=== PATIENT | female | born 1950 | race Caucasian/White ===

== ENCOUNTER 2025-04-25 11:53 | Outpatient (CLI) | payer MEDICARE, OTHER, SELFPAY ==
--- OUTSIDE RECORDS SUMMARY | 2025-03-06 12:30 | XMS_ITS | Encounter Summary ---
Author Organization [facility] ystem Address [address] [place] [address] Care Team Providers Care Microbiological Analyst Name Role Phone KimMari burnett Coral ARGUETA Primary Care Provider [phone] Reason for Referral * Consultation (Routine) - Authorized Specialty Diagnoses / Procedures Referred By Contsharon smiley Referred To Contact Neurology Diagnoses Occipital neuralgia of right side Procedures DC OFFICE/OUTPATIENT NEW MODERATE MDM 45 MINUTES Bryce Hodge PA-C [address] [facility] [address] [place] [address] Phone: tel: fax: Albert Mora MD [address] [facility] [address] [place] [address] Phone: tel: fax: Referral ID Status Reason Start Date Expiration Date Visits Requested Visits Authorized [id number] Authorized Specialty Services Required 03/06/2025 06/05/2026 1 1 Reason for Visit * Reason Comments Occipital neuralgia of right side Encounter Details Date Type Department Care Team (Late st Contact Info) Description 03/06/2025 12:30 PM EDT Office Visit [facility] [address] [facility] [address] [place] [address] Bryce Hodge PA-C [address] [facility] [address] [place] [address] Occipital neuralgia of right side (Primary Dx) Social History Tobacco Use Types Packs/Day Years Used Date Smoking Tobacco: Former Cigarettes 0.5 7 0 07/27/1992 - 07/27/1999 Passive Smoke Exposure: Past Smokeless Tobacco: Never Tobacco Cessation:Counseling Given: No Alcohol Use Standard Drinks/Week Comments Not Currently 0 (1 standard drink = 0.6 oz pur e alcohol) special occassions AUDIT-C Answer Date Recorded Frequency of Alcohol Consumption Never 11/17/2018 Average Number of Drinks Not on file 019 Frequency of Binge Drinking Not on file 10/26 PHQ-2 Answer Date Recorded Retired PHQ-9: Brief Depression Severity Measure Score 0 04/06/2023 PHQ-2 Answer Date Recorded Patient Health Questionnaire-2 Score 0 11/03/2024 Comments No Sex and Gender Information Value Date Recorded Sex Assigned at Female 11/02/2024 5:07 PM EDT Legal Sex Female 11:34 AM EDT Gender Identity Not on file Sexual Orientation Straight 11/02/2024 5: 07 PM EDT documented as of this encounter Last Filed Vital Signs Vital Sign Reading Time Taken Comments Blood Pressure - - Pulse - - Temperature 36.3 C (97.3 F) 03/06/2025 12:33 PM EDT Respiratory Rate - - Oxygen Saturation - - Inhaled Oxygen Concentration - - Weight 77.8 kg (171 lb 8 oz) 03/06/2025 12:33 PM EDT Height 154.9 cm (5' 1 ) 03/06/2025 12:33 PM EDT Body Mass Index 32.4 03/06/2025 12:33 PM EDT documented in this encounter Progress Notes * Bryce Hodge PA-C - 03/06/2025 12:30 PM EDT Patient: Emely Villanueva : 1950 Primary Care Provider: Mari Alvarez DO Chief Complaint: Occipital neuralgia History of Present Illness: Ms. Villanueva is a very pleasant 74-year-old female who presents to the office today to follow-up regarding her right-sided occipital neuralgia. At her last appointment with me in November, patient stated that her pain had significantly improved with massage/heat and using a TENS unit. She has continued todo these things and has been seeing physical therapy twice a week for the last few months. Patient came into our office today because she states that her occipital neuralgia has since worsened since I last saw her and that the TENS unit is no longer helping. She states that the massages atphysical therapy will help lessen her pain, but only for a few hours. She has tried several neck injections with Dr. Padron in the past without any relief. She has tried dry needling without any relief. She has been on gabapentin 200mg TID and states that it did help her pain, but gave her some GI upset so she stopped taking it. Patient reports that since I last saw her, she has resumed taking the gabapentin to try to help her pain. Her pain is all located in the same area as it has been, behind and above her right ear. She has allodynia of this area that has gotten acutely worse to the point where she can no longer lay on a pillow at night on her R side. Review of Systems Constitutional: Positive for activity change. Negative for appetite change, chills, diaphoresis, fatigue, fever and unexpected weight change. HENT: Negative for congestion, dental problem, drooling, ear discharge, ear pain, facial swelling, hearing loss, mouth sores, nosebleeds, postnasal drip, rhinorrhea, sinus pressure, sinus pain, sneezing, sore throat, tinnitus, trouble swallowing and voice change. Eyes: Negative for photophobia, pain, discharge, redness, itching and visual disturbance. Respiratory: Negative for apnea, cough, choking, chest tightness, shortness of breath, wheezing andstridor. Cardiovascular: Negative for chest pain, palpitations and leg swelling. Gastrointestinal: Negative for abdominal distention, abdominal pain, anal bleeding, blood in stool,constipation, diarrhea, nausea, rectal pain and vomiting. Endocrine: Negative for cold intolerance, heat intolerance, polydipsia, polyphagia and polyuria. Genitourinary: Negative for decreased urine volume, difficulty urinating, dyspareunia, dysuria, enuresis, flank pain, frequency, genital sores, hematuria, menstrual problem, pelvic pain, urgency, vaginal bleeding, vaginal discharge and vaginal pain. Musculoskeletal: Positive for neck pain and neck stiffness. Negative for arthralgias, back pain, gait problem, joint swelling and myalgias. Skin: Negative for color change, pallor, rash and wound. Allergic/Immunologic: Negative for environmental allergies, food allergies and immunocompromised state. Neurological: Positive for dizziness, light-headedness and headaches. Negative for tremors, seizures, syncope, facial asymmetry, speech difficulty, weakness and numbness. Hematological: Negative for adenopathy. Does not bruise/bleed easily. Psychiatric/Behavioral: Negative for agitation, behavioral problems, confusion, decreased concentration, dysphoric mood, hallucinations, self-injury, sleep disturbance and suicidal ideas. The patientis not nervous/anxious and is not hyperactive. Past Medical History: Past Medical History: Diagnosis Date Adenomatous polyp of transverse colon 02/13/2020 Arthritis due to age Cervical disc disorder Chronic pain disorder Claustrophobia HL (hearing loss) 15 yrs use hearing aids Hyperlipidemia Hypertension Injury of breast, left 07/19/2021 pt fell on lt breast was bruised and very sore for several months Neck pain Obesity Visual impairment wear glasses Family History: Family History Problem Relation Age of Onset Breast cancer Mother 50 Cancer Mother Pancreatic and breast cancer Hypertension Mother Breast cancer Paternal Aunt 58 Colon polyps Paternal Uncle COPD Sister Ovarian cancer Neg Hx Colon cancer Neg Hx Social History: reports that she quit smoking about 25 years ago. Her smoking use included cigarettes. She started smoking about 32 years ago. She has a 3.5 pack-year smoking history. She has been exposed to tobaccosmoke. She has never used smokeless tobacco. She reports that she does not currently use alcohol. She reports that she does not use drugs. SMOKING STATUS: Non-smoker Surgical History: Past Surgical History: Procedure Laterality Date COLONOSCOPY 02/27/2020 Dr. Billings HYSTERECTOMY JOINT REPLACEMENT KNEE SURGERY Left OOPHORECTOMY OTHER SURGICAL HISTORY ENT Surgery ROTATOR CUFF REPAIR Right SINUS SURGERY TRIGGER POINT INJECTION Allergies: Chocolate, Latex, Propoxyphene, Banana, Cyclobenzaprine, Pineapple, Sulfa antibiotics, Codeine, Diphenhydramine, Hydrocodone, Kiwi, Meperidine, and Penicillins Physical Exam: Vital Signs:Temp 97.3 ??F (36.3 ??C) (Infrared) Ht 154.9 cm (61 ) Wt 77.8 kg (171 lb 8 oz) BMI 32.40 kg/m?? BMI: Body mass index is 32.4 kg/m??. Patient sitting in chair during examination. present for appointment Vital signs were reviewed and documented in the chart Patient appeared in good neurologic function with normal comprehension fluent speech Patient is very tender to touch of the R side of her head, behind and above her ear down to her neck Muscle bulk and tone normal Biceps 5 out of 5 strength, bilaterally Triceps 5 out of 5 strength, bilaterally Hip flexion 5 out of 5 strength, bilaterally Dorsiflexion 5 out of 5 strength, bilaterally Plantarflexion 5 out of 5 strength, bilaterally Gait normal intact No clonus or hoffmans Medical Decision Making Data Review: Cervical MRI (01/04/24) shows a several osteophytes throughout cervical spine. Several central disc osteophyte complexes present, spinal cord is patent. Cervical flexion/extension xray (06/22/24) shows arthritis present throughout cervical spine. Normal cervical alignment, no evidence of instability. Diagnosis: -Occipital neuralgia, R side Treatment Options: At this time, the only other suggestion that I have for the patient is to try some Botox injections. I referred her to neurology to see if they have any other suggestions and long-term management. Both the patient and I were in agreement that she can follow-up with us as needed. I advised the patient to call our office if she has any new symptoms, questions, or concerns. I am always happy to see Ms. Kay reynoso. Diagnosis Plan 1. Occipital neuralgia of right side Ambulatory Referral to Neurology documented in this encounter Plan of Treatment Upcoming Encounters Date Type Department Care Team (Late st Contact Info) Description 05/05/2025 8:00 AM EDT Office Visit [facility] [address] [place] [address] Mari Alvarez DO [address] [place] [address] 06/13/2025 2:00 PM EST Office Visit [facility] NE[facility] [address] [place] [address] Albert Mora MD [address] [place] [address] Scheduled Referrals Name Type Priority Associated Diagnoses Order Schedule Ambulatory Referral to Neurology Outpatient Referral Routine Occipital neuralgia of right side Ordered: 03/06/2025 documented as of this encounter Visit Diagnoses Diagnosis Occipital neuralgia of right side- Primary documented in this encounter Additional Health Concerns Assessment Noted Time PHQ-2 Depression Total Score: 1 12/03/19 24 10:27 AM EDT documented as of this encounter Care Teams Microbiological Analyst Relationship Specialty Start Date End Date Mari Alvarez DO [address] [place] [address] PCP - General Family Medicine 11/17/18 documented as of this encounter
--- OUTSIDE RECORDS SUMMARY | 2025-04-25 11:55 | XMS_ITS | Encounter Summary ---
Author Organization [facility] yste Address [address] [place] [id number] Care Team Providers Care Retoucher Photoengraving Name Role Phone Mari Alvarez DO Primary Care Provider Encounter Details Date Type Department Care Team (Latest Contact Info) Description 03/06/2025 Travel Social History Tobacco Use Types Packs/Day Years Used Date Smoking Tobacco: Former Cigarettes 0.5 7 0 07/27/1992 - 07/27/1999 Passive Smoke Exposure: Past Smokeless Tobacco: Never Alcohol Use Standard Drinks/Week Comments Not Currently [...] PM EDT documented as of this encounter Plan of Treatment Upcoming Encounters Date Type Department Care Team (Late st Contact Info) Description 05/05/2025 8:00 AM EDT Office Visit [facility] [address] [place] [phone] Mari Alvarez DO [address] [place] [place] [address] 06/13/2025 2:00 PM EST Office Visit [facility] NEUR[facility] [address] [facility] [address] [place] [phone] Albert Mora MD [address] [facility] [address] [place] [address] documented as of this encounter Visit Diagnoses Not on filedocumented in this encounter Additional Health Concerns Assessment Noted Time PHQ-2 Depression Total Score: 1 12/03/19 24 10:27 AM EDT documented as of this encounter Care Teams Retoucher Photoengraving Relationship Specialty Start Date End Date Mari Alvarez DO [address] [place] [place] [address] PCP - General Family Medicine 11/17/18 documented as of this encounter
--- OUTSIDE RECORDS SUMMARY | 2025-04-25 11:55 | XMS_ITS | Encounter Summary ---
Author Organization [facility] ystem Address [address] [place] [address] Care Team Providers Care Skiving Machine Operator Name Role Phone KimMari burnett Coral ARGUETA Primary Care Provider Reason for Visit * Reason Onset Date Comments Med Refill 03/31/2025 Encounter Details Date Type Department Care Team (Late st Contact Info) Description 03/31/2025 Refill [facility]UR[facility] [address] [place] [phone] Bryce Hodge PA-C [address] [facility] [address] [place] [address] Cervicalgia Social History Tobacco Use Types Packs/Day Years [...] [facility] [address] [place] [address] Mari Alvarez DO [address] [place], [place] [phone] 06/13/2025 2:00 PM EST Office Visit [facility] NEUROLOGY [address] [facility] [address] [place] [phone] Albert Mora MD [address] [facility] [address] [place] [address] documented as of this encounter Visit Diagnoses Diagnosis Cervicalgia documented in this encounter Additional Health Concerns Assessment Noted Time PHQ-2 Depression Total Score: 1 12/03/19 24 10:27 AM EDT documented as of this encounter Care Teams Skiving Machine Operator Relationship Specialty Start Date End Date Mari Alvarez DO [address] [place] [address] PCP - General Family Medicine 11/17/18 documented as of this encounter
--- OUTSIDE RECORDS SUMMARY | 2025-04-25 11:55 | XMS_ITS | Encounter Summary ---
Author Organization [facility] ystem Address [address] [place] [phone] Care Team Providers Care Principal Process Engineer Name Role Phone Mari Alvarez DO Primary Care Provider Reason for Visit * Reason Comments Med Refill Encounter Details Date Type Department Care Team (Late st Contact Info) Description 03/24/2025 Refill [facility] [address] [facility] [place] [phone] Mari Alvarez DO [address] [place] [address] Hyperlipidemia, unspecified hyperlipidemia type; Essential hypertension; Hypothyroidism, unspecified type Social History Tobacco Use Types Packs/Day Years [...] Description 05/05/2025 8:00 AM EDT Office Visit [facility] [address] [place] [address] Mari Alvarez DO [address] [place], [place] [id number] 06/13/2025 2:00 PM EST Office Visit [facility] NEUR[facility] [address] [place] [phone] Albert Mora MD [address] [facility] [address] [place] [address] documented as of this encounter Visit Diagnoses Diagnosis Hyperlipidemia, unspecified hyperlipidemia type Essential hypertension Unspecified essential hypertension Hypothyroidism, unspecified type documented in this encounter Additional Health Concerns Assessment Noted Time PHQ-2 Depression Total Score: 1 12/03/19 24 10:27 AM EDT documented as of this encounter Care Teams Principal Process Engineer Relationship Specialty Start Date End Date Mari Alvarez DO [address] [place] [address] PCP - General Family Medicine 11/17/18 documented as of this encounter
--- OUTSIDE RECORDS SUMMARY | 2025-04-25 11:55 | XMS_ITS | Encounter Summary ---
Author Organization [facility] ystem Address [address] [place] [id number] Care Team Providers Care Slubber Hand Name Role Phone KimMari burnett Coral ARGUETA Primary Care Provider Reason for Visit * Reason Onset Date Comments Med Refill 03/30/2025 Encounter Details Date Type Department Care Team (Late st Contact Info) Description 03/30/2025 Refill [facility] [address] [facility] [address] [place] [address] Daisy Proctor PA-C [address] [facility] [address] [place] [address] Cervicalgia Social History Tobacco Use Types Packs/Day [...] PM EDT documented as of this encounter Miscellaneous Notes * Telephone Encounter - Jerome Gleason RN - 03/30/2025 11:20 AM EDT Provider: Naveen Surgery/Procedure: CHRISTY Surgery/Procedure Date: Last visit: 03/06/25 Next visit: NA Reason for call: Refill request for gabapentin. Casey: 1 01/25/2025 [id number] Gabapentin 100MG Crou[place], [facility] 90.00 15 03 [place] Refill 11/10/2024 CAPS [facility] 1 11/10/2024 [id number] Gabapentin 100MG Croucher, [facility] 90.00 15 03 [place] New 11/10/2024 CAPS [facility] 1 09/08/2024 [id number] Gabapentin 100MG Mari Alvarez [facility] 90.00 30 03 [place] Refill 03/14/2024 CAPS [facility] 1 06/08/2024 [id number] Diazepam 10MG Eliud Estrella [facility] 3.00 1 01 [place] New 06/08/2024 TABS [facility] * Telephone Encounter - Dimple Curiel RegSched Rep - 03/30/2025 11:15 AM EDT Caller: SHYANNE ROB Relationship: SELF Best call back number: [phone] Requested Prescriptions: Requested Prescriptions Pending Prescriptions Disp Refills gabapentin (NEURONTIN) 100 MG capsule 90 capsule 2 Sig: Take 2 capsules by mouth 3 (Three) Times a Day. Indications: occipital neuralgia Pharmacy where request should be sent: [facility] Last office visit with prescribing clinician: 03-06-25EUGENIE DUKE Next office visit with prescribing clinician: Visit date not found Additional details provided by patient: SHE HAS 10 PILLS LEFT. THESE ARE GETTING HER THROUGH THE DAY, HELPING HER MANAGE HER PAIN. Does the patient have less than a 3 day supply: [x] Yes [] No Ilene Thorpe Rep 03/30/25 11:16 EDT documented in this encounter Plan of Treatment Upcoming Encounters Date Type Department Care Team (Late st Contact Info) Description 05/05/2025 8:00 AM EDT Office Visit [facility] [address] [place] [address] Mari Alvarez DO [address] [place] [address] 06/13/2025 2:00 PM EST Office Visit [facility] NEUR[facility] [address] [facility] [address] [place] [address] Albert Mora MD [address] [facility] [address] [place] [address] documented as of this encounter Visit Diagnoses Diagnosis Cervicalgia documented in this encounter Additional Health Concerns Assessment Noted Time PHQ-2 Depression Total Score: 1 12/03/19 24 10:27 AM EDT documented as of this encounter Care Teams Slubber Hand Relationship Specialty Start Date End Date Mari Alvarez DO [address] [place] [address] PCP - General Family Medicine 11/17/18 documented as of this encounter
--- OUTSIDE RECORDS SUMMARY | 2025-04-25 11:55 | XMS_ITS | Encounter Summary ---
Author Organization [facility] ystem Address [address] [place] [address] Care Team Providers Care Vocational Placement Specialist Name Role Phone KimMari burnett Coral ARGUETA Primary Care Provider Reason for Visit * Reason Onset Date Comments BRYCE DUKE-NEUROLOGY 03/30/2025 Encounter Details Date Type Department Care Team (Late st Contact Info) Description 03/30/[address] [facility] NEUR[facility]ERY [address] [place] [phone] Bryce Duke PA-C [address] [facility] [address] [place] [address] BRYCE DUKE-NEUROLOGY Social History Tobacco Use Types Packs/Day Years [...] encounter Miscellaneous Notes * Telephone Encounter - Dimple Curiel RegSched Rep - 03/30/2025 11:13 AM EDT Provider: BRYCE DUKE Caller: SHYANNE GONZALESLES Relationship to Patient: SELF Phone Number: [phone] Reason for Call: PATIENT STATES SHE CAN'T GET IN WITH NEUROLOGY UNTIL MAY. SHE WONDERED IF THERE WOULD BE ANYONE ELSE THAT SHE COULD GET IN QUICKER THAT SHE COULD BE REFERRED TO? PLEASE ADVISE. SHE STATES SHE IS EXPERIENCING A LOT OF PAIN. When was the patient last seen: 03-06-25 documented in this encounter Plan of Treatment Upcoming Encounters Date Type Department Care Team (Late st Contact Info) Description 05/05/2025 8:00 AM EDT Office Visit [facility] [address] [place] [address] Mari Alvarez DO [address] [place] [address] 06/13/2025 2:00 PM EST Office Visit [facility] [address] [facility] [address] [place] [address] Albert Mora MD [address] [place] [address] documented as of this encounter Visit Diagnoses Not on filedocumented in this encounter Additional Health Concerns Assessment Noted Time PHQ-2 Depression Total Score: 1 12/03/19 24 10:27 AM EDT documented as of this encounter Care Teams Vocational Placement Specialist Relationship Specialty Start Date End Date Mari Alvarez DO [address] [place] [address] PCP - General Family Medicine 11/17/18 documented as of this encounter
--- OUTSIDE RECORDS SUMMARY | 2025-04-25 11:55 | XMS_ITS | Clinical Summary ---
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 Role Phone Cathy MASCORRO, Mio Nice [phone] [ ] Conditions or Problems Problem Name Problem Code Onset Date Status Entry Date Provider Comment Standard Description Annotate Health maintenance 42785827 (SNOMED CT) 01/09 Active 01/09 Mio Morgan MD History AND physical examination Knee pain, left 34481575 (SNOMED CT) Active Judith W Knee pain Elevated LFTs 280491411 (SNOMED CT) Active Radha wells APRN Liver function tests outside reference range Leukopenia(doc ument type/cause) 693838692 (SNOMED CT) 03/01 Active 03/01 Gabriela Hebert Blood eosinophil number below reference range Benign Essential Hypertension 13481051 (SNOMED CT) Active Gabriela Hebert Benign hypertension Elevated liver function test 676952317 (SNOMED CT) 03/01 Active 03/01 Judith W Liver function tests outside reference range Elevated LFTs 515472219 (SNOMED CT) 03/01 Inactive 03/01 Mio Morgan MD Liver function tests outside reference range Leukopenia, mild 40674076 (SNOMED CT) 03/01 Inactive 03/01 Mio Morgan MD Leukopenia Other obesity due to excess calories 571527943 (SNOMED CT) 01/31 Active 01/31 Federica M Simple obesity Acquired absence of left knee joint Z89.522 (ICD-10-CM ) 01/24 Active 01/24 Gabriela Hebert Acquired absence of left knee Knee, left, subsequent encounter, infection/infl ammatory reaction due to internal joint prosthesis T84.54xD (ICD-10-CM ) 01/24 Active 01/24 Judith W Infection and inflammatory reaction due to internal left knee prosthesis, subsequent encounter P Acnes infection B96.89 (ICD-10-CM ) 01/24 Active 01/24 Judith W Other specified bacterial agents as the cause of diseases classified elsewhere Medications Medication Instructions Start Date Stop Date Generic Name NDC Provider FLUCONAZOLE 200 MG TABS Take one (1) tablet by mouth once daily FLUCONAZOLE 73072968741 Hero Hinojosa MD DOXYCYCLINE MONOHYDRATE 100 MG TABS one po bid DOXYCYCLINE MONOHYDRATE 09384287423 Mio Morgan MD DOXYCYCLINE HYCLATE 100 MG CAPS one po bid DOXYCYCLINE HYCLATE 72930166294 Mio Morgan MD DOXYCYCLINE HYCLATE 100 MG CAPS one po bid DOXYCYCLINE HYCLATE 20193936302 Mio Morgan MD DOXYCYCLINE HYCLATE 100 MG CAPS one po bid DOXYCYCLINE HYCLATE 36680978934 Radha Pruett APRN CEFTRIAXONE SODIUM 2 GM SOLR Rocephin 2gm IV q24hrs- INPAT CEFTRIAXONE SODIUM 47343826005 Clementine Zamorano RN FLUCONAZOLE 200 MG TABS Take one (1) tablet by mouth once daily FLUCONAZOLE 20102589234 Hero Hinojosa MD DIFLUCAN 150 MG TABS take one tablet daily FLUCONAZOLE 20190370611 Keith Morgan MD CEFTRIAXONE SODIUM 2 GM SOLR Rocephin 2gm IV q24hrs- INPAT CEFTRIAXONE SODIUM 52343218765 Rema Price CEFTRIAXONE SODIUM 2 GM SOLR 2gm IV Q24hrs/ INPAT CEFTRIAXONE SODIUM 55580160476 Rachel Mendiola RN DIFLUCAN 150 MG TABS take one tablet daily FLUCONAZOLE 68563958183 Keith Morgan MD CEFTRIAXONE SODIUM 2 GM SOLR 2gm IV Q24hrs/ INPAT CEFTRIAXONE SODIUM 65746361092 Rachel Mendiola RN VITAMIN D3 125 MCG (5000 UT) CAPS Take one by mouth daily CHOLECALCIFEROL 02687505693 Maricruz Peraltax SIMVASTATIN 20 MG TABS Take one by mouth daily SIMVASTATIN 27231107806 Maricruz Peraltax PRESERVISION AREDS 2 CAPS by mouth twice a day MULTIPLE VITAMINS-MINERALS 96823073651 Maricruz Cardenasdox PERCOCET 5-325 MG TABS Q4H/PRN OXYCODONE-ACETAMI NOPHEN 35389470606 Maricruz Cardenasdox NEURONTIN 300 MG CAPS Take one by mouth daily GABAPENTIN 29269705328 Maricruz Peraltax MS CONTIN 15 MG CR-TABS by mouth twice a day MORPHINE SULFATE 13097105749 Maricruz Cardenasdox MAXZIDE-25 37.5-25 MG ORAL TABLET Take one by mouth daily TRIAMTERENE-HCTZ 35381787483 Maricruz Cardenasdox LISINOPRIL 10 MG TABS Take one by mouth daily LISINOPRIL 73145444990 Maricruz Cardenasdox FERROUS GLUCONATE 324 (37.5 Fe) MG TABS Take one by mouth daily FERROUS GLUCONATE 70603418944 Maricruz Cardenasdox ELIQUIS 2.5 MG TABS by mouth twice a day APIXABAN 86465577981 Maricruz Cardenasdox COLACE 100 MG CAPS by mouth twice a day DOCUSATE SODIUM 26769424094 Maricruz Cardenasdox CITALOPRAM HYDROBROMIDE 20 MG TABS Take one by mouth daily CITALOPRAM HYDROBROMIDE 44435147420 Maricruz Wong ADULT ASPIRIN REGIMEN 81 MG ORAL TABLET DELAYED RELEASE Take one by mouth daily ASPIRIN 44672823523 Maricruz Wong Medications Administered No information available. Allergies, Adverse Reactions, Alerts Allergy Name Reaction Description Start Date Severity Statu s Provider HYDROCODONE-ACETAMINOP HEN Moderate Active Maricruz Wong DARVON Moderate Active Maricruz M addox CODEINE SULFATE Moderate Active Bet acosta Wong BENADRYL ALLERGY Moderate Active Be thany Wong DEMEROL Moderate Active Yoanna Latosha ow [facility] LATEX GLOVES SMALL Moderate Active Yoanna Dassow PENICILLIN G POT IN DEXTROSE Moderate Active Maricruz Wong Results Date Name Value Unit Range Flag Description External Other: Patient eusebio sandoval update - Email Push, [facility] [place] ... PAT E-MAIL sherri @[email or web address] patient's e-mail address External Other: Patient eusebio sandoval update - [place]Status, [facility] [place] PATPORTALPIN Linked This eliza l be used to establish a PIN number for patients to register in the Patient Portal. Lab Report: CLOSTRIDIUM DIFF ICILE TOXIN, PCR C DIFFIC TOX Not Detected Not Detect Clostridioides difficile toxin A+B [Presence] in Stool by Immunoassay Lab Report: C-REACTIVE PROTE IN CRP 0.39 mg/dL 0.00-0.50 C reactive protein [Mass/volume] in Serum or Plasma Lab Report: COMPREHENSIVE ME TABOLIC PANEL ANIONGAP 10.0 mmol/L 5.0-15.0 anion gap, serum BUN/CREAT 23.2 7.0-25.0 Urea nitrogen/Creatinine [Mass Ratio] in Serum or Plasma [id number]-GE-[id number] 1.8 g/dL GE use only - for LinkLogic import when terms are not otherwise specified GFRC 84 mL/min/1 .73m2 >60 Glomerular Filtration Rate Calculation BILI TOTAL 0.3 mg/dL 0.2-1.2 Bilirubin. total [Mass/volume] in Serum or Plasma ALK PHOS 55 U/L 39-117 Alkaline darrian sphatase [Enzymatic activity/volume] in Blood SGOT (AST) 20 U/L 1-32 Aspartate aminotransferase [Enzymatic activity/volume] in Serum or Plasma SGPT (ALT) 13 U/L 1-33 Alanine aminotransferase [Enzymatic activity/volume] in Serum or Plasma ALBUMIN 4.10 g/dL 3.50-5.20 Albumin [Mass/volume] in Serum or Plasma PROTEIN, TOT 6.4 g/dL 6.0-8.5 Protein [Mass/volume] in Serum or Plasma CALCIUM 9.0 mg/dL 8.6-10.5 Calcium [Moles/volume] in Serum or Plasma CO2 28.0 mmol/L 22.0-29.0 Carbon diox sameer, total [Moles/volume] in Venous blood CHLORIDE 107 mmol/L 98-107 Chloride [Moles/volume] in Serum or Plasma POTASSIUM 4.2 mmol/L 3.5-5.2 Potassium [Moles/volume] in Serum or Plasma SODIUM 145 mmol/L 136-145 Sodium [Moles/volume] in Serum or Plasma CREATININE 0.69 mg/dL 0.57-1.00 Creatini ne [Mass/volume] in Serum or Plasma BUN 16 mg/dL 8-23 Urea nitrogen [Mass/volume] in Serum or Plasma GLUCOSE SER 94 mg/dL 65-99 Glucose [Mass/volume] in Serum or Plasma Lab Report: CBC WITH AUTO DI FFERENTIAL IMMATUREGRAN 0.01 10*3/MM3 0.00-0.05 Immature granulocytes [#/volume] in Blood BASO# 0.06 10*3/mm3 0.00-0.20 Basophils [#/vol ume] in Blood EOS ABSLT 0.21 10*3/uL 0.00-0.40 Eosinophi ls [#/volume] in Blood MONOSCT AUTO 0.42 10*3/uL 0.10-0.90 Monocy daksha [#/volume] in Blood by Automated count LYMPHCT AUTO 0.93 10*3/mm3 0.70-3.10 Lymph ocytes [#/volume] in Blood by Automated count ABS NEUTROPH 2.83 10*3/uL 1.70-7.00 Neutro phils [#/volume] in Blood IMM GRANU % 0.2 % 0.0-0.5 Immature granulocytes/100 leukocytes in Blood % EOS AUTO 4.7 % 0.3-6.2 Eosinophil s/100 leukocytes in Blood by Automated count MONOCYTE % 9.4 % 5.0-12.0 Monocytes /100 leukocytes in Blood by Automated count LYMPHOCY BF 20.9 % 19.6-45.3 lymphoc ytes as percent of body fluid leukocytes NEUTROP BF 63.5 % 42.7-76.0 Neutroph ils/100 leukocytes in Body fluid PLATELETS 167 10*3/mm3 140-450 Platelets [#/volume] in Blood by Automated count RDW 12.6 % 12.3-15.4 Erythrocyte distribution width [Ratio] by Automated count MCHC 32.8 G/DL 31.5-35.7 MCHC [Mass/ volume] by Automated count MCH 29.6 pg 26.6-33.0 MCH [Entiti c mass] by Automated count MCV 90.4 fL 79.0-97.0 MCV [Entiti c volume] by Automated count HCT 40.6 % 34.0-46.6 Hematocrit [Volume Fraction] of Blood by Automated count HGB 13.3 g/dL 12.0-15.9 Hemoglobin [Mass/volume] in Blood RBC 4.49 10*6/mm3 3.77-5.28 Erythrocyt es [#/volume] in Blood by Automated count WBC 4.46 10*3/mm3 3.40-10.80 Leukocyte s [#/volume] in Blood by Automated count Lab Report: SEDIMENTATION RA TE ESR 5 mm/h 0-30 Erythrocyte sedimentation rate by Westergren method Office Visit: Room 1 MEDS REVIEW Done Documenta tion of current medications (procedure) 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 Dietary management education, guidance, and counseling (procedure) SMOK STATUS Former smoker Tobacco smoking status Plan of Care Type Date Detail Pending order STAT Labs Pending order CMP Pending order CBC with Differe ntial Pending order C- reactive prot ein Pending order Sedimentation Ra te (ESR) Pending order STAT Labs Pending order STAT Labs Pending order STAT Labs Pending order CMP Pending order CBC with Differe ntial Pending order C- reactive prot ein Pending order Sedimentation Ra te (ESR) Pending order PICC Removal Pending order STAT Labs Pending order Ceftriaxone Pending order STAT Labs Pending order Continue IV anti biotics Pending order CMP Pending order STAT Labs Pending order CBC with Differe ntial Pending order Continue IV anti biotics Pending order Weekly Labs (Con tinue) Pending order Weekly PICC Line Care Pending order Continue IV anti biotics Pending order STAT Labs Pending order Weekly Labs (Con tinue) Pending order Weekly PICC Line Care Pending order Continue IV anti biotics Pending order Weekly Labs (Con tinue) Pending order Weekly PICC Line Care Pending order C-Diff PCR Pending order Continue IV anti biotics Pending order Continue IV anti biotics Pending order Weekly Labs (Con tinue) Pending order Weekly PICC Line Care Pending order Stat Weekly Labs Pending order Ceftriaxone Patient education Ceftriaxone%20 (Injection)%20(Injectable) Patient education WEIGHT%20MANAG EMENT Patient education WEIGHT%20MANAG EMENT Patient education WEIGHT%20MANAG EMENT Patient education WEIGHT%20MANAG EMENT Procedures Code Procedure Name Date Entry Date CPT-sl STAT Labs CPT-79031 CMP [id number] CBC with Differential 2019 CPT-33325 C- reactive protein CPT-24267 Sedimentation Rate (ESR) 202 CPT-sl STAT Labs CPT-sl STAT Labs CPT-sl STAT Labs CPT-69110 [facility] [id number] CBC with Differential 2018 CPT-93798 C- reactive protein CPT-58985 Sedimentation Rate (ESR) 201 04/05/29 CPT-PICREM PICC Removal CPT-sl STAT Labs CPT-J0696 Ceftriaxone CPT-sl STAT Labs CPT-ca Continue IV antibiotics 2018 CPT-51738 CMP CPT-sl STAT Labs [id number] CBC with Differential 2018 CPT-ca Continue IV antibiotics 2018 CPT-cwl Weekly Labs (Continue) 02/22 CPT-wpc Weekly PICC Line Care 02/22 CPT-ca Continue IV antibiotics 2018 CPT-sl STAT Labs CPT-cwl Weekly Labs (Continue) 02/15 CPT-wpc Weekly PICC Line Care 02/15 CPT-ca Continue IV antibiotics 2018 CPT-cwl Weekly Labs (Continue) 02/08 CPT-wpc Weekly PICC Line Care 02/08 CPT-cdpcr C-Diff PCR CPT-ca Continue IV antibiotics 2018 CPT-ca Continue IV antibiotics 2018 CPT-cwl Weekly Labs (Continue) 01/25 CPT-wpc Weekly PICC Line Care 01/25 CPT- stat weekly Stat Weekly Labs CPT-J0696 Ceftriaxone Vital Signs Date Name Value Unit Description BMI (Body Mass Index) 32.19 kg/m2 Bod y Mass Index (Ratio) Body Temperature 97.0 [degF] temperat ure E&M BP Diastolic 66 mm[Hg] blood pressu re, diastolic BP Systolic 104 mm[Hg] blood pressur e, systolic Heart Rate 72 /min pulse rate Respiratory Rate 14 /min respirat ory rate E&M Weight Measured 176.0 [lb_av] weight E& M Weight Measured 176.0 [lb_av] weight E& M BP Diastolic 64 mm[Hg] blood pressu re, diastolic, supine BP Systolic 112 mm[Hg] blood pressur e, systolic, supine E&M Height 62 [in_us] height E&M Immunizations No information available. Advance Directives Directive Description Start Date POWER OF SERVICES MANAGER LIVING WILL, NOT ON FILE
--- OUTSIDE RECORDS SUMMARY | 2025-04-25 11:56 | XMS_ITS | Encounter Summary ---
Author Organization [facility] ([place], [place], [place], [place]) Address [address] [place] [address] Care Team Providers Care Anthropometrist Name Role Phone Unavailable Primary Care Provider Unavailabl e Encounter Details Date Type Department Care Team (Late st Contact Info) Description 01/21/2019 Transcribed Document [facility] Family Medicine [facility] [place] [address] ProviderLuis Armando MD [facility] [place] [address] Social History Tobacco Use Types Packs/Day Years Used Date Smoking Tobacco: Never Assessed Comments Unknown Sex and Gender Information Value Date Recorded Sex Assigned at Not on file Legal Sex Female 7:30 PM CDT Gender Identity Not on file Sexual Orientation Not on file documented as of this encounter Miscellaneous Notes * Cerner Conversion Note - Luis Armando ProviderMD - 01/21/2019 2:35 PM CDT Evaluation, Physical Therapy Entered On: 01/22/2019 11:55 EDT Performed On: 01/22/2019 10:10 EDT by SRIKANTH HUGHES, PT General Information, PT Visit Type, PT : Initial evaluation Patient Orders : Order Date Order Ordering 01/21/2019 14:35 PT Evaluation and Treatment Ordered By: CHANEL DYSON MD-ORT 01/21/2019 14:35 PT Treatment Instructions Ordered By: CHANEL DYSON MD-ORT 01/21/2019 14:35 PT Treatment Instructions Ordered By: CHANEL DYSON MD-ORT 01/21/2019 14:35 PT Treatment Instructions Ordered By: CHANEL DYSON MD-ORT 01/21/2019 14:35 PT Treatment Instructions Ordered By: CHANEL DYSON MD-ORT Active Diagnoses : 01/22/2019 00:00 Infection and inflammatory reaction due to other internal joint prosthesis, initial encounter Therapy Diagnosis, PT : impaired mobility s/p knee surgery Onset of Problem, PT : 01/21/2019 EDT Admission Date : 01/21/2019 05:45 Co-treated by, PT : Occupational Therapist Personal Devices : Personal Devices Dentures, partial plate, Glasses Assistive Devices : Assistive Devices No Devices Recorded Precautions in Place : Fall prevention measures, Other: TDWB LLE; KI on when OOB General Information Comment, PT : pt is 68 year old female adm with infected left TKA. on January 21 pt had explantation of left total knee arthroplaty, I&D and placement of absorbable antibiotic cement bead left knee. pt seen bedside room 660 IV, SCDS 02 at 2. 5 liters Spouse and son present . pt TDWB and no ROM left knee . KI in place SRIKANTH HUGHES, PT - 01/22/2019 11:35 EDT General Status Patient Received Status : Supine in bed, HOB elevated Treatment Start Time : 01/22/2019 9:55 EDT Patient Left Status : Up in chair, RN/PCT informed, Family/Visitors at bedside, Communication board completed, All needs met and within reach RN/PCT Informed Comment : pt ok for PTx per Emily ZAMUDIO Treatment End Time : 01/22/2019 10:10 EDT Treatment Time : 15 Minute(s) SRIKANTH HUGHES, PT - 01/22/2019 11:35 EDT History and Environment Living Situation, Therapy : Home Patient Lives With : Adult Child/Children, Spouse Persons Assisting Patient at Home : Spouse Professional Skilled Services : None Persons Providing Information : Patient, Spouse Home Equipment Therapy, PT : Other: RWx [facility] cane and crutches Home Setup : One story Stairs : Yes Stair Location(s) : Outside Outside Stairs, Number of Steps : 1 SRIKANTH HUGHES, PT - 01/22/2019 11:35 EDT Prior Level of Function PT GRID Prior LOF Ambulation, Household : Independent Prior LOF Ambulation, Community : Independent Prior LOF Bed Mobility : Independent Prior LOF Toileting : Independent Prior LOF Transfer : Independent SRIKANTH HUGHES, PT - 01/22/2019 11:35 EDT Prior LOF Assist with ADL Comment : independent dressing and bathing SRIKANTH HUGHES, PT - 01/22/2019 11:35 EDT Upper Extremity Upper Extremity Dominance : Right Right UE Active ROM : WFL Right UE Strength : WFL Left UE Active ROM : WFL Left UE Strength : WFL SRIKANTH HUGHES, PT - 01/22/2019 11:35 EDT Lower Extremity RLE Active ROM : WFL Right LE Strength : WFL LLE Active ROM : Impaired Left LE Strength : Impaired Lower Extremity Comment : due to left knee surgery and KI in place. assist t o lift left LE SRIKANTH HUGHES, PT - 01/22/2019 11:35 EDT Functional Mobility Mobility Grid Supine to Sit : Rehab Minimal assistance Sit to Stand : Rehab Minimal assistance (Comment: of 2 [SRIKANTH HUGHES, PT - 01/22/2019 11:35 EDT] ) Bed to Chair : Rehab Minimal assistance (Comment: of 2 step turn TDWB on left leg KI in place [SRIKANTH HUGHES, PT - 01/22/2019 11:35 EDT] ) Stand to Sit : Rehab Minimal assistance (Comment: of 2 and verbal cues [SRIKANTH HUGHES, PT - 01/22/2019 11:35 EDT] ) SRIKANTH HUGHES, PT - 01/22/2019 11:35 EDT Sit to Stand Device : Belt, gait, Walker, front wheel Bed to Chair Device : Belt, gait, Walker, front wheel Stand to Sit Device : Belt, gait, Walker, front wheel SRIKANTH HUGHES, PT - 01/22/2019 11:35 EDT Gait Training/Assessment, PT Gait Assistance Level : Unable to assess/activity not appropriate Walking Distance : step turn with RWx and min assist of 2 bed to chair. TDWB o n left leg Ambulatory Devices : Gait belt, Walker, front wheel SRIKANTH HUGHES, PT - 01/22/2019 11:35 EDT Neurological/Sensory Overall Sensory Response : Intact SRIKANTH HUGHES, PT - 01/22/2019 11:35 EDT Cognition Assessment, PT Orientation : Oriented x 4 Follows Basic Command Assessment : SRIKANTH Cali, PT - 01/22/2019 11:35 EDT Edu Topics Physical Therapy Education Grid Bed Mobility Training : Needs further teaching, Returns demonstration Gait Training : Needs further teaching Therapeutic Exercises : Needs further teaching Transfer Training : Needs further teaching, Returns demonstration SRIKANTH HUGHES, PT - 01/22/2019 11:35 EDT Indication Assesessment, PT Physical Therapy Indicated : Yes PT Problem List : Impaired, activities daily living, Impaired, bed mobility, Impaired, endurance tolerance, Impaired, gait, Impaired, standing balance, Impaired, strength, Impaired, transfers, Pain limiting function Potential Barriers To Therapy : Fatigue, Pain, Other: TDWB on left leg SRIKANTH HUGHES, PT - 01/22/2019 11:35 EDT Plan of Care, PT PT Tx Plan/Goals Established w Patient : Yes PT Frequency Rehab : Daily, twice (bid) PT Duration Rehab : Fourteen days PT Treatments Planned : Balance training, Bed mobility training, Gait training, Therapeutic exercises, Transfer training, Wheelchair management training SRIKANTH HUGHES, PT - 01/22/2019 11:35 EDT Short Term Goals Mobility/Bed Mobility STG PT Grid Goal #1 Goal #2 Activity : Supine to sit Sit to stand Assist : Supervision or set-up Assist, minimal Equipment : Belt, gait, Walker, front wheel Date to Meet : 01/29/2019 EDT 01/29/2019 EDT Goal Status : Initial goal Initial goal Comment : TDWB on left leg, SEDRICK SRIKANTH HUGHES, PT - 01/22/2019 11:35 EDT SRIKANTH HUGHES, PT - 01/22/2019 11:35 EDT Ambulation STG Grid Goal #1 Device : Walker, front wheel Distance : 20 feet Assist : Assist, minimal Date to Meet : 01/29/2019 EDT Goal Status : Intial Goal Comment : of 2/ TDWB on left and KI SRIKANTH HUGHES, PT - 01/22/2019 11:35 EDT Classifier Operator Goals Mobility/Bed Mobility LTG PT Grid Goal #1 Goal #2 Activity : Supine to sit Sit to stand Assist : Independent, modified Supervision or set-up Equipment : Belt, gait, Walker, front wheel Date to Meet : 02/05/2019 EDT 02/05/2019 EDT Goal Status : Intial Goal Intial Goal Comment : TDWB on left LE/KI SRIKANTH HUGHES, PT - 01/22/2019 11:35 EDT SRIKANTH HUGHES, PT - 01/22/2019 11:35 EDT Ambulation LTG Grid Goal #1 Device : Walker, front wheel Distance : 50 feet Assist : Assist, minimal Date to Meet : 02/05/2019 EDT Goal Status : Intial Goal Comment : TDWB on left LEg /KI SRIKANTH HUGHES, PT - 01/22/2019 11:35 EDT Treatment Note Subjective Comment : states name and Patient's Response to Treatment : increased pain in left leg with movement Assessment : impaired mobility due to increased pain in left leg with movement but willing to participate in therapy. pt needs PTx to increase general mobility Plan for Treatment : cont POC SRIKANTH HUGHES, PT - 01/22/2019 11:35 EDT Anticipated Discharge Needs, OT/PT Anticipated Discharge to : Home, with family care, Home, with home health (Comment: S1 [SRIKANTH HUGHES, PT - 01/22/2019 11:35 EDT] ) Recommend Continued Therapy at Discharge : Yes SRIKANTH HUGHES, PT - 01/22/2019 11:[address] [facility] PT Charges PT Eval Moderate Complexity : 1 SRIKANTH HUGHES, PT - 01/22/2019 11:35 EDT documented in this encounter Plan of Treatment Not on file documented as of this encounter Visit Diagnoses Not on filedocumented in this encounter
--- OUTSIDE RECORDS SUMMARY | 2025-04-25 11:56 | XMS_ITS | Encounter Summary ---
Author Organization [employer] ([place], [place], [place], [place]) Address [address] [place] [address] Care Team Providers Care Licensed Mental Health Counselor Name Role Phone Unavailable Primary Care Provider Unavailabl e Encounter Details Date Type Department Care Team (Late st Contact Info) Description 01/21/2019 Transcribed Document [facility] [place] [facility] [place] [address] ProviderLuis Armando MD [facility] [place], [place] [id number] Social History Tobacco Use Types Packs/Day Years Used Date Smoking Tobacco: Never Assessed Comments Unknown Sex and Gender Information Value Date Recorded Sex Assigned at Not on file Legal Sex Female 7:30 PM CDT Gender Identity Not on file Sexual Orientation Not on file documented as of this encounter Miscellaneous Notes * Cerner Conversion Note - Luis Armando ProviderMD - 01/21/2019 8:21 PM CDT Patient: EMELY ROB Age: 68 years Sex: Female : 1950 Associated Diagnoses: None Author: MJ GALLARDO MD-INF Infectious Disease Consul/Initial Hospital visit CC: 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 She underwent a left total knee arthroplasty on 02/02/17. She did well for a sustained period of time until the last few months when she developed progressively worsening left knee pain, swelling, and warmth. She underwent aspiration of her knee with cultures reportedly growing P acnes. She denies fever, chills, and sweats. 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 Her mother had pancreatic cancer. Her has diabetes mellitus Social history: She is and resides in [place]. 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 She smoked in the remote past. She drinks alcohol occasionally. Review of systems: Gen.???she denies fever, chills, sweats HEENT???she denies headache, earache, sore throat Respiratory???she denies cough, sputum production, dyspnea Cardiovascular???she denies myocardial infarction. She did have a history of cardiac ablation Gastrointestinal???she denies nausea, vomiting, diarrhea Musculoskeletal???she has a history of chronic arthritis Neurologic???there is no history of stroke or seizures Endocrine???there is no history of diabetes mellitus Objective: Vitals Signs (last 24 hrs) Last Charted Minimum Maximum Temp 97.2 (DEC 28 18:41) 97 (ELIA 28 14:49) 98.1 (DEC 28 10:00) Mon HR 76 (DEC 28 18:41) 68 (ELIA 28 10:00) 96 (ELIA 28 15:00) Periph HR 88 (ELIA 28 11:29) 88 (ELIA 28 11:29) 88 (ELIA 28 11:29) Resp Rate 16 (DEC 28 18:41) L 11 (DEC 28 14:55) H 22 (ELIA 28 15:15) SBP 125 (ELIA 28 18:41) 107 (ELIA 28 14:55) H 156 (ELIA 28 15:10) DBP L 56 (ELIA 28 18:41) L 46 (ELIA 28 16:17) 79 (ELIA 28 15:10) MAP 72 (ELIA 28 18:41) 60 (ELIA 28 16:17) 101 (ELIA 28 15:10) SpO2 98 (ELIA 28 18:41) L 90 (ELIA 28 15:10) 98 (ELIA 28 18:41) General: [Alert and oriented, well nourished, no acute distress]. Skin: [Skin is warm, dry and pink, no rashes or lesions]. Lymph nodes: No cervical or axillary LAD HENT: [Normocephalic, no labial ulcers Neck: [Supple, non-tender, no carotid bruits, no JVD, no lymphadenopathy]. Lungs: [Clear to auscultation and percussion, non-labored respiration]. Heart: [Normal rate, regular rhythm, no murmur, gallop or edema]. Abdomen: [Soft, non-tender, non-distended, normal bowel sounds, no masses]. Neurologic: [Awake, alert, and oriented X3, CN II-XII intact]. Musculoskeletal: Her left knee is in a postoperative dressing. Labs: Select template on toolbar and then click on Lab (PowerPoint)Labs (Last four charted values) WBC 4.9 (JAN 18) HB L 10.5 (JAN 21) 12.2 (JAN 18) HCT 37.1 (JAN 18) Plt 257 (JAN 18) Na 139 (JAN 18) K 4.3 (JAN 18) Cl 105 (JAN 18) CO2 31 (JAN 18) BUN 16 (JAN 18) Cr 0.70 (JAN 18) Glu R 92 (JAN 18) Ca 9.1 (JAN 18) PT 10.0 (JAN 18) INR 0.9 (JAN 18) PTT 32.0 (JAN 18) Micro: Left knee cultures reportedly grew P acnes Repeat left knee cultures from 01/20 are pending Radiology: Radiology Results (Last 48 hours) [id number] -- 01/21/2019 05:45 CR Knee 1 or 2 Vws LT (01/21/2019 15:24) Result: CR Knee 1 or 2 Vws LTHISTORY: Postoperative.FINDINGS: A two view exam demonstrates postoperative changes ofhardware explantation. Antibiotic beads have been placed. A femoralcomponent remains. No fracture is identified. A surgical drain isnoted . IMPRESSION: Surgical changes of explantation as above.Films reviewed , interpreted and dictated by Dr. Trammell.Transcribed by Philipp Vasquez PA-C. I have personally viewed, interpreted and dictated the examination. Ihave read and agree with the above final transcribed report. Assessment: 1. 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 She will require 6 weeks of intravenous antibiotic therapy to resolve this infection. She has a history of penicillin allergy but has tolerated cephalosporins previously. She has tolerated cephalosporin therapy well. 2. Status post left total knee arthroplasty???02/02/17 3. History of penicillin allergy???despite her penicillin allergy she has tolerated cephalosporin antibiotics Plan/Recommendations: 1. Repeat left knee cultures???pending 2. PICC line placement 3. Ceftriaxone 2 g IV daily 4. Discharge on Thursday with subsequent daily infusions in our office???I will arrange I discussed her disposition in detail with her today documented in this encounter Plan of Treatment Not on file documented as of this encounter Visit Diagnoses Not on filedocumented in this encounter
--- OUTSIDE RECORDS SUMMARY | 2025-04-25 11:56 | XMS_ITS | Encounter Summary ---
Author Organization [facility] Address [address] [place] [id number] Care Team Providers Care Foundry Process Engineer Name Role Phone Mari Alvarez DO Primary Care Provider Encounter Details Date Type Department Care Team (Late st Contact Info) Description 11/08/2024 Results Follow-Up [facility] [address] [facility] [place] [address] Mari Alvarez DO [address] [place] [address] Social History Tobacco Use Types Packs/Day Years [...] Description 05/05/2025 8:00 AM EDT Office Visit [facility] [address] [place] [address] Mari Alvarez DO [address] [place] [address] 06/13/2025 2:00 PM EST Office Visit [facility] NEUR[facility]Y [address] [facility] [address] [place] [id number] Albert Mora MD [address] [facility] [address] [place] [address] documented as of this encounter Visit Diagnoses Not on filedocumented in this encounter Additional Health Concerns Assessment Noted Time PHQ-2 Depression Total Score: 1 12/03/19 24 10:27 AM EDT documented as of this encounter Care Teams Foundry Process Engineer Relationship Specialty Start Date End Date Mari Alvarez DO [address] [place] [address] PCP - General Family Medicine 11/17/18 documented as of this encounter
--- OUTSIDE RECORDS SUMMARY | 2025-04-25 11:56 | XMS_ITS | Encounter Summary ---
Author Organization [employer] ([place], [place], [place], [place]) Address [address] [place] [address] Care Team Providers Care Alloy Weigher Name Role Phone Unavailable Primary Care Provider Unavailabl e Encounter Details Date Type Department Care Team (Late st Contact Info) Description 01/21/2019 Transcribed Document [facility] [place] Medicine [address] [place] [address] ProviderLuis Armando MD [address] [place] [id number] Social History Tobacco Use Types Packs/Day Years Used Date Smoking Tobacco: Never Assessed Comments Unknown Sex and Gender Information Value Date Recorded Sex Assigned at Not on file Legal Sex Female 7:30 PM CDT Gender Identity Not on file Sexual Orientation Not on file documented as of this encounter Miscellaneous Notes * Cerner Conversion Note - Historical ProviderMD - 01/21/2019 12:00 PM CDT [facility] Main OR Preop Summary Primary Physician: CHANEL DYSON MD-ORT Finalized Date/Time: 01/21/19 12:46:53 Pt. Name: EMELY VILLANUEVA /Sex: 1950 Female Med Rec #: [id number] Physician: CHANEL DYSON MD-ORT Financial #: [id number] Pt. Type: I Room/Bed: ASA/9 Admit/Disch: 01/21/19 05:45:00 - Institution: [facility] PreOp Case Times Entry 1 In Preop 01/21/19 09:58:00 Ready for Holding n/a Room Patient Ready for 01/21/19 11:35:00 Surgery Patient Out of Preop 01/21/19 12:09:00 Patient Out of n/a Holding Room Last Modified By: Alanis Gayle RN 01/21/19 12:46:52 [facility] PreOp Case Times Audit 01/21/19 12:46:52 Frit Mixer: CODY Modifier: [email or web address] <+> 1 Patient Out of Preop 01/21/19 11:36:00 Frit Mixer: [email or web address] Modifier: [email or web address] 1 <*> Patient Ready for Surgery 01/21/19 11:13:00 Finalized By: Alanis Gayle, RN Document Signatures Signed By: Alanis Gayle RN 01/21/19 12:46 Electronically signed by [facility] Conversion Molder Offbearer Cerner at 11/11/2022 8:54 PM CDT documented in this encounter Plan of Treatment Not on file documented as of this encounter Visit Diagnoses Not on filedocumented in this encounter
--- OUTSIDE RECORDS SUMMARY | 2025-04-25 11:56 | XMS_ITS | Clinical Summary ---
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 Name Role Phone KimMari burnett Coral ARGUETA Primary Care Provider Allergies Active Allergy Reactions Criticality Noted Date Comments Banana Other (See Comments) 11/03/2024 Chocolate Hives,Shortness Of Breath High 11/03/2024 Codeine Rash,Palpitations Low 01/19/2015 Cyclobenzaprine Other (See Comments) 11/03/2024 Diphenhydramine Palpitations Low 01/19/2015 Hydrocodone Hives Low 01/19/2015 Kiwi Itching,Rash Low 11/03/2024 Latex Anaphylaxis,Hives High 01/19/2015 Meperidine Palpitations Low 01/19/2015 Penicillins Rash Low 01/19/2015 Pineapple Unknown - Low Severity 11/03/2024 Propoxyphene Anxiety Medium 04/26/2019 Sulfa Antibiotics Unknown - High Severity 11/03 Medications Calcium Carbonate (CALTRATE 600 PO) Caltrate Ac tive vitamin B-6 (PYRIDOXINE) 100 MG tabletIndications :Cervical spondylosis without myelopathy Take 1 tablet by mouth Daily. 30 tablet 024 Active multivitamins-min erals (PRESERVISION AREDS 2) capsule capsule Take 1 capsule by mouth Daily. Active ciprofloxacin-dex AMETHasone (CIPRODEX) 0.3-0.1 % otic suspension INSTILL 4 DROPS INTO THE LEFT EAR 2 TIMES A DAY X7, THEN NEEDED Active clindamycin (CLEOCIN) 300 MG capsule TAKE 2 CAPSULES 1 HOUR PRIOR TO APPOINTMENT, AND 2 CAPSULES 6 HOURS ATER APPOINTMENT Active fluticasone (FLONASE) 50 MCG/ACT nasal spray INSTILL 2 SPRAYS BY INTRANASAL ROUTE EVERY DAY Active methocarbamol (ROBAXIN) 750 MG tablet TAKE 1 TABLET BY MOUTH 3 (THREE) TIMES A DAY FOR 90 DOSES. BACK PAIN FROM SPASM Active simvastatin (ZOCOR) 20 MG tabletIndications :Hyperlipidemia, unspecified hyperlipidemia type TAKE 1 TABLET EVERY NIGHT 90 tablet 3 025 Active triamterene-hydro chlorothiazide (DYAZIDE) 37.5-25 MG per capsuleIndication s:Essential hypertension TAKE 1 CAPSULE DAILY 90 capsule 3 025 Active lisinopril (PRINIVIL,ZESTRIL ) 10 MG tabletIndications :Essential hypertension TAKE 1 TABLET DAILY 90 tablet 3 025 Active levothyroxine (SYNTHROID, LEVOTHROID) 88 MCG tabletIndications :Hypothyroidism, unspecified type TAKE 1 TABLET EVERY MORNING 90 tablet 3 025 Active citalopram (CeleXA) 20 MG tabletIndications :Essential hypertension TAKE 1 TABLET DAILY 90 tablet 3 025 Active gabapentin (NEURONTIN) 100 MG capsuleIndication s:occipital neuralgia Take 2 capsules by mouth 3 (Three) Times a Day. Indications: occipital neuralgia 180 capsule 2 025 Active citalopram (CeleXA) 20 MG tabletIndications :Essential hypertension TAKE 1 TABLET DAILY 90 tablet 3 024 2024 Discontinued levothyroxine (SYNTHROID, LEVOTHROID) 88 MCG tabletIndications :Hypothyroidism, unspecified type TAKE 1 TABLET EVERY MORNING 90 tablet 3 024 2024 Discontinued lisinopril (PRINIVIL,ZESTRIL ) 10 MG tabletIndications :Essential hypertension TAKE 1 TABLET DAILY 90 tablet 3 024 2024 Discontinued triamterene-hydro chlorothiazide (DYAZIDE) 37.5-25 MG per capsuleIndication s:Essential hypertension TAKE 1 CAPSULE DAILY 90 capsule 3 024 2024 Discontinued simvastatin (ZOCOR) 20 MG tabletIndications :Hyperlipidemia, unspecified hyperlipidemia type TAKE 1 TABLET EVERY NIGHT 90 tablet 3 024 2024 Discontinued gabapentin (NEURONTIN) 100 MG capsuleIndication s:occipital neuralgia Take 2 capsules by mouth 3 (Three) Times a Day. Indications: occipital neuralgia 90 capsule 2 025 2024 Discontinued(R eorder) Active Problems Problem Noted Date Diagnosed Date Acute bronchitis 11/18/2024 Assessment & Plan (11/18/2024 5:09 PM EDT): Initiate antibiotic and steroid. Use Albuterol inhaler as needed for shortness of breath. Discussed signs/symptoms that warrant emergent medical attention. Can continue OTC medications as needed for symptomatic relief. 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 We will prescribe baclofen to be taken 3 times daily as needed. Advised to take baclofen at bedtime if she experiences drowsiness.. Advised to continue neck exercises and begin cold therapy if heating pad does not help. Fatigue 04/09/2021 Change in bowel habits 02/13/2020 Adenomatous polyp of transverse colon 02/13/2020 Diarrhea 02/13/2020 History of total knee arthroplasty 06/07/2019 Osteopenia of necks of both femurs 11/17/2018 Essential hypertension 11/17/2018 Hyperlipidemia 11/17/2018 Vitamin D deficiency 11/17/2018 History of non anemic vitamin B12 deficiency Recurrent major depressive disorder, in full rem ission 11/17/2018 Pain in left knee 11/22/2015 Idiopathic osteoarthritis 11/22/2015 Encounters Date Type Department Care Team Description 03/31/2025 Refill [facility] [address] [facility] [address] [place] [id number] Bryce Hodge PA-C Cervicalgia 03/30/2025 Refill [facility] [address] [facility] [address] [place] [address] Daisy Proctor PA-C Cervicalgia 03/30/2025 Telephone [facility] NEUR[facility] [address] [facility] [address] [place] [address] Bryce Hodge PA-C [facility] 03/24/2025 Refill [facility]INE [address] [place] [address] Mari Alvarez DO Hyperlipidemia, unspecified hyperlipidemia type; Essential hypertension; Hypothyroidism, unspecified type 03/06/2025 12:30 PM EDT Office Visit [facility] NE[facility] [address] [facility] [address] [place] [address] Bryce Hodge PA-C Occipital neuralgia of right side (Primary Dx) 03/06/2025 Travel 01/25/2025 Refill [facility] NE[facility] [address] [facility] [address] [place] [address] Bryce Hodge PA-C from Last 3 Months Immunizations Immunization Administration Dates Next Due ABRYSVO (RSV, 60+ or pregnan t women 32-36 wks) 07/26/2024 COVID-19 (MODERNA) 1st,2nd,3 rd Dose Monovalent 10/28/2020,09/28/2020,09/23/2020,08/24 COVID-19 (MODERNA) Monovalen t Original Booster 05/24/2021 FLUAD TRI 65YR+ 07/12/2024,05/25/2019,2018 Fluad Quad 65+ 05/01/2020 Fluzone >6mos 05/13/2013 Fluzone High-Dose 65+YRS 05/25/2019,04/13/2017,1 Fluzone High-Dose 65+yrs 04/30/2023,05/06/2022,1 Influenza, Unspecified 2015,05/28/2012 Pneumococcal Conjugate 13-Va lent (PCV13) 03/27/2017,02/03/2017 Pneumococcal Polysaccharide (PPSV23) 05/25/2019, 06/27/2004 Shingrix 09/14/2019,05/31/2019 Zostavax 07/14/2012 Family History Medical History Relation Name Comments Breast cancer Mother Kayley Khan Cancer Mother Kayley Khan Pancreatic an d breast cancer Hypertension Mother Kayley Khan Breast cancer Paternal Aunt Colon polyps Paternal Uncle COPD Sister ronny muñoz Colon cancer Neg Hx Ovarian cancer Neg Hx Relation Name Status Comments Mother Kayley Khan Paternal Aunt Paternal Uncle Sister ronny muñoz Alive Social History Tobacco Use Types Packs/Day Years [...] Orientation Straight 11/02/2024 5: 07 PM EDT Last Filed Vital Signs Vital Sign Reading Time Taken Comments Blood Pressure 148/82 11/18/2024 4:50 PM EDT Pulse 86 11/18/2024 4:50 PM EDT Temperature 36.3 C (97.3 F) 03/06/2025 12:33 PM EDT Respiratory Rate 19 12/15/2024 10:15 AM EDT Oxygen Saturation 95% 11/18/2024 4:50 PM EDT Inhaled Oxygen Concentration - - Weight 77.8 kg (171 lb 8 oz) 03/06/2025 12:33 PM EDT Height 154.9 cm (5' 1 ) 03/06/2025 12:33 PM EDT Body Mass Index 32.4 03/06/2025 12:33 PM EDT Plan of Treatment Upcoming Encounters Date Type Department Care Team (Late st Contact Info) Description 05/05/2025 8:00 AM EDT Office Visit [facility] [address] [place] [phone] Mari Alvarez DO [address] [place] [address] 06/13/2025 2:00 PM EST Office Visit [facility] NEUR[facility] [address] [place] [address] Albert Mora MD [address] [place] [address] Health Maintenance Due Date Last Done Comments TDAP/TD VACCINES (1 - Tdap) 1969 INFLUENZA VACCINE 02/24/2025 07/12/2024, , 07/12/2024, Additional history exists COVID-19 Vaccine (2024- 6 season) 2025 06/26/2023, 04/18/2022, 05/24/2021, Additional history exists DXA SCAN 05/29/2025 05/29/2023, 07/28, 11/23/2017 ANNUAL WELLNESS VISIT 11/03/2025 11/03/2024 , 11/03/2024, 04/06/2023, Additional history exists LIPID PANEL 11/03/2025 11/03/2024, 03/27, 09/30/2021, Additional history exists HEPATITIS C SCREENING Completed 11/17/2018 FECAL OCCULT BLOOD TEST Discontinued 12/03/2018, 12/03 Pneumococcal Vaccine 50+ Completed 019, 03/27/2017, 02/03/2017, Additional history exists ZOSTER VACCINE Completed 09/14/2019, 11/2018, 07/14/2012 COLONOSCOPY Discontinued 01/19/2023, 12/26, 01/19/2023, Additional history exists COLORECTAL CANCER SCREENING Discontinued MAMMOGRAM Discontinued 03/30/2024, 12/2022, 06/01/2023, Additional history exists RSV Vaccine - Adults Completed 07/26/2024 COLOGUARD Discontinued COLON CANCER SCREENING [address] Y[address] Dis[address] COLONOGRAPHY Discontinued FIT Testing (1 year) Discontinued Procedures Procedure Name Priority Date/Time Associated Diagnosis Comments LIPID PANEL W/ CHOL/HDL RATIO Routine 11/03/2024 8:38 AM EDT Essential hypertension Hyperlipidemia, unspecified hyperlipidemia type Cervicalgia Hypothyroidism, unspecified type Vitamin D deficiency Medicare annual wellness visit, subsequent MAMMO DIAGNOSTIC DIGITAL TOMOSYNTHESIS BILATERAL W CAD Routine 03/30/2024 1:33 PM EDT Pruritus of nipple Family history of breast cancer in mother Other signs and symptoms in breast DEXA BONE DENSITY AXIAL Routine 05/29/2023 11:47 AM EDT Osteopenia, unspecified location Postmenopausal SCANNED - COLONOSCOPY 01/19/2023 SCANNED - INFLUENZA 05/25/2019 OCCULT BLOOD, FECAL BY IMMUNOASSAY Routine 12/03/2018 10:00 AM EDT HEPATITIS C ANTIBODY Routine 11/17/2018 10:32 AM EDT from Last 3 Months or Most Recently Relevant to Health Maintenance Results * (ABNORMAL) Lipid Panel With / Chol / HDL Ratio (11/03/2024 8:38 AM EDT) Total Cholesterol 194 0 - 200 mg/dL [facility] Comment: Cholesterol Reference Ranges (U.S. Department of Health and Human Services ATP III Classifications) Desirable <200 mg/dL Borderline High 200-239 mg/dL High Risk >240 mg/dL Triglyceride Reference Ranges (U.S. Department of Health and Human Services ATP III Classifications) Normal <150 mg/dL Borderline High 150-199 mg/dL High 200-499 mg/dL Very High >500 mg/dL HDL Reference Ranges (U.S. Department of Health and Human Services ATP III Classifications) Low <40 mg/dl (major risk factor for CHD) High >60 mg/dl ('negative' risk factor for CHD) LDL Reference Ranges (U.S. Department of Health and Human Services ATP III Classifications) Optimal <100 mg/dL Near Optimal 100-129 mg/dL Borderline High 130-159 mg/dL High 160-189 mg/dL Very High >189 mg/dL LDL is calculated using the NIH LDL-C calculation. Triglycerides 106 0 - 150 mg/dL [facility] HDL Cholesterol 88(H) 40 - 60 mg/dL [facility] VLDL Cholesterol Marcos 18 5 - 40 mg/dL [facility] LDL Chol Calc (NIH) 88 0 - 100 mg/dL [facility] Chol/HDL Ratio 2.20 [facility] Blood 11/03/2024 8:38 AM EDT 11/03/2024 Narrative [facility] ([facility]) - 11/04/2024 3:07 AM EDT Performed at: [address] [place] [id number] Analytical Strategist: Eliud Perry MD, Phone: [phone] Patient Fasting: Y Mari Alvarez DO LAB BLOOD ORDERABLES Final Result Performing Organization Address City/State/[facility] Co de Phone Number [facility] (AM[facility]ULAT[facility]) [address] [id number], [facility] [address] [place] [address], [place] [phone] * Mammo Diagnostic Digital Tomosynthesis Bilateral With CAD (03/30/2024 1:33 PM EDT) Anatomical Region Laterality Modality Breast Bilateral Mammography 03/30/2024 2:05 PM EDT Impressions 03/30/2024 2:10 PM EDT BI-RADS 2, benign findings. RECOMMENDATION: Annual routine screening mammography is advised. Further management of the patient's right nipple pruritus should be based on clinical assessment. The standard false-negative rate of mammography is between 10% and 25%. Complex patterns or increased breast density will markedly elevate the false-negative rate of mammography. A results letter, in lay terminology, will be given to the patient at the conclusion of the exam. This report was finalized on 03/30/2024 2:[address] Tommy Abel MD. Narrative 03/30/2024 2:10 PM EDT EXAMINATION:MAMMO DIAGNOSTIC DIGITAL TOMOSYNTHESIS BILATERAL W CAD-, US BREAST RIGHT LIMITED- HISTORY: 73-year-old female with pruritus of the right nipple. Bilateral exam. TECHNIQUE: 2D and 3D bilateral MLO and cc views were obtained. CAD was utilized. Targeted right breast ultrasound was performed. COMPARISON: Prior studies dating back to 08/29/2014. FINDINGS: There are scattered areas of fibroglandular density. The appearance is similar to the prior studies. No worrisome masses, calcifications, or architectural distortion is identified bilaterally. Targeted right breast ultrasound was performed at the patient directed site of pruritus the nipple. The patient was scanned by the technologist and myself. There is minimal dilatation of a duct without an intraductal mass nor debris. No suspicious findings are noted. us Mari Alvarez DO IMG MAMMOGRAPHY ORDERABLES Final Result * DEXA Bone Density Axial (05/29/2023 11:47 AM EDT) Anatomical Region Laterality Modality Wrist, Hip, L-spine N/A Other 05/29/2023 11:5 0 AM EDT Impressions 05/31/2023 6:03 AM EST Osteopenia of the left femoral neck. The ten year fracture risk assessment is calculated at 15% for major systemic osteoporotic fracture and 2.9% for a hip fracture. Less than 3% risk in the [place] for hip fracture and less than 20% risk of any systemic osteoporotic fracture is considered less than the threshold for where pharmacological therapy is recommended by the National Osteoporosis Foundation. All the treatment decisions require clinical judgment and consideration of individual patient factors, including patient preferences, co-morbidities, previous drug use, risk factors not captured in the FRAX model (frailty, falls, vitamin D deficiency, increased bone turnover, interval significant decline in bone density) and possible under or over estimation of fracture risk by FRAX. Approaches to reduce osteoporosis related fracture risk include optimizing calcium and vitamin D status, appropriate weight bearing exercises and fall-prevention measurements. The National Osteoporosis Foundation recommends (http://www.nof.org/hcp/practice/udbypoyq-lsm-zzfxtyye-guidelines/clinicians-wanda de) that FDA-approved medical therapies be considered in postmenopausal women and men aged equal or greater than 50 years with : a) hip or vertebral (clinical or morphometric) fracture; b) T-score of -2.5 or less at the spine or hip; c) Ten-year fracture probability by FRAX of greater than 3% for hip fracture of greater than 20% for major osteoporotic fracture. Secondary causes of bone loss should be evaluated if clinically indicated since the etiology of low BMD cannot be determined by BMD measurement alone. FOLLOWUP: Consider repeating the study in 2-3 years to reassess the patient's status or sooner if there is some new clinical indication. INTERVAL CHANGE: There was an increase in bone mineral density of the L1-L4 vertebrae by 3.1%, in total left hip by 5.4% when compared to previous study performed on 08/21/2020. At this facility, the least significant change in the BMD at the left hip with 95% confidence is 0.776020 gm/cm2 at the hip and 0.911232 g/cm2 at the lumbar spine. Electronically Signed: Bryce Jernigan MD 05/31/2023 6:03 AM EST Workstation ID: [id number] Narrative 05/31/2023 6:03 AM EST DUAL-ENERGY X-RAY ABSORPTIOMETRY (DXA) INDICATION: Postmenopausal, screening for osteoporosis, history of glucocorticoids, hysterectomy COMPARISON: Previous bone mineral density exam performed on 08/21/2020 PROCEDURE: A DXA scan was performed using a Hologic densitometer. The lumbar spine L1-L4 was evaluated as well as left total hip. The T-score compares the patient's bone mineral density with the peak bone mass of young normal patients. According to criteria established by the World Health Organization, patients with T-scores between 1.0 and 2.5 standard deviations BELOW the mean are osteopenic (low bone mass). Patients with T-scores EQUAL TO OR GREATER than 2.5 standard deviations below the mean are osteoporotic. The Z-score compares the patient bone mineral density with age and sex matched peers. According to the International Society for Clinical Densitometry's 2007 consensus conference: In women prior to menopause and men less than age 50, Z-scores, not T-scores are preferred. A Z-score of -2.0 or lower is defined as below the expected range for age and a Z-score above -2.0 is within the expected range for age. The WHO diagnostic criteria may be applied in women in the menopausal transition. Osteoporosis cannot be diagnosed in men under age 50 on the basis of BMD alone. TECHNICAL QUALITY: The study is of good technical quality. RESULTS: Lumbar Spine: The BMD measured in the L1-L4 region is 1.005 g/cm2. The average T-score is -0.4. The Z-score is 2.0. Total Hip: The BMD measured at the left total proximal femur is 0.886 g/cm2. The T-score is -0.5. The Z-score is 1.3. Femoral Neck: The BMD measured at the left femoral neck is 0.710 g/cm2. The T-score is -1.3. The Z-score is 0.0. Procedure Note Jillian Mijares PA - 05/31/2023 DUAL-ENERGY X-RAY ABSORPTIOMETRY (DXA) INDICATION: Postmenopausal, screening for osteoporosis, history ofglucocorticoids, hysterectomy COMPARISON: Previous bone mineral density exam performed on 08/21/2020 PROCEDURE: A DXA scan was performed using a Hologic densitometer. The lumbar spine L1-L4 was evaluated as well as left total hip. The T-score compares the patient's bone mineral density with the peak bonemass of young normal patients. According to criteria established by the[facility] Health Organization, patients with T-scores between 1.0 and 2.5standard deviations BELOW the mean are osteopenic (low bone mass). Patients with T-scores EQUAL TO ORGREATER than 2.5 standard deviations below the mean are osteoporotic. The Z-score compares the patient bone mineral density with age and sexmatched peers. According to the International Society for ClinicalDensitometry's 2007 consensus conference: In women prior to menopause andmen less than age 50, Z-scores, not T-scores are preferred. A Z-score of -2.0 or lower is defined as belowthe expected range for age and a Z-score above -2.0 is within theexpected range for age. The WHO diagnostic criteria may be applied inwomen in the menopausal transition. Osteoporosis cannot be diagnosed in men under age 50 on the basis of BMDalone. TECHNICAL QUALITY: The study is of good technical quality. RESULTS: Lumbar Spine: The BMD measured in the L1-L4 region is 1.005 g/cm2. Theaverage T- score is -0.4. The Z-score is 2.0. Total Hip: The BMD measured at the left total proximal femur is 0.886g/cm2. The T-score is -0.5. The Z-score is 1.3. Femoral Neck: The BMD measured at the left femoral neck is 0.710 g/cm2.The T- score is -1.3. The Z-score is 0.0. IMPRESSION: Osteopenia of the left femoral neck. The ten year fracture risk assessment is calculated at 15% for majorsystemic osteoporotic fracture and 2.9% for a hip fracture. Less than 3%risk in the [place] for hip fracture and less than 20% risk of anysystemic osteoporotic fracture is considered less than the threshold for where pharmacological therapy isrecommended by the National Osteoporosis Foundation. All the treatment decisions require clinical judgment and consideration ofindividual patient factors, including patient preferences, co-morbidities,previous drug use, risk factors not captured in the FRAX model (frailty,falls, vitamin D deficiency, increased bone turnover, interval significant decline in bone density) andpossible under or over estimation of fracture risk by FRAX. Approaches toreduce osteoporosis related fracture risk include optimizing calcium andvitamin D status, appropriate weight bearing exercises and fall-prevention measurements. The NationalOsteoporosis Foundation recommends(http://www.nof.org/hcp/practice/kallcusf-qhl-ukqlphjd-guidelines/clin ician s-guide) that FDA-approved medical therapies be considered in postmenopausal women and men aged equal or greater than 50 years with :a) hip or vertebral (clinical or morphometric) fracture; b) T-score of-2.5 or less at the spine or hip; c) Ten-year fracture probability by FRAXof greater than 3% for hip fracture of greater than 20% for major osteoporotic fracture. Secondary causes of bone loss should be evaluated if clinically indicatedsince the etiology of low BMD cannot be determined by BMD measurementalone. FOLLOWUP: Consider repeating the study in 2-3 years to reassess thepatient's status or sooner if there is some new clinical indication. INTERVAL CHANGE: There was an increase in bone mineral density of theL1-L4 vertebrae by 3.1%, in total left hip by 5.4% when compared toprevious study performed on 08/21/2020. At this facility, the least significant change in the BMD at the left hipwith 95% confidence is 0.951792 gm/cm2 at the hip and 0.667878 g/cm2 atthe lumbar spine. Electronically Signed: Bryce Jernigan MD 05/31/2023 6:03 AM [facility] Workstation ID: [id number] Mari Alvarez DO IMG DXA ORDERABLES Final Re sult * SCANNED - COLONOSCOPY (01/19/2023) us Mari Alvarez DO CHART REVIEW TABS Final Result * SCANNED - INFLUENZA (05/25/2019) Mari Alvarez DO CHART REVIEW TABS Final Result * Occult Blood, Fecal By Immunoassay - , (12/03/2018 10:00 AM EDT) Pathologist [facility] Fecal Occult Blood Negative Negative [facility] 12/03/2018 10:0 0 AM EDT 12/03/2018 Comment:[facility] - 12/05/2018 2:06 PM EDT Performed at: - [address] [id number] Analytical Strategist: Carlos Alberto Vasquez PhD, Phone: [phone] Patient Fasting: N Mari Alvarez DO BODY FLUIDS AND STOOLS ORDE RABLES Final Result [facility] [address] [place] [address], [facility] [address] [place] [address], * Hepatitis C Antibody (11/17/2018 10:32 AM EDT) Pathologist [facility] Hep C Virus Ab <0.1 0.0 - 0.9 s/co ratio [facility] Comment: Negative: < 0.8 Indeterminate: 0.8 - 0.9 Positive: > 0.9 The CDC recommends that a positive HCV antibody result be followed up with a HCV Nucleic Acid Amplification test (387440). 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
--- OUTSIDE RECORDS SUMMARY | 2025-04-25 11:56 | XMS_ITS | Encounter Summary ---
Author Organization [employer] ([place], [place], [place], [place]) Address [address] [place] [address] Care Team Providers Care Armature Winder Name Role Phone Unavailable Primary Care Provider Unavailabl e Encounter Details Date Type Department Care Team (Late st Contact Info) Description 04/26/2019 Transcribed Document [facility] [place] [address] [place] [address] ProviderLuis Armando MD [address] [place] [address] Social History Tobacco Use Types Packs/Day Years Used Date Smoking Tobacco: Never Assessed Comments Unknown Sex and Gender Information Value Date Recorded Sex Assigned at Not on file Legal Sex Female 7:30 PM CDT Gender Identity Not on file Sexual Orientation Not on file documented as of this encounter Miscellaneous Notes * Cerner Conversion Note - Historical ProviderMD - 04/26/2019 10:00 PM CDT Pain Assessment Entered On: 04/27/2019 5:36 EDT Performed On: 04/26/2019 22:35 EDT by Swetha Alston LPN Intervention Information: ketorolac Performed by Swetha Alston LPN on 04/26/2019 22:05:00 EDT ketorolac,15mg IV Push,PICC distal Pain Assessment Pain Assessment : Follow-up assessment Pain Scale Goal : 4 Pain Scale Used : 0-10 Scale Location : Knee, left Onset : Abrupt Quality : Dull Pain Radiation : No Pain Worsened by : Movement Pain Intervention, Drug : Medicated Pain Intervention, Non-Drug : Positioning Pain Improved by Intervention : Yes Swetha Alston LPN - 04/27/2019 5:35 EDT Pain Scale Intensity : 4 Swetha Alston LPN - 04/27/2019 5:35 EDT Image 4 - Images currently included in the form version of this document have not been included in the text rendition version of the form. documented in this encounter Plan of Treatment Not on file documented as of this encounter Visit Diagnoses Not on filedocumented in this encounter
--- OUTSIDE RECORDS SUMMARY | 2025-04-25 11:56 | XMS_ITS | Encounter Summary ---
Author Organization [employer] ([place], [place], [place], [place]) Address [address] [place] [address] Care Team Providers Care Language Assistant Name Role Phone Unavailable Primary Care Provider Unavailabl e Encounter Details Date Type Department Care Team (Late st Contact Info) Description 01/21/[address] [facility] [place] Family Medicine [address] [place] [address] ProviderLuis Armando MD [address], [place] [id number] Social History Tobacco Use Types Packs/Day Years Used Date Smoking Tobacco: Never Assessed Comments Unknown Sex and Gender Information Value Date Recorded Sex Assigned at Not on file Legal Sex Female 7:30 PM CDT Gender Identity Not on file Sexual Orientation Not on file documented as of this encounter Miscellaneous Notes * Cerner Conversion Note - Historical ProviderMD - 01/21/2019 2:56 PM CDT Orthopedic Nurse Navigator Entered On: 01/21/2019 14:59 EDT Performed On: 01/21/2019 14:56 EDT by ZAYRA YODER Rn-Ortho Nurse Navigator Orthopedic Nurse Navigator Assessment Anticipated Discharge Plan Comment : Patient plans to d/c home with RADHA AVINA. She requests a w/c to help her with mobility in a safe manner at home. ZAYRA YODER Rn-Ortho Nurse Navigator - 01/21/2019 14:56 EDT documented in this encounter Plan of Treatment Not on file documented as of this encounter Visit Diagnoses Not on filedocumented in this encounter
--- OUTSIDE RECORDS SUMMARY | 2025-04-25 11:56 | XMS_ITS | Encounter Summary ---
Author Organization [employer] ([place], [place], [place], [place]) Address [address] [place] [address] Care Team Providers Care Sales Marketing Director Name Role Phone Unavailable Primary Care Provider Unavailabl e Encounter Details Date Type Department Care Team (Late st Contact Info) Description 04/26/2019 Transcribed Document [facility] [place] [address] [place] [address] ProviderLuis Armando MD [address] [place] [address] Social History Tobacco Use Types Packs/Day Years Used Date Smoking Tobacco: Never Assessed Comments Unknown Sex and Gender Information Value Date Recorded Sex Assigned at Not on file Legal Sex Female 7:30 PM CDT Gender Identity Not on file Sexual Orientation Not on file documented as of this encounter Miscellaneous Notes * Cerner Conversion Note - Historical ProviderMD - 04/26/2019 12:00 PM CDT Pain Assessment Entered On: 04/26/2019 16:11 EDT Performed On: 04/26/2019 13:00 EDT by CJ MAURO RN Intervention Information: acetaminophen Performed by CJ MAURO RN on 04/26/2019 12:00:00 EDT acetaminophen,1000mg Oral Pain Assessment Pain Assessment : Follow-up assessment Pain Scale Goal : 4 Pain Scale Used : 0-10 Scale Location : Knee, left Pain Improved by Intervention : Yes CJ MAURO RN - 04/26/2019 16:11 EDT Pain Scale Intensity : 3 CJ MAURO RN - 04/26/2019 16:11 EDT Image 4 - Images currently included in the form version of this document have not been included in the text rendition version of the form. documented in this encounter Plan of Treatment Not on file documented as of this encounter Visit Diagnoses Not on filedocumented in this encounter
--- OUTSIDE RECORDS SUMMARY | 2025-04-25 11:56 | XMS_ITS | Encounter Summary ---
Author Organization [employer] ([place], [place], [place], [place]) Address [address] [place] [address] Care Team Providers Care Data Warehousing Architect Name Role Phone Unavailable Primary Care Provider Unavailabl e Encounter Details Date Type Department Care Team (Late st Contact Info) Description 04/26/2019 Transcribed Document [facility] [place] [address] [place] [address] ProviderLuis Armando MD [address] [place], [place] [id number] Social History Tobacco Use Types Packs/Day Years Used Date Smoking Tobacco: Never Assessed Comments Unknown Sex and Gender Information Value Date Recorded Sex Assigned at Not on file Legal Sex Female 7:30 PM CDT Gender Identity Not on file Sexual Orientation Not on file documented as of this encounter Miscellaneous Notes * Cerner Conversion Note - Luis Armando ProviderMD - 04/26/2019 3:31 PM CDT Initial Discharge Planning Entered On: 04/26/2019 15:34 EDT Performed On: 04/26/2019 15:31 EDT by KARMEN CALVILLO RN-Clinical Nursing Professor Initial Assessment I Previously Documented Living Environment : No qualifying data available. Living Situation : Home Patient Lives With : Spouse Is the Patient a Caregiver at Home? : No Emergency Contact #1 : ben Emergency Contact #1 Emergency Contact #1 Relationship : spouse Emergency Contact #2 : Salvador Ochoa Emergency Contact # Emergency Contact #2 Relationship : sons KARMEN CALVILLO RN-Clinical Nursing Professor - 04/26/2019 15:31 EDT Initial Assessment II Sensory and Motor Deficits : None Current Home Treatments and Equipment : Bedside commode, Walker KARMEN CALVILLO RN-Clinical Nursing Professor - 04/26/2019 15:31 EDT Discharge Needs I Anticipated Discharge Date : 04/27/2019 EDT Anticipated Discharge To, CM : Home with home health Current Home Treatment/Equipment : Current Home Treatment/Equipment No qualifying data available. Post Acute/Home Treatments : IV therapy Documentation Status Complete : Yes KARMEN CALVILLO RN-Clinical Nursing Professor - 04/26/2019 15:31 EDT Discharge Needs II Professional Skilled Services : Professional Skilled Services No qualifying data available. Services and Community Resources : Infusion clinic Needs Assistance with Transportation : No Discharge Options Discussed with Patient : Home Health, Outpatient services KARMEN CALVILLO RN-Clinical Nursing Professor - 04/26/2019 15:31 EDT Narrative Note Narrative Note : 68yo female pt s/p LTK replant/revision. Met with pt at bedside to discuss DCP. Pt had PICC placed today for daily infusion of IV Ctx 2gm. Pt will go to [facility] office for this daily and they will do weekly PICC care and labs. Pt has dme at home. Referral sent to A via [facility]. Pt will dc home tomorrow and go to [facility] at 10am on 04/28. CM will follow. KARMEN CALVILLO RN-Clinical Nursing Professor - 04/26/2019 15:31 EDT Electronically signed by Gomez [place] Conversion Security And Compliance Analyst Cerner at 11/11/2022 8:29 PM CDT documented in this encounter Plan of Treatment Not on file documented as of this encounter Visit Diagnoses Not on filedocumented in this encounter
--- OUTSIDE RECORDS SUMMARY | 2025-04-25 11:57 | XMS_ITS | Encounter Summary ---
Author Organization [employer] ([place], [place], [place], [place]) Address [address] [place] [address] Care Team Providers Care Fence Builder Name Role Phone Unavailable Primary Care Provider Unavailabl e Encounter Details Date Type Department Care Team (Late st Contact Info) Description 04/26/2019 Transcribed Document [facility] [place] [address] [place] [address] ProviderLuis Armando MD [address] [place] [address] Social History Tobacco Use Types Packs/Day Years Used Date Smoking Tobacco: Never Assessed Comments Unknown Sex and Gender Information Value Date Recorded Sex Assigned at Not on file Legal Sex Female 7:30 PM CDT Gender Identity Not on file Sexual Orientation Not on file documented as of this encounter Miscellaneous Notes * Cerner Conversion Note - Historical ProviderMD - 04/26/2019 3:34 PM CDT On Going Discharge Planning Entered On: 04/26/2019 15:35 EDT Performed On: 04/26/2019 15:34 EDT by KARMEN CALVILLO RN-Pier HandWindow Shade Cloth Sewer Progress Note Discharge Arrangements : Patient Post-Acute Information Patient Name: EMELY VILLANUEVA Gender: Female : [birth year] Age: 68 Years [place] Referral(s): Service: Organization: Business Address: Phone Number: Home Care Physician Services [facility] - [address], [address], [place], [address] Discharge Options Discussed with Patient : Home Health, Outpatient services Barriers to Discharge Identified : Clinical Condition of Patient Barriers to Discharge Unresolved : Clinical Condition of Patient Designation of Choice Signed : Yes Patient Offered Choice/Affiliations Explained : Yes List/Info Provided Pt/Fam/Support Person : Home health Were Referrals Sent to Post Acute Providers : Yes Is the Patient Meeting Medical Necessity : Yes KARMEN CALVILLO, RN-Pier Hand - 04/26/2019 15:34 EDT documented in this encounter Plan of Treatment Not on file documented as of this encounter Visit Diagnoses Not on filedocumented in this encounter
--- OUTSIDE RECORDS SUMMARY | 2025-04-25 11:58 | XMS_ITS | Encounter Summary ---
Author Organization [employer] ([place], [place], [place], [place]) Address [address] [place] [address] Care Team Providers Care Bessemer Converter Blower Name Role Phone Unavailable Primary Care Provider Unavailabl e Encounter Details Date Type Department Care Team (Late st Contact Info) Description 04/26/2019 Transcribed Document [facility] [place] [address] [place] [address] ProviderLuis Armando MD [address] [place] [address] Social History Tobacco Use Types Packs/Day Years Used Date Smoking Tobacco: Never Assessed Comments Unknown Sex and Gender Information Value Date Recorded Sex Assigned at Not on file Legal Sex Female 7:30 PM CDT Gender Identity Not on file Sexual Orientation Not on file documented as of this encounter Miscellaneous Notes * Cerner Conversion Note - Historical ProviderMD - 04/26/2019 12:00 AM CDT Pain Assessment Entered On: 04/26/2019 2:19 EDT Performed On: 04/26/2019 0:39 EDT by Swetha Alston LPN Intervention Information: acetaminophen Performed by Swetha Alston LPN on 04/25/2019 23:39:00 EDT acetaminophen,1000mg Oral Pain Assessment Pain Assessment : Follow-up assessment Pain Scale Goal : 4 Pain Scale Used : 0-10 Scale Location : Knee, right Onset : Abrupt Pain Improved by : Medication Pain Worsened by : Movement Pain Intervention, Drug : Medicated Pain Improved by Intervention : Yes Swetha Alston LPN - 04/26/2019 2:18 EDT Pain Scale Intensity : 4 Swetha Alston LPN - 04/26/2019 2:18 EDT Image 4 - Images currently included in the form version of this document have not been included in the text rendition version of the form. documented in this encounter Plan of Treatment Not on file documented as of this encounter Visit Diagnoses Not on filedocumented in this encounter
--- OUTSIDE RECORDS SUMMARY | 2025-04-25 11:58 | XMS_ITS | Encounter Summary ---
Author Organization [employer] ([place], [place], [place], [place]) Address [address] [place] [address] Care Team Providers Care Controller Repairer And Tester Name Role Phone Unavailable Primary Care Provider Unavailabl e Encounter Details Date Type Department Care Team (Late st Contact Info) Description 04/26/2019 Transcribed Document [facility] Radiology [address] [place] [address] Chanel Doty MD [address] [place] [address] Social History Tobacco Use Types Packs/Day Years Used Date Smoking Tobacco: Never Assessed Comments Unknown Sex and Gender Information Value Date Recorded Sex Assigned at Not on file Legal Sex Female 7:30 PM CDT Gender Identity Not on file Sexual Orientation Not on file documented as of this encounter Miscellaneous Notes * Cerner Conversion Note - Chanel Doty MD - 04/26/2019 9:06 AM EDT Patient: EMELY VILLANUEVA Age: 68 Years Sex: Female : 1950 Assessment/Plan Status post left knee replacement replant. Retain Hemovac drain. Routine primary knee replacement rehabilitation protocol. ID would like PICC line placement and 2 weeks of IV infusion Ancef. 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 Patient states tolerable soreness is present. Vital Signs T: 35.9 ??C TMIN: 35.9 ??C TMAX: 36.5 ??C HR: 60(Monitored) RR: 16 BP: 147/80 SpO2: 97% Oxygen Settings (Last) Oxygen Therapy Mode: Room air (04/26/19 05:43:00) Oxygen Flow Rate: 1 Liter/Min (04/25/19 22:00:00) Intake & Output Totals Last 24 Hours (7a-7a) Input Total: 1055 mL Output Total: 50 mL Balance: 1005 mL Physical Exam The dressing is clean dry secure. The operative extremity is neurovascularly intact with the exception to which is attributed to peripheral nerve block. Compartments are soft. Hemovac drain in place Medications Ambien, 5 mg= 1 Tab, Oral, At Bedtime, PRN aspirin, 325 mg= 1 Tab, Oral, BID Benadryl, 25 mg= 1 Tab, Oral, Q4H, PRN Chloraseptic 6 mg-10 mg mucous membrane lozenge, 1 Lozenge, Oral, Q2H, PRN citalopram, 20 mg= 1 Tab, Oral, Daily cloNIDine, 0.2 mg= 1 Tab, Oral, Q4H, PRN Colace, 100 mg= 1 Cap, Oral, BID Cyklokapron 2,000 mg + sodium chloride 0.9% injectable solution 5 mL + syringe 1 Each Dulcolax Laxative, 10 mg= 1 Supp, Rectal, BID, PRN Dulcolax Laxative, 10 mg= 1 Supp, Rectal, 1-Time, PRN ferrous gluconate, 324 mg= 1 Tab, Oral, Daily Fioricet, 1 Tab, Oral, Q6H, PRN Flexeril, 10 mg= 1 Tab, Oral, TID, PRN hydrALAZINE, 10 mg= 0.5 mL, IV Push, Q6H, PRN hydroCHLOROthiazide-triamterene 25 mg-37.5 mg oral tablet, 1 Tab, Oral, Daily ketorolac, 15 mg= 0.5 mL, IV Push, Q8H Lipitor, 10 mg= 1 Tab, Oral, At Bedtime lisinopril, 10 mg= 1 Tab, Oral, Daily Milk of Magnesia 8% oral suspension, 30 mL, Oral, TID, PRN MiraLax, 17 Gram= 1 Packet, Oral, Daily morphine, 2 mg= 1 mL, IV Push, Q2H, PRN multivitamin, 1 Tab, Oral, Daily naloxone, 0.1 mg= 0.25 mL, IV Push, Q5Min, PRN oxyCODONE, 5 mg= 1 Tab, Oral, Q4H, PRN oxyCODONE, 10 mg= 2 Tab, Oral, Q4H, PRN Phenergan, 12.5 mg= 0.5 mL, IV Push, Q6H, PRN Protonix, 40 mg= 1 Tab, Oral, Daily Rocephin ropivacaine 0.5% injectable solution 24.6 mL + EPINEPHrine 0.25 mg + cloNIDine 40 mcg + Sodium Chlo Senokot S, 2 Tab, Oral, At Bedtime simethicone, 80 mg= 1 Tab, Chew, Q6H, PRN Sodium Chloride 0.9% intravenous solution 1,000 mL, 1000 mL, IntraVENous Toradol, 30 mg= 1 mL, IV Push, 1-Time Tylenol, 1000 mg= 2 Tab, Oral, Q6H Zofran, 4 mg= 2 mL, IV Push, Q4H, PRN Lab Results Test Name Test Result Date/Time Sodium Level 141 mmol/L 04/26/2019 03:16 EDT Potassium Level 5.1 mmol/L 04/26/2019 03:16 EDT Chloride Level 106 mmol/L 04/26/2019 03:16 EDT Carbon Dioxide Level 27 mmol/L 04/26/2019 03:16 EDT Anion Gap 13 04/26/2019 03:16 EDT Glucose Level 174 mg/dL (High) 04/26/2019 03:16 EDT Blood Urea Nitrogen 19 mg/dL 04/26/2019 03:16 EDT Creatinine Level 0.70 mg/dL 04/26/2019 03:16 EDT eGFR >60 mL/min/1.73m2 04/26/2019 03:16 EDT eGFR NonAfrican >60 mL/min/1.73m2 04/26/2019 03:16 EDT Bun/Creatinine 27.1 (High) 04/26/2019 03:16 EDT Calcium Level 8.7 mg/dL 04/26/2019 03:16 EDT WBC 6.6 K/uL 04/26/2019 03:16 EDT RBC 4.54 Million/uL 04/26/2019 03:16 EDT Hgb 12.2 g/dL 04/26/2019 03:16 EDT Hgb 12.6 g/dL 04/25/2019 17:57 EDT Hct 38.5 % 04/26/2019 03:16 EDT MCV 84.8 fL 04/26/2019 03:16 EDT MCH 26.9 pg 04/26/2019 03:16 EDT MCHC 31.7 Gram/dL (Low) 04/26/2019 03:16 EDT Platelet Count 147 K/uL (Low) 04/26/2019 03:16 EDT MPV 10.6 fL 04/26/2019 03:16 EDT RDW 14.6 % 04/26/2019 03:16 EDT Neut % 89.0 % (High) 04/26/2019 03:16 EDT Neut # 5.88 K/uL 04/26/2019 03:16 EDT Lymph % 5.4 % (Low) 04/26/2019 03:16 EDT Lymph # 0.36 x10(3)/uL (Low) 04/26/2019 03:16 EDT Park % 5.1 % 04/26/2019 03:16 EDT Park # 0.34 K/uL 04/26/2019 03:16 EDT Eos % 0.0 % 04/26/2019 03:16 EDT Eos # 0.00 x10(3)/uL 04/26/2019 03:16 EDT Baso % 0.2 % 04/26/2019 03:16 EDT Baso # 0.01 x10(3)/uL 04/26/2019 03:16 EDT Slide Review No 04/26/2019 03:16 EDT IG# 0.02 x10(3)/uL 04/26/2019 03:16 EDT IG% 0.30 % 04/26/2019 03:16 EDT ABO/Rh (ECHO) O NEG 04/25/2019 11:41 EDT Antibody Screen Negative ABSC 04/25/2019 11:41 EDT documented in this encounter Plan of Treatment Not on file documented as of this encounter Visit Diagnoses Not on filedocumented in this encounter
--- OUTSIDE RECORDS SUMMARY | 2025-04-25 11:59 | XMS_ITS | Encounter Summary ---
Author Organization [employer] ([place], [place], [place], [place]) Address [address] [place] [address] Care Team Providers Care Founder & Ceo Name Role Phone Unavailable Primary Care Provider Unavailabl e Encounter Details Date Type Department Care Team (Late st Contact Info) Description 04/26/2019 Transcribed Document [facility] [place] [address] [place] [address] ProviderLuis Armando MD [address] [place] [address] Social History Tobacco Use Types Packs/Day Years Used Date Smoking Tobacco: Never Assessed Comments Unknown Sex and Gender Information Value Date Recorded Sex Assigned at Not on file Legal Sex Female 7:30 PM CDT Gender Identity Not on file Sexual Orientation Not on file documented as of this encounter Miscellaneous Notes * Cerner Conversion Note - Luis Armando ProviderMD - 04/26/2019 12:21 PM CDT Treatment Intervention, PT Entered On: 04/26/2019 15:28 EDT Performed On: 04/26/2019 14:37 EDT by Sachin King, PT General Information, PT Visit Type, PT : Treatment Note Patient Orders : Order Date Order Ordering 04/25/2019 18:19 PT Evaluation and Treatment Ordered By: CHANEL DYSON MD-ORT 04/25/2019 18:19 PT Treatment Instructions Ordered By: CHANEL DYSON MD-ORT 04/25/2019 18:19 PT Treatment Instructions Ordered By: CHANEL DYSON MD-ORT 04/25/2019 18:19 PT Treatment Instructions Ordered By: CHANEL DYSON MD-ORT 04/25/2019 18:19 PT Treatment Instructions Ordered By: CHANEL DYSON MD-ORT 04/26/2019 12:21 PT Additional Treatment Ordered By: EV ZAMORA, PT Active Diagnoses : 04/26/2019 12:00 Presence of unspecified artificial knee joint Therapy Diagnosis, PT : Aftercare following L TKA revision Admission Date : 04/25/2019 06:55 Assisted by, PT : Other: PT strudent Personal Devices : Personal Devices No Devices Recorded Assistive Devices : Assistive Devices No Devices Recorded Precautions in Place : Fall prevention measures, high risk Sachin King, PT - 04/26/2019 15:19 EDT General Status Patient Received Status : Supine in bed Treatment Start Time : 04/26/2019 14:14 EDT Patient Left Status : Supine in bed, Communication board completed, All needs met and within reach RN/PCT Informed Comment : ROBB Olivo PTx Treatment End Time : 04/26/2019 14:37 EDT Treatment Time : 23 Minute(s) Sachin King PT - 04/26/2019 15:19 EDT Therapeutic Exercises PT Therapeutic Exercise Grid Exercise #1 Exercises : Ankle pumps, Heel slides, Quadricep sets Laterality : Left Position : Supine Reps : 10 Sachin King PT - 04/26/2019 15:19 EDT Functional Mobility Mobility Grid Supine to Sit : Supervision/set-up Sit to Stand : Rehab Minimal assistance Stand to Sit : Rehab Minimal assistance Sachin King PT - 04/26/2019 15:19 EDT Sit to Stand Device : Belt, gait, Walker, front wheel, Other: drain Sachin King, PT - 04/26/2019 15:19 EDT Gait Training/Assessment, PT Weight Bearing Status Maintained : Yes Weight Bearing Status : Full Gait Assistance Level : Assist, minimal Walking Distance : 84' Ambulatory Devices : Gait belt, Walker, front wheel Gait Deviations : Yes Left Lower Gait Deviation : Dora, decreased, Foot clearance, decreased, Foot flat with no heel strike, Knee flexion, decreased, Stance time, decreased Right Lower Gait Deviation : Dora, decreased, Step length, decreased Gait Training Comment : Pt educated on proper manipulation of Rwx, increasing knee flexion on the L LE, maintaining safe distance from Rwx. Max cues fro safe gait Sachin King PT - 04/26/2019 15:19 EDT Edu Topics Physical Therapy Education Grid Gait Training : Needs reinforcement Role of Physical Therapy : Verbalizes understanding Safety : Needs reinforcement Therapeutic Exercises : Verbalizes understanding Use of Assistive Device : Needs reinforcement Sachin King, PT - 04/26/2019 15:19 EDT Indication Assesessment, PT Physical Therapy Indicated : Yes Sachin King, PT - 04/26/2019 15:19 EDT Plan of Care, PT PT Tx Plan/Goals Established w Patient : Yes PT Frequency Rehab : Daily, twice (bid) PT Duration Rehab : Fourteen days Sachin King, PT - 04/26/2019 15:19 EDT Training Personnel Supervisor Goals Mobility/Bed Mobility LTG PT Grid Goal #1 Activity : Sit to stand Assist : Independent, modified Equipment : Walker, front wheel Date to Meet : 05/10/2019 EDT Goal Status : Progressing, continue Sachin King, PT - 04/26/2019 15:19 EDT Ambulation LTG Grid Goal #1 Device : Walker, front wheel Distance : 150ft Assist : Independent, modified Date to Meet : 05/10/2019 EDT Goal Status : Progressing, continue Sachin King, PT - 04/26/2019 15:19 EDT Stairs LTG Grid Goal #1 Device : Walker, front wheel Number of Steps : 0 Handrail(s) : No handrails Assist : Assist, minimal Date to Meet : 05/10/2019 EDT Goal Status : Intial Goal Comment : Ascend/descend ramp Sachin King, PT - 04/26/2019 15:19 EDT Treatment Note Subjective Comment : Pt agreed to PTx Patient's Response to Treatment : Pt tolerated tx well Additional Objective Information : Pt required max cuing for safe gait. Pt had 1 large LOB with transfer from restroom trying to navigate threshold requiring Rosina from therapist to maintain balance. Pt's L knee ROM measured 0-97 degrees active assist. Pt educated on heel prop for maintaining extension of L knee at rest. Assessment : Pt progressing well with gait distance. Pt high fall risk due to gait deviations and would benefit from continued skilled PTx to address these deficits. Plan for Treatment : Cont with POC Sachin King, PT - 04/26/2019 15:19 EDT Pain Assessment Pain Scaled Used : 0-10 Pain scale Pain Score Pre-Intervention : 0 Sachin King PT - 04/26/2019 15:19 EDT Image 1 - Images currently included in the form version of this document have not been included in the text rendition version of the form. Anticipated Discharge Needs, OT/PT Anticipated Discharge to : Unit, rehabilitation, Unit, penitentiary Recommend Continued Therapy at Discharge : Yes Sachin King, PT - 04/26/2019 15:[address] [facility] PT Therap. Exercise 15 min : 1 Gait Training Each 15 Min : 1 Sachin King, PT - 04/26/2019 15:19 EDT Electronically signed by Adwoa [facility] Conversion Motor Electrician Cerner at 11/14/2022 9:20 AM CDT documented in this encounter Plan of Treatment Not on file documented as of this encounter Visit Diagnoses Not on filedocumented in this encounter
--- OUTSIDE RECORDS SUMMARY | 2025-04-25 12:00 | XMS_ITS | Encounter Summary ---
Author Organization [employer] ([place], [place], [place], [place]) Address [address] [place] [address] Care Team Providers Care Pension Examiner Name Role Phone Unavailable Primary Care Provider Unavailabl e Encounter Details Date Type Department Care Team (Late st Contact Info) Description 04/26/2019 Transcribed Document [facility] [place] [address] ProviderLuis Armando MD [facility] [place] [id number] Social History Tobacco Use Types Packs/Day Years Used Date Smoking Tobacco: Never Assessed Comments Unknown Sex and Gender Information Value Date Recorded Sex Assigned at Not on file Legal Sex Female 7:30 PM CDT Gender Identity Not on file Sexual Orientation Not on file documented as of this encounter Miscellaneous Notes * Cerner Conversion Note - Luis Armando ProviderMD - 04/26/2019 7:40 AM CDT Patient: EMELY ROB Age: 68 years Sex: Female : 1950 Associated Diagnoses: None Author: MJ GALLARDO MD-INF Infectious Disease Progress Note Antibiotic therapy: Rocephin CC: 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 Rob is a 68-year-old white female [...] with cultures reportedly growing P acnes. She underwent explantation of the hardware with antibiotic impregnated spacer on 01/21/19. She received about 8 weeks of IV Rocephin. She is undergoing reimplantation of left knee today. ID was asked to evaluate and manage her antibiotic therapy. 04/26/19: She underwent left total knee arthroplasty reimplantation yesterday. Her pain is controlled and she is started to ambulate. She has remained afebrile overnight. Past medical/surgical history: Presbycusis???with severe left hearing loss and partial right hearing loss Status post cardiac ablation Left TKA 2017 Left TKA explantation 01/21/19 Allergies: Penicillin???to which she developed a rash she has tolerated cephalosporin antibiotics in the past MEDS: No antibiotics Family history: Her mother and father had diabetes mellitus. Her mother had pancreatic cancer. Her has diabetes mellitus Social history: She is and resides in [place]. 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 She smoked in the remote past. She drinks alcohol occasionally. Objective: Vitals Signs (last 24 hrs) Last Charted Minimum Maximum Temp L 96.7 (APR 26:43) L 96.7 (APR 26:43) 97.8 (APR 25 11:00) Mon HR 60 (APR 26:43) 55 (APR 25 22:13) 89 (APR 25 17:40) Periph HR 79 (APR 25 12:53) 79 (APR 25 12:53) 79 (APR 25 12:53) Resp Rate 16 (APR 26:43) 14 (APR 25 18:44) 20 (APR 25 17:30) SBP H 147 (APR 26 05:43) 101 (APR 25 18:05) H 147 (APR 25 11:00) DBP 80 (APR 26:43) L 51 (APR 25 17:30) 83 (APR 26 02:00) MAP 108 (APR 26:43) 73 (APR 25 17:30) 108 (APR 26 05:43) SpO2 97 (APR 26:43) L 91 (APR 25 22:40) 98 (APR 25 11:00) General: [Alert and oriented, well nourished, no [...] CN II-XII intact]. Musculoskeletal: Her left knee has a postoperative dressing in place Labs: Labs (Last four charted values) WBC 6.6 (APR 26) 4.5 (APR 04) HB 12.2 (APR 26) 12.6 (APR 25) 13.9 (APR 04) HCT 38.5 (APR 26) 43.6 (APR 04) Plt L 147 (APR 26) 201 (APR 04) Na 141 (APR 26) 141 (APR 04) K 5.1 (APR 26) 4.5 (APR 04) Cl 106 (APR 26) 105 (APR 04) CO2 27 (APR 26) 30 (APR 04) BUN 19 (APR 26) 21 (APR 04) Cr 0.70 (APR 26) 0.70 (APR 04) Glu R H 174 (APR 26) 94 (APR 04) Ca 8.7 (APR 26) 9.1 (APR 04) PT 9.9 (APR 04) INR 0.9 (APR 04) PTT 29.6 (APR 04) Micro: Left knee cultures reportedly grew P acnes Repeat left knee cultures from 01/21 surgery--negative Left knee cultures from 04/25 are pending. The anaerobic cultures were not ordered for P acnes but I have called the lab and asked them to hold all of the anaerobic cultures for P acnes. Radiology: Radiology Results (Last 48 hours) [id number] -- 04/25/2019 06:55 CR Knee 1 or 2 Vws LT (04/25/2019 17:40) Result: FOUR-VIEW LEFT KNEEHISTORY: Postop left knee.COMPARISON: None.FINDINGS: There are postoperative changes from revision of kneereplacement surgery. Antibiotic beads are seen surrounding the distalfemur. Orthopedic hardware is intact and normally articulated.IMPRESSION: Expected postoperative findings.Images reviewed, interpreted, and dictated by Dr. Albert Mckeon.Transcribed by Gerardo Wu.I have personally viewed, interpreted and dictated the examination. Robb read and agree with the above final transcribed report. Assessment: 1. 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 8 weeks of Rocephin ended 03/04/19. Will give her Rocephin 2 GM IV post-operative after L TKA re-implantation. If her P acnes cultures are positive, I will need to give him 6 weeks of IV antibiotic therapy. If the P acnes cultures are negative, I will give her 2 weeks of intravenous antibiotic therapy followed by oral antibiotic suppression for at least 6 months. 2. Status post left total knee arthroplasty???02/02/17 3. History of penicillin allergy???despite her penicillin allergy she has tolerated cephalosporin antibiotics Plan/Recommendations: 1. Rocephin 2 GM IV daily post-operatively for 2 weeks 2. PICC line 3. Hold the anaerobic cultures for P acnes???I discussed this with the microbiology lab and orthopedic service today UM/LEONARDO: Outpatient Orders: 1. On day of discharge, she will need Rocephin 2 GM IV at 9:00 a.m. before discharge 2. Then on discharge, she will come the following day to [facility] office for Rocephin 2 GM IV daily for 2 weeks. 3. Qweekly PICC line dressing changes in [facility] office 4. Qweekly CBC, CMP, ESR, CRP in [facility] office 5. Follow up with Radha Pruett APRN on 04/28/19 at 10:00 a.m. 6. Fax this note to [phone] I discussed her disposition in detail with the patient, her , and the nursing staff. I coordinated her care. documented in this encounter Plan of Treatment Not on file documented as of this encounter Visit Diagnoses Not on filedocumented in this encounter
--- OUTSIDE RECORDS SUMMARY | 2025-04-25 12:00 | XMS_ITS | Encounter Summary ---
Author Organization [employer] ([place], [place], [place], [place]) Address [address] [place] [address] Care Team Providers Care Feed Adviser Name Role Phone Unavailable Primary Care Provider Unavailabl e Encounter Details Date Type Department Care Team (Late st Contact Info) Description 04/26/2019 Transcribed Document [facility] Radiology [address] [place] [address] Fausto Ramos MD [address] [place] [id number] Social History Tobacco Use Types Packs/Day Years Used Date Smoking Tobacco: Never Assessed Comments Unknown Sex and Gender Information Value Date Recorded Sex Assigned at Not on file Legal Sex Female 7:30 PM CDT Gender Identity Not on file Sexual Orientation Not on file documented as of this encounter Miscellaneous Notes * Cerner Conversion Note - Fausto Ramos MD - 04/26/2019 12:34 PM EDT Patient: EMELY ROB Age: 68 years Sex: Female : 1950 Associated Diagnoses: None Author: Esther Marks APRN 04/26/19 cc: medical management s/p left total knee revision with replant per Dr. Doyt S: Patient found up to bedside recliner. A/O. Son at bedside. Patient reports left knee pain controlled with medications but left foot remains numb which complicates ambulation. Walked 50 feet this morning in therapy with walker assist. Denies cough, dyspnea, fever/chills, dysuria. Bowels have not yet moved but patient is passing gas and tolerating a PO diet without N/V. ID is following for prosthetic joint infection- she will require 2 weeks of Rocephin. PICC line has been placed. HPI: Patient is a 68 yo female admitted to [facility] per Dr. Doty for a left total knee revision, removal of abx spacer and prosthesis reimplantation. Preoperatively patient underwent left knee explant with abx spacer in January 2019. Patient has completed a protracted course of IV abx for prosthetic joint infection. Patient presents this admission for left knee abx spacer removal and prosthesis reimplantation. Patient known to our service from previous admission for left knee infection with abx spacer. She was placed on 6 weeks of IV abx per Dr. Morgan. She reports infection has cleared and she is here to have her hardware replaced. She denies any other changes in her medical hx since her last admission. She has been doing well, was allowed to bear weight last 3 days but very weak. She does have hx of afib but underwent ablation, was on eliquis for DVT prophylaxis. She wants to DC home not rehab. Past Medical hx: Arthritis Aflutter Endometriosis Hard of hearing High blood pressure Hx of hypoglycemia Hyperlipidemia Past Surgical hx: left knee explant with abx spacer January 2019 LTKA Let Knee scope12/28/2015 in the week of 12/28/2015 at 65 Years. T-Tube, bilateral ears in the week of 06/27/2014 at 64 Years. rotator cuff, right in 2010 at 61 Years. Sinus Surgery in 1997 at 48 Years. hysterectomy in 1987 at 38 Years. Family Hx: Parkinson's (father), breast CA (mother) Social & Psychosocial Habits Alcohol 01/18/2019 Alcohol Use History, Social Habits Yes Alcohol Use in Last Twelve Months Yes Alcohol Use Frequency Rarely Employment/School 04/04/2019 Status: Retired Home/Environment 04/04/2019 Lives with: Spouse Living situation: Home/Independent Home equipment: Walker/Cane, Wheelchair Substance Abuse 04/22/2017 Recreational Drug Use History No Recreational Drug Use Last 12 Months No Tobacco 04/22/2017 Tobacco Use Within Last Twelve Months No Years of Tobacco Use 10 Packs/Tins Daily .50 01/18/2019 Month Tobacco Last Used quit in 1998 Allergies (11) Active Reaction Bananas None Documented Benadryl Rash Chocolate Shortness of breath codeine Tachycardia Darvon None Documented Demerol HCl None Documented Kiwi Rash Latex Swelling Lortab Itching penicillin Positive skin test reaction Pineapple None Documented Home Medications (13) Active aspirin 81 mg oral tablet 81 mg = 1 Tab, Oral, BID citalopram 20 mg, Oral, Daily Colace 100 mg oral capsule 100 mg = 1 Cap, PRN, Oral, BID doxycycline hyclate 100 mg oral tablet 100 mg = 1 Tab, Oral, BID ferrous gluconate 325 mg (36 mg elemental iron) oral tablet 325 mg = 1 Tab, Oral, Daily ferrous gluconate 325 mg (36 mg elemental iron) oral tablet 325 mg = 1 Tab, Oral, Daily lisinopril 10 mg, Oral, Daily Maxzide 25/37.5 mg Tab, Oral, Daily meloxicam 15 mg oral tablet 15 mg = 1 Tab, Oral, Daily Neurontin 300 mg oral capsule 300 mg = 1 Cap, PRN, Oral, At Bedtime Percocet 5/325 oral tablet 1 Tab, PRN, Oral, Q4H PreserVision AREDS 2 1 Cap, Oral, BID simvastatin 20 mg, Oral, At Bedtime ROS: Constitutional: [No fevers, chills, sweats] HEENT: [No ear pain, nasal congestion] Respiratory: [No shortness of breath, cough] Cardiovascular: [No Chest pain, palpitations, syncope] Gastrointestinal: [No nausea, vomiting, diarrhea, constipation] Genitourinary: [No hematuria, dysuria, incontinence Musculoskeletal: [+left knee pain, decreased range of motion] Exam: Vitals Signs (last 24 hrs) Last Charted Minimum Maximum Temp L 96.7 (APR 26:43) L 96.7 (APR 26:43) 97 (APR 25 17:23) Mon HR 60 (APR 26:43) 55 (APR 25 22:13) 89 (APR 25 17:40) Periph HR 79 (APR 25 12:53) 79 (APR 25 12:53) 79 (APR 25 12:53) Resp Rate 16 (APR 26:43) 14 (APR 25 18:44) 20 (APR 25 17:30) SBP H 147 (APR 26:43) 101 (APR 25 18:05) H 147 (APR 26:43) DBP 80 (APR 26 05:43) L 51 (APR 25 17:30) 83 (APR 26 02:00) MAP 108 (APR 26 05:43) 73 (APR 25 17:30) 108 (APR 26 05:43) SpO2 97 (APR 26 05:43) L 91 (APR 25 22:40) 97 (APR 25 17:30) General: [Alert and oriented, no acute distress]. Neurologic: [Awake, alert, and oriented X3, CN II-XII intact]. Eye: [PERRL, EOMI, normal conjunctiva]. HENT: [Normocephalic, normal hearing, moist oral mucosa, no scleral icterus, no sinus tenderness]. Neck: [Supple, non-tender, no lymphadenopathy]. Lungs: [Clear to auscultation, non-labored respiration]. Heart: [Normal rate, regular rhythm, no edema]. Abdomen: [Soft, non-tender, non-distended, normal bowel sounds Musculoskeletal: left knee pain with decreased ROM Skin: [Skin is warm, dry and pink, no rashes Psychiatric: [Cooperative, appropriate mood and affect]. Data: Blood Gases (Current Encounter/Past 24 Hours) No Blood Gas Results Found (Past 24 Hours) Electrolytes(BMP) Results (Current Encounter/Past 24 Hours) Sodium Level 141 mmol/L 04/26/2019 03:43 Potassium Level 5.1 mmol/L 04/26/2019 03:43 Chloride Level 106 mmol/L 04/26/2019 03:43 Carbon Dioxide Level 27 mmol/L 04/26/2019 03:43 Anion Gap 13 04/26/2019 03:43 Blood Urea Nitrogen 19 mg/dL 04/26/2019 03:43 Glucose Level 174 mg/dL HI 04/26/2019 03:43 Calcium Level 8.7 mg/dL 04/26/2019 03:43 Creatinine Level 0.70 mg/dL 04/26/2019 03:43 Cardiac Markers (Current Encounter/Past 24 Hours) No Cardiac Marker Results Found (Past 24 Hours) CBC Results (Current Encounter/Past 24 Hours) WBC 6.6 K/uL 04/26/2019 03:28 Hct 38.5 % 04/26/2019 03:28 Hgb 12.2 g/dL 04/26/2019 03:28 Platelet Count 147 K/uL LOW 04/26/2019 03:28 CMP Results (Current Encounter/Past 24 Hours) eGFR NonAfrican >60 mL/min/1.73m2 04/26/2019 03:43 eGFR >60 mL/min/1.73m2 04/26/2019 03:43 Bun/Creatinine 27.1 HI 04/26/2019 03:43 Creatinine Level 0.70 mg/dL 04/26/2019 03:43 Sodium Level 141 mmol/L 04/26/2019 03:43 Potassium Level 5.1 mmol/L 04/26/2019 03:43 Chloride Level 106 mmol/L 04/26/2019 03:43 Carbon Dioxide Level 27 mmol/L 04/26/2019 03:43 Anion Gap 13 04/26/2019 03:43 Blood Urea Nitrogen 19 mg/dL 04/26/2019 03:43 Glucose Level 174 mg/dL HI 04/26/2019 03:43 Calcium Level 8.7 mg/dL 04/26/2019 03:43 Coagulation Results (Current Encounter/Past 24 Hours) No Coagulation Results Found (Past 24 Hours) Creatinine Clearance (Current Encounter/Past 24 Hours) Creatinine Level 0.70 mg/dL 04/26/2019 03:43 Bun/Creatinine 27.1 HI 04/26/2019 03:43 Impression: 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 Newby follows for antibiotic management resume maxzide home dose Monitor HTN; add PRN's, hold parameters bowel regimen incentive spirometer PT/OT DVT prophylaxis noted Pain management deferred to surgeon will monitor hb/hct daily for signs of ongoing acute blood loss will monitor bun/cr daily for signs of dehydration, prerenal azotemia will monitor for signs/symptoms of post-op wound infection or hospital acquired infectious process resume outpatient medication regimen for comorbidities Assessment and treatment plan made in conjunction with Rogelio Ramos MD Scribed by Raven Payton documented in this encounter Plan of Treatment Not on file documented as of this encounter Visit Diagnoses Not on filedocumented in this encounter
--- OUTSIDE RECORDS SUMMARY | 2025-04-25 12:00 | XMS_ITS | Encounter Summary ---
Author Organization [employer] ([place], [place], [place], [place]) Address [address] [place] [address] Care Team Providers Care Tunnel Mucker Name Role Phone Unavailable Primary Care Provider Unavailabl e Encounter Details Date Type Department Care Team (Late st Contact Info) Description 04/26/2019 Transcribed Document [facility] [place] [address] [place] [address] ProviderLuis Armando MD [address] [place], [place] [id number] Social History Tobacco Use Types Packs/Day Years Used Date Smoking Tobacco: Never Assessed Comments Unknown Sex and Gender Information Value Date Recorded Sex Assigned at Not on file Legal Sex Female 7:30 PM CDT Gender Identity Not on file Sexual Orientation Not on file documented as of this encounter Miscellaneous Notes * Cerner Conversion Note - Historical ProviderMD - 04/26/2019 9:02 AM CDT UM Authorization Entered On: 04/26/2019 9:02 EDT Performed On: 04/26/2019 9:02 EDT by Megan Zendejas Rn-Utilization Review Primary Insurance Authorization Authorization and Policy Numbers : Insurance 1 Health Plan: MEDICARE Policy Number: [id number] Authorization Number: Insurance 2 Health Plan: [facility] Policy Number: [id number] Authorization Number: Insurance Primary Name : MEDICARE Authorized Service Begin Date-Primary : 04/25/2019 EDT Historical Authorization Comments-Primary : No Authorization Comments Found Megan Zendejas Rn-Utilization Review - 04/26/2019 9:02 EDT Electronically signed by Gomez Orona Conversion Felled Seam Operator Chain[employer]ch Cerner at 11/11/2022 8:48 PM CDT documented in this encounter Plan of Treatment Not on file documented as of this encounter Visit Diagnoses Not on filedocumented in this encounter
--- OUTSIDE RECORDS SUMMARY | 2025-04-25 12:00 | XMS_ITS | Encounter Summary ---
Author Organization [employer] ([place], [place], [place], [place]) Address [address] [place] [address] Care Team Providers Care Telecommunications Engineer Name Role Phone Unavailable Primary Care Provider Unavailabl e Encounter Details Date Type Department Care Team (Late st Contact Info) Description 01/22/2019 Transcribed Document [facility] [place] [address] [place] [address] ProviderLuis Armando MD [address] [place] [address] Social History Tobacco Use Types Packs/Day Years Used Date Smoking Tobacco: Never Assessed Comments Unknown Sex and Gender Information Value Date Recorded Sex Assigned at Not on file Legal Sex Female 7:30 PM CDT Gender Identity Not on file Sexual Orientation Not on file documented as of this encounter Miscellaneous Notes * Cerner Conversion Note - Historical ProviderMD - 01/22/2019 2:27 PM CDT Attempt to Treat, PT Entered On: 01/22/2019 14:30 EDT Performed On: 01/22/2019 14:27 EDT by Roberto Anaya PHYSICAL THERAPIST Attempt to Treat Unable to Treat Due To : Pain Inability to Treat Comment : She rates pain 7-8/10, Review AP< QS, GS each commercial set while watch TV first commercial AP, next QS and following commercial finish with GS. Notification : Nurse Roberto Jarrett, PHYSICAL THERAPIST - 01/22/2019 14:27 EDT documented in this encounter Plan of Treatment Not on file documented as of this encounter Visit Diagnoses Not on filedocumented in this encounter
--- OUTSIDE RECORDS SUMMARY | 2025-04-25 12:01 | XMS_ITS | Encounter Summary ---
Author Organization [employer] ([place], [place], [place], [place]) Address [address] [place] [address] Care Team Providers Care Herpetologist Name Role Phone Unavailable Primary Care Provider Unavailabl e Encounter Details Date Type Department Care Team (Late st Contact Info) Description 04/27/2019 Transcribed Document [facility] [place] [address] [place] [address] ProviderLuis Armando MD [address] [place] [address] Social History Tobacco Use Types Packs/Day Years Used Date Smoking Tobacco: Never Assessed Comments Unknown Sex and Gender Information Value Date Recorded Sex Assigned at Not on file Legal Sex Female 7:30 PM CDT Gender Identity Not on file Sexual Orientation Not on file documented as of this encounter Miscellaneous Notes * Cerner Conversion Note - Historical ProviderMD - 04/27/2019 6:00 AM CDT Pain Assessment Entered On: 04/27/2019 7:18 EDT Performed On: 04/27/2019 8:10 EDT by Swetha Alston LPN Intervention Information: acetaminophen Performed by Swetha Alston LPN on 04/27/2019 07:10:00 EDT acetaminophen,1000mg Oral Pain Assessment Pain Assessment : Follow-up assessment Pain Scale Goal : 4 Pain Scale Used : 0-10 Scale Location : Knee, left Onset : Abrupt Quality : Dull Pain Radiation : No Pain Improved by : Medication Pain Worsened by : Movement Pain Intervention, Drug : Medicated Pain Intervention, Non-Drug : Positioning Pain Improved by Intervention : Yes Swetha Alston LPN - 04/27/2019 7:17 EDT Pain Scale Intensity : 3 Swetha Alston LPN - 04/27/2019 7:17 EDT Image 4 - Images currently included in the form version of this document have not been included in the text rendition version of the form. documented in this encounter Plan of Treatment Not on file documented as of this encounter Visit Diagnoses Not on filedocumented in this encounter
--- OUTSIDE RECORDS SUMMARY | 2025-04-25 12:01 | XMS_ITS | Encounter Summary ---
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 Role Phone Unavailable Primary Care Provider Unavailabl e Encounter Details Date Type Department Care Team (Late st Contact Info) Description 04/27/2019 Transcribed Document [facility] [address] [place] [address] Luis Armando Spear MD [address] [place] [address] Social History Tobacco Use Types Packs/Day Years Used Date Smoking Tobacco: Never Assessed Comments Unknown Sex and Gender Information Value Date Recorded Sex Assigned at Not on file Legal Sex Female 7:30 PM CDT Gender Identity Not on file Sexual Orientation Not on file documented as of this encounter Miscellaneous Notes * Cerner Conversion Note - Luis Armando Spear MD - 04/27/2019 8:13 AM CDT Patient Education Materials Follows: CALL FIRST! Unless you are experiencing life-threatening issues, call your surgeon's office or nurse navigator first, before going to the Emergency Department. Call your surgeon or nurse navigator if: ?? Your incision has increased swelling that does not get better with time, rest, and propping up your leg ?? Your incision has a foul smell or begins to open ?? You have a large amount of bleeding from incision ?? Your incision gets red, warm or increased drainage after 2 days ?? You have a fever over 101 degrees for more than 24 hours ?? You have increased swelling, redness, warmth or pain in your calf ?? You fall, but don't have an obvious injury ?? You have questions or cause for concern regarding your total joint replacement Call 911 if: ?? You have sudden chest pain or shortness of breath ?? You fall and cannot get up ?? Life-threatening signs or symptoms ?? Stroke signs and symptoms: Facial droop, uneven smile, arm numbness, arm weakness, slurred speech, difficulty speaking or understanding If you are a patient of Dr. Doty or Dr. Lange, call [phone] If you are a patient of Dr. Nance, call [phone] Nurse Navigator: Gabrielle Garcia Office: [phone]; ; available during regular business hours Discharge Instructions for Total Knee Replacement Your Knee Incision: Do not swim, soak or bathe in a tub until cleared by the surgeon. If you have a light brown dressing: Keep your dressing in place for 7-10 days. This type of dressing is water resistant. Please check the edges of the dressing. If they are in place, you may shower until the dressing is removed. The home health Physical Therapist or Nurse will remove the dressing after 7-10 days. Or your surgeon will remove it at your return appointment. Then your incision may be open to air. It will be best to sponge bathe from the time the dressing is removed until your return appointment. If you have a dry, white dressing: Change your dressing when needed (if the dressing is dirty or old). Wash your hands before and after changing the dressing. Activity ?? You may put weight on your leg when you walk, unless your surgeon tells you not differently. Use your walker until the therapist or surgeon say you do not need it anymore. Continue your exercises from physical therapy. ?? Complete straightening exercises (whether using Zero Knee Foam or Tubs ) AT LEAST three times a day for 30 minutes, keep toes pointed to ceiling. Keep knee straight and extended unless you are doing bending exercises. No pillow under knee. ?? Stay active, get up every 1-2 hours, walk short distances, and walk a little more each week. No driving until cleared by your surgeon. ?? If your surgeon has ordered support hose, wear them for 6 weeks in order to prevent blood clots. Take them off 1-2 times per day for about 30 minutes-1 hour. Check your skin for red or open areas under the hose. They can be bought online and at many pharmacies, be sure that compression is 15-20mmHg and that they are thigh-high. ?? If you have a CPM, use it 2 hours 2x/day. ?? For swelling, elevate your leg above your heart. Remember to keep knee straight and NOT bent, unless you are doing your bending exercises. ?? Cold therapy 30 minutes on and 30 minutes off with cloth or clothing between skin and cold wrap. General Instructions: ?? Eat 25-35 grams of fiber every day. Drink 8-10 glasses of water a day and take stool softeners while you are on pain medication, since they cause constipation. If you do not have a bowel movement in 3-4 days after your surgery, try an over the counter laxative, such as milk of magnesia, miralax, dulcolax tablet or suppository, or fleets enema. If you do not have success after this, contact your home health nurse or surgeon office. ?? Continue using your incentive spirometer to keep fever and lung infection away. Aim for 10 breaths every hour while you are awake. ?? Take pain medicine as needed, especially before therapy. ?? Let your doctors and dentist know you have a prosthetic knee. They may need to give you an antibiotic before a procedure. Call Your Surgeon: Infection: Your hip has increased swelling that does not get better with time, propping up your leg and with rest. Your incision has a foul smell or your incision begins to open. Your incision gets red, is warm or has increased drainage after 2 days. You have a fever over 101 degrees for more than 24 hours. A Blood Clot: You have increased swelling, redness, warmth or pain in your calf. A Fall: You fall down without obvious injury. Call 911: You have sudden chest pain and/or difficulty breathing You fall and cannot get up Stroke signs and symptoms: Facial droop, uneven smile, arm numbness, arm weakness, slurred speech, difficulty speaking or understanding documented in this encounter Plan of Treatment Not on file documented as of this encounter Visit Diagnoses Not on filedocumented in this encounter
--- OUTSIDE RECORDS SUMMARY | 2025-04-25 12:01 | XMS_ITS | Encounter Summary ---
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 Name Role Phone Unavailable Primary Care Provider Unavailabl e Encounter Details Date Type Department Care Team (Late st Contact Info) Description 04/27/2019 Transcribed Document [facility] Family Medicine [address] [place] [address] ProviderLuis Armando MD [address] [place] [address] Social History Tobacco Use Types Packs/Day Years Used Date Smoking Tobacco: Never Assessed Comments Unknown Sex and Gender Information Value Date Recorded Sex Assigned at Not on file Legal Sex Female 7:30 PM CDT Gender Identity Not on file Sexual Orientation Not on file documented as of this encounter Miscellaneous Notes * Cerner Conversion Note - Luis Armando ProviderMD - 04/27/2019 10:38 AM CDT [facility] [place] [address] LIANEDecember :1950 Visit Time:04/25/2019 Your Visit Summary Your Care Team Admitting Physician - CHANEL DOTY MD-ORT Attending Physician - CHANEL DOTY MD-ORT Primary Care Physician - CHAU SAENZ MD-[facility] Referring Physician - CHUY, NOT LISTED Your Diagnosis Infection and inflammatory reaction due to internal right knee prosthesis, initial encounter, Infection and inflammatory reaction due to internal right knee prosthesis, initial encounter Status post revision of total knee replacement These Are Your Goals Walk around the block without pain Discharge Vitals Temperature 36.7 ??C Heart Rate (Monitored) 67 Respiratory Rate 16 Blood Pressure 142/70 What to do next Instructions From Your Care Team -Wear RICHARD hoses x 6 weeks. -Leave Aquacel dressing in place for 7-10 days. PT to remove. Then leave open to air. -May shower. No tub bathing, swimming, or soaking. Keep dressing clean and dry. -Continue to wear knee immobilizer until instructed. Discharge Follow Up Instructions: Follow-up Dr. Doty 3 wks ([phone]) Follow Up Instructions: Continue RICHARD hose for 6 weeks Follow Up Instructions: Leave Aquacel dressing in place x 7-10d, then open to air. Follow-Up Appointments Follow Up with ROLF WARE PA-ORT When 05/16/2019 03:30 PM EDT Comments MAYANK Zimmerman Where: [address] [place] [address]- Follow Up with MJ GALLARDO MD-INF When 04/28/2019 10:00 AM EDT Where: [address] [facility] [address] [place] [id number]- Follow Up with JUAN DORAN When 04/28/2019 10:00 AM EDT Medications What How Much When Why Instructions Next Dose acetaminophen-oxyCODONE (Percocet 5/ 325 oral tablet) 1 Tablet(s) Oral Every 4 Hours as needed for Pain (Severe 7-10) Status post revision of total knee replacement not to exceed 6 tablets/ day Printed Prescription As Needed aspirin (aspirin 81 mg oral tablet) 1 Tablet(s) Oral Two Times A Day Status post revision of total knee replacement Duration: 42 Day(s) Printed Prescription 04/28 cefTRIAXone (Rocephin) 2 Gram(s) IV Piggyback Interval Every 24 Hours x 2 weeks. To be given in the [place] [facility] office. 10 docusate (Colace 100 mg oral capsule) 1 Capsule(s) Oral Two Times A Day as needed for for constipation Status post revision of total knee replacement Duration: 30 Day(s) Printed Prescription As Needed gabapentin (Neurontin 300 mg oral capsule) 1 Capsule(s) Oral At Bedtime as needed for Sleep Status post revision of total knee replacement Printed Prescription As Needed meloxicam (meloxicam 15 mg oral tablet) 1 Tablet(s) Oral Every Day Status post revision of total knee replacement Printed Prescription 04/29 ondansetron (Zofran 4 mg oral tablet) 1 Tablet(s) Oral Every 8 Hours as needed for Nausea Pickup at [facility] #[id number] As Needed citalopram 20 Milligram(s) Oral Every Day 04/29 ferrous gluconate (ferrous gluconate 325 mg (36 mg elemental iron) oral tablet) 1 Tablet(s) Oral Every Day Chronic infection of knee joint prosthesis 04/29 hydroCHLOROthiazide-triamterene (Maxzide) 25/37.5 mg Tab Oral Every Day 04/29 lisinopril 10 Milligram(s) Oral Every Day 04/29 multivitamin with minerals (PreserVision AREDS 2) 1 Capsule(s) Oral Two Times A Day 04/28 2100 simvastatin 20 Milligram(s) Oral At Bedtime 04/28 2100 Pharmacy Information [facility] [employer] [facility] #[id number]: [address], [place] [phone] Take your medications faithfully. Do NOT skip medication. Do NOT stop taking medications without the direction of a physician. Carry a list of your medications with you at all times, and take this medication list with you to your first follow up visit. Report any side effects. Avoid herbal remedies unless discussed with your physician. As part of your treatment plan, your physician may have prescribed a limited course of a controlled substance. This medication may be given to help people with moderate or severe pain or for other medical conditions, but there are risks involved with treatment. Common side effects may include nausea, constipation, drowsiness, sweating, itching, dry mouth, and rash. More serious side effects may include cognitive and motor impairment, like problems with thinking, concentrating, alertness, and movement (e.g. slowed reflexes), and driving and operating heavy machinery can be dangerous. It is important for you to talk to your physician if you have these side effects or questions. These controlled substances can produce physical dependence and be habit-forming if taken for an extended period of time, which means that the body has gotten used to them and may experience withdrawal symptoms if they are abruptly stopped. Withdrawal symptoms can include runny nose, sweating, goose bumps, diarrhea, abdominal cramping, rapid heartbeat, difficulty sleeping, and nervousness. Please dispose of unused and medications per your retail pharmacy guidance. Allergies Bananas Benadryl (Rash, Itching) Chocolate (Hives, Shortness of breath) Darvon Demerol HCl Kiwi (Rash, Itching) Latex (Difficulty breathing at rest, Swelling) Lortab (Itching) Pineapple codeine (Tachycardia) penicillin (Positive skin test reaction) Immunizations This Visit No Immunizations Found Education Materials CALL FIRST! Unless you are experiencing life-threatening issues, call your surgeon???s office or nurse navigator first, before going to the Emergency Department. Call your surgeon or nurse navigator if: ??? Your incision has increased swelling that does not get better with time, rest, and propping up your leg ??? Your incision has a foul smell or begins to open ??? You have a large amount of bleeding from incision ??? Your incision gets red, warm or increased drainage after 2 days ??? You have a fever over 101 degrees for more than 24 hours ??? You have increased swelling, redness, warmth or pain in your calf ??? You fall, but don???t have an obvious injury ??? You have questions or cause for concern regarding your total joint replacement Call 911 if: ??? You have sudden chest pain or shortness of breath ??? You fall and cannot get up ??? Life-threatening signs or symptoms ??? Stroke signs and symptoms: Facial droop, uneven smile, arm numbness, arm weakness, slurred speech, difficulty speaking or understanding If you are a patient of Dr. Doty or Dr. Lange, call [phone] If you are a patient of Dr. Nance, call [phone] Nurse Navigator: Gabrielle Garcia Office: [phone]; ; available during regular business hours Discharge [...] before and after changing the dressing. Activity ??? You may put weight on your leg when you walk, unless your surgeon tells you not differently. Use your walker until the therapist or surgeon say you do not need it anymore. Continue your exercises from physical therapy. ??? Complete straightening exercises (whether using Zero Knee Foam or ???Tubs?? ) AT LEAST three times a day for 30 minutes, keep toes pointed to ceiling. Keep knee straight and extended unless you are doing bending exercises. No pillow under knee. ??? Stay active, get up every 1-2 hours, walk short distances, and walk a little more each week. No driving until cleared by your surgeon. ??? If your surgeon has ordered support hose, wear them for 6 weeks in order to prevent blood clots. Take them off 1-2 times per day for about 30 minutes-1 hour. Check your skin for red or open areas under the hose. They can be bought online and at many pharmacies, be sure that compression is 15-20mmHg and that they are thigh-high. ??? If you have a CPM, use it 2 hours 2x/day. ??? For swelling, elevate your leg above your heart. Remember to keep knee straight and NOT bent, unless you are doing your bending exercises. ??? Cold therapy 30 minutes on and 30 minutes off with cloth or clothing between skin and cold wrap. General Instructions: ??? Eat 25-35 grams of fiber every day. [...] your home health nurse or surgeon office. ??? Continue using your incentive spirometer to keep fever and lung infection away. Aim for 10 breaths every hour while you are awake. ??? Take pain medicine as needed, especially before therapy. ??? Let your doctors and dentist know you [...] weakness, slurred speech, difficulty speaking or understanding docusate (oral/rectal) (DOK ue bettinae) Colace, Diocto, Doc-Q-Lace, Docu, Doculase, Docusil, Docusoft S, DocuSol, Dulcolax Stool Softener, Enemeez Mini, Dave-Tin, Pedia-Lax Stool Softener, Ryan Stool Softener, Promolaxin, Silace, Surfak Stool Softener, Pieter-Q-Lax What is the most important information I should know about docusate? You should not use docusate if you also use mineral oil, unless your doctor tells you to. What is docusate? Docusate is a stool softener that makes bowel movements softer and easier to pass. Docusate is used to relieve occasional constipation (irregularity). There are many brands and forms of docusate available. Not all brands are listed on this leaflet. Docusate may also be used for purposes not listed in this medication guide. What should I discuss with my healthcare provider before using docusate? You should not use docusate if you are allergic to it. Ask a doctor or pharmacist if this medicine is safe to use if you have: ?? stomach pain; ?? nausea; ?? vomiting; or ?? a sudden change in bowel habits that lasts over 2 weeks. Ask a doctor before using this medicine if you are or . Do not give this medicine to a child without medical advice. How should I use docusate? Use exactly as directed on the label, or as prescribed by your doctor. Drink plenty of liquids while you are using docusate. Measure liquid medicine carefully. Use the dosing syringe provided, or use a medicine dose-measuring device (not a kitchen spoon). Do not take the rectal enema by mouth. Rectal medicine is for use only in the rectum. Wash your hands before and after using the enema. To use the enema, lie on your left side with your left leg extended and your right leg slightly bent. Remove the cap from the applicator tip and gently insert the tip into your rectum. Slowly squeeze the bottle to empty the contents into the rectum. After using the enema, lie down on your left side for at least 30 minutes to allow the liquid to distribute throughout your intestines. Avoid using the bathroom, and hold in the enema at least 1 hour, or all night if possible. Read and carefully follow any Instructions for Use provided with your medicine. Ask your doctor or pharmacist if you do not understand these instructions. Docusate generally produces bowel movement in 12 to 72 hours. Call your doctor if your symptoms do not improve after 72 hours. You should not use docusate for longer than 1 week, unless your doctor tells you to. Store at room temperature away from moisture and heat. Do not freeze liquid medicine. What happens if I miss a dose? Since docusate is used when needed, you may not be on a dosing schedule. Skip any missed dose if it's almost time for your next dose. Do not use two doses at one time. What happens if I overdose? Seek emergency medical attention or call the Poison Help line at . What should I avoid while using docusate? Avoid using mineral oil, unless told to do so by a doctor. What are the possible side effects of docusate? Get emergency medical help if you have signs of an allergic reaction: hives; difficult breathing; swelling of your face, lips, tongue, or throat. Stop using docusate and call your doctor at once if you have: ?? rectal bleeding or irritation; or ?? no bowel movement after 72 hours. Less serious side effects may be more likely, and you may have none at all. This is not a complete list of side effects and others may occur. Call your doctor for medical advice about side effects. You may report side effects to FDA at 4-994-RHV-2433. What other drugs will affect docusate? Other drugs may affect docusate, including prescription and jibb-agx-fctleje medicines, vitamins, and herbal products. Tell your doctor about all your current medicines and any medicine you start or stop using. Where can I get more information? Your pharmacist can provide more information about docusate. Remember, keep this and all other medicines out of the reach of children, never share your medicines with others, and use this medication only for the indication prescribed. Every effort has been made to ensure that the information provided by [employer]') is accurate, up-to-date, and complete, but no guarantee is made to that effect. Drug information contained herein may be time sensitive. [employer] information has been compiled for use by healthcare practitioners and consumers in the [place] and therefore [employer] does not warrant that uses outside of the [place] are appropriate, unless specifically indicated otherwise. [employer] drug information does not endorse drugs, diagnose patients or recommend therapy. [employer] drug information is an informational resource designed to assist licensed healthcare practitioners in caring for their patients and/or to serve consumers viewing this service as a supplement to, and not a substitute for, the expertise, skill, knowledge and judgment of healthcare practitioners. The absence of a warning for a given drug or drug combination in no way should be construed to indicate that the drug or drug combination is safe, effective or appropriate for any given patient. [employer] does not assume any responsibility for any aspect of healthcare administered with the aid of information [employer] provides. The information contained herein is not intended to cover all possible uses, directions, precautions, warnings, drug interactions, allergic reactions, or adverse effects. If you have questions about the drugs you are taking, check with your doctor, nurse or pharmacist. Copyright 2570-5422 [employer]. Version: 4.01. Revision Date: 01/31/2019. acetaminophen and oxycodone (a SEET a MIN oh fen and OX i KOE done) Endocet 10/325, Endocet 2.5/325, Endocet 5/325, Endocet 7.5/325, Nalocet, Percocet 10/325, Percocet 2.5/325, Percocet 5/325, Percocet 7.5/325, Primalev, Primlev, Roxicet, Xartemis XR What is the most important information I should know about acetaminophen and oxycodone? MISUSE OF OPIOID MEDICINE CAN CAUSE ADDICTION, OVERDOSE, OR . Keep the medication in a place where others cannot get to it. An overdose of acetaminophen can damage your liver or cause . Call your doctor at once if you have pain in your upper stomach, loss of appetite, dark urine, or jaundice (yellowing of your skin or eyes). Taking opioid medicine during may cause life-threatening withdrawal symptoms in the . Fatal side effects can occur if you use opioid medicine with alcohol, or with other drugs that cause drowsiness or slow your breathing. Stop taking this medicine and call your doctor right away if you have skin redness or a rash that spreads and causes blistering and peeling. What is acetaminophen and oxycodone? Oxycodone is an opioid pain medication, sometimes called a narcotic. Acetaminophen is a less potent pain reliever that increases the effects of oxycodone. Acetaminophen and oxycodone is a combination medicine used to relieve moderate to severe pain. Acetaminophen and oxycodone may also be used for purposes not listed in this medication guide. What should I discuss with my healthcare provider before taking acetaminophen and oxycodone? You should not use this medicine if you are allergic to acetaminophen or oxycodone, or if you have: ?? severe asthma or breathing problems; or ?? a blockage in your stomach or intestines. Tell your doctor if you have ever had: ?? liver disease; ?? a drug or alcohol addiction; ?? kidney disease; ?? a head injury or seizures; ?? urination problems; or ?? problems with your thyroid, pancreas, or gallbladder. If you use opioid medicine while you are , your baby could become dependent on the drug. This can cause life-threatening withdrawal symptoms in the baby after it is born. Babies born dependent on opioids may need medical treatment for several weeks. Do not breast-feed. This medicine can pass into breast milk and cause drowsiness, breathing problems, or in a nursing baby. How should I take acetaminophen and oxycodone? Follow all directions on your prescription label. Never take this medicine in larger amounts, or for longer than prescribed. An overdose can damage your liver or cause . Tell your doctor if the medicine seems to stop working as well in relieving your pain. Never share this medicine with another person, especially someone with a history of drug abuse or addiction. MISUSE CAN CAUSE ADDICTION, OVERDOSE, OR . Keep the medicine in a place where others cannot get to it. Selling or giving away acetaminophen and oxycodone is against the law. Measure liquid medicine carefully. Use the dosing syringe provided, or use a medicine dose-measuring device (not a kitchen spoon). If you need surgery or medical tests, tell the doctor ahead of time that you are using this medicine. You should not stop using this medicine suddenly. Follow your doctor's instructions about tapering your dose. Store at room temperature away from moisture and heat. Keep track of your medicine. You should be aware if anyone is using it improperly or without a prescription. Do not keep leftover opioid medication. Just one dose can cause in someone using this medicine accidentally or improperly. Ask your pharmacist where to locate a drug take-back disposal program. If there is no take-back program, flush the unused medicine down the toilet. What happens if I miss a dose? Since this medicine is used for pain, you are not likely to miss a dose. Skip any missed dose if it is almost time for your next dose. Do not use two doses at one time. What happens if I overdose? Seek emergency medical attention or call the Poison Help line at . An overdose of acetaminophen and oxycodone can be fatal. The first signs of an acetaminophen overdose include loss of appetite, nausea, vomiting, stomach pain, sweating, and confusion or weakness. Later symptoms may include pain in your upper stomach, dark urine, and yellowing of your skin or the whites of your eyes. Overdose can also cause severe muscle weakness, pinpoint pupils, very slow breathing, extreme drowsiness, or coma. What should I avoid while taking acetaminophen and oxycodone? Avoid driving or operating machinery until you know how this medicine will affect you. Dizziness or drowsiness can cause falls, accidents, or severe injuries. Do not drink alcohol. Dangerous side effects or could occur. Ask a doctor or pharmacist before using any other medicine that may contain acetaminophen (sometimes abbreviated as APAP). Taking certain medications together can lead to a fatal overdose. What are the possible side effects of acetaminophen and oxycodone? Get emergency medical help if you have signs of an allergic reaction: hives; difficulty breathing; swelling of your face, lips, tongue, or throat. Opioid medicine can slow or stop your breathing, and may occur. A person caring for you should seek emergency medical attention if you have slow breathing with long pauses, blue colored lips, or if you are hard to wake up. In rare cases, acetaminophen may cause a severe skin reaction that can be fatal. This could occur even if you have taken acetaminophen in the past and had no reaction. Stop taking this medicine and call your doctor right away if you have skin redness or a rash that spreads and causes blistering and peeling. Call your doctor at once if you have: ?? noisy breathing, sighing, shallow breathing; ?? a light-headed feeling, like you might pass out; ?? weakness, tiredness, fever, unusual bruising or bleeding; ?? confusion, unusual thoughts or behavior; ?? problems with urination; ?? liver problems--nausea, upper stomach pain, tiredness, loss of appetite, dark urine, gricel-colored stools, jaundice (yellowing of the skin or eyes); or ?? low cortisol levels-- nausea, vomiting, loss of appetite, dizziness, worsening tiredness or weakness. Seek medical attention right away if you have symptoms of serotonin syndrome, such as: agitation, hallucinations, fever, sweating, shivering, fast heart rate, muscle stiffness, twitching, loss of coordination, nausea, vomiting, or diarrhea. Serious side effects may be more likely in older adults and those who are overweight, malnourished, or debilitated. Long-term use of opioid medication may affect fertility (ability to have children) in men or women. It is not known whether opioid effects on fertility are permanent. Common side effects include: ?? dizziness, drowsiness, feeling tired; ?? feelings of extreme happiness or sadness; ?? nausea, vomiting, stomach pain; ?? constipation; or ?? headache. This is not a complete list of side effects and others may occur. Call your doctor for medical advice about side effects. You may report side effects to FDA at 2-158-BRJ-1458. What other drugs will affect acetaminophen and oxycodone? You may have breathing problems or withdrawal symptoms if you start or stop taking certain other medicines. Tell your doctor if you also use an antibiotic, antifungal medication, heart or blood pressure medication, seizure medication, or medicine to treat HIV or hepatitis C. Opioid medication can interact with many other drugs and cause dangerous side effects or . Be sure your doctor knows if you also use: ?? cold or allergy medicines, bronchodilator asthma/COPD medication, or a diuretic ('water pill'); ?? medicines for motion sickness, irritable bowel syndrome, or overactive bladder; ?? other narcotic medications--opioid pain medicine or prescription cough medicine; ?? a sedative like Valium--diazepam, alprazolam, lorazepam, Xanax, Klonopin, Versed, and others; ?? drugs that make you sleepy or slow your breathing--a sleeping pill, muscle relaxer, medicine to treat mood disorders or mental illness; ?? drugs that affect serotonin levels in your body--a stimulant, or medicine for depression, Parkinson's disease, migraine headaches, serious infections, or nausea and vomiting. This list is not complete. Other drugs may affect acetaminophen and oxycodone, including prescription and [id number] medicines, vitamins, and herbal products. Not all possible interactions are listed here. Where can I get more information? Your doctor or pharmacist can provide more information about acetaminophen and oxycodone. Remember, keep this and all other medicines out of the reach of children, never share your medicines with others, and use this medication only for the indication prescribed. Every effort has been made to ensure that the information provided by [employer]') is accurate, up-to-date, and complete, but no guarantee is made to that effect. Drug information contained herein may be time sensitive. [employer] information has been compiled for use by healthcare practitioners and consumers in the [place] and therefore [employer] does not warrant that uses outside of the [place] are appropriate, unless specifically indicated otherwise. [employer]'s drug information does not endorse drugs, diagnose patients or recommend therapy. [employer] [employer] drug information is an informational resource designed to assist licensed healthcare practitioners in caring for their patients and/or to serve consumers viewing this service as a supplement to, and not a substitute for, the expertise, skill, knowledge and judgment of healthcare practitioners. The absence of a warning for a given drug or drug combination in no way should be construed to indicate that the drug or drug combination is safe, effective or appropriate for any given patient. [facility] does not assume any responsibility for any aspect of healthcare administered with the aid of information [facility] provides. The information contained herein is not intended to cover all possible uses, directions, precautions, warnings, drug interactions, allergic reactions, or adverse effects. If you have questions about the drugs you are taking, check with your doctor, nurse or pharmacist. Copyright 6285-5849 [employer]. Version: 18.02. Revision Date: 06/23/2018. doxycycline (oral/injection) (DOX olive LENKA elaine) Acticlate, Adoxa, Alodox, Avidoxy, Doryx, Mondoxyne NL, Monodox, Morgidox, Oracea, Oraxyl, Targadox, Vibramycin What is the most important information I should know about doxycycline? You should not take this medicine if you are allergic to any tetracycline antibiotic. Children younger than 8 years old should use doxycycline only in cases of severe or life-threatening conditions. This medicine can cause permanent yellowing or graying of the teeth in children Using doxycycline during could harm the unborn baby or cause permanent tooth discoloration later in the baby's life. What is doxycycline? Doxycycline is a tetracycline antibiotic that fights bacteria in the body. Doxycycline is used to treat many different bacterial infections, such as acne, urinary tract infections, intestinal infections, eye infections, gonorrhea, chlamydia, periodontitis (gum disease), and others. Doxycycline is also used to treat blemishes, bumps, and acne-like lesions caused by rosacea. Doxycycline will not treat facial redness caused by rosacea. Some forms of doxycycline are used to prevent malaria, to treat anthrax, or to treat infections caused by mites, ticks, or lice. Doxycycline may also be used for purposes not listed in this medication guide. What should I discuss with my healthcare provider before taking doxycycline? You should not take this medicine if you are allergic to doxycycline or other tetracycline antibiotics such as demeclocycline, minocycline, tetracycline, or tigecycline. Tell your doctor if you have ever had: ?? liver disease; ?? kidney disease; ?? asthma or sulfite allergy; ?? increased pressure inside your skull; or ?? if you also take isotretinoin, seizure medicine, or a blood thinner such as warfarin (Coumadin). If you are using doxycycline to treat gonorrhea, your doctor may test you to make sure you do not also have syphilis, another sexually transmitted disease. Taking this medicine during may affect tooth and bone development in the unborn baby. Taking doxycycline during the last half of can cause permanent tooth discoloration later in the baby's life. Tell your doctor if you are or if you become . Doxycycline can make control pills less effective. Ask your doctor about using a non-hormonal control (condom, diaphragm with spermicide) to prevent . Doxycycline can pass into breast milk and may affect bone and tooth development in a nursing infant. Do not breast-feed while you are taking doxycycline. Doxycycline can cause permanent yellowing or graying of the teeth in children younger than 8 years old. Children should use doxycycline only in cases of severe or life-threatening conditions such as anthrax or [place] spotted fever. The benefit of treating a serious condition may outweigh any risks to the child's tooth development. How should I take doxycycline? Follow all directions on your prescription label and read all medication guides or instruction sheets. Use the medicine exactly as directed. Take doxycycline with a full glass of water. Drink plenty of liquids while you are taking doxycycline. Read and carefully follow any Instructions for Use provided with your medicine. Ask your doctor or pharmacist if you do not understand these instructions. Most brands of doxycyline may be taken with food or milk if the medicine upsets your stomach. Different brands of doxycycline may have different instructions about taking them with or without food. Take Oracea on an empty stomach, at least 1 hour before or 2 hours after a meal. You may need to split a doxycycline tablet to get the correct dose. Follow your doctor's instructions. Swallow a delayed-release capsule or tablet whole. Do not crush, chew, break, or open it. Measure liquid medicine with the dosing syringe provided, or with a special dose-measuring spoon or medicine cup. If you do not have a dose-measuring device, ask your pharmacist for one. If you take doxycycline to prevent malaria: Start taking the medicine 1 or 2 days before entering an area where malaria is common. Continue taking the medicine every day during your stay and for at least 4 weeks after you leave the area. Doxycycline is usually given by injection only if you are unable to take the medicine by mouth. A healthcare provider will give you this injection as an infusion into a vein. Use this medicine for the full prescribed length of time, even if your symptoms quickly improve. Skipping doses can increase your risk of infection that is resistant to medication. Doxycycline will not treat a viral infection such as the flu or a common cold. Store at room temperature away from moisture, heat, and light. Throw away any unused medicine after the expiration date on the label has passed. Using doxycycline can cause damage to your kidneys. What happens if I miss a dose? Take the medicine as soon as you can, but skip the missed dose if it is almost time for your next dose. Do not take two doses at one time. What happens if I overdose? Seek emergency medical attention or call the Poison Help line at . What should I avoid while taking doxycycline? Do not take iron supplements, multivitamins, calcium supplements, antacids, or laxatives within 2 hours before or after taking doxycycline. Avoid taking any other antibiotics with doxycycline unless your doctor has told you to. Doxycycline could make you sunburn more easily. Avoid sunlight or tanning beds. Wear protective clothing and use sunscreen (SPF 30 or higher) when you are outdoors. Antibiotic medicines can cause diarrhea, which may be a sign of a new infection. If you have diarrhea that is watery or bloody, call your doctor. Do not use anti-diarrhea medicine unless your doctor tells you to. What are the possible side effects of doxycycline? Get emergency medical help if you have signs of an allergic reaction (hives, difficult breathing, swelling in your face or throat) or a severe skin reaction (fever, sore throat, burning in your eyes, skin pain, red or purple skin rash that spreads and causes blistering and peeling). Seek medical treatment if you have a serious drug reaction that can affect many parts of your body. Symptoms may include: skin rash, fever, swollen glands, flu-like symptoms, muscle aches, severe weakness, unusual bruising, or yellowing of your skin or eyes. This reaction may occur several weeks after you began using doxycycline. Call your doctor at once if you have: ?? severe stomach pain, diarrhea that is watery or bloody; ?? throat irritation, trouble swallowing; ?? chest pain, irregular heart rhythm, feeling short of breath; ?? little or no urination; ?? low white blood cell counts--fever, chills, swollen glands, body aches, weakness, pale skin, easy bruising or bleeding; ?? increased pressure inside the skull--severe headaches, ringing in your ears, dizziness, nausea, vision problems, pain behind your eyes; or ?? signs of liver or pancreas problems--loss of appetite, upper stomach pain (that may spread to your back), tiredness, nausea or vomiting, fast heart rate, dark urine, jaundice (yellowing of the skin or eyes). Common side effects may include: ?? nausea, vomiting, upset stomach, loss of appetite; ?? mild diarrhea; ?? skin rash or itching; ?? darkened skin color; or ?? vaginal itching or discharge. This is not a complete list of side effects and others may occur. Call your doctor for medical advice about side effects. You may report side effects to FDA at 9-868-RBS-7704. What other drugs will affect doxycycline? Sometimes it is not safe to use certain medications at the same time. Some drugs can affect your blood levels of other drugs you take, which may increase side effects or make the medications less effective. Other drugs may affect doxycycline, including prescription and lxxk-wvk-ldxqodw medicines, vitamins, and herbal products. Tell your doctor about all your current medicines and any medicine you start or stop using. Where can I get more information? Your pharmacist can provide more information about doxycycline. Remember, keep this and all other medicines out of the reach of children, never share your medicines with others, and use this medication only for the indication prescribed. Every effort has been made to ensure that the information provided by [employer]. [employer]') is accurate, up-to-date, and complete, but no guarantee is made to that effect. Drug information contained herein may be time sensitive. [employer] information has been compiled for use by healthcare practitioners and consumers in the [place] and therefore [employer] does not warrant that uses outside of the [place] are appropriate, unless specifically indicated otherwise. [employer] drug information does not endorse drugs, diagnose patients or recommend therapy. [employer] drug information is an informational resource designed to assist licensed healthcare practitioners in caring for their patients and/or to serve consumers viewing this service as a supplement to, and not a substitute for, the expertise, skill, knowledge and judgment of healthcare practitioners. The absence of a warning for a given drug or drug combination in no way should be construed to indicate that the drug or drug combination is safe, effective or appropriate for any given patient. [facility] does not assume any responsibility for any aspect of healthcare administered with the aid of information [facility] provides. The information contained herein is not intended to cover all possible uses, directions, precautions, warnings, drug interactions, allergic reactions, or adverse effects. If you have questions about the drugs you are taking, check with your doctor, nurse or pharmacist. Copyright 7638-7442 [facility] [employer] [facility]. Version: .. Revision Date: 12/15/2018. meloxicam (duc OKS i ximena) Maria E, Qmiiz ODT, Vivlodex What is the most important information I should know about meloxicam? Meloxicam can increase your risk of fatal heart attack or stroke. Do not use this medicine just before or after heart bypass surgery (coronary artery bypass graft, or CABG). Meloxicam may also cause stomach or intestinal bleeding, which can be fatal. What is meloxicam? Meloxicam is a nonsteroidal anti-inflammatory drug (NSAID) that is used to treat pain or inflammation caused by osteoarthritis or rheumatoid arthritis. Meloxicam is for use in adults children at least 2 years old. The Vivlodex brand of meloxicam is for use only in adults. Meloxicam may also be used for purposes not listed in this medication guide. What should I discuss with my healthcare provider before taking meloxicam? Meloxicam can increase your risk of fatal heart attack or stroke, even if you don't have any risk factors. Do not use this medicine just before or after heart bypass surgery (coronary artery bypass graft, or CABG). Meloxicam may also cause stomach or intestinal bleeding, which can be fatal. These conditions can occur without warning while you are using meloxicam, especially in older adults. You should not use meloxicam if you are allergic to it, or if you have ever had an asthma attack or severe allergic reaction after taking aspirin or an NSAID. You should not take meloxicam disintegrating tablets (Qmiiz ODT) if you have phenylketonuria (PKU). This form of meloxicam contains phenylalanine. Tell your doctor if you have ever had: ?? heart disease, high blood pressure, high cholesterol, diabetes, or if you smoke; ?? a heart attack, stroke, or blood clot; ?? ulcers or bleeding in your stomach; ?? asthma; ?? kidney disease (or if you are on dialysis); ?? liver disease; or ?? fluid retention. Taking meloxicam during the last 3 months of may harm the unborn baby. Tell your doctor if you are or plan to become . Meloxicam may cause a delay in ovulation (the release of an egg from an ovary). You should not take meloxicam if you are undergoing fertility treatment, or are otherwise trying to get . It may not be safe to breastfeed while using this medicine. Ask your doctor about any risk. Meloxicam is not approved for use by anyone younger than 2 years old. How should I take meloxicam? Follow all directions on your prescription label and read all medication guides. Use the lowest dose that is effective in treating your condition. You may take meloxicam with or without food. Shake the oral suspension (liquid) before you measure a dose. Use the dosing syringe provided, or use a medicine dose-measuring device (not a kitchen spoon). Remove an orally disintegrating tablet from the package only when you are ready to take the medicine. Place the tablet in your mouth and allow it to dissolve, without chewing. Swallow several times as the tablet dissolves. Your dose needs may change if you switch to a different brand, strength, or form of this medicine. Avoid medication errors by using only the form and strength your doctor prescribes. Meloxicam doses are based on weight (especially in children and teenagers). Your dose needs may change if you gain or lose weight. If you use this medicine long-term, you may need frequent medical tests. Store at room temperature, away from moisture and heat. Keep the bottle tightly closed when not in use. What happens if I miss a dose? Take the medicine as soon as you can, but skip the missed dose if it is almost time for your next dose. Do not take two doses at one time. What happens if I overdose? Seek emergency medical attention or call the Poison Help line at . What should I avoid while taking meloxicam? Avoid alcohol. Heavy drinking can increase your risk of stomach bleeding. Avoid taking aspirin while you are taking meloxicam. Ask a doctor or pharmacist before using other medicines for pain, fever, swelling, or cold/flu symptoms. They may contain ingredients similar to meloxicam (such as aspirin, ibuprofen, ketoprofen, or naproxen). What are the possible side effects of meloxicam? Get emergency medical help if you have signs of an allergic reaction (hives, difficult breathing, swelling in your face or throat) or a severe skin reaction (fever, sore throat, burning eyes, skin pain, red or purple skin rash with blistering and peeling). Get emergency medical help if you have signs of a heart attack or stroke: chest pain spreading to your jaw or shoulder, sudden numbness or weakness on one side of the body, slurred speech, leg swelling, feeling short of breath. Stop using meloxicam and call your doctor at once if you have: ?? the first sign of any skin rash, no matter how mild; ?? shortness of breath (even with mild exertion); ?? swelling or rapid weight gain; ?? signs of stomach bleeding--bloody or tarry stools, coughing up blood or vomit that looks like coffee grounds; ?? liver problems--nausea, upper stomach pain, itching, tired feeling, flu-like symptoms, loss of appetite, dark urine, gricel-colored stools, jaundice (yellowing of the skin or eyes); ?? low red blood cells (anemia)--pale skin, unusual tiredness, feeling light-headed, cold hands and feet; or ?? kidney problems--little or no urination, swelling in your feet or ankles, feeling tired or short of breath. Common side effects may include: ?? stomach pain, nausea, vomiting, heartburn; ?? diarrhea, constipation, gas; ?? dizziness; or ?? cold symptoms, flu symptoms. This is not a complete list of side effects and others may occur. Call your doctor for medical advice about side effects. You may report side effects to FDA at 6-448-OCB-2596. What other drugs will affect meloxicam? Ask your doctor before using meloxicam if you take an antidepressant. Taking certain antidepressants with an NSAID may cause you to bruise or bleed easily. Tell your doctor about all your other medicines, especially: ?? cyclosporine; ?? lithium; ?? methotrexate; ?? pemetrexed; ?? sodium polystyrene sulfonate (Kayexalate); ?? a blood thinner (warfarin, Coumadin, Jantoven); ?? heart or blood pressure medication, including a diuretic or 'water pill'; or ?? steroid medicine (such as prednisone). This list is not complete. Other drugs may affect meloxicam, including prescription and qxpt-eau-ojmbeco medicines, vitamins, and herbal products. Not all possible drug interactions are listed here. Where can I get more information? Your pharmacist can provide more information about meloxicam. Remember, keep this and all other medicines out of the reach of children, never share your medicines with others, and use this medication only for the indication prescribed. Every effort has been made to ensure that the information provided by [employer]. ('[employer]') is accurate, up-to-date, and complete, but no guarantee is made to that effect. Drug information contained herein may be time sensitive. [employer] information has been compiled for use by healthcare practitioners and consumers in the [place] and therefore [employer] does not warrant that uses outside of the [place] are appropriate, unless specifically indicated otherwise. [employer] drug information does not endorse drugs, diagnose patients or recommend therapy. [employer] drug information is an informational resource designed to assist licensed healthcare practitioners in caring for their patients and/or to serve consumers viewing this service as a supplement to, and not a substitute for, the expertise, skill, knowledge and judgment of healthcare practitioners. The absence of a warning for a given drug or drug combination in no way should be construed to indicate that the drug or drug combination is safe, effective or appropriate for any given patient. [employer] does not assume any responsibility for any aspect of healthcare administered with the aid of information [employer] provides. The information contained herein is not intended to cover all possible uses, directions, precautions, warnings, drug interactions, allergic reactions, or adverse effects. If you have questions about the drugs you are taking, check with your doctor, nurse or pharmacist. Copyright 3283-1484 [employer]. Version: 13.01. Revision Date: 11/18/2018. ferrous gluconate (FATMATA us GLOO koe antonietta) Ferate, Fergon What is the most important information I should know about ferrous gluconate? You should not use this medicine if you have hemochromatosis, hemosiderosis, or hemolytic anemia. What is ferrous gluconate? Ferrous gluconate is a type of iron. You normally get iron from the foods you eat. In your body, iron becomes a part of your hemoglobin (HEEM o vikash bin) and myoglobin (MY o vikash bin). Hemoglobin carries oxygen through your blood to tissues and organs. Myoglobin helps your muscle cells store oxygen. Ferrous gluconate is used to treat or prevent iron deficiency anemia (a lack of red blood cells caused by having too little iron in the body). Ferrous gluconate may also be used for purposes not listed in this medication guide. What should I discuss with my healthcare provider before taking ferrous gluconate? You should not use ferrous gluconate if you are allergic to it, or if you have: ?? iron overload disorder (hemochromatosis, hemosiderosis); or ?? hemolytic anemia (caused by the breakdown of red blood cells). To make sure ferrous gluconate is safe for you, tell your doctor if you have ever had: ?? ulcerative colitis; ?? stomach ulcers or similar stomach problems; ?? thalassemia (a genetic disorder of red blood cells); or ?? if you receive regular blood transfusions. Ask a doctor before using this medicine if you are or breast-feeding. Your dose needs may be different during or while you are nursing. Ferrous gluconate is not approved for use by anyone younger than 18 years old. How should I take ferrous gluconate? Use this medication exactly as directed on the label, or as prescribed by your doctor. Do not use it in larger amounts or for longer than recommended. Take ferrous gluconate on an empty stomach, at least 1 hour before or 2 hours after a meal. Ferrous gluconate may be taken with food if it upsets your stomach. Take this medicine with a full glass of water or juice. Measure liquid medicine with the dosing syringe provided, or with a special dose-measuring spoon or medicine cup. If you do not have a dose-measuring device, ask your pharmacist for one. Do not crush, chew, or break an extended-release tablet. Swallow the pill whole. Ferrous gluconate can stain your teeth, but this effect is temporary. To prevent tooth staining, mix the liquid form of ferrous gluconate with water or fruit juice (not with milk) and drink the mixture through a straw. You may also clean your teeth with baking soda once per week to treat any tooth staining. Ferrous gluconate may be only part of a complete program of treatment that also includes a special diet. Follow the diet plan created for you by your doctor or nutrition counselor. Get familiar with the list of foods you should eat to make sure you get enough iron in your diet. Store at room temperature, away from moisture and heat. What happens if I miss a dose? Take the missed dose as soon as you remember. Skip the missed dose if it is almost time for your next scheduled dose. Do not take extra medicine to make up the missed dose. What happens if I overdose? Seek emergency medical attention or call the Poison Help line at if you think you have used too much of this medicine, or if a child has accidentally swallowed it. An overdose of ferrous gluconate can be fatal to a child. Overdose symptoms may include drowsiness, severe nausea or stomach pain, vomiting, bloody diarrhea, coughing up blood or vomit that looks like coffee grounds, shallow breathing, weak and rapid pulse, cold or clammy skin, blue lips, and seizure (convulsions). What should I avoid while taking ferrous gluconate? Ask your doctor before using any vitamin or mineral supplement, or an antacid. Use only the type of antacid or supplements that your doctor recommends. Some minerals or antacids can make it harder for your body to absorb ferrous gluconate. Avoid taking antacids or antibiotics within 2 hours before or 2 hours after taking ferrous gluconate. This is especially important if you take: ?? ciprofloxacin, levofloxacin, lomefloxacin, norfloxacin, ofloxacin; or ?? demeclocycline, doxycycline, minocycline, or tetracycline. Certain foods can also make it harder for your body to absorb ferrous gluconate. Avoid taking this medicine within 1 hour before or 2 hours after eating fish, meat, liver, and whole grain or 'fortified' breads or cereals. What are the possible side effects of ferrous gluconate? Get emergency medical help if you have signs of an allergic reaction: hives, blistering or peeling skin; fever; difficulty breathing; swelling of your face, lips, tongue, or throat. Call your doctor at once if you have: ?? bright red blood in your stools; ?? black or tarry stools; ?? a fever; ?? stomach pain; ?? coughing up blood or vomit that looks like coffee grounds; or ?? pain in your chest or throat when swallowing a ferrous gluconate tablet. Common side effects may include: ?? constipation, diarrhea; ?? nausea, vomiting, stomach pain; ?? loss of appetite; ?? green-colored stools; or ?? temporary staining of the teeth. This is not a complete list of side effects and others may occur. Call your doctor for medical advice about side effects. You may report side effects to FDA at 6-225-FRK-7831. What other drugs will affect ferrous gluconate? Other drugs may interact with ferrous gluconate, including prescription and ycrn-iol-lejvyji medicines, vitamins, and herbal products. Tell your doctor about all your current medicines and any medicine you start or stop using. Where can I get more information? Your pharmacist can provide more information about ferrous gluconate. Remember, keep this and all other medicines out of the reach of children, never share your medicines with others, and use this medication only for the indication prescribed. Every effort has been made to ensure that the information provided by [employer]. ('[employer]') is accurate, up-to-date, and complete, but no guarantee is made to that effect. Drug information contained herein may be time sensitive. [employer] information has been compiled for use by healthcare practitioners and consumers in the [place] and therefore [employer] does not warrant that uses outside of the [place] are appropriate, unless specifically indicated otherwise. [employer] drug information does not endorse drugs, diagnose patients or recommend therapy. [employer] drug information is an informational resource designed to assist licensed healthcare practitioners in caring for their patients and/or to serve consumers viewing this service as a supplement to, and not a substitute for, the expertise, skill, knowledge and judgment of healthcare practitioners. The absence of a warning for a given drug or drug combination in no way should be construed to indicate that the drug or drug combination is safe, effective or appropriate for any given patient. [employer] does not assume any responsibility for any aspect of healthcare administered with the aid of information [employer] provides. The information contained herein is not intended to cover all possible uses, directions, precautions, warnings, drug interactions, allergic reactions, or adverse effects. If you have questions about the drugs you are taking, check with your doctor, nurse or pharmacist. Copyright 1451-1037 [employer]. Version: 2.01. Revision Date: 04/21/2017. gabapentin (GA ba PEN tin) Gralise, Horizant, Neurontin What is the most important information I should know about gabapentin? Some people have thoughts about suicide while taking this medicine. Children taking gabapentin may have behavior changes. Stay alert to changes in your mood or symptoms. Report any new or worsening symptoms to your doctor. Do not stop using gabapentin suddenly, even if you feel fine. What is gabapentin? Gabapentin is an anti-epileptic drug, also called an anticonvulsant. It affects chemicals and nerves in the body that are involved in the cause of seizures and some types of pain. Gabapentin is used in adults to treat nerve pain caused by herpes virus or shingles (herpes zoster). The Horizant brand of gabapentin is also used to treat restless legs syndrome (RLS). The Neurontin brand of gabapentin is also used to treat seizures in adults and children who are at least 3 years old. Use only the brand and form of gabapentin your doctor has prescribed. Check your medicine each time you get a refill to make sure you receive the correct form. Gabapentin may also be used for purposes not listed in this medication guide. What should I discuss with my healthcare provider before taking gabapentin? You should not use gabapentin if you are allergic to it. To make sure gabapentin is safe for you, tell your doctor if you have ever had: ?? kidney disease (or if you are on dialysis); ?? diabetes; ?? depression, a mood disorder, or suicidal thoughts or actions; ?? a seizure (unless you take gabapentin to treat seizures); ?? liver disease; ?? heart disease; or ?? (for patients with RLS) if you are a day sleeper or work a cook night. Some people have thoughts about suicide while taking this medicine. Your doctor should check your progress at regular visits. Your family or other caregivers should also be alert to changes in your mood or symptoms. It is not known whether this medicine will harm an unborn baby. Tell your doctor if you are or plan to become . Seizure control is very important during , and having a seizure could harm both mother and baby. Do not start or stop taking gabapentin for seizures without your doctor's advice, and tell your doctor right away if you become . Gabapentin can pass into breast milk, but effects on the nursing baby are not known. Tell your doctor if you are breast-feeding. How should I take gabapentin? Follow all directions on your prescription label. Do not take this medicine in larger or smaller amounts or for longer than recommended. The Horizant brand of gabapentin should not be taken during the day. For best results, take Horizant with food at about 5:00 in the evening. Both Gralise and Horizant should be taken with food. Neurontin can be taken with or without food. If you break a Neurontin tablet and take only half of it, take the other half at your next dose. Any tablet that has been broken should be used as soon as possible or within a few days. Do not crush, chew, or break an extended-release tablet. Swallow it whole. Measure liquid medicine with the dosing syringe provided, or with a special dose-measuring spoon or medicine cup. If you do not have a dose-measuring device, ask your pharmacist for one. If your doctor changes your brand, strength, or type of gabapentin, your dosage needs may change. Ask your pharmacist if you have any questions about the new kind of gabapentin you receive at the pharmacy. Do not stop using gabapentin suddenly, even if you feel fine. Stopping suddenly may cause increased seizures. Follow your doctor's instructions about tapering your dose. Wear a medical alert tag or carry an ID card stating that you have seizures. Any medical care provider who treats you should know that you take seizure medication. This medicine can cause unusual results with certain medical tests. Tell any doctor who treats you that you are using gabapentin. Store gabapentin tablets and capsules at room temperature away from light and moisture. Store the liquid medicine in the refrigerator. Do not freeze. What happens if I miss a dose? Take the missed dose as soon as you remember. Be sure to take the medicine with food. Skip the missed dose if it is almost time for your next scheduled dose. Do not take extra medicine to make up the missed dose. What happens if I overdose? Seek emergency medical attention or call the Poison Help line at . What should I avoid while taking gabapentin? This medicine may impair your thinking or reactions. Be careful if you drive or do anything that requires you to be alert. Avoid taking an antacid within 2 hours before or after you take gabapentin. Antacids can make it harder for your body to absorb gabapentin. Drinking alcohol with this medicine can cause side effects. What are the possible side effects of gabapentin? Get emergency medical help if you have signs of an allergic reaction: hives; difficult breathing; swelling of your face, lips, tongue, or throat. Seek medical treatment if you have a serious drug reaction that can affect many parts of your body. Symptoms may include: skin rash, fever, swollen glands, flu-like symptoms, muscle aches, severe weakness, unusual bruising, or yellowing of your skin or eyes. This reaction may occur several weeks after you began using gabapentin. Report any new or worsening symptoms to your doctor, such as: mood or behavior changes, anxiety, panic attacks, trouble sleeping, or if you feel impulsive, irritable, agitated, hostile, aggressive, restless, hyperactive (mentally or physically), depressed, or have thoughts about suicide or hurting yourself. Call your doctor at once if you have: ?? increased seizures; ?? severe weakness or tiredness; ?? problems with balance or muscle movement; ?? upper stomach pain; ?? chest pain, new or worsening cough with fever, trouble breathing; ?? severe tingling or numbness; ?? rapid eye movement; or ?? kidney problems--little or no urination, painful or difficult urination, swelling in your feet or ankles. Some side effects are more likely in children taking gabapentin. Contact your doctor if the child taking this medicine has any of the following side effects: ?? changes in behavior; ?? memory problems; ?? trouble concentrating; or ?? acting restless, hostile, or aggressive. Common side effects may include: ?? headache, dizziness, drowsiness, tiredness; ?? swelling in your hands or feet; ?? problems with your eyes; ?? coordination problems; or ?? (in children) fever, nausea, vomiting. This is not a complete list of side effects and others may occur. Call your doctor for medical advice about side effects. You may report side effects to FDA at [phone]-[phone]. What other drugs will affect gabapentin? Taking gabapentin with other drugs that make you sleepy can worsen this effect. Ask your doctor before taking a sleeping pill, narcotic medication, muscle relaxer, or medicine for anxiety, depression, or seizures. Other drugs may interact with gabapentin, including prescription and pfgj-ebh-busbkyj medicines, vitamins, and herbal products. Tell your doctor about all your current medicines and any medicine you start or stop using. Where can I get more information? Your pharmacist can provide more information about gabapentin. Remember, keep this and all other medicines out of the reach of children, never share your medicines with others, and use this medication only for the indication prescribed. documented in this encounter Plan of Treatment Not on file documented as of this encounter Visit Diagnoses Not on filedocumented in this encounter
--- OUTSIDE RECORDS SUMMARY | 2025-04-25 12:01 | XMS_ITS | Encounter Summary ---
Author Organization [email or web address] ([place], [place], [place], [place]) Address [address] [place] [address] Care Team Providers Care White Kid Buffer Name Role Phone Unavailable Primary Care Provider Unavailabl e Encounter Details Date Type Department Care Team (Late st Contact Info) Description 04/27/2019 Transcribed Document [facility] Family Medicine [address] [place] [address] ProviderLuis Armando MD [address] [place] [address] Social History Tobacco Use Types Packs/Day Years Used Date Smoking Tobacco: Never Assessed Comments Unknown Sex and Gender Information Value Date Recorded Sex Assigned at Not on file Legal Sex Female 7:30 PM CDT Gender Identity Not on file Sexual Orientation Not on file documented as of this encounter Miscellaneous Notes * Cerner Conversion Note - Luis Armando ProviderMD - 04/27/2019 10:41 AM CDT [facility] [place] [address] LIANEDecember :1950 Visit Time:04/25/2019 Your Visit Summary Your Care Team Admitting Physician - CHANEL DOTY MD-[facility] Attending Physician - CHANEL DOTY MD-ORT Primary Care Physician - CHAU SAENZ MD-[facility] Referring Physician - CHUY, NOT LISTED [...] Up Instructions: Follow-up Dr. Doty 3 wks ([phone]) Follow Up Instructions: Continue RICHARD hose for 6 weeks Follow Up Instructions: Leave Aquacel dressing in place x 7-10d, then open to air. Follow-Up Appointments Follow Up with ROLF WARE PA-ORT When 05/16/2019 03:30 PM EDT Comments MAYANK Zimmerman Where: [address] [place] [address]- Follow Up with MJ GALLARDO MD-INF When 04/28/2019 10:00 AM EDT Where: [facility] [address] [place] [address]- Follow Up with JUAN DORAN When 04/28/2019 [...] replacement Duration: 42 Day(s) Printed Prescription 04/28 2100 cefTRIAXone (Rocephin) 2 Gram(s) IV Piggyback Interval Every 24 Hours x 2 weeks. To be given in the [place] [facility] office. 04/29 docusate (Colace 100 mg oral capsule) 1 [...] Hours as needed for Nausea Pickup at [facility] [employer] [facility][id number] As Needed citalopram 20 Milligram(s) Oral Every [...] Oral At Bedtime 04/28 2100 Pharmacy Information [facility] [employer] #[id number]: [address] [place], [place] [id number] [phone] Take your medications faithfully. Do NOT skip [...] of Dr. Doty or Dr. Lange, call [phone] If you are a patient of Dr. Nance, call [phone] Nurse Navigator: Gabrielle Garcia Office: [phone]; ; available during regular business hours Discharge [...] may report side effects to FDA at [phone]. What other drugs will affect docusate? Other drugs may affect docusate, including prescription and mizk-znj-zjxolet medicines, vitamins, and herbal products. Tell your [...] to ensure that the information provided by [employer]. ('[employer]') is accurate, up-to-date, and complete, but no guarantee is made to that effect. Drug information contained herein may be time sensitive. [email or web address] information has been compiled for use by healthcare practitioners and consumers in the [place] and therefore [email or web address] does not warrant that uses outside of the [place] are appropriate, unless specifically indicated otherwise. [employer] drug information does not endorse drugs, diagnose patients or recommend therapy. [employer] drug information is an informational resource designed [...] effective or appropriate for any given patient. [email or web address] does not assume any responsibility for any aspect of healthcare administered with the aid of information [email or web address] provides. The information contained herein is not intended to cover all possible uses, directions, precautions, warnings, drug interactions, allergic reactions, or adverse effects. If you have questions about the drugs you are taking, check with your doctor, nurse or pharmacist. Copyright 7738-8595 [employer]. Version: 4.01. Revision Date: 01/31/2019. acetaminophen and [...] may report side effects to FDA at [phone]. What other drugs will affect acetaminophen and [...] affect acetaminophen and oxycodone, including prescription and euio-wvq-fvmkqtu medicines, vitamins, and herbal products. Not all [...] to ensure that the information provided by [employer]. [employer]') is accurate, up-to-date, and complete, but no guarantee is made to that effect. Drug information contained herein may be time sensitive. [email or web address] information has been compiled for use by healthcare practitioners and consumers in the [place] and therefore [email or web address] does not warrant that uses outside of the [place] are appropriate, unless specifically indicated otherwise. [email or web address]'s drug information does not endorse drugs, diagnose patients or recommend therapy. [employer] drug information is an informational resource designed [...] effective or appropriate for any given patient. [facility] does not assume any responsibility for any aspect of healthcare administered with the aid of information [facility] provides. The information contained herein is not intended to cover all possible uses, directions, precautions, warnings, drug interactions, allergic reactions, or adverse effects. If you have questions about the drugs you are taking, check with your doctor, nurse or pharmacist. Copyright 0090-9845 [employer]. Version: 18.02. Revision Date: 06/23/2018. doxycycline (oral/injection) (DOX olive AGUILAYovany elaine) Acticlate, Adoxa, Alodox, Avidoxy, Doryx, Mondoxyne [...] or life-threatening conditions such as anthrax or [place] spotted fever. The benefit of treating a [...] may report side effects to FDA at [phone]. What other drugs will affect doxycycline? Sometimes it is not safe to use certain medications at the same time. Some drugs can affect your blood levels of other drugs you take, which may increase side effects or make the medications less effective. Other drugs may affect doxycycline, including prescription and xsmm-knm-enfofwa medicines, vitamins, and herbal products. Tell your [...] to ensure that the information provided by [employer]') is accurate, up-to-date, and complete, but no guarantee is made to that effect. Drug information contained herein may be time sensitive. [employer] information has been compiled for use by healthcare practitioners and consumers in the [place] and therefore [employer] does not warrant that uses outside of the [place] are appropriate, unless specifically indicated otherwise. [email or web address]'s drug information does not endorse drugs, diagnose patients or recommend therapy. [email or web address]'s drug information is an informational resource designed [...] effective or appropriate for any given patient. [facility] does not assume any responsibility for any aspect of healthcare administered with the aid of information [facility] provides. The information contained herein is not intended to cover all possible uses, directions, precautions, warnings, drug interactions, allergic reactions, or adverse effects. If you have questions about the drugs you are taking, check with your doctor, nurse or pharmacist. Copyright 4847-0935 [facility] [employer]. Version: .. Revision Date: 12/15/2018. meloxicam (duc [...] may report side effects to FDA at [phone]-[phone]. What other drugs will affect meloxicam? Ask [...] drugs may affect meloxicam, including prescription and pytf-lqn-bdqcndu medicines, vitamins, and herbal products. Not all [...] to ensure that the information provided by [employer]') is accurate, up-to-date, and complete, but no guarantee is made to that effect. Drug information contained herein may be time sensitive. [email or web address] information has been compiled for use by healthcare practitioners and consumers in the [place] and therefore [email or web address] does not warrant that uses outside of the [place] are appropriate, unless specifically indicated otherwise. [employer] drug information does not endorse drugs, diagnose patients or recommend therapy. [employer] drug information is an informational resource designed [...] effective or appropriate for any given patient. [email or web address] does not assume any responsibility for any aspect of healthcare administered with the aid of information [email or web address] provides. The information contained herein is not intended to cover all possible uses, directions, precautions, warnings, drug interactions, allergic reactions, or adverse effects. If you have questions about the drugs you are taking, check with your doctor, nurse or pharmacist. Copyright 8186-2531 [employer]. Version: 13.01. Revision Date: 11/18/2018. ferrous gluconate (FATMATA us GLOO fior mane) Demarco Barr What is the most important information I [...] may report side effects to FDA at [phone]. What other drugs will affect ferrous gluconate? Other drugs may interact with ferrous gluconate, including prescription and vxgf-hne-mlpkatt medicines, vitamins, and herbal products. Tell your [...] to ensure that the information provided by [employer]. ('[employer]') is accurate, up-to-date, and complete, but no guarantee is made to that effect. Drug information contained herein may be time sensitive. [employer] information has been compiled for use by healthcare practitioners and consumers in the [place] and therefore [email or web address] does not warrant that uses outside of the [place] are appropriate, unless specifically indicated otherwise. [employer] drug information does not endorse drugs, diagnose patients or recommend therapy. [employer] drug information is an informational resource designed [...] effective or appropriate for any given patient. [email or web address] does not assume any responsibility for any aspect of healthcare administered with the aid of information [email or web address] provides. The information contained herein is not intended to cover all possible uses, directions, precautions, warnings, drug interactions, allergic reactions, or adverse effects. If you have questions about the drugs you are taking, check with your doctor, nurse or pharmacist. Copyright 1240-9629 [employer]. Version: 2.01. Revision Date: 04/21/2017. gabapentin (GA [...] are a day sleeper or work a manufacturing shift supervisor. Some people have thoughts about suicide while [...] may report side effects to FDA at [phone]-3031. What other drugs will affect gabapentin? Taking gabapentin with other drugs that make you sleepy can worsen this effect. Ask your doctor before taking a sleeping pill, narcotic medication, muscle relaxer, or medicine for anxiety, depression, or seizures. Other drugs may interact with gabapentin, including prescription and jvlw-aax-zbqdadb medicines, vitamins, and herbal products. Tell your [...]
--- OUTSIDE RECORDS SUMMARY | 2025-04-25 12:02 | XMS_ITS | Encounter Summary ---
Author Organization [employer] ([place], [place], [place], [place]) Address [address] [place] [address] Care Team Providers Care Parts Sales Manager Name Role Phone Unavailable Primary Care Provider Unavailabl e Encounter Details Date Type Department Care Team (Late st Contact Info) Description 01/22/2019 Transcribed Document [facility] [place] Family Medicine [facility] [place] [address] ProviderLuis Armando MD [facility] [address] Social History Tobacco Use Types Packs/Day Years Used Date Smoking Tobacco: Never Assessed Comments Unknown Sex and Gender Information Value Date Recorded Sex Assigned at Not on file Legal Sex Female 7:30 PM CDT Gender Identity Not on file Sexual Orientation Not on file documented as of this encounter Miscellaneous Notes * Cerner Conversion Note - Luis Armando ProviderMD - 01/22/2019 11:55 AM CDT Treatment Intervention, PT Entered On: 01/23/2019 9:50 EDT Performed On: 01/23/2019 9:39 EDT by SRIKANTH HUGHES, PT General Information, [...] Treatment Instructions Ordered By: CHANEL DYSON MD-ORT 01/22/2019 11:55 PT Additional Treatment Ordered By: SRIKANTH HUGHES, PT Active Diagnoses : 01/22/2019 00:00 Infection and inflammatory reaction due to other internal joint prosthesis, initial encounter Admission Date : 01/21/2019 05:45 Assisted by, PT : video surveillance technician/aide Personal Devices : Personal Devices Dentures, partial plate, Glasses Assistive Devices : Assistive Devices No Devices Recorded Precautions in Place : Fall prevention measures, Other: TDWB LLE; KI on when OOB General Information Comment, PT : pt seen bedside room 660. Scds, and KI on left leg in place. TDWB on left LE. son present SRIKANTH HUGHES, PT - 01/23/2019 9:39 EDT General Status Patient Received Status : Supine in bed, HOB elevated Treatment Start Time : 01/23/2019 8:50 EDT Patient Left Status : Up in chair, RN/PCT informed, Family/Visitors at bedside, Communication board completed, All needs met and within reach RN/PCT Informed Comment : pt ok for PTx per Emily Rn Treatment End Time : 01/23/2019 9:25 EDT Treatment Time : 35 Minute(s) SRIKANTH HUGHES, PT - 01/23/2019 9:39 EDT Therapeutic Exercises Therapeutic Exercise Comment, PT : instructed and demonstrated 5 reps AROM with UE 's and right LE and quad and glut sets and left ankle pumps. pt states she has been doing exercises throughout the day. SRIKANTH HUGHES, PT - 01/23/2019 9:39 EDT Functional Mobility Mobility Grid Supine to Sit : Rehab Moderate assistance (Comment: verbal cues [SRIKANTH HUGHES, PT - 01/23/2019 9:39 EDT] ) Sit to Stand : Rehab Minimal assistance (Comment: of 1-2 and verbal cues to push from the bed [SRIKANTH HUGHES, PT - 01/23/2019 9:39 EDT] ) Stand to Sit : Rehab Minimal assistance (Comment: of 1-2 and verbal cues for safety [SRIKANTH HUGHES, PT - 01/23/2019 9:39 EDT] ) SRIKANTH HUGHES, PT - 01/23/2019 9:39 EDT Supine to Sit Device : Rails Sit to Stand Device : Belt, gait, Walker, front wheel Stand to Sit Device : Belt, gait, Walker, front wheel SRIKANTH HUGHES, PT - 01/23/2019 9:39 EDT Gait Training/Assessment, PT Weight Bearing Status Maintained : Yes Walking Distance : pt took 8 steps with RWx and min assist of 1-2 . TDWB on left leg with KI in place Ambulatory Devices : Gait belt, Walker, front wheel SRIKANTH HUGHES, PT - 01/23/2019 9:39 EDT Neurological/Sensory Overall Sensory Response : Intact SRIKANTH HUGHES, PT - 01/23/2019 9:39 EDT Cognitive Treatment, PT Orientation : Oriented x 4 SRIKANTH HUGHES, PT - 01/23/2019 9:39 EDT Edu Topics Physical Therapy Education Grid Bed Mobility Training : Needs further teaching, Returns demonstration Gait Training : Needs further teaching, Returns demonstration Therapeutic Exercises : Needs further teaching, Returns demonstration, Verbalizes understanding Transfer Training : Needs further teaching, Returns demonstration SRIKANTH HUGHES, PT - 01/23/2019 9:39 EDT Indication Assesessment, PT Physical Therapy Indicated : Yes PT Problem List : Impaired, activities daily living, Impaired, bed mobility, Impaired, endurance tolerance, Impaired, gait, Impaired, transfers Potential Barriers To Therapy : Other: TDWB on left leg SRIKANTH HUGHES, PT - 01/23/2019 9:39 EDT Plan of Care, PT PT Tx Plan/Goals Established w Patient : Yes PT Frequency Rehab : Daily, twice (bid) PT Treatments Planned : Bed mobility training, Gait training, Therapeutic exercises, Transfer training SRIKANTH HUGHES, PT - 01/23/2019 9:39 EDT Short Term Goals Mobility/Bed Mobility STG PT Grid Goal #1 Goal #2 Activity : Supine to sit Sit to stand Assist : Supervision or set-up Assist, minimal Equipment : Belt, gait, Walker, front wheel Date to Meet : 01/29/2019 EDT 01/29/2019 EDT Goal Status : Progressing, continue Progressing, continue Comment : TDWB on left leg, KI SRIKANTH HUGHES, PT - 01/23/2019 9:39 EDT SRIKANTH HUGHES, PT - 01/23/2019 9:39 EDT Ambulation STG Grid Goal #1 Device : Walker, front wheel Distance : 20 feet Assist : Assist, minimal Date to Meet : 01/29/2019 EDT Goal Status : Progressing, continue Comment : of 2/ TDWB on left and KI SRIKANTH HUGHES, PT - 01/23/2019 9:39 EDT Care Home Goals Mobility/Bed Mobility LTG PT Grid Goal #1 Goal #2 Activity : Supine to sit Sit to stand Assist : Independent, modified Supervision or set-up Equipment : Belt, gait, Walker, front wheel Date to Meet : 02/05/2019 EDT 02/05/2019 EDT Goal Status : Progressing, continue Progressing, continue Comment : TDWB on left LE/KI SRIKANTH HUGHES, PT - 01/23/2019 9:39 EDT SRIKANTH HUGHES, PT - 01/23/2019 9:39 EDT Ambulation LTG Grid Goal #1 Device : Walker, front wheel Distance : 50 feet Assist : Assist, minimal Date to Meet : 02/05/2019 EDT Goal Status : Progressing, continue Comment : TDWB on left LEg /KI SRIKANTH HUGHES, PT - 01/23/2019 9:39 EDT Treatment Note Subjective Comment : states name and . Patient's Response to Treatment : willing to participate in therapy. increased pain Assessment : impaired mobility due to pain and TDWB on left leg. pt needs PTx to increase general mobility and independence. would like theraband if latex free Plan for Treatment : cont POC SRIKANTH HUGHES, PT - 01/23/2019 9:39 EDT Pain Assessment Pain Scaled Used : 0-10 Pain scale Pain Score Pre-Intervention : 4 SRIKANTH HUGHES, PT - 01/23/2019 9:39 EDT Image 1 - Images currently included in the form version of this document have not been included in the text rendition version of the form. Anticipated Discharge Needs, OT/PT Anticipated Discharge to : Home, with family care, Home, with home health Recommend Continued Therapy at Discharge : Yes SRIKANTH HUGHES, PT - 01/23/2019 9:39 EDT [facility] PT Charges PT Therap. Exercise 15 min : 1 Gait Training Each 15 Min : 1 SRIKANTH HUGHES, PT - 01/23/2019 9:39 EDT Electronically signed by [facility], [facility] Conversion Counter Waitress/Waiter Cerner at 11/14/2022 9:20 AM CDT documented in this encounter Plan of Treatment Not on file documented as of this encounter Visit Diagnoses Not on filedocumented in this encounter
--- OUTSIDE RECORDS SUMMARY | 2025-04-25 12:03 | XMS_ITS | Encounter Summary ---
Author Organization [employer] ([place], [place], [place], [place]) Address [address] [place] [address] Care Team Providers Care Supervisor Powder And Primer Canning Name Role Phone Unavailable Primary Care Provider Unavailabl e Encounter Details Date Type Department Care Team (Late st Contact Info) Description 01/22/2019 Transcribed Document [facility] [place] [address] ProviderLuis Armando MD [facility] [place] [id number] Social History Tobacco Use Types Packs/Day Years Used Date Smoking Tobacco: Never Assessed Comments Unknown Sex and Gender Information Value Date Recorded Sex Assigned at Not on file Legal Sex Female 7:30 PM CDT Gender Identity Not on file Sexual Orientation Not on file documented as of this encounter Miscellaneous Notes * Cerner Conversion Note - Luis Armando ProviderMD - 01/22/2019 6:02 PM CDT Patient: EMELY ROB Age: 68 years Sex: Female : 1950 Associated Diagnoses: None Author: MJ GALLARDO MD-INF Infectious Disease Progress Note CC: P acnes left total knee arthroplasty [...] acnes. She denies fever, chills, and sweats. 01/22/19: She indicates that her left knee pain is controlled with oral narcotics. She has remained afebrile. She denies nausea, vomiting, and diarrhea. 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 Her mother had pancreatic cancer. Her has diabetes mellitus Social history: She is and resides in [place]. 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 She smoked in the remote past. She drinks alcohol occasionally. Objective: Vitals Signs (last 24 hrs) Last Charted Minimum Maximum Temp 97.8 (JAN 22 15:10) 97.8 (JAN 22 15:10) 98.1 (JAN 22 11:08) Mon HR 84 (JAN 22 15:10) 60 (JAN 22 02:11) 84 (JAN 22 15:10) Resp Rate 16 (JAN 22 15:10) 16 (JAN 21 18:41) 16 (JAN 21 18:41) SBP 134 (DEC 29 15:10) 109 (JAN 22 05:20) 135 (JAN 21 21:50) DBP L 49 (JAN 22 15:10) L 49 (JAN 22 15:10) 63 (JAN 22 02:11) MAP 70 (JAN 22 15:10) 68 (JAN 22 11:08) 77 (JAN 21 21:50) SpO2 98 (JAN 22 02:11) 97 (JAN 21 21:50) 98 (JAN 21 18:41) General: [Alert and oriented, well nourished, [...] Lab (PowerPoint)Labs (Last four charted values) WBC 7.6 (JAN 22) 4.9 (JAN 18) HB L 9.2 (JAN 22) L 10.5 (JAN 21) 12.2 (JAN 18) HCT L 29.0 (JAN 22) 37.1 (JAN 18) Plt 205 (JAN 22) 257 (JAN 18) Na 139 (JAN 22) 139 (JAN 18) K H 5.3 (JAN 22) 4.3 (JAN 18) Cl 107 (JAN 22) 105 (JAN 18) CO2 29 (JAN 22) 31 (JAN 18) BUN 17 (JAN 22) 16 (JAN 18) Cr 0.70 (JAN 22) 0.70 (JAN 18) Glu R H 147 (JAN 22) 92 (JAN 18) Ca 8.8 (JAN 22) 9.1 (JAN 18) PT 10.0 (JAN 18) INR 0.9 (JAN 18) PTT 32.0 (JAN 18) Micro: Left knee cultures reportedly grew P acnes Repeat left knee cultures from 01/20 are pending Radiology: Radiology Results (Last 48 hours) [id number] -- 01/21/2019 05:45 CR Knee 1 or [...] discussed her disposition in detail with her yesterday and again today. documented in this encounter Plan of Treatment Not on file documented as of this encounter Visit Diagnoses Not on filedocumented in this encounter
--- OUTSIDE RECORDS SUMMARY | 2025-04-25 12:03 | XMS_ITS | Encounter Summary ---
Author Organization [email or web address] ([place], [place], [place], [place]) Address [address] [place] [address] Care Team Providers Care Film Writer Name Role Phone Unavailable Primary Care Provider Unavailabl e Encounter Details Date Type Department Care Team (Late st Contact Info) Description 01/23/2019 Transcribed Document [facility] [place] Family Medicine [facility] [place] [address] ProviderLuis Armando MD [address] [place] [address] Social History Tobacco Use Types Packs/Day Years Used Date Smoking Tobacco: Never Assessed Comments Unknown Sex and Gender Information Value Date Recorded Sex Assigned at Not on file Legal Sex Female 7:30 PM CDT Gender Identity Not on file Sexual Orientation Not on file documented as of this encounter Miscellaneous Notes * Cerner Conversion Note - Luis Armando ProviderMD - 01/23/2019 9:00 PM CDT Pain Assessment Entered On: 01/24/2019 0:25 EDT Performed On: 01/23/2019 22:11 EDT by Pricilla Adkins RN Intervention Information: oxyCODONE Performed by Pricilla Adkins RN on 01/23/2019 21:11:00 EDT oxyCODONE,10mg Oral Pain Assessment Pain Assessment : Follow-up assessment Pain Scale Goal : 4 Pain Scale Used : 0-10 Scale Location : Knee, left Onset : Acute Quality : Aching Pain Radiation : No Pain Improved by : Medication Pain Worsened by : Movement Pain Intervention, Drug : Medicated Pain Improved by Intervention : No Pricilla Adkins RN - 01/24/2019 0:25 EDT Pain Scale Intensity : 3 Pricilla Adkins RN - 01/24/2019 0:25 EDT Image 4 - Images currently included in the form version of this document have not been included in the text rendition version of the form. documented in this encounter Plan of Treatment Not on file documented as of this encounter Visit Diagnoses Not on filedocumented in this encounter
--- OUTSIDE RECORDS SUMMARY | 2025-04-25 12:03 | XMS_ITS | Encounter Summary ---
Author Organization [employer] ([place], [place], [place], [place]) Address [address] [place] [address] Care Team Providers Care Injection Mold Tooling Technician Name Role Phone Unavailable Primary Care Provider Unavailabl e Encounter Details Date Type Department Care Team (Late st Contact Info) Description 01/23/2019 Transcribed Document [facility] [place] Family Medicine [facility] [place] [address] ProviderLuis Armando MD [facility] [place] [id number] Social History Tobacco Use Types Packs/Day Years Used Date Smoking Tobacco: Never Assessed Comments Unknown Sex and Gender Information Value Date Recorded Sex Assigned at Not on file Legal Sex Female 7:30 PM CDT Gender Identity Not on file Sexual Orientation Not on file documented as of this encounter Miscellaneous Notes * Cerner Conversion Note - Luis Armando ProviderMD - 01/23/2019 8:39 PM CDT Patient: EMELY VILLANUEVA Age: 68 years Sex: Female : 1950 Associated Diagnoses: None Author: MJ GALLARDO MD-INF Infectious Disease Progress Note Antibiotic therapy: Rocephin CC: 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 Villanueva is a 68-year-old white female who is [...] afebrile. She denies nausea, vomiting, and diarrhea. 01/23/19: She feels poorly today. She has some left knee discomfort. She has some anorexia. She has remained afebrile. 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 Her mother had pancreatic cancer. Her has diabetes mellitus Social history: She is and resides in [place]. 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 She smoked in the remote past. She drinks alcohol occasionally. Objective: Vitals Signs (last 24 hrs) Last Charted Minimum Maximum Temp 97 (JAN 23 18:00) 97 (JAN 23 18:00) 98.3 (JAN 22 23:00) Mon HR 85 (JAN 23 18:00) 79 (JAN 22 23:00) 114 (JAN 23 06:00) Resp Rate 16 (JAN 23 18:00) 16 (JAN 23 02:45) 16 (JAN 23 02:45) SBP 129 (JAN 23 18:00) 113 (JAN 23 15:00) H 142 (JAN 23 11:28) DBP L 46 (JAN 23 18:00) L 46 (JAN 23 18:00) L 59 (JAN 23 11:28) MAP 64 (JAN 23 15:00) 64 (JAN 23 15:00) 79 (JAN 23 11:28) SpO2 97 (JAN 23 16:02) L 85 (JAN 23 16:01) 97 (JAN 23 16:02) General: [Alert and oriented, well nourished, no acute distress]. Skin: [Skin is warm, dry and pink, no rashes or lesions]. Lymph nodes: No cervical or axillary LAD HENT: [Normocephalic, no labial ulcers Lungs: [Clear to auscultation and percussion, non-labored respiration]. Heart: [Normal rate, regular rhythm, no murmur, gallop or edema]. Abdomen: Soft and nontender Neurologic: [Awake, alert, and oriented X3, CN II-XII intact]. Musculoskeletal: Her left knee is in a postoperative dressing. The left knee drain has been removed. Labs: Select template on toolbar and then click on Lab (PowerPoint)Labs (Last four charted values) WBC 6.8 (JAN 23) 7.6 (JAN 22) 4.9 (JAN 18) HB L 8.7 (JAN 23) L 9.2 (JAN 22) L 10.5 (JAN 21) 12.2 (JAN 18) HCT L 26.7 (DEC 30) L 29.0 (JAN 22) 37.1 (DEC 25) Plt 197 (DEC 30) 205 (JAN 22) 257 (JAN 18) Na 140 (DEC 30) 139 (JAN 22) 139 (JAN 18) K 4.6 (DEC 30) H 5.3 (JAN 22) 4.3 (JAN 18) Cl 105 (DEC 30) 107 (JAN 22) 105 (JAN 18) CO2 H 34 (JAN 23) 29 (JAN 22) 31 (JAN 18) BUN 13 (DEC 30) 17 (JAN 22) 16 (JAN 18) Cr 0.60 (DEC 30) 0.70 (ELIA 29) 0.70 (DEC 25) Glu R H 130 (DEC 30) H 147 (JAN 22) 92 (JAN 18) Ca 8.7 (DEC 30) 8.8 (JAN 22) 9.1 (JAN 18) PT 10.0 (JAN 18) INR 0.9 (JAN 18) PTT 32.0 (JAN 18) Micro: Outpatient Left knee cultures P acnes at the [facility] Repeat left knee cultures from 01/20 are pending Radiology: No Radiology Results Found Assessment: 1. P acnes left total knee [...] left knee cultures???pending 2. PICC line placement on Thursday 3. Ceftriaxone 2 g IV daily 4. Discharge to home tomorrow 5. Follow-up in our office on Thursday 01/25 at 10 AM for: Rocephin 2 g IV daily and appointment with me???this has been arranged UM/LEONARDO: I coordinated her care today. I discussed her disposition with the nursing staff, the patient herself, and the family. documented in this encounter Plan of Treatment Not on file documented as of this encounter Visit Diagnoses Not on filedocumented in this encounter
--- OUTSIDE RECORDS SUMMARY | 2025-04-25 12:03 | XMS_ITS | Clinical Summary ---
Author Organization [employer] ([place], [place], [place], [place]) Address [address] [place] [address] Care Team Providers Care Trade Mark Examiner Name Role Phone Unavailable Primary Care Provider Unavailabl e Social History Tobacco Use Types Packs/Day Years Used Date Smoking Tobacco: Never Assessed Comments Unknown Sex and Gender Information Value Date Recorded Sex Assigned at Not on file Legal Sex Female 7:30 PM CDT Gender Identity Not on file Sexual Orientation Not on file Plan of Treatment Not on file
--- OUTSIDE RECORDS SUMMARY | 2025-04-25 12:03 | XMS_ITS | Encounter Summary ---
Author Organization [employer] ([place], [place], [place], [place]) Address [address] [place] [address] Care Team Providers Care Security System Technician Name Role Phone Unavailable Primary Care Provider Unavailabl e Encounter Details Date Type Department Care Team (Late st Contact Info) Description 01/23/2019 Transcribed Document [facility] Radiology [address] [place] [address] Reynaldo Ramos MD [facility] [address] [address] Social History Tobacco Use Types Packs/Day Years Used Date Smoking Tobacco: Never Assessed Comments Unknown Sex and Gender Information Value Date Recorded Sex Assigned at Not on file Legal Sex Female 7:30 PM CDT Gender Identity Not on file Sexual Orientation Not on file documented as of this encounter Miscellaneous Notes * Cerner Conversion Note - Reynaldo Ramos MD - 01/23/2019 1:06 PM EDT Patient: LIANE EEMLY Pelon Age: 68 years Sex: Female : 1950 Associated Diagnoses: None Author: REYNALDO RAMOS MD-INT cc: medical managment s/p left total knee explant wth abx spacer placement per Dr. Doty doing well. no fever, chills, nightsweats. denies cough. no sob or rodgers. no chest pain, pressure or palpitations. no nausea, vomiting. (+) flatus. (+) BM no issues with urination no calf tenderness. tolerable post-op soreness/pain HPI: Patient is an 68 y/o female admitted to [facility] per Dr. Doty for a left total knee explant wth abx spacer placement . Preoperatively patient was found to have infection of the left knee prosthesis.. Patient is followed perioperatively while hosptialized for medical management. Patient known to our service from previous LTKA in 2017. She reports doing well initially but for the last 6 mos increased redness, warmth, swelling and pain.She denies any other changes in her medical history since her last admission. She does have hx of afib with ablation but has been in NSR since. She does not take any anticoagulation at home. Past Medical hx: Arthritis Aflutter Endometriosis Hard of hearing High blood pressure Hx of hypoglycemia Hyperlipidemia Past Surgical hx: LTKA Let Knee scope12/28/2015 in the week of 12/28/2015 at 65 Years. T-Tube, bilateral ears in the week of 06/27/2014 at 64 Years. rotator cuff, right in 2010 at 61 Years. Sinus Surgery in 1997 at 48 Years. hysterectomy in 1987 at 38 Years. Social hx: quit smoking 20 years ago, occasional etoh use, no recreational drug use Family hx; Parkinson's (father), breast CA (mother) Allergies (11) Active Reaction Bananas None Documented Benadryl Itching Chocolate Shortness of breath codeine Tachycardia Darvon None Documented Demerol HCl None Documented Kiwi Rash Latex None Documented Lortab Itching penicillin None Documented Pineapple None Documented Home Medications (13) Active aspirin 81 mg oral tablet 81 mg = 1 Tab, Oral, Daily citalopram 20 mg, Oral, Daily Colace 100 mg oral capsule 100 mg = 1 Cap, PRN, Oral, BID Eliquis 2.5 mg oral tablet 2.5 mg = 1 Tab, Oral, BID ferrous gluconate 325 mg (36 mg elemental iron) oral tablet 325 mg = 1 Tab, Oral, Daily lisinopril 10 mg, Oral, Daily Maxzide 25/37.5 mg Tab, Oral, Daily MS Contin 15 mg oral tablet, extended release 15 mg = 1 Tab, Oral, Q12H Neurontin 300 mg oral capsule 300 mg = 1 Cap, PRN, Oral, At Bedtime Percocet 5/325 oral tablet 1 Tab, PRN, Oral, Q4H PreserVision AREDS 2 1 Cap, Oral, BID simvastatin 20 mg, Oral, At Bedtime Vitamin D3 5,000 Int Units, Oral, Daily Exam: Vitals Signs (last 24 hrs) Last Charted Minimum Maximum Temp 97.8 (JAN 23 06:00) 97.8 (JAN 23 06:00) 98.6 (JAN 22 18:00) Mon HR 114 (JAN 23 06:00) 79 (JAN 22 23:00) 114 (JAN 23 06:00) Resp Rate 16 (JAN 23 02:45) 16 (JAN 22 15:10) 20 (JAN 22 18:00) SBP 124 (JAN 23 06:00) 124 (JAN 23 06:00) 138 (JAN 23 02:45) DBP L 55 (JAN 23:) L 49 (JAN 22 15:10) L 56 (JAN 22 23:00) MAP 71 (JAN 23 06:00) 70 (JAN 22 15:10) 74 (JAN 23 02:45) PE: obese white female, pleasant, cooperative, good historian, laying in bed, family at bedside nc/at, eomi, PEERL, pink conjunctiva, dry mucous membranes, no thyromegaly or cervical lymphadenopathy =expansion b/l , no wheezing or rhonchi non-displaced PMI, S1S2 ABD is obese, soft non-tender, non-distended, hypoactive bowel sounds skin warm, dry without rashes ext: no low ext edema, no calf tenderness neuro: cn 2-12 intact; no gross motor -sensory deficits psych: appropriate affect and mood Data: intra-op hypotension noted Reviewed PREOP CBC, CMP, coags 12/31/18 A1C 5.8 echo- normal LVSF, DF, trace AR, EF 60% Impression: left knee prosthesis infection s/p left knee explant with abx spacer s/p left total knee arthroplasty per Dr. Velasquez ABL anemia hx Aflutter hx Endometriosis hx Hard of hearing hx High blood pressure Hx of hypoglycemia hx Hyperlipidemia Plan: anticipate ID consult with IV abx hold maxzide bowel regimen PT/OT incentive spirometer Monitor BP closely DVT prophylaxis: SCDS, ASA, eliquis resume outpatient medication regimen for comorbidities Assessment and treatment plan made in conjunction with Rogelio Ramos MD documented in this encounter Plan of Treatment Not on file documented as of this encounter Visit Diagnoses Not on filedocumented in this encounter
--- OUTSIDE RECORDS SUMMARY | 2025-04-25 12:03 | XMS_ITS | Encounter Summary ---
Author Organization [employer] ([place], [place], [place], [place]) Address [address] [place] [address] Care Team Providers Care Brass Pickler Name Role Phone Unavailable Primary Care Provider Unavailabl e Encounter Details Date Type Department Care Team (Late st Contact Info) Description 04/27/2019 Transcribed Document [facility] Radiology [address] [place] [address] Chanel Doty MD [address] [place] [address] Social History Tobacco Use Types Packs/Day Years Used Date Smoking Tobacco: Never Assessed Comments Unknown Sex and Gender Information Value Date Recorded Sex Assigned at Not on file Legal Sex Female 7:30 PM CDT Gender Identity Not on file Sexual Orientation Not on file documented as of this encounter Miscellaneous Notes * Cerner Conversion Note - Chanel Doty MD - 04/27/2019 8:19 AM EDT Patient: EMELY VILLANUEVA Age: 68 Years Sex: Female : 1950 Assessment/Plan Postop day 2 left knee revision replant 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 PICC line in place. Discharge home this day. VTE Prophylaxis - Medical Sequential Compression Device Start: 04/25/19 18:19:00 EDT, Bilateral, Length: Knee High, Continuous Order (CHANEL DOTY) Sequential Compression Device Start: 04/25/19 11:20:00 EDT, Bilateral, Length: Knee High, Continuous Order (CHANEL DOTY) Subjective Patient states pain well-controlled. Progressive range of motion. Design discharge home Vital Signs T: 37.1 ??C TMIN: 36.7 ??C TMAX: 37.1 ??C HR: 71(Monitored) RR: 16 BP: 139/63 SpO2: 96% Oxygen Settings (Last) Oxygen Therapy Mode: Room air (04/26/19 21:00:00) Oxygen Flow Rate: 1 Liter/Min (04/25/19 22:00:00) Intake & Output Totals Last 24 Hours (7a-7a) Input Total: 290.5 mL Output Total: 0 mL Balance: 290.5 mL Physical Exam The dressing is clean dry secure. The operative extremity is neurovascularly intact with the exception to which is attributed to peripheral nerve block. Compartments are soft. Medications alteplase + sterile water 1 mL Ambien, 5 mg= 1 Tab, Oral, At [...] mg oral tablet, 1 Tab, Oral, Daily Lipitor, 10 mg= 1 Tab, Oral, At Bedtime lisinopril, 10 mg= 1 Tab, Oral, Daily Milk of Magnesia 8% oral suspension, 30 mL, Oral, TID, PRN MiraLax, 17 Gram= 1 Packet, Oral, Daily morphine, 2 mg= 1 mL, IV Push, Q2H, PRN multivitamin, 1 Tab, Oral, Daily naloxone, 0.1 mg= 0.25 mL, IV Push, Q5Min, PRN Normal Saline Flush, 10 mL, IntraCATHeter, Q12H oxyCODONE, 5 mg= 1 Tab, Oral, Q4H, [...] intravenous solution 1,000 mL, 1000 mL, IntraVENous Tylenol, 1000 mg= 2 Tab, Oral, Q6H Lab Results No qualifying data available [facility]: [id number] ORDER: Culture AFB and Stain DATE: 04/25/2019 15:30 SOURCE: Tissue SITE: Knee L Reports AFS 04/26/2019 14:52 No Acid Fast Bacilli seen == [facility]: [id number] ORDER: Culture AFB and Stain DATE: 04/25/2019 15:32 SOURCE: Tissue SITE: Knee L Reports AFS 04/26/2019 14:52 No Acid Fast Bacilli seen == [facility]: [id number] ORDER: Culture AFB and Stain DATE: 04/25/2019 15:16 SOURCE: Surgical Swab SITE: Knee L Reports AFS 04/26/2019 14:52 No Acid Fast Bacilli seen == [facility]: [id number] ORDER: Culture AFB and Stain DATE: 04/25/2019 15:18 SOURCE: Tissue SITE: Knee L Reports AFS 04/26/2019 14:52 No Acid Fast Bacilli seen == [facility]: [id number] ORDER: Culture AFB and Stain DATE: 04/25/2019 15:19 SOURCE: Tissue SITE: Knee L Reports AFS 04/26/2019 14:52 No Acid Fast Bacilli seen == [facility]: [id number] ORDER: Culture AFB and Stain DATE: 04/25/2019 15:20 SOURCE: Tissue SITE: Knee L Reports AFS 04/26/2019 14:52 No Acid Fast Bacilli seen == [facility]: [id number] ORDER: Culture AFB and Stain DATE: 04/25/2019 15:21 SOURCE: Tissue SITE: Knee L Reports AFS 04/26/2019 14:52 No Acid Fast Bacilli seen == [facility]: [id number] ORDER: Culture Tissue and Stain DATE: 04/25/2019 15:32 SOURCE: Tissue SITE: Knee L Reports Pre 04/26/2019 06:47 No growth GS 04/25/2019 22:28 No cells seen No organisms seen. == [facility]: [id number] ORDER: Culture Tissue and Stain DATE: 04/25/2019 15:30 SOURCE: Tissue SITE: Knee L Reports Pre 04/26/2019 06:46 No growth GS 04/25/2019 22:28 No cells seen No organisms seen. == [facility]: [id number] ORDER: Culture Tissue and Stain DATE: 04/25/2019 15:21 SOURCE: Tissue SITE: Knee L Reports Pre 04/26/2019 06:46 No growth GS 04/25/2019 22:29 No cells seen No organisms seen. == [facility]: [id number] ORDER: Culture Tissue and Stain DATE: 04/25/2019 15:20 SOURCE: Tissue SITE: Knee L Reports Pre 04/26/2019 06:45 No growth GS 04/25/2019 22:29 No cells seen No organisms seen. == ACC: [id number] ORDER: Culture Tissue and Stain DATE: 04/25/2019 15:19 SOURCE: Tissue SITE: Knee L Reports Pre 04/26/2019 06:45 No growth GS 04/25/2019 22:29 No cells seen No organisms seen. == ACC: [id number] ORDER: Culture Tissue and Stain DATE: 04/25/2019 15:18 SOURCE: Tissue SITE: Knee L Reports Pre 04/26/2019 06:44 No growth GS 04/25/2019 22:28 No cells seen No organisms seen. == ACC: [id number] ORDER: Culture Wound and Stain DATE: 04/25/2019 15:16 SOURCE: Surgical Swab SITE: Knee L Reports Pre 04/26/2019 06:44 No growth GS 04/25/2019 22:27 No cells seen No organisms seen. == ACC: [id number] ORDER: Culture Anaerobic DATE: 04/25/2019 15:32 SOURCE: Tissue SITE: Knee L Reports Pre 04/27/2019 06:48 No Anaerobic growth Pre 04/26/2019 06:33 Culture in progress == ACC: [id number] ORDER: Culture Anaerobic DATE: 04/25/2019 15:21 SOURCE: Tissue SITE: Knee L Reports Pre 04/27/2019 06:48 No Anaerobic growth Pre 04/26/2019 06:33 Culture in progress == ACC: [id number] ORDER: Culture Anaerobic DATE: 04/25/2019 15:20 SOURCE: Tissue SITE: Knee L Reports Pre 04/27/2019 06:47 No Anaerobic growth Pre 04/26/2019 06:33 Culture in progress == ACC: [id number] ORDER: Culture Anaerobic DATE: 04/25/2019 15:19 SOURCE: Tissue SITE: Knee L Reports Pre 04/27/2019 06:47 No Anaerobic growth Pre 04/26/2019 06:32 Culture in progress == ACC: [id number] ORDER: Culture Anaerobic DATE: 04/25/2019 15:18 SOURCE: Tissue SITE: Knee L Reports Pre 04/27/2019 06:46 No Anaerobic growth Pre 04/26/2019 06:32 Culture in progress == ACC: [id number] ORDER: Culture Anaerobic DATE: 04/25/2019 15:16 SOURCE: Surgical Swab SITE: Knee L Reports Pre 04/27/2019 06:46 No Anaerobic growth Pre 04/26/2019 06:32 Culture in progress == ACC: [id number] ORDER: Culture Anaerobic DATE: 04/25/2019 15:30 SOURCE: Tissue SITE: Knee L Reports Pre 04/27/2019 06:45 No Anaerobic growth Pre 04/26/2019 06:29 Culture in progress == ACC: [id number] ORDER: Culture Fungus DATE: 04/25/2019 15:19 SOURCE: Tissue SITE: Knee L Reports ROBERTO 04/25/2019 23:30 No Fungal elements seen == ACC: [id number] ORDER: Culture Fungus DATE: 04/25/2019 15:20 SOURCE: Tissue SITE: Knee L Reports ROBERTO 04/25/2019 23:30 No Fungal elements seen == ACC: [id number] ORDER: Culture Fungus DATE: 04/25/2019 15:21 SOURCE: Tissue SITE: Knee L Reports ROBERTO 04/25/2019 23:30 No Fungal elements seen == ACC: [id number] ORDER: Culture Fungus DATE: 04/25/2019 15:18 SOURCE: Tissue SITE: Knee L Reports ROBERTO 04/25/2019 23:30 No Fungal elements seen == ACC: [id number] ORDER: Culture Fungus DATE: 04/25/2019 15:32 SOURCE: Tissue SITE: Knee L Reports ROBERTO 04/25/2019 23:30 No Fungal elements seen == ACC: [id number] ORDER: Culture Fungus DATE: 04/25/2019 15:30 SOURCE: Tissue SITE: Knee L Reports ROBERTO 04/25/2019 23:29 No Fungal elements seen == ACC: [id number] ORDER: Culture Fungus DATE: 04/25/2019 15:16 SOURCE: Surgical Swab SITE: Knee L Reports ROBERTO 04/25/2019 23:29 No Fungal elements seen == ACC: [id number] ORDER: Culture MRSA Surveillance DATE: 04/04/2019 08:33 SOURCE: Nasal SITE: Reports Final 04/05/2019 11:03 No MRSA isolated For Infection Control surveillance only. == documented in this encounter Plan of Treatment Not on file documented as of this encounter Visit Diagnoses Not on filedocumented in this encounter
--- OUTSIDE RECORDS SUMMARY | 2025-04-25 12:03 | XMS_ITS | Encounter Summary ---
Author Organization [employer] ([place], [place], [place], [place]) Address [address] [place] [address] Care Team Providers Care Software Sales Representative Name Role Phone Unavailable Primary Care Provider Unavailabl e Encounter Details Date Type Department Care Team (Late st Contact Info) Description 01/24/[address] [facility] Family Medicine [facility]ly [facility] [place] [address] ProviderLuis Armando MD [address] [place] [address] Social History Tobacco Use Types Packs/Day Years Used Date Smoking Tobacco: Never Assessed Comments Unknown Sex and Gender Information Value Date Recorded Sex Assigned at Not on file Legal Sex Female 7:30 PM CDT Gender Identity Not on file Sexual Orientation Not on file documented as of this encounter Miscellaneous Notes * Cerner Conversion Note - Luis Armando ProviderMD - 01/24/2019 6:00 AM CDT Pain Assessment Entered On: 01/24/2019 7:19 EDT Performed On: 01/24/2019 6:55 EDT by Pricilla Adkins RN Intervention Information: acetaminophen Performed by Pricilla Adkins RN on 01/24/2019 05:55:00 EDT acetaminophen,1000mg Oral Pain Assessment Pain Assessment : Follow-up assessment Pain Scale Goal : 4 Pain Scale Used : 0-10 Scale Location : Knee, left Onset : Acute Quality : Aching Pain Radiation : No Pain Improved by : Medication Pain Worsened by : Movement Pain Intervention, Drug : Medicated Pain Improved by Intervention : Yes Pricilla Adkins RN - 01/24/2019 7:19 EDT Pain Scale Intensity : 4 Pricilla Adkins RN - 01/24/2019 7:19 EDT Image 4 - Images currently included in the form version of this document have not been included in the text rendition version of the form. documented in this encounter Plan of Treatment Not on file documented as of this encounter Visit Diagnoses Not on filedocumented in this encounter
--- OUTSIDE RECORDS SUMMARY | 2025-04-25 12:03 | XMS_ITS | Encounter Summary ---
Author Organization [employer] ([place], [place], [place], [place]) Address [address] [place] [address] Care Team Providers Care Senior Sharepoint Developer Name Role Phone Unavailable Primary Care Provider Unavailabl e Encounter Details Date Type Department Care Team (Late st Contact Info) Description 01/22/2019 Transcribed Document [facility] [place] Family Medicine [facility] [place] [address] ProviderLuis Armando MD [facility] [place] [address] Social History Tobacco Use Types Packs/Day Years Used Date Smoking Tobacco: Never Assessed Comments Unknown Sex and Gender Information Value Date Recorded Sex Assigned at Not on file Legal Sex Female 7:30 PM CDT Gender Identity Not on file Sexual Orientation Not on file documented as of this encounter Miscellaneous Notes * Cerner Conversion Note - Historical ProviderMD - 01/22/2019 9:00 PM CDT Pain Assessment Entered On: 01/23/2019 4:31 EDT Performed On: 01/22/2019 22:06 EDT by Patricia Langford Rn Intervention Information: oxyCODONE Performed by Patricia Langford Rn on 01/22/2019 21:06:00 EDT oxyCODONE,10mg Oral Pain Assessment Pain Assessment : Follow-up assessment Pain Scale Goal : 4 Pain Scale Used : 0-10 Scale Location : Knee, left Onset : Constant Pain Radiation : No Pain Improved by Intervention : Yes Patricia Langford Rn - 01/23/2019 4:31 EDT Pain Scale Intensity : 4 Patricia Langford Rn - 01/23/2019 4:31 EDT Image 4 - Images currently included in the form version of this document have not been included in the text rendition version of the form. documented in this encounter Plan of Treatment Not on file documented as of this encounter Visit Diagnoses Not on filedocumented in this encounter
--- OUTSIDE RECORDS SUMMARY | 2025-04-25 12:03 | XMS_ITS | Encounter Summary ---
Author Organization [employer] ([place], [place], [place], [place]) Address [address] [place] [address] Care Team Providers Care Vest Tailor Name Role Phone Unavailable Primary Care Provider Unavailabl e Encounter Details Date Type Department Care Team (Late st Contact Info) Description 04/27/2019 Transcribed Document [facility] Family Medicine [address] [place] [address] ProviderLuis Armando MD [address] [place], [place] [id number] Social History Tobacco Use Types Packs/Day Years Used Date Smoking Tobacco: Never Assessed Comments Unknown Sex and Gender Information Value Date Recorded Sex Assigned at Not on file Legal Sex Female 7:30 PM CDT Gender Identity Not on file Sexual Orientation Not on file documented as of this encounter Miscellaneous Notes * Cerner Conversion Note - Historical ProviderMD - 04/27/2019 8:12 AM CDT Stroke/Warfarin Instructions Entered On: 04/27/2019 8:12 EDT Performed On: 04/27/2019 8:12 EDT by Kasey Alba RN Stroke/Warfarin Instructions Stroke/TIA Discharge Ins : N/A Warfarin Discharge Ins : N/A Kasey Alba RN - 04/27/2019 8:12 EDT documented in this encounter Plan of Treatment Not on file documented as of this encounter Visit Diagnoses Not on filedocumented in this encounter
--- OUTSIDE RECORDS SUMMARY | 2025-04-25 12:03 | XMS_ITS | Encounter Summary ---
Author Organization [employer] ([place], [place], [place], [place]) Address [address] [place] [address] Care Team Providers Care Plate Worker Helper Name Role Phone Unavailable Primary Care Provider Unavailabl e Encounter Details Date Type Department Care Team (Late st Contact Info) Description 04/27/2019 Transcribed Document [facility] [place] Family Medicine [address] [place] [address] ProviderLuis Armando MD [address] [place] [address] Social History Tobacco Use Types Packs/Day Years Used Date Smoking Tobacco: Never Assessed Comments Unknown Sex and Gender Information Value Date Recorded Sex Assigned at Not on file Legal Sex Female 7:30 PM CDT Gender Identity Not on file Sexual Orientation Not on file documented as of this encounter Miscellaneous Notes * Cerner Conversion Note - Historical ProviderMD - 04/27/2019 11:34 AM CDT Nursing Discharge Summary Entered On: 04/27/2019 11:35 EDT Performed On: 04/27/2019 11:34 EDT by CJ MAURO RN Discharge Documentation Discharge Date/Time : 04/27/2019 11:35 EDT Patient Disposition, General : Discharge Discharge To : Home without planned follow-up Mode Of Departure, General Discharge : Private vehicle Accompanied By, Discharge : Son, Spouse IV Discontinued : Yes Medications Given to Patient : No Personal Belongings With Patient : Yes Pt's Own Supply of Medications Returned : Yes Prescriptions Given to Patient : Yes Discharge Instructions Reviewed With, Opportunity For Questions Given : Patient, Son, Spouse, Other: safety housing assistant property manager Patient Education Completed : Yes Number of Prescriptions Given : 5 Teaching Method : Explanation, Printed materials Teaching Evaluation : Verbalizes understanding CJ MAURO RN - 04/27/2019 11:34 EDT Electronically signed by Adwoa [facility] Conversion Assembler Metal Building Cerner at 11/11/2022 8:54 PM CDT documented in this encounter Plan of Treatment Not on file documented as of this encounter Visit Diagnoses Not on filedocumented in this encounter
--- OUTSIDE RECORDS SUMMARY | 2025-04-25 12:03 | XMS_ITS | Encounter Summary ---
Author Organization [employer] ([place], [place], [place], [place]) Address [address] [place] [address] Care Team Providers Care Elevator Inspector Name Role Phone Unavailable Primary Care Provider Unavailabl e Encounter Details Date Type Department Care Team (Late st Contact Info) Description 04/27/2019 Transcribed Document [facility] [place] Family Medicine [address] [place] [address] ProviderLuis Armando MD [address] [place] [address] Social History Tobacco Use Types Packs/Day Years Used Date Smoking Tobacco: Never Assessed Comments Unknown Sex and Gender Information Value Date Recorded Sex Assigned at Not on file Legal Sex Female 7:30 PM CDT Gender Identity Not on file Sexual Orientation Not on file documented as of this encounter Miscellaneous Notes * Cerner Conversion Note - Luis Armando ProviderMD - 04/27/2019 11:16 AM CDT Final Discharge Planning Entered On: 04/27/2019 11:18 EDT Performed On: 04/27/2019 11:16 EDT by KARMEN CALVILLO RN-Bank Appraiser Final Discharge Planning Discharge Arrangements : Patient Post-Acute Information Patient Name: EMELY VILLANUEVA Gender: Female : [birth year] Age: 68 Years [place] Referral(s): Service: Organization: Business Address: Phone Number: Home Care Physician Services [facility] - [address], [address], [place], [address] Patient Offered Choice/Affiliations Explained : Yes Designation of Choice Signed : Yes Transportation Needs : Car Follow Up Appointment Scheduled : Yes Is Patient High/Moderate Readmission Risk? : No Patient/Family Notified of Plan : Yes Support Person/Pt Rep Notified of Plan : Yes Is Patient Ready for Discharge? : Yes Physician Notified Patient is Ready for Discharge? : Yes Discharge To Care Management : Home Health Services (Related/SOC within 3 days)-06 KARMEN CALVILLO RN-Bank Appraiser - 04/27/2019 11:16 EDT Final Narrative Note Final Narrative Note : Pt dc'd home today. Informed heike with [facility]. Pt will go to [facility] for daily abx therapy starting tomorrow. Informed [facility] of dc. No other CM needs identified. KARMEN CALVILLO RN-Bank Appraiser - 04/27/2019 11:16 EDT documented in this encounter Plan of Treatment Not on file documented as of this encounter Visit Diagnoses Not on filedocumented in this encounter
--- OUTSIDE RECORDS SUMMARY | 2025-04-25 12:03 | XMS_ITS | Referral Summary ---
Author Organization [employer] ([place], [place], [place], [place]) Address [address] [place] [address] Care Team Providers Care Nuclear Physics Professor Name Role Phone Unavailable Primary Care Provider [...]
--- OUTSIDE RECORDS SUMMARY | 2025-04-25 12:03 | XMS_ITS | Encounter Summary ---
Author Organization [employer] ([place], [place], [place], [place]) Address [address] [place] [address] Care Team Providers Care Aircraft Systems Technician Name Role Phone Unavailable Primary Care Provider Unavailabl e Encounter Details Date Type Department Care Team (Late st Contact Info) Description 01/23/2019 Transcribed Document [facility] Radiology [address] [place] [address] Chanel Doty MD [address] [place] [address] Social History Tobacco Use Types Packs/Day Years Used Date Smoking Tobacco: Never Assessed Comments Unknown Sex and Gender Information Value Date Recorded Sex Assigned at Not on file Legal Sex Female 7:30 PM CDT Gender Identity Not on file Sexual Orientation Not on file documented as of this encounter Miscellaneous Notes * Cerner Conversion Note - Chanel Doty MD - 01/23/2019 11:24 AM EDT Patient: EMELY ROB Age: 68 years Sex: Female : 1950 Associated Diagnoses: None Author: CHANEL DOTY MD-ORT [facility] Ortho Progress Note SUBJECTIVE No events. Pain controlled. Ambulating w/ PT Dr. Morgan following, on IV Rocephin EXAM Vitals Signs (last 24 hrs) Last Charted Minimum Maximum Temp 97.8 (JAN 23 06:00) 97.8 (JAN 23 06:00) 98.1 (JAN 22 11:08) Mon HR 114 (JAN 23 06:00) 74 (JAN 22 11:08) 114 (JAN 23 06:00) Resp Rate 16 (JAN 23 02:45) 16 (JAN 22 11:08) 20 (JAN 22 18:00) SBP 124 (JAN 23 06:00) 120 (JAN 22 11:08) 138 (JAN 23 02:45) DBP L 55 (JAN 23 06:00) L 49 (JAN 22 15:10) L 56 (JAN 22 23:00) MAP 71 (JAN 23 06:00) 68 (JAN 22 11:08) 74 (JAN 23 02:45) L knee wound dry KI in place NV intact neg Freya's Drain: 100cc/24h LABS: JAN 23 03:12 140 105 13 / H 130 4.6 H 34 0.60 \ JAN 23 03:12 \ L 8.7 / 6.8 197 / L 26.7 \ OR Cx: neg to date Assessment: POD 1 explant/spacer L TKA Plan: 1. PT, TDWB, no ROM 2. abx per Dr. Morgan. IV Rocephin in [facility] office. PICC tomorrow 3. anticiipate d/c home tomorrow after PICC 4. d/c drain today. documented in this encounter Plan of Treatment Not on file documented as of this encounter Visit Diagnoses Not on filedocumented in this encounter
--- OUTSIDE RECORDS SUMMARY | 2025-04-25 12:03 | XMS_ITS | Encounter Summary ---
Author Organization [employer] ([place], [place], [place], [place]) Address [address] [place] [address] Care Team Providers Care Actuary Name Role Phone Unavailable Primary Care Provider Unavailabl e Encounter Details Date Type Department Care Team (Late st Contact Info) Description 01/23/2019 Transcribed Document [facility] [address] [place] [address] ProviderLuis Armando MD [address] [place] [address] Social History Tobacco Use Types Packs/Day Years Used Date Smoking Tobacco: Never Assessed Comments Unknown Sex and Gender Information Value Date Recorded Sex Assigned at Not on file Legal Sex Female 7:30 PM CDT Gender Identity Not on file Sexual Orientation Not on file documented as of this encounter Miscellaneous Notes * Cerner Conversion Note - Historical ProviderMD - 01/23/2019 6:00 PM CDT Pain Assessment Entered On: 01/24/2019 0:27 EDT Performed On: 01/23/2019 19:32 EDT by Pricilla Adkins RN Intervention Information: acetaminophen Performed by MILAD LOGAN LPN on 01/23/2019 18:32:00 EDT acetaminophen,1000mg Oral Pain Assessment Pain Assessment : Follow-up assessment Pain Scale Goal : 4 Pain Scale Used : 0-10 Scale Location : Knee, left Onset : Acute Quality : Aching Pain Radiation : No Pain Improved by : Medication Pain Worsened by : Movement Pain Intervention, Drug : Medicated Pain Improved by Intervention : No Pricilla Adkins RN - 01/24/2019 0:27 EDT Pain Scale Intensity : 3 Pricilla Adkins RN - 01/24/2019 0:27 EDT Image 4 - Images currently included in the form version of this document have not been included in the text rendition version of the form. Electronically signed by Adwoa, [facility] Conversion Arrow Point Attacher Cerner at 11/11/2022 8:47 PM CDT documented in this encounter Plan of Treatment Not on file documented as of this encounter Visit Diagnoses Not on filedocumented in this encounter
--- OUTSIDE RECORDS SUMMARY | 2025-04-25 12:03 | XMS_ITS | Encounter Summary ---
Author Organization [employer] ([place], [place], [place], [place]) Address [address] [place] [address] Care Team Providers Care Optician Name Role Phone Unavailable Primary Care Provider Unavailabl e Encounter Details Date Type Department Care Team (Late st Contact Info) Description 01/22/[address] [facility] [place] [facility] [place] [address] ProviderLuis Armando MD [address] [place] [address] Social History Tobacco Use [...] Note - Luis Armando ProviderMD - 01/22/2019 9:31 AM CDT Patient: EMELY ROB Age: 68 Years Sex: Female : 1950 Subjective POD#1 left total knee explant for PJI. patient comfortable. Infectious disease is seen. Intake & Output Intake & Output Totals Last 24 Hours (7a-7a) Intake (4 Events) Medications (350 mL) Surgical Services Intake (1000 mL) Output (1 Events) Surgical Drain/Tube Output: (50 mL) Input Total: 1350 mL Output Total: 50 mL Balance: 1300 mL Vital Signs T: 36.3 ??C TMIN: 36.1 ??C TMAX: 36.7 ??C HR: 63(Monitored) RR: 16 BP: 109/62 SpO2: 98% HT: 157.48 cm WT: 77.82 kg BMI: 31.4 Physical Exam The dressing is clean dry secure. The operative extremity is neurovascularly intact with the exception to which is attributed to peripheral nerve block. Compartments are soft. knee immobilizer in place. Hemovac drain secure. VTE Risk Total Score VTE Prophylaxis - Surgical Heparin 5,000 Units, SubCutaneous, Inj, Q8H, Routine, Start 01/21/19 14:35:00 EDT (CHANEL DYSON) Sequential Compression Device Start: 01/21/19 14:35:00 EDT, Bilateral, Length: Knee High, Continuous Order (CHANEL DYSON) Assessment/Plan interoffice cultures placed on patient's chart. Awaiting plan from infectious disease. Pain management and physical therapy for routine with the exception of touchdown weightbearing and no knee range of motion. We will retain drain. 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 Ordered: apixaban, 1 Tab, Oral, Tab, BID, # 60 Tab, 0 Refill(s) docusate, 1 Cap, Oral, BID, PRN for constipation, # 60 Cap, 0 Refill(s) ferrous gluconate, 1 Tab, Oral, Tab, Daily, # 100 Tab, 0 Refill(s) Infection and inflammatory reaction due to internal left knee prosthesis, initial encounter T84.54XA, Infection and inflammatory reaction due to internal left knee prosthesis, initial encounter T84.54XA Orders: Consult to Case Management Medications Inpatient acetaminophen, 1000 mg= 100 mL, IV Piggyback, Q6H Ambien, 5 mg= 1 Tab, Oral, At Bedtime, PRN cefTRIAXone citalopram, 20 mg= 1 Tab, Oral, Daily cloNIDine, 0.2 mg= 1 Tab, Oral, Q4H, PRN Colace, 100 mg= 1 Cap, Oral, BID Dilaudid, 0.4 mg= 0.4 mL, IV Push, Q3H, PRN Dulcolax Laxative, 10 mg= 1 Supp, Rectal, 1-Time, PRN ferrous gluconate, 324 mg= 1 Tab, Oral, Daily heparin, 5000 Units= 1 mL, SubCutaneous, Q8H hydrALAZINE, 10 mg= 0.5 mL, IV Push, Q6H, PRN Lipitor, 10 mg= 1 Tab, Oral, At Bedtime lisinopril, 10 mg= 1 Tab, Oral, Daily MiraLax, 17 Gram= 1 Packet, Oral, Daily multivitamin, 1 Tab, Oral, Daily naloxone, 0.1 mg= 0.25 mL, IV Push, Q5Min, PRN oxyCODONE, 10 mg= 2 Tab, Oral, Q4H, PRN oxyCODONE, 5 mg= 1 Tab, Oral, Q4H, PRN OxyCONTIN, 10 mg= 1 Tab, Oral, Q12H Phenergan, 12.5 mg= 0.5 mL, IV Push, Q6H, PRN Protonix, 40 mg= 1 Tab, Oral, Daily Senokot S, 2 Tab, Oral, At Bedtime simethicone, 40 mg= 0.6 mL, Oral, Q6H, PRN Sodium Chloride 0.9% intravenous solution 1,000 mL, 1000 mL, IntraVENous Tylenol, 1000 mg= 2 Tab, Oral, Q6H Zofran, 4 mg= 1 Tab, Oral, Q4H, PRN Home aspirin 81 mg oral tablet, 81 mg= 1 Tab, Oral, Daily citalopram, 20 mg, Oral, Daily Colace 100 mg oral capsule, 100 mg= 1 Cap, Oral, BID, PRN Eliquis 2.5 mg oral tablet, 2.5 mg= 1 Tab, Oral, BID ferrous gluconate 325 mg (36 mg elemental iron) oral tablet, 325 mg= 1 Tab, Oral, Daily lisinopril, 10 mg, Oral, Daily Maxzide, 25/37.5 mg Tab, Oral, Daily MS Contin 15 mg oral tablet, extended release, 15 mg= 1 Tab, Oral, Q12H Neurontin 300 mg oral capsule, 300 mg= 1 Cap, Oral, At Bedtime, PRN Percocet 5/325 oral tablet, 1 Tab, Oral, Q4H, PRN PreserVision AREDS 2, 1 Cap, Oral, BID simvastatin, 20 mg, Oral, At Bedtime Vitamin D3, 5000 Int Units, Oral, Daily Routine Labs - Last 24 Hours JAN 22 03:27 139 107 17 / H 147 H 5.3 29 0.70 \ Anion Gap: 8 Low Calcium Level: 8.8 mg/dL ACC: [id number] ORDER: Culture Anaerobic DATE: 01/21/2019 13:29 SOURCE: Surgical Swab SITE: Knee L Reports Pre 01/22/2019 08:11 Culture in progress == ACC: [id number] ORDER: Culture Anaerobic DATE: 01/21/2019 13:29 SOURCE: Tissue SITE: Knee L Reports Pre 01/22/2019 08:11 Culture in progress == ACC: [id number] ORDER: Culture Anaerobic DATE: 01/21/2019 13:29 SOURCE: Tissue SITE: Knee L Reports Pre 01/22/2019 08:11 Culture in progress == ACC: [id number] ORDER: Culture Anaerobic DATE: 01/21/2019 13:29 SOURCE: Tissue SITE: Knee L Reports Pre 01/22/2019 08:10 Culture in progress == ACC: [id number] ORDER: Culture Anaerobic DATE: 01/21/2019 13:29 SOURCE: Tissue SITE: Knee L Reports Pre 01/22/2019 08:10 Culture in progress == ACC: [id number] ORDER: Culture Wound and Stain DATE: 01/21/2019 13:29 SOURCE: Surgical Swab SITE: Knee L Reports Pre 01/22/2019 06:03 No growth GS 01/21/2019 22:21 No organisms seen. No cells seen == ACC: [id number] ORDER: Culture Tissue and Stain DATE: 01/21/2019 13:29 SOURCE: Tissue SITE: Knee L Reports Pre 01/22/2019 06:03 No growth GS 01/21/2019 22:20 No organisms seen. Few White Blood Cells == ACC: [id number] ORDER: Culture Tissue and Stain DATE: 01/21/2019 13:29 SOURCE: Tissue SITE: Knee L Reports Pre 01/22/2019 06:02 No growth GS 01/21/2019 22:20 No organisms seen. Rare White Blood Cells == ACC: [id number] ORDER: Culture Tissue and Stain DATE: 01/21/2019 13:29 SOURCE: Tissue SITE: Knee L Reports Pre 01/22/2019 06:02 No growth GS 01/21/2019 22:24 No organisms seen. Moderate White Blood Cells == ACC: [id number] ORDER: Culture Tissue and Stain DATE: 01/21/2019 13:29 SOURCE: Tissue SITE: Knee L Reports Pre 01/22/2019 06:02 No growth GS 01/21/2019 22:20 No cells seen No organisms seen. == ACC: [id number] ORDER: Culture Fungus DATE: 01/21/2019 13:29 SOURCE: Surgical Swab SITE: Knee L Reports ROBERTO 01/21/2019 22:28 No Fungal elements seen == ACC: [id number] ORDER: Culture Fungus DATE: 01/21/2019 13:29 SOURCE: Tissue SITE: Knee L Reports ROBERTO 01/21/2019 22:28 No Fungal elements seen == ACC: [id number] ORDER: Culture Fungus DATE: 01/21/2019 13:29 SOURCE: Tissue SITE: Knee L Reports ROBERTO 01/21/2019 22:28 No Fungal elements seen == ACC: [id number] ORDER: Culture Fungus DATE: 01/21/2019 13:29 SOURCE: Tissue SITE: Knee L Reports ROBERTO 01/21/2019 22:27 No Fungal elements seen == ACC: [id number] ORDER: Culture Fungus DATE: 01/21/2019 13:29 SOURCE: Tissue SITE: Knee L Reports ROBERTO 01/21/2019 22:25 No Fungal elements seen == ACC: [id number] ORDER: Culture MRSA Surveillance DATE: 01/18/2019 11:07 SOURCE: Nasal SITE: Reports Final 01/19/2019 11:26 No MRSA isolated For Infection Control surveillance only. == Imaging Results (Last 24 Hours) Radiology Results (Last 48 hours) [id number] -- 01/21/2019 05:45 CR Knee 1 or [...] agree with the above final transcribed report. Problem List/Past Medical History Ongoing Arthritis At risk for sleep apnea Atrial flutter Endometriosis Hard of hearing High blood pressure Hx of hypoglycemia Hyperlipidemia Infection, left knee Macular degeneration Historical No qualifying data Procedure/Surgical History REPLACE OF L KNEE JT WITH SYNTH SUB, CEMENT, OPEN APPROACH (02/02/2017), total knee replacement - left (Week of 02/02/2017), Let Knee scope12/28/2015 (Week of 12/28/2015), T-Tube, bilateral ears (Week of 06/27/2014), rotator cuff, right (2010), Sinus Surgery (1997), hysterectomy (1987). Allergies Bananas Benadryl (Itching, Rash) Chocolate (Shortness of breath, Hives) Darvon Demerol HCl Kiwi (Itching, Rash) Latex Lortab (Itching) Pineapple codeine (Tachycardia) penicillin documented in this encounter Plan of Treatment Not on file documented as of this encounter Visit Diagnoses Not on filedocumented in this encounter
--- OUTSIDE RECORDS SUMMARY | 2025-04-25 12:03 | XMS_ITS | Encounter Summary ---
Author Organization [employer] ([place], [place], [place], [place]) Address [address] [place] [address] Care Team Providers Care Wire Stitcher Operator Name Role Phone Unavailable Primary Care Provider Unavailabl e Encounter Details Date Type Department Care Team (Late st Contact Info) Description 04/27/2019 Transcribed Document [facility] Radiology [address] [place] [address] Fausto Ramos MD [facility] [address] [address] Social History Tobacco Use Types Packs/Day Years Used Date Smoking Tobacco: Never Assessed Comments Unknown Sex and Gender Information Value Date Recorded Sex Assigned at Not on file Legal Sex Female 7:30 PM CDT Gender Identity Not on file Sexual Orientation Not on file documented as of this encounter Miscellaneous Notes * Cerner Conversion Note - Fausto Ramos MD - 04/27/2019 10:39 AM EDT Patient: LIANE EMELY Pelon Age: 68 years Sex: Female : 1950 Associated Diagnoses: None Author: IRVIN GARCIA NP-MANDI 04/26/19 cc: medical management s/p left total knee revision with replant per Dr. Doty S: Doing better hoping to go home today plans to do outpatient infusions +itching last night, can't take benadryl No fevers, chills, sweats No shortness of breath, cough No Chest pain, palpitations, syncope No nausea, vomiting, +flatus, +BM No hematuria, dysuria + post-op knee pain HPI: Patient is a 68 yo female [address] to [facility] per Dr. Doty for a [...] PreserVision AREDS 2 1 Cap, Oral, BID Rocephin 2 Gram, IV Piggyback, P06AJly simvastatin 20 mg, Oral, At Bedtime Exam: Vitals Signs (last 24 hrs) Last Charted Minimum Maximum Temp 98.1 (APR 27 07:36) 98.1 (APR 27:36) 98.1 (APR 26 18:06) Mon HR 67 (APR 27:36) 67 (APR 27 07:36) 77 (APR 26 18:06) Resp Rate 16 (APR 27:36) 14 (APR 26 18:06) 16 (APR 26 11:09) SBP H 142 (APR 27 07:36) 97 (APR 26 15:11) H 142 (APR 27 07:36) DBP 70 (APR 27 07:36) L 51 (APR 26 11:09) 70 (APR 27 07:36) MAP 86 (APR 27 07:36) 73 (APR 26 11:09) 116 (APR 27 02:30) SpO2 96 (APR 26 21:00) L 93 (APR 26 18:06) 96 (APR 26 21:00) obese white female, pleasant, cooperative, good historian, laying in bed, son at bedside pink conjunctiva, moist mucous membranes, no thyromegaly or cervical lymphadenopathy =expansion b/l , no wheezing or rhonchi, diminished non-displaced PMI, S1S2 ABD is obese, soft non-tender, non-distended, active bowel sounds skin warm, dry without rashes ext: no low ext edema, no calf tenderness, RUE PICC neuro: cn 2-12 intact; no gross motor -sensory deficits psych: appropriate affect and mood Data: Blood Gases (Current Encounter/Past 24 Hours) No Blood Gas Results Found (Past 24 Hours) Electrolytes(BMP) Results (Current Encounter/Past 24 Hours) Sodium Level 142 mmol/L 04/27/2019 07:48 Potassium Level 5.2 mmol/L PA 04/27/2019 07:48 Chloride Level 111 mmol/L 04/27/2019 07:48 Carbon Dioxide Level 27 mmol/L 04/27/2019 07:48 Anion Gap 9 04/27/2019 07:48 Blood Urea Nitrogen 17 mg/dL 04/27/2019 07:48 Glucose Level 82 mg/dL 04/27/2019 07:48 Calcium Level 9.4 mg/dL 04/27/2019 07:48 Creatinine Level 0.70 mg/dL 04/27/2019 07:48 Cardiac Markers (Current Encounter/Past 24 Hours) No Cardiac Marker Results Found (Past 24 Hours) CBC Results (Current Encounter/Past 24 Hours) WBC 5.8 K/uL 04/27/2019 07:21 Hct 36.7 % 04/27/2019 07:21 Hgb 11.8 g/dL 04/27/2019 07:21 Platelet Count 119 K/uL LOW 04/27/2019 07:21 CMP Results (Current Encounter/Past 24 Hours) eGFR NonAfrican >60 mL/min/1.73m2 04/27/2019 07:48 eGFR >60 mL/min/1.73m2 04/27/2019 07:48 Bun/Creatinine 24.3 HI 04/27/2019 07:48 Creatinine Level 0.70 mg/dL 04/27/2019 07:48 Sodium Level 142 mmol/L 04/27/2019 07:48 Potassium Level 5.2 mmol/L PA 04/27/2019 07:48 Chloride Level 111 mmol/L 04/27/2019 07:48 Carbon Dioxide Level 27 mmol/L 04/27/2019 07:48 Anion Gap 9 04/27/2019 07:48 Blood Urea Nitrogen 17 mg/dL 04/27/2019 07:48 Glucose Level 82 mg/dL 04/27/2019 07:48 Calcium Level 9.4 mg/dL 04/27/2019 07:48 Coagulation Results (Current Encounter/Past 24 Hours) No Coagulation Results Found (Past 24 Hours) Creatinine Clearance (Current Encounter/Past 24 Hours) Creatinine Level 0.70 mg/dL 04/27/2019 07:48 Bun/Creatinine 24.3 HI 04/27/2019 07:48 Impression: left knee prosthetic knee infection s/p removal with abx spacer January 2019 -s/p left knee abx spacer removal with prosthesis reimplantation pruritus- likely r/t narcotics hx afib s/p ablation hx hypoglycemia Hx HTN Plan: likely DC home today with home infusion will send script for zofran- helped her pruritus ID- Dr. Deng -genevieveephiharjit x 2 weeks resume maxzide home dose bowel regimen- has colace and miralax a home incentive spirometer PT/OT DVT prophylaxis noted Pain management deferred to surgeon resume outpatient medication regimen for comorbidities Assessment and treatment plan made in conjunction with Rogelio Ramos MD documented in this encounter Plan of Treatment Not on file documented as of this encounter Visit Diagnoses Not on filedocumented in this encounter
--- OUTSIDE RECORDS SUMMARY | 2025-04-25 12:03 | XMS_ITS | Encounter Summary ---
Author Organization [employer] ([place], [place], [place], [place]) Address [address] [place] [address] Care Team Providers Care Mill Manager Name Role Phone Unavailable Primary Care Provider Unavailabl e Encounter Details Date Type Department Care Team (Late st Contact Info) Description 01/23/2019 Transcribed Document [facility] [place] [address] [place] [address] ProviderLuis Armando MD [address] [place], [place] [id number] Social History Tobacco Use Types Packs/Day Years Used Date Smoking Tobacco: Never Assessed Comments Unknown Sex and Gender Information Value Date Recorded Sex Assigned at Not on file Legal Sex Female 7:30 PM CDT Gender Identity Not on file Sexual Orientation Not on file documented as of this encounter Miscellaneous Notes * Cerner Conversion Note - Historical ProviderMD - 01/23/2019 8:19 AM CDT UM Authorization Entered On: 01/23/2019 8:19 EDT Performed On: 01/23/2019 8:19 EDT by RUBINA ORTEGA RN Primary Insurance Authorization Authorization and Policy Numbers : Insurance 1 Health Plan: MEDICARE Policy Number: [id number] Authorization Number: Insurance 2 Health Plan: [facility] Policy Number: [id number] Authorization Number: Insurance Primary Name : MEDICARE Policy Number: [id number] Historical Authorization Comments-Primary : No Authorization Comments Found RUBINA ORTEGA RN - 01/23/2019 8:19 EDT documented in this encounter Plan of Treatment Not on file documented as of this encounter Visit Diagnoses Not on filedocumented in this encounter
--- OUTSIDE RECORDS SUMMARY | 2025-04-25 12:03 | XMS_ITS | Encounter Summary ---
Author Organization [employer] ([place], [place], [place], [place]) Address [address] [place] [address] Care Team Providers Care Presales Senior Specialist Name Role Phone Unavailable Primary Care Provider Unavailabl e Encounter Details Date Type Department Care Team (Late st Contact Info) Description 01/22/2019 Transcribed Document [facility] Radiology [address] [place] [address] Reynaldo Ramos MD [facility] [address] [address] Social History Tobacco Use Types Packs/Day Years Used Date Smoking Tobacco: Never Assessed Comments Unknown Sex and Gender Information Value Date Recorded Sex Assigned at Not on file Legal Sex Female 7:30 PM CDT Gender Identity Not on file Sexual Orientation Not on file documented as of this encounter Miscellaneous Notes * Cerner Conversion Note - Reynaldo Ramos MD - 01/22/2019 1:24 PM EDT Patient: EMELY ROB Age: 68 years Sex: Female : 1950 Associated Diagnoses: None Author: REYNALDO RAMOS MD-INT cc: medical managment s/p left total knee explant wt abx spacer placement per Dr. Doyt HPI: Patient is an 68 y/o female admitted to [facility] per Dr. Doty for a left total [...] hrs) Last Charted Minimum Maximum Temp 98.1 (JAN 22 11:08) 97 (JAN 21 14:49) 98.1 (JAN 22 11:08) Mon HR 74 (JAN 22 11:08) 60 (JAN 22 02:11) 96 (JAN 21 15:00) Resp Rate 16 (JAN 22 11:08) L 11 (JAN 21 14:55) H 22 (JAN 21 15:15) SBP 120 (JAN 22 11:08) 107 (JAN 21 14:55) H 156 (JAN 21 15:10) DBP L 53 (JAN 22 11:08) L 46 (JAN 21 16:17) 79 (JAN 21 15:10) MAP 68 (JAN 22 11:08) 60 (JAN 21 16:17) 101 (JAN 21 15:10) SpO2 98 (JAN 22 02:11) L 90 (JAN 21 15:10) 98 (JAN 21 18:41) PE: obese white female, pleasant, cooperative, good [...]
--- OUTSIDE RECORDS SUMMARY | 2025-04-25 12:03 | XMS_ITS | Encounter Summary ---
Author Organization [employer] ([place], [place], [place], [place]) Address [address] [place] [address] Care Team Providers Care Business Data Analyst Name Role Phone Unavailable Primary Care Provider Unavailabl e Encounter Details Date Type Department Care Team (Late st Contact Info) Description 01/22/2019 Transcribed Document [facility] [place] Medicine [address] [place] [address] ProviderLuis Armando MD [address] [place] [address] Social History Tobacco Use Types Packs/Day Years Used Date Smoking Tobacco: Never Assessed Comments Unknown Sex and Gender Information Value Date Recorded Sex Assigned at Not on file Legal Sex Female 7:30 PM CDT Gender Identity Not on file Sexual Orientation Not on file documented as of this encounter Miscellaneous Notes * Cerner Conversion Note - Historical ProviderMD - 01/22/2019 12:00 AM CDT Pain Assessment Entered On: 01/22/2019 4:25 EDT Performed On: 01/22/2019 2:30 EDT by LEENA BROWER LPN Intervention Information: acetaminophen Performed by LEENA BROWER LPN on 01/22/2019 02:25:00 EDT acetaminophen,1000mg IV Piggyback,Forearm Left Pain Assessment Pain Assessment : Follow-up assessment Pain Scale Goal : 4 Pain Scale Used : 0-10 Scale Pain Improved by Intervention : Yes LEENA BROWER LPN - 01/22/2019 4:25 EDT Pain Scale Intensity : 2 LEENA BROWER LPN - 01/22/2019 4:25 EDT Image 4 - Images currently included in the form version of this document have not been included in the text rendition version of the form. documented in this encounter Plan of Treatment Not on file documented as of this encounter Visit Diagnoses Not on filedocumented in this encounter
--- OUTSIDE RECORDS SUMMARY | 2025-04-25 12:03 | XMS_ITS | Encounter Summary ---
Author Organization [employer] ([place], [place], [place], [place]) Address [address] [place] [address] Care Team Providers Care Meals On Wheels Driver Name Role Phone Unavailable Primary Care Provider Unavailabl e Encounter Details Date Type Department Care Team (Late st Contact Info) Description 01/22/2019 Transcribed Document [facility] [place] [facility] [place] [address] ProviderLuis Armando MD [facility] [address] Social History Tobacco Use Types Packs/Day Years Used Date Smoking Tobacco: Never Assessed Comments Unknown Sex and Gender Information Value Date Recorded Sex Assigned at Not on file Legal Sex Female 7:30 PM CDT Gender Identity Not on file Sexual Orientation Not on file documented as of this encounter Miscellaneous Notes * Cerner Conversion Note - Historical ProviderMD - 01/22/2019 11:28 AM CDT Treatment Intervention, OT Entered On: 01/24/2019 13:19 EDT Performed On: 01/24/2019 10:45 EDT by RYAN MILLS OTR/Regan General Information, OT Visit Type, OT : Treatment Note Patient Orders : Order Date Order Ordering 01/21/2019 14:35 OT Evaluation and Treatment Ordered By: CHANEL DYSON MD-ORT 01/22/2019 11:28 Occupational Therapy Additional Tx Ordered By: Active Diagnoses : 01/24/2019 00:00 Infection and inflammatory reaction due to other internal joint prosthesis, initial encounter 01/22/2019 00:00 Infection and inflammatory reaction due to other internal joint prosthesis, initial encounter Admission Date : 01/21/2019 05:45 Co-treated by, OT : Physical Therapist Personal Devices : Personal Devices Dentures, partial plate, Glasses Assistive Devices : Assistive Devices No Devices Recorded Precautions in Place : Fall prevention measures, Other: TDWB LLE; KI on when OOB RYAN MILLS OTR/Regan - 01/24/2019 13:14 EDT General Status Patient Received Status : Up in chair Treatment Start Time : 01/24/2019 10:17 EDT Patient Left Status : Supine in bed, RN/PCT informed, All needs met and within reach RN/PCT Informed Comment : ROBB allen Treatment End Time : 01/24/2019 10:45 EDT Treatment Time : 28 Minute(s) RYAN MILLS OTR/Regan - 01/24/2019 13:14 EDT Functional Mobility Mobility Grid Sit to Stand : Rehab Moderate assistance Chair to Bed : Rehab Minimal assistance Stand to Sit : Rehab Minimal assistance Sit to Supine : Rehab Minimal assistance RYAN MILLS OTR/Regan - 01/24/2019 13:14 EDT Plan of Care, OT OT Tx Plan/Goals Established w Patient : Yes RYAN MILLS OTR/Regan - 01/24/2019 13:14 EDT Longterm Goals, OT Bathing LTG Grid Goal #1 Activity : Bathing Assist : Supervision or set up Date to Meet : 02/05/2019 EDT Goal Status : Initial goal RYAN MILLS OTR/Regan - 01/24/2019 13:14 EDT Dressing, Lower Body LTG Grid Goal #1 Activity : Dressing, Lower Body Assist : Assist, minimal Date to Meet : 02/05/2019 EDT Goal Status : Initial goal RYAN MILLS OTR/Regan - 01/24/2019 13:14 EDT Toileting LTG Grid Goal #1 Activity : Toileting Assist : Supervision or set up Date to Meet : 02/05/2019 EDT Goal Status : Initial goal RYAN MILLS OTR/Regan - 01/24/2019 13:14 EDT Toilet Transfer LTG Grid Goal #1 Activity : Toilet Transfer, Ambulatory Assist : Supervision or set up Date to Meet : 02/05/2019 EDT Goal Status : Progressing, continue Comment : TDWB LLE RYAN MILLS OTR/Regan - 01/24/2019 13:14 EDT Bed Mobility/ Bed Transfer LTG Grid Goal #1 Activity : Bed Mobility/Bed Transfer Assist : Independent, modified Date to Meet : 02/05/2019 EDT Goal Status : Progressing, continue RYAN MILLS OTR/Regan - 01/24/2019 13:14 EDT Other LTG Grid Goal #1 Goal : Patient will verbalize/demo a Good understanding of TDWB LLE during activity prior to d/c. Date to Meet : 02/05/2019 EDT Goal Status : Initial goal RYAN MILLS OTR/L - 01/24/2019 13:14 EDT Treatment Note Subjective Comment : agreeable Patient's Response to Treatment : pt tolerated fairly Additional Objective Information : pt up in chair. Stood from chair mod assist. Transfered TDWB min assist to BSC. Mod to sit. Stood from chair mod x2 for toileting hygiene. Transfered to chair min x2 with RWx. Min to supine with leg diamond sorter. Given AE. Educated on donning underwear using edge cutting machine operator> States knows sock aid. Assessment : pt to dc home. Educated family on using gait belt and dressing under KI and putting back on. Pt will need HH Plan for Treatment : see poc RYAN MILLS OTR/L - 01/24/2019 13:14 EDT Pain Assessment Pain Scaled Used : 0-10 Pain scale Pain Score During-Intervention : 4 RYAN MILLS OTR/L - 01/24/2019 13:14 EDT Image 1 - Images currently included in the form version of this document have not been included in the text rendition version of the form. Anticipated Discharge Needs, OT/PT Anticipated Discharge to : Home, with home health RYAN MILLS OTR/L - 01/24/2019 13:[address] [facility] OT Charges OT Selfcare/Hm Mgmt Ea 15 Min : 2 RYAN MILLS OTR/L - 01/24/2019 13:14 EDT Electronically signed by Gomez [place] Conversion Business Intelligence Administrator Donnaner at 11/11/2022 8:55 PM CDT documented in this encounter Plan of Treatment Not on file documented as of this encounter Visit Diagnoses Not on filedocumented in this encounter
--- OUTSIDE RECORDS SUMMARY | 2025-04-25 12:03 | XMS_ITS | Encounter Summary ---
Author Organization [employer] ([place], [place], [place], [place]) Address [address] [place] [address] Care Team Providers Care Metal Cut Off Saw Tender Name Role Phone Unavailable Primary Care Provider Unavailabl e Encounter Details Date Type Department Care Team (Late st Contact Info) Description 04/26/2019 Transcribed Document [facility] [place] Medicine [address] [place] [address] ProviderLuis Armando MD [address] [place] [address] Social History Tobacco Use Types Packs/Day Years Used Date Smoking Tobacco: Never Assessed Comments Unknown Sex and Gender Information Value Date Recorded Sex Assigned at Not on file Legal Sex Female 7:30 PM CDT Gender Identity Not on file Sexual Orientation Not on file documented as of this encounter Miscellaneous Notes * Cerner Conversion Note - Historical ProviderMD - 04/26/2019 1:13 PM CDT Treatment Intervention, OT Entered On: 04/27/2019 11:37 EDT Performed On: 04/27/2019 11:30 EDT by BILLIE PALACIOS, OTR/L General Information, OT Visit Type, OT : Treatment Note Patient Orders : Order Date Order Ordering 04/25/2019 18:19 OT Evaluation and Treatment Ordered By: CHANEL DYSON MD-ORT 04/25/2019 18:19 OT Treatment Instructions Ordered By: CHANEL DYSON MD-ORMirza 04/26/2019 13:13 OT Additional Treatment Ordered By: Active Diagnoses : 04/26/2019 12:00 Presence of unspecified artificial knee joint Admission Date : 04/25/2019 06:55 Co-treated by, OT : stonecutter assistant ([employer]) Personal Devices : Personal Devices No Devices Recorded Assistive Devices : Assistive Devices No Devices Recorded Precautions in Place : Fall prevention measures, high risk General Information Comment, OT : Pt agreeable to tx. BILLIE PALACIOS OTR/L - 04/27/2019 11:30 EDT General Status Patient Received Status : Supine in bed Treatment Start Time : 04/27/2019 10:32 EDT Patient Left Status : Up in chair, Family/Visitors at bedside, All needs met and within reach RN/PCT Informed Comment : ok per RN, Katty Treatment End Time : 04/27/2019 11:00 EDT Treatment Time : 28 Minute(s) BILLIE PALACIOS OTR/L - 04/27/2019 11:30 EDT Self Care/Home Management, OT Grooming Assist Level, OT : Supervision or set-up Grooming Comment, OT : pt stood at sink to wash hands after toileting Lower Body Dressing Comment, OT : reviewed AE for ADL's; pt states she is very familiar with AE from previous surgeries. Pt issued knife operator, LH shoe horn, LH sponge and leg healthcare economics manager. Pt declined sock aid stating she had one at home already. Toileting Assist Level : Independent, modified Toileting Device : Grab bars Toilet Transfer Assist Level : Assist, minimal Toilet Transfer Device : Belt, gait, Walker, rolling Bed/Chair/WC Transfer Assist Level : Assist, minimal Bed/Chair/WC Transfer Device : Belt, gait, Walker, front wheel BILLIE PALACIOS OTR/Regan - 04/27/2019 11:30 EDT Functional Mobility Mobility Grid Bed Roll Right : Supervision/set-up Bed Scooting : Supervision/set-up Supine to Sit : Supervision/set-up Sit to Stand : Supervision/set-up Bed to Chair : Rehab Minimal assistance Stand to Sit : Supervision/set-up BILLIE PALACIOS OTR/L - 04/27/2019 11:30 EDT Functional MobilityComment : Pt ambulated in neal with rw and min A , 150ft. Pt returned to room and was left up in recliner with call light in reach. RN in room also. BILLIE PALACIOS OTR/L - 04/27/2019 11:30 EDT Plan of Care, OT OT Tx Plan/Goals Established w Patient : Yes BILLIE PALACIOS OTR/L - 04/27/2019 11:30 EDT [facility] Goals, OT Bathing LTG Grid Goal #1 Activity : Bathing Cues : No cues Assist : Supervision or set up Equipment : Long handled sponge Date to Meet : 05/10/2019 EDT Goal Status : Initial goal BILLIE PALACIOS OTR/L - 04/27/2019 11:30 EDT Dressing, Lower Body LTG Grid Goal #1 Activity : Dressing, Lower Body Cues : No cues Assist : Supervision or set up Equipment : Long Handled Aircraft Powerplant Repairer, Sock aid, Long handled shoehorn Date to Meet : 05/10/2019 EDT Goal Status : Progressing, continue BILLIE PALACIOS OTR/L - 04/27/2019 11:30 EDT Toilet Transfer LTG Grid Goal #1 Activity : Toilet Transfer, Ambulatory Cues : No cues Assist : Supervision or set up Equipment : Rolling walker Date to Meet : 05/10/2019 EDT Goal Status : Progressing, continue BILLIE PALACIOS OTR/L - 04/27/2019 11:30 EDT Bed Mobility/ Bed Transfer LTG Grid Goal #1 Activity : Bed Mobility/Bed Transfer Cues : No cues Assist : Independent, complete Date to Meet : 05/10/2019 EDT Goal Status : Progressing, continue BILLIE PALACIOS OTR/L - 04/27/2019 11:30 EDT Treatment Note Subjective Comment : pt pleasant and cooperative Patient's Response to Treatment : pt slightly nauseous after fxl mobility; pt provided with cold washcloth Additional Objective Information : addressed AE needs and fxl mobility Assessment : Pt progressing toward goals. Pt anticipates d/c home soon with out-pt PT and family assist, prn. Pt doing well considering she has been NWB on LLE for approx 3 mos. Plan for Treatment : Cont per POC BILLIE PALACIOS OTR/L - 04/27/2019 11:30 EDT Pain Assessment Pain Scaled Used : 0-10 Pain scale Pain Score Pre-Intervention : 3 BILLIE PALACIOS OTR/L - 04/27/2019 11:30 EDT Image 1 - Images currently included in the form version of this document have not been included in the text rendition version of the form. Anticipated Discharge Needs, OT/PT Anticipated Discharge to : Home, with family care, Outpatient rehabilitation BILLIE PALACIOS OTR/L - 04/27/2019 11:[address] [facility] OT Charges OT Selfcare/Hm Mgmt Ea 15 Min : 1 OT Ther Activities Ea 15 Min : 1 BILLIE PALACIOS OTR/Regan - 04/27/2019 11:30 EDT Electronically signed by [facility] Conversion Hide Trimmer Cerner at 11/11/2022 8:58 PM CDT documented in this encounter Plan of Treatment Not on file documented as of this encounter Visit Diagnoses Not on filedocumented in this encounter
--- OUTSIDE RECORDS SUMMARY | 2025-04-25 12:03 | XMS_ITS | Encounter Summary ---
Author Organization [employer] ([place], [place], [place], [place]) Address [address] [place] [address] Care Team Providers Care Family Support Worker Name Role Phone Unavailable Primary Care Provider Unavailabl e Encounter Details Date Type Department Care Team (Late st Contact Info) Description 01/23/2019 Transcribed Document [facility] [place] [address] [place] [address] ProviderLuis Armando MD [address] [place], [place] [id number] Social History Tobacco Use Types Packs/Day Years Used Date Smoking Tobacco: Never Assessed Comments Unknown Sex and Gender Information Value Date Recorded Sex Assigned at Not on file Legal Sex Female 7:30 PM CDT Gender Identity Not on file Sexual Orientation Not on file documented as of this encounter Miscellaneous Notes * Cerner Conversion Note - Historical ProviderMD - 01/23/2019 3:51 PM CDT Attempt to Treat, PT Entered On: 01/23/2019 15:52 EDT Performed On: 01/23/2019 15:51 EDT by SRIKANTH HUGHES, PT Attempt to Treat Unable to Treat Due To : Fatigue, Patient Refusal Inability to Treat Comment : pt reports she sat up in chair for 2 hours this morning and does not feel like getting up again. Visiting with family. Will check back tomorrow. Notification : Discussed with SRIKANTH Ortiz RN, PT - 01/23/2019 15:51 EDT documented in this encounter Plan of Treatment Not on file documented as of this encounter Visit Diagnoses Not on filedocumented in this encounter
--- OUTSIDE RECORDS SUMMARY | 2025-04-25 12:03 | XMS_ITS | Encounter Summary ---
Author Organization [employer] ([place], [place], [place], [place]) Address [address] [place] [address] Care Team Providers Care Brake Repairer Hydraulic Name Role Phone Unavailable Primary Care Provider Unavailabl e Encounter Details Date Type Department Care Team (Late st Contact Info) Description 04/27/2019 Transcribed Document [facility] [place] [address] [place] [address] ProviderLuis Armando MD [address] [id number] Social History Tobacco Use Types Packs/Day Years Used Date Smoking Tobacco: Never Assessed Comments Unknown Sex and Gender Information Value Date Recorded Sex Assigned at Not on file Legal Sex Female 7:30 PM CDT Gender Identity Not on file Sexual Orientation Not on file documented as of this encounter Miscellaneous Notes * Cerner Conversion Note - Historical ProviderMD - 04/27/2019 12:00 AM CDT Pain Assessment Entered On: 04/27/2019 5:34 EDT Performed On: 04/27/2019 3:28 EDT by Swetha Alston LPN Intervention Information: acetaminophen Performed by JESSICA COVINGTON on 04/27/2019 02:28:00 EDT acetaminophen,1000mg Oral Pain Assessment Pain Assessment : Follow-up assessment Pain Scale Goal : 4 Pain Scale Used : 0-10 Scale Location : Knee, left Onset : Abrupt Quality : Dull Pain Radiation : Yes Pain Radiation Location : Hip, left Pain Improved by : Medication, Repositioning Pain Worsened by : Movement Pain Intervention, Drug : Medicated Pain Intervention, Non-Drug : Positioning Pain Improved by Intervention : Yes Swetha Alston LPN - 04/27/2019 5:33 EDT Pain Scale Intensity : 3 Swetha Alston LPN - 04/27/2019 5:33 EDT Image 4 - Images currently included in the form version of this document have not been included in the text rendition version of the form. documented in this encounter Plan of Treatment Not on file documented as of this encounter Visit Diagnoses Not on filedocumented in this encounter
--- OUTSIDE RECORDS SUMMARY | 2025-04-25 12:04 | XMS_ITS | Encounter Summary ---
Author Organization [employer] ([place], [place], [place], [place]) Address [address] [place] [address] Care Team Providers Care Gasoline Engine Inspector Name Role Phone Unavailable Primary Care Provider Unavaildenisha e Encounter Details Date Type Department Care Team (Late st Contact Info) Description 04/25/2019 Transcribed Document [facility] [place] [address] ProviderLuis Armando [place] [address] Social History Tobacco Use Types Packs/Day Years Used Date Smoking Tobacco: Never Assessed Comments Unknown Sex and Gender Information Value Date Recorded Sex Assigned at Not on file Legal Sex Female 7:30 PM CDT Gender Identity Not on file Sexual Orientation Not on file documented as of this encounter Miscellaneous Notes * Cerner Conversion Note - Luis Armando ProviderMD - 04/25/2019 6:19 PM CDT Evaluation, Occupational Therapy Entered On: 04/26/2019 13:11 EDT Performed On: 04/26/2019 11:01 EDT by SUSAN GREGORIO, OTR/L General Information, OT Visit Type, OT : Initial evaluation Patient Orders : Order Date Order Ordering 04/25/2019 18:19 OT Evaluation and Treatment Ordered By: CHANEL DYSON MD-ORT 04/25/2019 18:19 OT Treatment Instructions Ordered By: CHANEL DYSON MD-ORMirza Active Diagnoses : 04/26/2019 12:00 Presence of unspecified artificial knee joint Therapy Diagnosis, OT : Decreased I with ADLs and fxnl mobility secondary to left total knee revision, resulting in fxnl decline. Onset of Problem, OT : 04/26/2019 EDT Admission Date : 04/25/2019 06:55 Co-treated by, OT : Physical Therapist Personal Devices : Personal Devices No Devices Recorded Assistive Devices : Assistive Devices No Devices Recorded General Information Comment, OT : 68 yo female who was admitted to [facility] on 04/25 for left total knee revision. SUSAN GREGORIO OTR/Regan - 04/26/2019 13:02 EDT General Status Patient Received Status : Supine in bed Treatment Start Time : 04/26/2019 10:31 EDT Patient Left Status : Up in chair, RN/PCT informed, Family/Visitors at bedside, Communication board completed, All needs met and within reach RN/PCT Informed Comment : ROBB Alaniz Treatment End Time : 04/26/2019 11:01 EDT Treatment Time : 30 Minute(s) SUSAN GREGORIO OTR/Regan - 04/26/2019 13:02 EDT History and Environment, OT Living Situation, Therapy : Home Patient Lives With : Spouse Persons Assisting Patient at Home : Child/Children, Spouse Professional Skilled Services : None, Physical Therapy Persons Providing Information : Patient, Child/Children Home Equipment, Therapy : Commode, Shower Equipment, Walker, Wheelchair Commode : Commode, bedside Shower Equipment : Shower Chair, with back Walker : Walker, front wheel Wheelchair : Wheelchair, standard Home Setup : One story Stairs : No Ramp : Yes SUSAN GREGORIO OTR/Regan - 04/26/2019 13:02 EDT Prior LOF Bathing, OT : Independent Prior LOF Bed Mobility : Independent Prior LOF Upper Body Dressing, OT : Independent Prior LOF Lower Body Dressing, OT : Independent Prior LOF Toileting : Independent Prior LOF Transfer : Independent Prior LOF Grooming, OT : Independent Prior LOF for IADLs, OT : Independent SUSAN GREGORIO OTR/Regan - 04/26/2019 13:02 EDT Upper Extremity Upper Extremity Dominance : Right Right UE Active ROM : WFL Right UE Strength : WFL Left UE Active ROM : WFL Left UE Strength : WFL Upper Extremity Strength Impaired : No Right UE Strength : WFL Left UE Strength : WFL Upper Extremity Comment : BUE ROM and MMT WFL SUSAN GREGORIO OTR/Regan - 04/26/2019 13:02 EDT Self Care/Home Management, OT Self Feeding Assist Level, OT : Independent, complete Grooming Assist Level, OT : Supervision or set-up Bathing Assist Level, OT : Assist, minimal Upper Body Dressing Assist Level, OT : Supervision or set-up Lower Body Dressing Assist Level, OT : Assist, moderate Toileting Assist Level : Supervision or set-up Toilet Transfer Assist Level : Assist, minimal SUSAN GREGORIO, OTR/L 04/26/2019 13:02 EDT Mobility Device/Prosthesis/Wt Bearing Weight Bearing Status Maintained : Yes Weight Bearing Status : As tolerated SUSAN GREGORIO, OTR/L 04/26/2019 13:02 EDT Functional Mobility Mobility Grid Supine to Sit : Rehab Minimal assistance Sit to Stand : Rehab Minimal assistance Bed to Chair : Rehab Minimal assistance Stand to Sit : Rehab Minimal assistance SUSAN GREGORIO, OTR/L 04/26/2019 13:02 EDT Sit to Stand Device : Belt, gait, Walker, front wheel Bed to Chair Device : Belt, gait, Walker, front wheel Stand to Sit Device : Belt, gait, Walker, front wheel SUSAN GREGORIO, OTR/L 04/26/2019 13:02 EDT Cognition Assessment, OT Orientation : Oriented x 4 Cognition Assessment, OT : Intact Comprehension Assessment, OT : Intact SUSAN GREGORIO, OTR/L 04/26/2019 13:02 EDT Education OT Occupational Therapy Education Grid Activity of Daily Living Training : Needs further teaching Functional Mobility Training : Needs further teaching Role of Occupational Therapy : Verbalizes understanding SUSAN GREGORIO OTR/Regan 04/26/2019 13:02 EDT Teaching/Learning Assessment Barriers To Learning : None evident Individuals Taught : Patient Readiness to Learn : Cooperative Readiness to Learn : Explanation Learning Style Preferences Patient : None SUSAN GREGORIO OTR/Regan 04/26/2019 13:02 EDT Indication Assessment, OT Occupational Therapy Indicated : Yes Problem List, OT : Impaired, bed mobility, Impaired, activities daily living, Impaired, endurance tolerance, Impaired functional mobility, Impaired, standing balance, Impaired, strength, Impaired, transfers Potential Barriers, OT : None evident Rehabilitation Potential, OT : Good JGINOCENCIAMICHCAROL Yovany OTR/L 04/26/2019 13:02 EDT Plan of Care, OT OT Tx Plan/Goals Established w Patient : Yes OT Frequency Rehab : Five days per week OT Duration Rehab : Fourteen days OT Treatments Planned : Activities of daily living, Balance training, Functional mobility training, Safety education, Therapeutic activities, Therapeutic exercises SUSAN GREGORIO OTR/L - 04/26/2019 13:02 EDT Custodial Goals, OT Bathing LTG Grid Goal #1 Activity : Bathing Cues : No cues Assist : Supervision or set up Equipment : Long handled sponge Date to Meet : 05/10/2019 EDT Goal Status : Initial goal SUSAN GREGORIO OTR/L - 04/26/2019 13:02 EDT Dressing, Lower Body LTG Grid Goal #1 Activity : Dressing, Lower Body Cues : No cues Assist : Supervision or set up Equipment : Long Handled Cable Engineer Outside Plant, Sock aid, Long handled shoehorn Date to Meet : 05/10/2019 EDT Goal Status : Initial goal SUSAN GREGORIO OTR/L - 04/26/2019 13:02 EDT Toilet Transfer LTG Grid Goal #1 Activity : Toilet Transfer, Ambulatory Cues : No cues Assist : Supervision or set up Equipment : Rolling walker Date to Meet : 05/10/2019 EDT Goal Status : Initial goal SUSAN GREGORIO OTR/L - 04/26/2019 13:02 EDT Bed Mobility/ Bed Transfer LTG Grid Goal #1 Activity : Bed Mobility/Bed Transfer Cues : No cues Assist : Independent, complete Date to Meet : 05/10/2019 EDT Goal Status : Initial goal SUSAN GREGORIO OTR/L - 04/26/2019 13:02 EDT Treatment Note Subjective Comment : Pt and RN okay'd OT eval at this time Patient's Response to Treatment : Pt tolerated OT eval well Additional Objective Information : Pt supine in bed upon OT arrival. Pt to EOB with Min A. Pt stood and transferred from bed to BSC with RWx, Min A, and verbal cues for safety due to decreased sensation in pt's LLE. Pt completed toileting task with supervision. Pt stood from BSC with RWx and Min A. Pt walked ~50ft with RWx, Min A, verbal cues, and chair follow. Pt needed continuous verbal cues for gait pattern due to decreased sensation of LLE. Pt sat in chair with Min A and verbal cues. Pt left sitting up in chair with call light/phone within reach. Assessment : Pt would benefit from skilled OT services to improve fxnl status. Plan for Treatment : See POC tab SUSAN GREGORIO OTR/L - 04/26/2019 13:02 EDT Pain Assessment Pain Scaled Used : 0-10 Pain scale Pain Score Pre-Intervention : 0 SUSAN GREGORIO OTR/L - 04/26/2019 13:02 EDT Image 1 - Images currently included in the form version of this document have not been included in the text rendition version of the form. Anticipated Discharge Needs, OT/PT Anticipated Discharge to : Home, with family care, Home, with home health, Other: Level 1 Recommend Continued Therapy at Discharge : Yes SUSAN GREGORIO OTR/L - 04/26/2019 13:[address] [facility] OT Charges OT Selfcare/Hm Mgmt Ea 15 Min : 1 OT Eval Moderate Complexity : 1 SUSAN GREGORIO OTR/L - 04/26/2019 13:02 EDT documented in this encounter Plan of Treatment Not on file documented as of this encounter Visit Diagnoses Not on filedocumented in this encounter
--- OUTSIDE RECORDS SUMMARY | 2025-04-25 12:04 | XMS_ITS | Encounter Summary ---
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 Name Role Phone Unavailable Primary Care Provider Unavailabl e Encounter Details Date Type Department Care Team (Late st Contact Info) Description 04/25/2019 Transcribed Document [facility] Radiology [address] [place] [address] Dao Doty MD [address] [place] [address] Social History Tobacco Use Types Packs/Day Years Used Date Smoking Tobacco: Never Assessed Comments Unknown Sex and Gender Information Value Date Recorded Sex Assigned at Not on file Legal Sex Female 7:30 PM CDT Gender Identity Not on file Sexual Orientation Not on file documented as of this encounter Miscellaneous Notes * Cerner Conversion Note - Dao Doty MD - 04/25/2019 12:53 PM EDT Patient: EMELY ROB Age: 68 years Sex: Female : 1950 Associated Diagnoses: None Author: MARLINE BAUMAN APRN Chief Complaint s/p L knee explant Review of Systems ROS reviewed as documented in chart no change since last seen by surgeon Health Status Allergies: Allergic Reactions (Selected) Severity Not Documented Bananas- No reactions were documented. Benadryl- Itching and rash. Chocolate- Shortness of breath and hives. Codeine- Tachycardia. Darvon- No reactions were documented. Demerol HCl- No reactions were documented. Kiwi- Rash and itching. Latex- Difficulty breathing at rest and swelling. Lortab- Itching. Penicillin- Positive skin test reaction. Pineapple- No reactions were documented., Allergies (11) Active Reaction Bananas None Documented Benadryl Rash Chocolate Shortness of breath codeine Tachycardia Darvon None Documented Demerol HCl None Documented Kiwi Rash Latex Swelling Lortab Itching penicillin Positive skin test reaction Pineapple None Documented Current medications: (Selected) Inpatient Medications Ordered Chloraseptic 6 mg-10 mg mucous membrane lozenge: 1 Lozenge, Oral, Q2H, PRN: Sore Throat Cleocin HCl: 900 mg, 50 mL, 100 mL/Hr, IV Piggyback, PREOP Colace: 100 mg, Oral, Daily Cyklokapron 1,000 mg + syringe 1 Each + Sodium Chloride 0.9% intravenous solution 15 mL: 1,000 mg, 10 mL, 150 mL/Hr, IV Push, 1-Time Cyklokapron 2,000 mg + sodium chloride 0.9% injectable solution 5 mL + syringe 1 Each: 2,000 mg, 20 mL, 75 mL/Hr, IV Push, 1-Time Dulcolax Laxative: 10 mg, Rectal, BID, PRN: Constipation Lactated Ringers Injection intravenous solution 1,000 mL: 20 mL/Hr, IntraVENous Milk of Magnesia 8% oral suspension: 30 mL, Oral, TID, PRN: Constipation MiraLax: 17 Gram, Oral, Daily Phenergan: 12.5 mg, IV Push, Q6H, PRN: Nausea Toradol: 30 mg, IV Push, 1-Time Zofran: 4 mg, IV Push, 1-Time Zofran: 4 mg, IV Push, Q4H, PRN: Nausea cloNIDine: 0.2 mg, Oral, Q4H, PRN: Hypertension hydrALAZINE: 10 mg, IV Push, Q6H, PRN: Hypertension lidocaine 1% injectable solution: 0.5 mL, IntraDermal, 1-Time, PRN: Other (See Comment) ropivacaine 0.5% injectable solution 24.6 mL + EPINEPHrine 0.25 mg + cloNIDine 40 mcg + Sodium Chlo...: 24.6 mL, 50 mL/Hr, Miscellaneous, 1-Time simethicone: 80 mg, Chew, Q6H, PRN: Gas Prescriptions Prescribed ferrous gluconate 325 mg (36 mg elemental iron) oral tablet: 1 Tab, Oral, Daily, 100 Tab, 0 Refill(s) Documented Medications Documented Maxzide: 25/37.5 mg Tab, Oral, Daily, 0 Refill(s) PreserVision AREDS 2: 1 Cap, Oral, BID, 0 Refill(s) citalopram: 20 mg, Oral, Daily, 0 Refill(s) lisinopril: 10 mg, Oral, Daily, 0 Refill(s) simvastatin: 20 mg, Oral, At Bedtime, 0 Refill(s), Home Medications (6) Active citalopram 20 mg, Oral, Daily ferrous gluconate 325 mg (36 mg elemental iron) oral tablet 325 mg = 1 Tab, Oral, Daily lisinopril 10 mg, Oral, Daily Maxzide 25/37.5 mg Tab, Oral, Daily PreserVision AREDS 2 1 Cap, Oral, BID simvastatin 20 mg, Oral, At Bedtime , Medications (18) Active Scheduled: (8) clindamycin/D5w 900 mg 50 mL, IV Piggyback, PREOP docusate sodium 100 mg cap 100 mg 1 Cap, Oral, Daily ketorolac 30 mg/1 mL inj 30 mg 1 mL, IV Push, 1-Time ondansetron 4 mg/2 mL inj 4 mg 2 mL, IV Push, 1-Time polyethylene glycol 3350 pwd 17 g pkt 17 Gram 1 Packet, Oral, Daily ropivacaine 0.5% 24.6 mL + EPINEPHrine 0.25 mg + cloNIDine 40 mcg + NaCl 0.9% 24.75 mL 24.6 mL, Miscellaneous, 1-Time tranexamic acid 1,000 mg + syringe 1 Each + NaCl 0.9% 15 mL 1,000 mg 10 mL, IV Push, 1-Time tranexamic acid 2,000 mg + NaCl 0.9% *PF* 5 mL + syringe 1 Each 2,000 mg 20 mL, IV Push, 1-Time Continuous: (1) lactated ringers 1,000 mL 1,000 mL, IntraVENous, 20 mL/Hr PRN: (9) benzocaine-menthol 6 mg rangel 1 Lozenge, Oral, Q2H bisacodyl 10 mg supp 10 mg 1 Supp, Rectal, BID cloNIDine 0.2 mg tab 0.2 mg 1 Tab, Oral, Q4H hydrALAZINE 20 mg/1 mL inj 10 mg 0.5 mL, IV Push, Q6H lidocaine 1% *PF* inj 30 mL 0.5 mL, IntraDermal, 1-Time magnesium hydroxide 8% liq 30 mL 30 mL, Oral, TID ondansetron 4 mg/2 mL inj 4 mg 2 mL, IV Push, Q4H promethazine 25 mg/1 mL inj 12.5 mg 0.5 mL, IV Push, Q6H simethicone 80 mg chew tab 80 mg 1 Tab, Chew, Q6H Problem list: All Problems Wears glasses / SNOMED CT 125191033 / Confirmed Hyperlipidemia / SNOMED CT 03471857 / Confirmed Hx of hypoglycemia / SNOMED CT 0281768519 / Confirmed High blood pressure / SNOMED CT 53898137 / Confirmed Hard of hearing / SNOMED CT 979623225 / Confirmed Deaf in left ear, wears a hearing aid Endometriosis / SNOMED CT 8690553803 / Confirmed Infection, left knee / SNOMED CT 493805438 / Confirmed Macular degeneration / SNOMED CT 4921524609 / Confirmed Atrial flutter / SNOMED CT 4545735 / Confirmed At risk for osteopenia / SNOMED CT 233828981 / Confirmed At risk for sleep apnea / IMO 51846538 / Confirmed Arthritis / SNOMED CT 9692920 / Confirmed, Active Problems (12) Arthritis At risk for osteopenia At risk for sleep apnea Atrial flutter Endometriosis Hard of hearing High blood pressure Hx of hypoglycemia Hyperlipidemia Infection, left knee Macular degeneration Wears glasses Hx L knee infection and explant of prosthesis Histories Past Medical History: No active or resolved past medical history items have been selected or recorded. Family History: No family history items have been selected or recorded. Procedure history: removal of left knee prosthesis for infection on 01/21/2019 at 68 Years. total knee replacement - left in the week of 02/02/2017 at 66 Years. Let Knee scope12/28/2015 in the week of 12/28/2015 at 65 Years. Comments: 04/22/2017 6:48 [facility] - JESSICA TANNER RN arthroscopic surgery - left knee ear Tube, bilateral ears in the week of 06/27/2014 at 64 Years. rotator cuff, right in 2010 at 61 Years. Sinus Surgery in 1997 at 48 Years. hysterectomy in 1988 at 38 Years. Comments: 04/22/2017 6:47 EDT - JESSICA TANNER RN total hysterectomy Social History Social & Psychosocial Habits Alcohol 01/18/2019 Alcohol [...] Month Tobacco Last Used quit in 1998 . Physical Examination VS/Measurements Vital Signs/Vital Measures 04/25/2019 11:00 EDT Systolic Blood Pressure 147 mmHg HI Diastolic Blood Pressure 67 mmHg Temperature Source Temporal artery scanning Temperature Mode Fahrenheit Temperature, Fahrenheit 97.8 Deg F Heart Rate Monitored 67 bpm Respiratory Rate 16 Breaths/Min Oxygen Saturation 98 % Oxygen Therapy Mode Room air , Vitals Signs (last 24 hrs) Last Charted Minimum Maximum Temp 97.8 (APR 25 11:00) 97.8 (APR 25:00) 97.8 (APR 25:00) Mon HR 67 (APR 25 11:00) 67 (APR 25 11:00) 67 (APR 25 11:00) Resp Rate 16 (APR 25 11:00) 16 (APR 25 11:00) 16 (APR 25 11:00) SBP H 147 (APR 25 11:00) H 147 (APR 25 11:00) H 147 (APR 25 11:00) DBP 67 (APR 25 11:00) 67 (APR 25 11:00) 67 (APR 25 11:00) SpO2 98 (APR 25 11:00) 98 (APR 25 11:00) 98 (APR 25:00) General: Alert and oriented, No acute distress, obese. Eye: Pupils are equal, round and reactive to light, Extraocular movements are intact, glasses. HENT: Normocephalic, deaf L ear, R aid. Neck: Supple, Non-tender. Respiratory: Lungs are clear to auscultation, Respirations are non-labored. Cardiovascular: Normal rate, Regular rhythm, No murmur, No gallop, LLE 1+ edema. Gastrointestinal: Soft, Non-tender. Genitourinary: No costovertebral angle tenderness. Lymphatics: No lymphadenopathy neck, axilla, groin. Musculoskeletal: Normal range of motion, LLE weakness, uses walker/wc to ambulate. Integumentary: Warm, Dry, [place]. Neurologic: Alert, Oriented. Psychiatric: Cooperative, Appropriate mood & affect. Review / Management Results review: Labs (Last four charted values) WBC 4.5 (APR 04) HB 13.9 (APR 04) HCT 43.6 (APR 04) Plt 201 (APR 04) Na 141 (APR 04) K 4.5 (APR 04) Cl 105 (APR 04) CO2 30 (APR 04) BUN 21 (APR 04) Cr 0.70 (APR 04) Glu R 94 (APR 04) Ca 9.1 (APR 04) PT 9.9 (APR 04) INR 0.9 (APR 04) PTT 29.6 (APR 04) . Impression and Plan Condition: Stable. documented in this encounter Plan of Treatment Not on file documented as of this encounter Visit Diagnoses Not on filedocumented in this encounter
--- OUTSIDE RECORDS SUMMARY | 2025-04-25 12:04 | XMS_ITS | Encounter Summary ---
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 Name Role Phone Unavailable Primary Care Provider Unavailabl e Encounter Details Date Type Department Care Team (Late st Contact Info) Description 04/25/2019 Transcribed Document [facility] Radiology [address] [place] [address] Dao Doty MD [address] [place] [address] Social History Tobacco Use Types Packs/Day Years Used Date Smoking Tobacco: Never Assessed Comments Unknown Sex and Gender Information Value Date Recorded Sex Assigned at Not on file Legal Sex Female 7:30 PM CDT Gender Identity Not on file Sexual Orientation Not on file documented as of this encounter Miscellaneous Notes * Cerner Conversion Note - Dao Doty MD - 04/25/2019 6:31 PM EDT DATE OF PROCEDURE:04/25/2019 ORTHOPEDIC SURGERY OPERATIVE REPORT ATTENDING PHYSICIAN: Dao Doty M.D. 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 PROCEDURE: 1. Revision left total knee arthroplasty to include entire femoral and tibial components. 2. Placement of resorbable antibiotic cement beads, left knee. SURGEON: Dao Doty M.D. ACCOUNT PROCESSOR: Josue Mccann. ANESTHESIA: General endotracheal anesthesia with femoral and sciatic nerve blocks. ESTIMATED BLOOD LOSS: 50 mL. TOTAL TOURNIQUET TIME: 120 minutes. COMPLICATIONS: None. IMPLANTS USED: 1. [place] Triathlon size 3 total stabilized femoral component with 15 mm distal medial, 15 mm distal lateral, and 5 mm posteromedial augments with a 14 x 100 mm diaphyseal engaging stem. 2. Triathlon size 2 universal tibial base plate with a 13 x 100 mm diaphyseal engaging stem. 3. [employer]ia Tritanium size A symmetric tibial cone augment. 4. A 22 mm total stabilized tibial insert. 5. A 27 mm symmetric patellar button. INDICATIONS FOR PROCEDURE: Ms. Villanueva is a very pleasant 68-year-old female, on whom I had performed a left total knee arthroplasty approximately 18 months ago. 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 She underwent explantation of her components with placement of articulating antibiotic cement spacer as part of a two-stage revision approximately three months ago. She has completed a course of intravenous antibiotics. Her inflammatory markers have normalized. Preoperative aspiration is negative for signs of persistent prosthetic joint infection. She therefore presents for replantation of her components. The risks, benefits, and alternatives have been explained to her in detail including the risk of reinfection. INTRAOPERATIVE FINDINGS: Again as noted above. This was a Triathlon spacer. We did utilize a CR femoral component. The spacer was removed with no significant additional bone loss. We did utilize diaphyseal engaging stems on both the femur and the tibia primarily due to a fair amount of lateral tibial bone loss with an asymmetric cut. We had a fairly moderate contained tibial defect, which was well managed with a symmetric cone. On the femoral side, we did utilize maximum augmentation distally. Only a 5 mm posteromedial augment was required posteriorly. The patella was 14 mm thick. We did perform a slight freshening cut and resurfaced it. The post-reconstructive thickness was 22 mm with a symmetric button. We had performed a significant outside in lateral release at the outset of the procedure in order to improve exposure. With the posterior stabilized poly trial in place, the knee was extremely stable with 3 mm of medial gapping at 0 and 20 degrees. 2 degrees of medial gapping at 90 degrees. With the final TS poly in place, there was no significant gapping throughout the range of motion. Range of motion with the capsule closed was 3-110 degrees. We did utilize 10 mL of the OsteoBoost beads containing 4 g of vancomycin as well. DESCRIPTION OF PROCEDURE: Patient was identified in the preoperative holding area and the appropriate left lower extremity was marked. She was transferred to the operating theater. General anesthesia was induced by the attending anesthesia staff. Patient was given 900 mg of clindamycin for preop antibiotic prophylaxis as well as 1 g intravenous tranexamic acid. Tourniquet placed to the proximal aspect of the left thigh. Left leg prepped and draped in the usual sterile fashion. Time-out was performed. Appropriate patient and operative extremity were confirmed. Leg was exsanguinated with an Esmarch bandage, tourniquet inflated to 300 mmHg. The patient's previous midline skin incision was utilized and extended several centimeters proximally and distally. Full-thickness medial and lateral skin flaps were created. Standard medial parapatellar arthrotomy was performed. Extensive medial release. Swabs were taken and sent for culture. We performed thorough medial and lateral synovectomies in order to re-establish the gutters. Several samples were taken and sent for culture. We then turned attention to removal of our spacer beginning with the femoral component. The interface was cleared of soft tissues. The cement mantle was disrupted with osteotomes. The femoral component was then easily extracted with no significant additional bone loss. Femoral dowel was then removed. We turned our attention to tibial exposure. We performed a thorough posteromedial release. We thoroughly debrided the posterolateral gutter. The tibial interface was cleared of soft tissues and disrupted with an osteotome. The tibial component was then likewise easily extracted with no additional bone loss. Tibial dowel was then removed. We then performed an outside in lateral release in order to improve exposure. Femoral and tibial canals were then thoroughly cleaned using reverse curettes. Additional samples were taken and sent for culture. The femur and the tibia were then reamed to accept the above-mentioned stems. With the tibial reamer in place, we did perform a freshening cut. The tibia was then sized to a size 2. The guide was pinned in the appropriate amount of external rotation and centered over the medial third of the tibial tubercle. Keel was drilled and punched. A trial was then assembled on the back table. We did utilize a 100 mm stem to ensure that our tibial component was not in valgus given the lateral tibial bone loss. No offset was required. The tibial component was then inserted. No significant rotational control. We set it centered over the medial third of the tibial tubercle. Rotation was then marked. We then turned our attention to femoral exposure. The femoral bone surfaces were thoroughly debrided of all soft tissue. Femur sized to a size 3. A size 3 TCG block with the above-mentioned stem was assembled and inserted onto the femur. Knee was balanced first in flexion and brought out into full extension and pinned. Distal and posterior femur were then prepared to accept the above-mentioned augments. The box was cut. Femoral trial was assembled and inserted onto the femur. Poly trial was placed. Knee tested for stability throughout the range of motion, which was found to be acceptable. At this point, we everted the patella and cleared it of soft tissue. The cement patellar button was then removed. The patella was measured and found to be amenable to resurfacing. A freshening cut was made. The patella sized to a 27 symmetric. Lug holes were drilled. Trial button placed. The construct tracked very well. At this point, the trials were removed. We turned our attention to prepare for our tibial cone. We selected a size 8 cone. The cone reamer was then passed using a freehand technique. Cone trial was placed. Tibial component was then replaced. At this point, all trials were removed. Final implants assembled on the back table. The tibial cone was impacted into place with excellent contact. Exposed bony ends were then thoroughly irrigated and dried. Cementation of final components took place in a single stage using high viscosity Simplex cement with gentamicin. For both the femur and the tibia, we utilized a hybrid technique with cement on the exposed bony surfaces as well as in the metaphysis with diaphyseal engaging stems. Tibial component was impacted into place followed by the femoral component. Poly trial was placed. Patellar button was placed and clamped. Knee was held in extension until complete cement curing. During this time, the extensor mechanism and other soft tissues were infiltrated with a pain cocktail. Following complete cement curing, the knee was retested for stability throughout the range of motion, which was found to be excellent. Poly trial was removed. Base plate was irrigated. Final poly impacted into place. Transfixing pin was then placed. Next, the wound was thoroughly irrigated with dilute Betadine lavage and normal saline. Drain placed in the lateral gutter and brought out through the skin. 10 mL of the OsteoBoost beads containing 4 g of vancomycin were then applied to the gutters. The arthrotomy was then closed with #1 Stratafix augmented with Vicryl. 2 g topical tranexamic acid then injected in the joint. Skin closed in layers with Vicryl, skin bright, and Dermabond. Wound was covered with an Aquacel dressing. Next, drapes were removed. Operative extremity placed in a compression Raghav wrap as well as Cryo/Cuff. She was then transferred to a stretcher, extubated without incident, and taken to PACU in stable condition. All instruments, sponge, needle counts correct at the end of the case. Dao Doty M.D. Dict: 04/25/2019 17:31:06 Trans: 04/26/2019 01:10:40 CC1: Dao Doty M.D. documented in this encounter Plan of Treatment Not on file documented as of this encounter Visit Diagnoses Not on filedocumented in this encounter
--- OUTSIDE RECORDS SUMMARY | 2025-04-25 12:04 | XMS_ITS | Encounter Summary ---
Author Organization [employer] ([place], [place], [place], [place]) Address [address] [place] [address] Care Team Providers Care Emergency Department Technician Name Role Phone Unavailable Primary Care Provider Unavailabl e Encounter Details Date Type Department Care Team (Late st Contact Info) Description 01/24/2019 Transcribed Document [facility] [place] [facility] [place] [place] [address] ProviderLuis Armando MD [facility] [place] [address] Social History Tobacco Use Types Packs/Day Years Used Date Smoking Tobacco: Never Assessed Comments Unknown Sex and Gender Information Value Date Recorded Sex Assigned at Not on file Legal Sex Female 7:30 PM CDT Gender Identity Not on file Sexual Orientation Not on file documented as of this encounter Miscellaneous Notes * Cerner Conversion Note - Luis Armando ProviderMD - 01/24/2019 2:26 PM CDT Nursing Discharge Summary Entered On: 01/24/2019 14:28 EDT Performed On: 01/24/2019 14:26 EDT by MILAD LOGAN LPN Discharge Documentation Discharge Date/Time : 01/24/2019 15:00 EDT Patient Disposition, General : Discharge Discharge To : Home with ambulatory/outpatient follow-up Mode Of Departure, General Discharge : Private vehicle Accompanied By, Discharge : Spouse IV Therapy Comment : PICC line Medications Given to Patient : No Personal Belongings With Patient : Yes Pt's Own Supply of Medications Returned : No Prescriptions Given to Patient : Yes Discharge Instructions Reviewed With, Opportunity For Questions Given : Patient, Spouse Patient Education Completed : Yes Number of Prescriptions Given : 3 Teaching Method : Explanation, Printed materials Teaching Evaluation : Verbalizes understanding Worker's Compensation Paperwork Completed : No MILAD LOGAN LPN - 01/24/2019 14:26 EDT documented in this encounter Plan of Treatment Not on file documented as of this encounter Visit Diagnoses Not on filedocumented in this encounter
--- OUTSIDE RECORDS SUMMARY | 2025-04-25 12:04 | XMS_ITS | Encounter Summary ---
Author Organization [employer] ([place], [place], [place], [place]) Address [address] [place] [address] Care Team Providers Care Typesetter Apprentice Name Role Phone Unavailable Primary Care Provider Unavailabl e Encounter Details Date Type Department Care Team (Late st Contact Info) Description 04/25/2019 Transcribed Document [facility] Medicine [address] [place] [address] ProviderLuis Armando MD [address] [place] [address] Social History Tobacco Use Types Packs/Day Years Used Date Smoking Tobacco: Never Assessed Comments Unknown Sex and Gender Information Value Date Recorded Sex Assigned at Not on file Legal Sex Female 7:30 PM CDT Gender Identity Not on file Sexual Orientation Not on file documented as of this encounter Miscellaneous Notes * Cerner Conversion Note - Historical ProviderMD - 04/25/2019 3:09 PM CDT [facility] Main OR IntraOp Summary Primary Physician: CHANEL DYSON MD-ORT Finalized Date/Time: 04/26/19 13:16:35 Pt. Name: EMELY ROB /Sex: 1950 Female Med Rec #: [id number] Physician: CHANEL DYSON MD-ORT Financial #: [id number] Pt. Type: I Room/Bed: [facility]/ Admit/Disch: 04/25/19 06:55:00 - Institution: [facility] IntraOp Case Attendance Entry 1 Entry 2 Entry 3 Case Attendee CHANEL DYSON CELLAROSI-YORBA, MARIA, Bruner, Kristen D, Rn MD-ORT MD Role Performed Surgeon/Proceduralist, Anesthesiologist Development Manager, First First Time In 04/25/19 14:43:00 04/25/19 14:43:00 04/25/19 14:43:00 Time Out 04/25/19 17:21:00 04/25/19 16:19:00 04/25/19 16:56:00 Procedure Knee Total Joint Knee Total Joint Knee Total Joint Revision(Left) Revision(Left) Revision(Left) Other Attendee Superficial Wound Closed By: Last Modified By: Matteo Alan RN Willoughby, Toni, RN Willoughby, Toni, ROBB 04/25/19 18:25:18 04/25/19 18:25:18 04/25/19 18:25:18 Entry 4 Entry 5 Entry 6 Case Attendee ALIRIO MOTA, Dimple Nayak, OTHER, ATTENDEE Suhas [facility] Card Builder Role Performed System Manager, First Scrub, First Vendor Time In 04/25/19 14:43:00 04/25/19 14:43:00 04/25/19 14:43:00 Time Out 04/25/19 16:33:00 04/25/19 16:33:00 04/25/19 17:21:00 Procedure Knee Total Joint Knee Total Joint Knee Total Joint Revision(Left) Revision(Left) Revision(Left) Other Attendee ANSELMO SCHROEDER Superficial Wound Closed By: Last Modified By: Matteo Alan RN Willoughby, Toni, RN Willoughby, Toni, RN 04/25/19 18:25:18 04/25/19 18:25:18 04/25/19 18:25:18 Entry 7 Entry 8 Entry 9 Case Attendee OTHER, ATTENDEE #1 JAY GOMEZ CRNA BOWEN, JON B, MD Role Performed Vendor CORPORATE RECEPTIONIST/Nurse Screen Printing Inspector Anesthesiologist of Record Time In 04/25/19 14:43:00 04/25/19 16:14:00 04/25/19 16:14:00 Time Out 04/25/19 17:21:00 04/25/19 17:00:00 04/25/19 17:21:00 Procedure Knee Total Joint Knee Total Joint Knee Total Joint Revision(Left) Revision(Left) Revision(Left) Other Attendee NEENA RICHENBACH- RELIEF RACHELL ORTH[facility] Superficial Wound Closed By: Last Modified By: Matteo Alan RN Willoughby, Toni, RN Willoughby, Toni, RN 04/25/19 18:25:18 04/25/19 18:25:18 04/25/19 18:25:18 Entry 10 Entry 11 Entry 12 Case Attendee Tiffany Acosta ST Willoughby, Toni, RYDER DOUGLAS, CORPORATE RECEPTIONIST Role Performed Scrub, First Development Manager, First CORPORATE RECEPTIONIST/Nurse Screen Printing Inspector Time In 04/25/19 16:20:00 04/25/19 16:50:00 04/25/19 17:00:00 Time Out 04/25/19 17:21:00 04/25/19 17:21:00 04/25/19 17:21:00 Procedure Knee Total Joint Knee Total Joint Knee Total Joint Revision(Left) Revision(Left) Revision(Left) Other Attendee RELIEF RELIEF Superficial Wound Closed By: Last Modified By: Matteo Alan RN Willoughby, Toni, RN Willoughby, Toni, RN 04/25/19 18:25:18 04/25/19 18:25:18 04/25/19 18:25:18 [facility] IntraOp Case Attendance Audit 04/25/19 18:25:18 Cushion Gum Applicator: [id number] Modifier: [id number] <+> Time Out 1 <*> Procedure Knee Total Joint Revision(Left) 2 <*> Procedure Knee Total Joint Revision(Left) 3 <*> Procedure Knee Total Joint Revision(Left) 4 <*> Procedure Knee Total Joint Revision(Left) 5 <*> Procedure Knee Total Joint Revision(Left) 6 <+> Time Out 6 <*> Procedure Knee Total Joint Revision(Left) 7 <+> Time Out 7 <*> Procedure Knee Total Joint Revision(Left) 8 <*> Procedure Knee Total Joint Revision(Left) 9 <+> Time Out 9 <*> Procedure Knee Total Joint Revision(Left) 10 <+> Time Out 10 <*> Procedure Knee Total Joint Revision(Left) 11 <+> Time Out 11 <*> Procedure Knee Total Joint Revision(Left) 12 <+> Time Out 12 <*> Procedure Knee Total Joint Revision(Left) 04/25/19 17:04:46 Cushion Gum Applicator: [id number] Modifier: [id number] <+> Time Out 8 <*> Procedure Knee Total Joint Revision(Left) <+> 12 Case Attendee <+> 12 Role Performed <+> 12 Time In <+> 12 Procedure 04/25/19 16:57:01 Cushion Gum Applicator: [id number] Modifier: [id number] <+> Time Out 3 <*> Procedure Knee Total Joint Revision(Left) <+> 11 Case Attendee <+> 11 Role Performed <+> 11 Time In <+> 11 Procedure <+> 11 Other Attendee 04/25/19 16:34:02 Cushion Gum Applicator: [id number] Modifier: [id number] <+> Time Out 4 <*> Procedure Knee Total Joint Revision(Left) 5 <+> Time Out 5 <*> Procedure Knee Total Joint Revision(Left) 04/25/19 16:22:03 Cushion Gum Applicator: [id number] Modifier: [id number] <+> 10 Case Attendee <+> 10 Role Performed <+> 10 Time In <+> 10 Procedure <+> 10 Other Attendee 04/25/19 16:20:25 Cushion Gum Applicator: [id number] Modifier: [id number] 1 <*> Procedure Knee Total Joint Revision(Left) 2 <+> Time In 2 <+> Time Out 2 <*> Procedure Knee Total Joint Revision(Left) 3 <+> Time In 3 <*> Procedure Knee Total Joint Revision(Left) 4 <+> Time In 4 <*> Procedure Knee Total Joint Revision(Left) 5 <+> Time In 5 <*> Procedure Knee Total Joint Revision(Left) 6 <+> Time In 6 <*> Procedure Knee Total Joint Revision(Left) 7 <+> Time In 7 <*> Procedure Knee Total Joint Revision(Left) <+> 8 Case Attendee <+> 8 Role Performed <+> 8 Time In <+> 8 Procedure <+> 8 Other Attendee <+> 9 Case Attendee <+> 9 Role Performed <+> 9 Time In <+> 9 Procedure [facility] IntraOp Case Times Entry 1 Patient In Room Time 04/25/19 14:43:00 Out Room Time 04/25/19 17:21:00 Anesthesia Start Time 04/25/19 14:43:00 Stop Time 04/25/19 17:21:00 Surgery / Procedure Times Start Time 04/25/19 15:09:00 Stop Time 04/25/19 17:13:00 Last Modified By: Matteo Alan RN 04/25/19 18:25:15 [facility] IntraOp Case Times Audit 04/25/19 18:25:15 Cushion Gum Applicator: [id number] Modifier: [id number] <+> 1 Out Room Time <+> 1 Stop Time <+> 1 Stop Time [facility] IntraOp Cautery Entry 1 ESU Identification Cautery Type Monopolar ESU ID Number [id number] ID Type Hospital Number Cautery Settings Cut Setting 50 Coag Setting 50 ESU Grounding Pad Ground Pad Type Adult Grounding Pad Site Right thigh Grounding Pad Georgette Faulkner, Rn Applied By Grounding Pad Site Warm, dry and intact Skin Condition Before Cautery Grounding Pad Site Unchanged Skin Condition After Cautery Last Modified By: Georgette Faulkner Rn 04/25/19 15:14:37 [facility] IntraOp Communication Entry 1 Entry 2 Communication To Family/Significant other Family/Significant other Comment START CLOSING Communication By Georgette Faulkner Rn Bruner, Kristen D, Rn Date and Time 04/25/19 15:10:00 04/25/19 16:44:00 Last Modified By: Georgette Faulkner Rn Bruner, Kristen D, Rn 04/25/19 15:14:46 04/25/19 16:44:11 [facility] IntraOp Communication Audit 04/25/19 16:44:11 Cushion Gum Applicator: [id number] Modifier: [id number] <+> 2 Communication By <+> 2 Date and Time <+> 2 Communication To <+> 2 Comment [facility] IntraOp Counts Verification Entry 1 Procedure Knee Total Joint Revision(Left) Count Info Count Type Sponge, Sharps, Miscellaneous Counts Verification Baseline/pre-procedure Sequence Count Results Not Applicable Counts Performed By Count Performed By Dimple Shah, (Scrub) Suhas Pref Card Builder Count Performed By Georgette Faulkner, Rn (RN) Last Modified By: Georgette Faulkner Rn 04/25/19 15:14:54 [facility] IntraOp Counts Final Entry 1 Procedure Knee Total Joint Revision(Left) Final Count Info Count Type Sponge, Sharps, Miscellaneous Counts Verification Skin Closure/end of Sequence procedure Count Results Correct, surgeon notified Counts Performed By Count Performed By Tiffany Acosta ST (Scrub) Count Performed By Georgette Faulkner Rn (RN) Last Modified By: Georgette Faulkner Rn 04/25/19 16:43:58 [facility] IntraOp Counts Final Audit 04/25/19 16:43:58 Cushion Gum Applicator: [id number] Modifier: [id number] 1 <*> Procedure Knee Total Joint Revision(Left) 1 <+> Count Performed By (Scrub) 1 <+> Count Performed By (RN) [facility] IntraOp Cultures and Spec Summary Entry 1 Cultrures and Specimens Specimen Ordered: Yes Test(s) Routine/Path-Lab, Requested/Final Culture(s)/Microbiology Disposition Last Modified By: Georgette Faulkner Rn 04/25/19 15:15:03 [facility] IntraOp Departure from OR Entry 1 Integumentary Assessment Integumentary WDL with patient Assessment WDL specific variances Patient's Normal NEW SURGICAL INCISION Integumentary Variance(s) Transfer/Handoff Transfer to PACU Phase I Handoff Method Phone call Post-op Transport Stretcher/Damien Via Patient Transport Georgette Faulkner Rn, Accompanied by JAY GOMEZ CRNA Last Modified By: Georgette Faulkner Rn 04/25/19 16:20:32 [facility] IntraOp Departure from OR Audit 04/25/19 16:20:32 Cushion Gum Applicator: [id number] Modifier: [id number] 1 <*> Patient Transport Accompanied by Georgette Faulkner Rn [facility] IntraOp Drains and Tubes Entry 1 Device Type Hemovac Size MEDIUM Drain/Tube Activity Inserted Drain/Tube Suction Not applicable Drain/Tube Drainage Red Device Location OPSITE: LEFT KNEE Method of Drainage Compression Tube Dressing Dry, Intact Condition Last Modified By: Georgette Faulkner Rn 04/25/19 15:48:12 [facility] IntraOp Dressing and Packing Entry 1 Type Dressing Location OPSITE: LEFT KNEE Wound Dressing Item Skin Closure Glue, Occlusive dressing Supplemental Cold pack Applications Applied By ALIRIO MOTA CSA Last Modified By: Georgette Faulkner Rn 04/25/19 15:15:53 [facility] IntraOp Fire Risk Assessment Entry 1 Fire Info Surgical Site or 0- No Incision Above the Xyphoid Open O2 Source 0- No (Mask or Cannula) Available Ignition 1- Yes (ESU, Laser, Light Source) Fire Risk 1 Assessment Score Fire Score Fire Risk Yes Assessment Complete Fire Risk Georgette Faulkner Rn Assessment Verified By Fire Risk 04/25/19 14:43:00 Assessment Verified Date/Time Fire Risk Standard Fire Yes Safety Precautions Followed Last Modified By: Georgette Faulkner Rn 04/25/19 15:16:05 [facility] IntraOp General Case Census Enumerator 1 Case Information OR OR 04 [facility] Case Level 1 Room Verified Yes Wound Class I - Clean Specialty SN Orthopedic Anesthesia Type General ASA Class 1E Diagnosis Preop Diagnosis INFECTION AND INFLAMMATORY REACTION DUE TO INTERNAL LEFT KNEE PROSTHESIS Postop Same As Preop No Postop Diagnosis SEE MD POSTOP NOTE Last Modified By: Georgette Faulkner Rn 04/25/19 15:35:08 [facility] IntraOp General Case Data Audit 04/25/19 15:35:08 Cushion Gum Applicator: [id number] Modifier: [id number] 1 <*> Preop Diagnosis INFECTION AND INFLAMMATORY REACTION DUE TO INTERNAL RIGHT KNEE PROSTHESIS 04/25/19 15:34:58 Cushion Gum Applicator: [id number] Modifier: [id number] 1 <+> Postop Same As Preop 1 <*> Preop Diagnosis INFECTION AND INFLAMMATORY REACTION TO 1 <+> Postop Diagnosis 04/25/19 15:16:34 Cushion Gum Applicator: [id number] Modifier: [id number] <+> 1 Preop Diagnosis [facility] IntraOp Implant Log Entry 1 Entry 2 Entry 3 Type Implant (Synthetic) Implant (Synthetic) Implant (Synthetic) Implant Log Implant Type Bone Cement Other Hardware Tissue Implant Type Implant CEMENT BONE SMPLX HV PUTY OSTEOBST BN VD PATELLA TRI X3 Identification [id number] [id number] Description Implant Quantity 3 1 1 Implant Site OPSITE: LEFT KNEE OPSITE: LEFT KNEE OPSITE: LEFT KNEE Implant Identification Model Number Implant [id number] Identification Serial Number Implant [id number] Identification Lot Number Implant Rachell:Rachell [facility] Rachell:Rachell Identification Orthopaedics Orthopaedics Deflash And Wash Operator Name: Implant [id number] Identification Catalog Number Implant Size 10cc [id number] Implant Has an Yes Yes Yes Expiration Date Implant Expiration 09/23/20 09/23/21 01/09/24 Date Wasted Radioactive Material Time Implanted Tissue Implant Continue for Tissue Implant Documentation Tissue Identification Number Graft Prep Per Deflash And Wash Operator Instructions: Tissue Preparation Method: Reconstitution Solution: Reconstitution Solution Lot Number Reconstitution Solution Expiration Date: Thawing Solution Thawing Solution Lot Number Thawing Solution Expiration Date Preparation Materials, Other Preparation Materials, Other Lot Number Preparation Materials, Other Expiration Date Tissue Prepared/Processed By Deflash And Wash Operator Paperwork Completed Implant Type Comment Last Modified By: Georgette Faulkner Rn Bruner, Kristen D, Georgette Esquivel, Rn 04/25/19 15:38:21 04/25/19 16:33:47 04/25/19 16:33:47 Entry 4 Entry 5 Entry 6 Type Implant (Synthetic) Implant (Synthetic) Implant (Synthetic) Implant Log Implant Type Hardware Hardware Hardware Tissue Implant Type Implant STEM FLUTED TRI TIB SYM CON AUG SZ BASEPLT TRIATHLON TS Identification [id number] Description Implant Quantity 1 1 1 Implant Site OPSITE: LEFT KNEE OPSITE: LEFT KNEE OPSITE: LEFT KNEE Implant Identification Model Number Implant Identification Serial Number Implant [id number] Identification Lot Number Implant Rachell:R[place]ll [place]Rachell Identification Orthopaedics Orthopaedics Orthopaedics Deflash And Wash Operator Name: Implant 5565-[id number] [id number] [id number] Identification Catalog Number Implant Size 13MM X 100MM A 2 Implant Has an Yes Yes Yes Expiration Date Implant Expiration 05/27/21 04/06/23 01/18/24 Date Wasted Radioactive Material Time Implanted Tissue Implant Continue for Tissue Implant Documentation Tissue Identification Number Graft Prep Per Deflash And Wash Operator Instructions: Tissue Preparation Method: Reconstitution Solution: Reconstitution Solution Lot Number Reconstitution Solution Expiration Date: Thawing Solution Thawing Solution Lot Number Thawing Solution Expiration Date Preparation Materials, Other Preparation Materials, Other Lot Number Preparation Materials, Other Expiration Date Tissue Prepared/Processed By Deflash And Wash Operator Paperwork Completed Implant Type Comment Last Modified By: Georgette Faulkner Rn Bruner, Kristen D, Georgette Esquivel, Rn 04/25/19 16:33:47 04/25/19 15:38:21 04/25/19 16:33:47 Entry 7 Entry 8 Entry 9 Type Implant (Synthetic) Implant (Synthetic) Implant (Synthetic) Implant Log Implant Type Hardware Hardware Hardware Tissue Implant Type Implant FEM DIST FEB 15MM SZ3 L FEM DIST FEB 15MM SZ3 L AUGMENT POST [id number] Identification [id number] Description Implant Quantity 1 1 1 Implant Site OPSITE: LEFT KNEE OPSITE: LEFT KNEE OPSITE: LEFT KNEE Implant Identification Model Number Implant Identification Serial Number Implant B3H3D B3H3D [id number] Identification Lot Number Implant [place]:Rachell Rachell:Rachell Identification Orthopaedics Orthopaedics Orthopaedics Deflash And Wash Operator Name: Implant 5542-[id number] 5542-A-301 5543-A-300 Identification Catalog Number Implant Size 3 3 3 Implant Has an Yes Yes Yes Expiration Date Implant Expiration 03/21/23 03/21/23 05/24/23 Date Wasted Radioactive Material Time Implanted Tissue Implant Continue for Tissue Implant Documentation Tissue Identification Number Graft Prep Per Deflash And Wash Operator Instructions: Tissue Preparation Method: Reconstitution Solution: Reconstitution Solution Lot Number Reconstitution Solution Expiration Date: Thawing Solution Thawing Solution Lot Number Thawing Solution Expiration Date Preparation Materials, Other Preparation Materials, Other Lot Number Preparation Materials, Other Expiration Date Tissue Prepared/Processed By Deflash And Wash Operator Paperwork Completed Implant Type Comment Last Modified By: Georgette Faulkner, Rn Georgette Faulkner, Georgette Eqsuivel, Robb 04/25/19 16:33:47 04/25/19 16:33:47 04/25/19 16:33:47 Entry 10 Entry 11 Entry 12 Type Implant (Synthetic) Implant (Synthetic) Implant (Synthetic) Implant Log Implant Type Hardware Hardware Hardware Tissue Implant Type Implant COMP FEM TRI TS SZ 3 STEM FLUTED 14MM 100MM INSRT TIB TRI POLY 2 X3 Identification [id number] Description Implant Quantity 1 1 1 Implant Site OPSITE: LEFT KNEE OPSITE: LEFT KNEE OPSITE: LEFT KNEE Implant Identification Model Number Implant Identification Serial Number Implant [id number] Identification Lot Number Implant [place]:Rachell Goncalves [place] Identification Orthopaedics Orthopaedics Deflash And Wash Operator Name: Implant 5512-F-[id number] 5565-S-014 [id number] Identification Catalog Number Implant Size 3 14MM X 100MM 2 Implant Has an Yes Yes Yes Expiration Date Implant Expiration 01/25/20 06/23/22 03/31/21 Date Wasted Radioactive Material Time Implanted Tissue Implant Continue for Tissue Implant Documentation Tissue Identification Number Graft Prep Per Deflash And Wash Operator Instructions: Tissue Preparation Method: Reconstitution Solution: Reconstitution Solution Lot Number Reconstitution Solution Expiration Date: Thawing Solution Thawing Solution Lot Number Thawing Solution Expiration Date Preparation Materials, Other Preparation Materials, Other Lot Number Preparation Materials, Other Expiration Date Tissue Prepared/Processed By Deflash And Wash Operator Paperwork Completed Implant Type Comment Last Modified By: Georgette Faulkner, Rn Georgette Faulkner, Rn Georgette Faulkner, Rn 04/25/19 16:33:47 04/25/19 16:33:47 04/25/19 16:33:47 [facility] IntraOp Implant Log Audit 04/25/19 16:33:47 Cushion Gum Applicator: [id number] Modifier: [id number] <+> 3 Implant Identification Description <+> 3 Implant Identification Lot Number <+> 3 Implant Identification Deflash And Wash Operator Name: <+> 3 Implant Size <+> 3 Implant Expiration Date <+> 3 Implant Site <+> 3 Implant Quantity <+> 3 Implant Identification Catalog Number <+> 3 Implant Type <+> 3 Implant Has an Expiration Date <+> 3 Type <+> 4 Implant Identification Description <+> 4 Implant Identification Lot Number <+> 4 Implant Identification Deflash And Wash Operator Name: <+> 4 Implant Size <+> 4 Implant Expiration Date <+> 4 Implant Site <+> 4 Implant Quantity <+> 4 Implant Identification Catalog Number <+> 4 Implant Type <+> 4 Implant Has an Expiration Date <+> 4 Type <+> 5 Implant Identification Description <+> 5 Implant Identification Lot Number <+> 5 Implant Identification Deflash And Wash Operator Name: <+> 5 Implant Size <+> 5 Implant Expiration Date <+> 5 Implant Site <+> 5 Implant Quantity <+> 5 Implant Identification Catalog Number <+> 5 Implant Type <+> 5 Implant Has an Expiration Date <+> 5 Type <+> 6 Implant Identification Description <+> 6 Implant Identification Lot Number <+> 6 Implant Identification Deflash And Wash Operator Name: <+> 6 Implant Size <+> 6 Implant Expiration Date <+> 6 Implant Site <+> 6 Implant Quantity <+> 6 Implant Identification Catalog Number <+> 6 Implant Type <+> 6 Implant Has an Expiration Date <+> 6 Type <+> 7 Implant Identification Description <+> 7 Implant Identification Lot Number <+> 7 Implant Identification Deflash And Wash Operator Name: <+> 7 Implant Size <+> 7 Implant Expiration Date <+> 7 Implant Site <+> 7 Implant Quantity <+> 7 Implant Identification Catalog Number <+> 7 Implant Type <+> 7 Implant Has an Expiration Date <+> 7 Type <+> 8 Implant Identification Description <+> 8 Implant Identification Lot Number <+> 8 Implant Identification Deflash And Wash Operator Name: <+> 8 Implant Size <+> 8 Implant Expiration Date <+> 8 Implant Site <+> 8 Implant Quantity <+> 8 Implant Identification Catalog Number <+> 8 Implant Type <+> 8 Implant Has an Expiration Date <+> 8 Type <+> 9 Implant Identification Description <+> 9 Implant Identification Lot Number <+> 9 Implant Identification Deflash And Wash Operator Name: <+> 9 Implant Size <+> 9 Implant Expiration Date <+> 9 Implant Site <+> 9 Implant Quantity <+> 9 Implant Identification Catalog Number <+> 9 Implant Type <+> 9 Implant Has an Expiration Date <+> 9 Type <+> 10 Implant Identification Description <+> 10 Implant Identification Lot Number <+> 10 Implant Identification Deflash And Wash Operator Name: <+> 10 Implant Size <+> 10 Implant Expiration Date <+> 10 Implant Site <+> 10 Implant Quantity <+> 10 Implant Identification Catalog Number <+> 10 Implant Type <+> 10 Implant Has an Expiration Date <+> 10 Type <+> 11 Implant Identification Description <+> 11 Implant Identification Lot Number <+> 11 Implant Identification Deflash And Wash Operator Name: <+> 11 Implant Size <+> 11 Implant Expiration Date <+> 11 Implant Site <+> 11 Implant Quantity <+> 11 Implant Identification Catalog Number <+> 11 Implant Type <+> 11 Implant Has an Expiration Date <+> 11 Type <+> 12 Implant Identification Description <+> 12 Implant Identification Lot Number <+> 12 Implant Identification Deflash And Wash Operator Name: <+> 12 Implant Size <+> 12 Implant Expiration Date <+> 12 Implant Site <+> 12 Implant Quantity <+> 12 Implant Identification Catalog Number <+> 12 Implant Type <+> 12 Implant Has an Expiration Date <+> 12 Type [facility] IntraOp Intraoperative Assessment Entry 1 Handoff Method Online nursing summary Valid History / Yes Physical in Chart Preoperative Yes Checklist Reviewed/Evaluated Allergies Reviewed Yes Patient is Latex No Sensitive Isolation Not applicable Precautions Noted Level of WDL Consciousness (WDL = Alert, Oriented to Person, Place, and Time) Skin Assessment Yes Verified Present Upon IVs Arrival to OR Last Modified By: Georgette Faulkner Rn 04/25/19 15:41:19 [facility] IntraOp Intraoperative Equipment Entry 1 Type Equipment Equipment Equipment Rita Suction System ID Number [id number] Setting HIGH Intraop Monitoring Electrocardiogram Five lead placement (ECG) Electrode Placement Blood Pressure Non-Invasive BP Device Source Blood Pressure Arm, right upper Location Pulse Oximeter Hand, left Probe Site Antiembolic Devices Antiembolic Devices Sequential compression device, knee high, Antiembolic hose, thigh high Antiembolic Device Right Location Antiembolic Device [id number] ID Number Antiembolic Device 40 [id number] Setting Scopes Photo/Video Documentation Last Modified By: Georgette Faulkner Rn 04/25/19 15:41:52 [facility] IntraOp Medication Admin Entry 1 Entry 2 Entry 3 Medication/Irrigant Bacitracin 50,00units Bacitracin 50,00units vancomycin 1Gm vial - powder vial powder vial [id number] Combo Med List 1 - Combo Med 2 - Combo Med Time Administered Route of ADDED TO IRRIGATION ADDED TO IRRIGATION TOPICAL Administration Dose Dose [id number] 4 Unit of Measure units units gram Volume Administered By CHANEL DYSON KARTHIKEYAN, THARUN, KARTHIKEYAN, THARUN, MD-ORT -ORT -ORT Procedure Irrigation Irrigant Volume In Irrigant Volume Out Last Modified By: Georgette Faulkner, Rn Georgette Faulkner, Rn Georgette Faulkner Rn 04/25/19 15:42:58 04/25/19 15:42:58 04/25/19 15:42:58 Entry 4 Medication/Irrigant hydrogen peroxide 16oz - [id number] Combo Med List Time Administered Route of IRRIGATION Administration Dose Dose 240 Unit of Measure ml Volume Administered By CHANEL DYSON MD-ORT Procedure Irrigation Irrigant Volume In Irrigant Volume Out Last Modified By: Georgette Faulkner Rn 04/25/19 15:42:58 [facility] IntraOp Patient Positioning Entry 1 Procedure Knee Total Joint Revision(Left) Body Position Supine Left Arm Position Secured on padded arm board Right Arm Position Secured on padded arm board Left Leg Position Uncrossed, parallel Right Leg Position Uncrossed, parallel Feet Uncrossed Yes Pressure Points Yes Checked Positioning Devices Arm Board, Foot Rest, Pad, Arm, Pad, Elbow, Head Rest, Positioning Device, Hip, Safety Strap, Chest, Safety Strap, Arm(s) Positioned By CHANEL DYSON MD-ORT, JANETTE TREVIZO MD, Georgette Faulkner, Rn, ALIRIO MOTA CSA Position Verified Positioning Yes Verified by Anesthesia Positioning Yes Verified by Surgeon Last Modified By: Georgette Faulkner Rn 04/25/19 15:44:12 [facility] IntraOp Sign In Entry 1 Patient, Site, Yes Procedure Identified Surgical Consent Yes Confirmed Relevant Surgical Yes Documents Available Surgical Site Yes Marked by person performing procedure Anesthesia Machine Yes Check Completed Medication Checks Yes Completed Allergies Yes Airway Difficult Yes Airway/Aspiration Risk Difficult Yes Airway/Aspiration Intervention Equipment Available Blood Loss Risk Yes Blood Loss Yes Intervention Equipment Prepared and Ready Blood Identifiers Yes Verified Per Policy Hypothermia Risk Yes Warming Measures Yes Taken Last Modified By: Georgette Faulkner Rn 04/25/19 15:44:26 [facility] IntraOp Sign Out Entry 1 RN Confirmation Surgical Yes Procedure(s) Identified Instrument, Sponge Yes and Sharps Counts Correct/Documented Equipment Problems N/A Documented Specimen Labeled Yes Correctly Urinary Catheter N/A Documented in IView Manriquez Patient Yes Recovery Concerns Reviewed with Anesthesia Provider, Surgeon and RN Manriquez Patient Yes Management Concerns Reviewed with Anesthesia Provider, Surgeon and RN Safety Checklist Yes Elements Complete? RN Sign Out Matteo Alan, ROBB Signature RN Sign Out 04/25/19 18:26:00 Signature Date/Time Plan of Care Outcome - Fire Risk OUTCOME STATEMENT: Goal met Patient is free from injury related to surgical fire Plan of Care Outcome - Pt Positioning OUTCOME STATEMENT: Goal met Absence of signs and symptoms of positioning injury. Plan of Care Outcome - Skin Prep OUTCOME STATEMENT: Goal met Intraoperative care is consistent with measures to prevent infection Plan of Care Outcome - Xray/Images OUTCOME STATEMENT: N/A Absence of observable signs or symptoms of radiation injury Plan of Care Outcome - Counts OUTCOME STATEMENT: Goal met Absence of signs and symptoms of injury related to extraneous objects Last Modified By: Matteo Alan RN 04/25/19 18:25:35 [facility] IntraOp Sign Out Audit 04/25/19 18:25:35 Cushion Gum Applicator: [id number] Modifier: [id number] <*> RN Sign Out Signature Georgette Faulkner Rn 1 <+> RN Sign Out Signature Date/Time [facility] IntraOp Skin Prep Entry 1 Procedure Knee Total Joint Revision(Left) Prescribed Yes Pre-Surgical Prep Completed Prep Area OPSITE: LEFT THIGHT TO TOES CIRCUMFRENTIALLY Intraop Prep Integumentary WDL Assessment WDL Prep Agents Alcohol, Chloraprep, Chlorhexadine gluconate, DuraPrep Prep by Georgette Faulkner Rn Hair Removal Methods No hair removal performed Last Modified By: Georgette Faulkner Rn 04/25/19 15:45:11 [facility] IntraOp Surgical Procedures Entry 1 Procedure Knee Total Joint Revision Modifiers Left Additional (LEFT TOTAL KNEE Procedure ARTHROPLASTY Description REVISION-REPLANT) Primary Procedure Yes Primary Surgeon CHANEL DYSON MD-ORT Start 04/25/19 15:09:00 Stop 04/25/19 17:13:00 Anesthesia Type General Specialty SN Orthopedic Wound Class I - Clean Last Modified By: Matteo Alan RN 04/25/19 18:25:20 General Comments: CLINDAMYCIN 900 MG ADMINISTERED PRIOR TO SURGERY START PER ANESTHESIA PROVIDER @ 1445 TRANEXAMIC ACID 2 GRAMS AND ROPIVICAINE/EPI/CLONIDINE/NACL MIX PASSED TO STERILE FIELD PER Marylu FAULKNER RN [facility] IntraOp Surgical Procedures Audit 04/25/19 18:25:20 Cushion Gum Applicator: [id number] Modifier: [id number] <+> 1 Stop [facility] IntraOp Temp Regulation Devices Entry 1 Temp Regulation Temperature Forced Air Warming Regulation Device device, Warm blankets Temperature 74330 Regulation Device Serial/Unit Number Temperature Upper body Regulation Site Temperature Device 43 CELCIUS Setting Temperature JANETTE TREVIZO Regulation Device Applied by Last Modified By: Georgette Faulkner Rn 04/25/19 15:46:24 [facility] IntraOP Time Out Entry 1 Procedure to be Knee Total Joint Performed Revision(Left) Time Out Time Out Pause Time 04/25/19 15:06:00 All activity Yes suspended (unless life threatening emergency) Team Verbally Correct patient Confirms Information identity, Correct side and site are marked, Consent form is present and accurate, Agreement on the procedure to be done, Correct patient position, Confirm antibiotics have been administered, Confirm the skin prep has dried, Confirm prosthesis/implant/devic e is present, Performed in location of procedure after prepped/draped Antibiotic Yes Prophylaxis Administered Or In Progress Within the Last 60 Minutes Beta Stephan N/A Administered Venous Yes Thromboembolism Prophylaxis Required Anticipated Critical Events Surgeon None expected Anesthesia Provider None expected Nursing Assures Sterility of instruments, Implant Availability Essential Imaging N/A Labeled and Displayed Last Modified By: Georgette Faulkner Rn 04/25/19 15:47:13 [facility] IntraOp Tourniquet Entry 1 Type Pneumatic Serial/Unit Number 60177 Setting 300 mmHg Pheumatic Yes Tourniquet Checked Per Protocol Size 34 inches Placement Thigh, left upper Skin Protection - Yes Padded Under Cuff Applied By CHANEL DYSON MD-ORT Removed By CHANEL DYSON MD-ORT Times Start Time 04/25/19 15:08:00 Stop Time 04/25/19 17:08:00 Total Time 120 calculated manually (Mins) Last Modified By: Matteo Alan RN 04/25/19 17:17:49 [facility] IntraOp Tourniquet Audit 04/25/19 17:17:49 Cushion Gum Applicator: [id number] Modifier: [id number] <+> 1 Total Time calculated manually (Mins) <+> 1 Stop Time Case Comments <None> Finalized By: Dominga Montanez Document Signatures Signed By: Matteo Alan RN 04/25/19 18:25 Dominga Montanez 04/26/19 13:16 Unfinalized History Date/Time Username Reason for Unfinalizing Freetext Reason for Unfinalizing 04/26/19 13:06 JERMAINE Correct Billing documented in this encounter Plan of Treatment Not on file documented as of this encounter Visit Diagnoses Not on filedocumented in this encounter
--- OUTSIDE RECORDS SUMMARY | 2025-04-25 12:04 | XMS_ITS | Encounter Summary ---
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 Name Role Phone Unavailable Primary Care Provider Unavailabl e Encounter Details Date Type Department Care Team (Late st Contact Info) Description 01/24/2019 Transcribed Document [facility] [place] [facility] [place] [address] ProviderLuis Armando MD [address] [place] [address] Social History Tobacco Use Types Packs/Day Years Used Date Smoking Tobacco: Never Assessed Comments Unknown Sex and Gender Information Value Date Recorded Sex Assigned at Not on file Legal Sex Female 7:30 PM CDT Gender Identity Not on file Sexual Orientation Not on file documented as of this encounter Miscellaneous Notes * Cerner Conversion Note - Historical ProviderMD - 01/24/2019 11:38 AM CDT Initial Discharge Planning Entered On: 01/24/2019 11:41 EDT Performed On: 01/24/2019 11:38 EDT by KARMEN CALVILLO RN-Emulsion Coater Initial Assessment I Previously Documented Living Environment : No qualifying data available. Living Situation : Home Patient Lives With : Adult Child/Children, Spouse Emergency Contact #1 : Buddy Villanueva Emergency Contact #1 cell,, [phone] home Emergency Contact #1 Relationship : spouse Emergency Contact #2 : Kareem Villanueva Emergency Contact #2 cell Emergency Contact #2 Relationship : son KARMEN CALVILLO RN-Emulsion Coater - 01/24/2019 11:38 EDT Initial Assessment II Sensory and Motor Deficits : None Current Home Treatments and Equipment : Bedside commode, Walker KARMEN CALVILLO RN-Emulsion Coater - 01/24/2019 11:38 EDT Discharge Needs I Anticipated Discharge Date : 01/24/2019 EDT Anticipated Discharge To, CM : Home with home health Current Home Treatment/Equipment : Current Home Treatment/Equipment No qualifying data available. Post Acute/Home Treatments : Wheelchair KARMEN CALVILLO RN-Emulsion Coater - 01/24/2019 11:38 EDT Discharge Needs II Professional Skilled Services : Professional Skilled Services No qualifying data available. Services and Community Resources : Infusion clinic Needs Assistance with Transportation : No Discharge Options Discussed with Patient : DME, Home Health, Outpatient services KARMEN CALVILLO RN-Emulsion Coater - 01/24/2019 11:38 EDT Narrative Note Narrative Note : 68yo female pt s/p explant spacer for infected LKTA from 2017. Pt getting PICC today for IV Ctx 2gm x 6 weeks. Pt will go to [facility] office daily for this. Met with pt and family at bedside this am to discuss DCP. She wants to use [facility] for PT/OT, referral sent via Will and informed Liza. Pt requests WC with left ELR as she is TDWB. Referral sent to [facility] via [facility] and informed liaison Madonna. This will be delivered to pt's room. No other CM needs identified. KARMEN CALVILLO RN-Emulsion Coater - 01/24/2019 11:38 EDT documented in this encounter Plan of Treatment Not on file documented as of this encounter Visit Diagnoses Not on filedocumented in this encounter
--- OUTSIDE RECORDS SUMMARY | 2025-04-25 12:04 | XMS_ITS | Encounter Summary ---
Author Organization [employer] ([place], [place], [place], [place]) Address [address] [place] [address] Care Team Providers Care Executive Sous Chef Name Role Phone Unavailable Primary Care Provider Unavailabl e Encounter Details Date Type Department Care Team (Late st Contact Info) Description 01/21/2019 Transcribed Document [facility] Family Medicine [facility] [place] [address] ProviderLuis Armando MD [facility] [place] [address] Social History Tobacco Use Types Packs/Day Years Used Date Smoking Tobacco: Never Assessed Comments Unknown Sex and Gender Information Value Date Recorded Sex Assigned at Not on file Legal Sex Female 7:30 PM CDT Gender Identity Not on file Sexual Orientation Not on file documented as of this encounter Miscellaneous Notes * Cerner Conversion Note - Luis Armando ProviderMD - 01/21/2019 12:48 PM CDT [facility] Main OR IntraOp Summary Primary Physician: CHANEL DYSON MD-ORT Finalized Date/Time: 01/24/19 14:09:30 Pt. Name: EMELY ROB /Sex: 1950 Female Med Rec #: [id number] Physician: CHANEL DYSON MD-ORT Financial #: [id number] Pt. Type: I Room/Bed: [facility] Admit/Disch: 01/21/19 05:45:00 - Institution: [facility] IntraOp Case Attendance Entry 1 Entry 2 Entry 3 Case Attendee CHANEL DYSON Hamilton, Gina M, RN BRUDER, MATTHEW, ST MD-ORT Role Performed Surgeon/Proceduralist, Heat Treating Bluer, First Scrub, First First Time In 01/21/19 12:18:00 01/21/19 12:18:00 01/21/19 12:18:00 Time Out 01/21/19 14:45:00 01/21/19 14:45:00 01/21/19 14:45:00 Procedure Knee Total Joint Knee Total Joint Knee Total Joint Revision(Left) Revision(Left) Revision(Left) Other Attendee Superficial Wound Closed By: Last Modified By: Lidia Shepard RN Hamilton, Gina M, Lidia Lopez, ROBB 01/21/19 14:45:53 01/21/19 14:45:53 01/21/19 14:45:53 Entry 4 Entry 5 Entry 6 Case Attendee HUMAIRA CAMACHO, NSH TEACHER RAFI LING MD OTHER, ATTENDEE Role Performed NSH TEACHER/Nurse Liner Reroll Tender Anesthesiologist of Vendor Record Time In 01/21/19 12:18:00 01/21/19 12:18:00 01/21/19 12:18:00 Time Out 01/21/19 14:45:00 01/21/19 14:45:00 01/21/19 14:45:00 Procedure Knee Total Joint Knee Total Joint Knee Total Joint Revision(Left) Revision(Left) Revision(Left) Other Attendee Vishnu Mansfield Superficial Wound Closed By: Last Modified By: Lidia Shepard RN Hamilton, Gina M, Lidia Lopez RN 01/21/19 14:45:53 01/21/19 14:45:53 01/21/19 14:45:53 Entry 7 Case Attendee ALIRIO MOTA CSA Role Performed Nursery School Attendant, First Time In 01/21/19 12:18:00 Time Out 01/21/19 14:45:00 Procedure Knee Total Joint Revision(Left) Other Attendee Superficial Wound Closed By: Last Modified By: Lidia Shepard RN 01/21/19 14:45:53 [facility] IntraOp Case Attendance Audit 01/21/19 14:45:53 Messenger Copy: HAMILTGM Modifier: HAMILTGM 1 <+> Time Out 1 <*> Procedure Knee Total Joint Revision(Left) 2 <+> Time Out 2 <*> Procedure Knee Total Joint Revision(Left) 3 <+> Time Out 3 <*> Procedure Knee Total Joint Revision(Left) 4 <+> Time Out 4 <*> Procedure Knee Total Joint Revision(Left) 5 <+> Time Out 5 <*> Procedure Knee Total Joint Revision(Left) 6 <+> Time Out 6 <*> Procedure Knee Total Joint Revision(Left) 7 <+> Time Out 7 <*> Procedure Knee Total Joint Revision(Left) 01/21/19 13:22:03 Messenger Copy: HAMILTGM Modifier: HAMILTGM 1 <+> Time In 1 <*> Procedure Knee Total Joint Revision(Left) 2 <+> Time In 2 <*> Procedure Knee Total Joint Revision(Left) 3 <+> Time In 3 <*> Procedure Knee Total Joint Revision(Left) 4 <+> Time In 4 <*> Procedure Knee Total Joint Revision(Left) 5 <+> Time In 5 <*> Procedure Knee Total Joint Revision(Left) 6 <+> Time In 6 <*> Procedure Knee Total Joint Revision(Left) 6 <+> Other Attendee 7 <+> Time In 7 <*> Procedure Knee Total Joint Revision(Left) 01/21/19 12:04:18 Messenger Copy: HAMILTGM Modifier: HAMILTGM <+> 7 Case Attendee <+> 7 Role Performed <+> 7 Procedure 01/21/19 11:44:12 Messenger Copy: HAMILTGM Modifier: HAMILTGM <+> 4 Case Attendee <+> 4 Role Performed <+> 4 Procedure <+> 5 Case Attendee <+> 5 Role Performed <+> 5 Procedure <+> 6 Case Attendee <+> 6 Role Performed <+> 6 Procedure [facility] IntraOp Case Times Entry 1 Patient In Room Time 01/21/19 12:18:00 Out Room Time 01/21/19 14:45:00 Anesthesia Start Time 01/21/19 12:18:00 Stop Time 01/21/19 14:45:00 Surgery / Procedure Times Start Time 01/21/19 12:48:00 Stop Time 01/21/19 14:39:00 Last Modified By: Lidia Shepard RN 01/21/19 14:45:51 [facility] IntraOp Case Times Audit 01/21/19 14:45:51 Messenger Copy: HAMILTGM Modifier: HAMILTGM <+> 1 Out Room Time <+> 1 Stop Time 01/21/19 14:39:41 Messenger Copy: DINH Modifier: HAMILTGM <+> 1 Stop Time [facility] IntraOp Cautery Entry 1 ESU Identification Cautery Type Monopolar ESU ID Number [id number] ID Type Hospital Number Cautery Settings Cut Setting 50 Coag Setting 50 ESU Grounding Pad Ground Pad Type Adult Grounding Pad Site Right thigh Grounding Pad Lidia Shepard RN Applied By Grounding Pad Site Warm, dry and intact Skin Condition Before Cautery Grounding Pad Site Unchanged Skin Condition After Cautery Last Modified By: Lidia Shepard RN 01/21/19 11:39:54 [facility] IntraOp Communication Entry 1 Entry 2 Entry 3 Communication To Family/Significant other Family/Significant other Family/Significant other Comment start update close Communication By Lidia Shepard RN Hamilton, Gina M, RN Hamilton, Gina M, RN Date and Time 01/21/19 12:48:00 01/21/19 14:08:00 01/21/19 14:27:00 Last Modified By: Lidia Shepard RN Hamilton, Gina M, RN Hamilton, Gina M, RN 01/21/19 13:21:44 01/21/19 14:08:56 01/21/19 14:28:13 Entry 4 Communication To Other Comment report Communication By Lidia Shepard RN Date and Time 01/21/19 14:28:00 Last Modified By: Lidia Shepard RN 01/21/19 14:28:13 [facility] IntraOp Communication Audit 01/21/19 14:28:13 Messenger Copy: DINH Modifier: LENNIETGM <+> 3 Communication By <+> 3 Date and Time <+> 3 Communication To <+> 3 Comment <+> 4 Communication By <+> 4 Date and Time <+> 4 Communication To <+> 4 Comment 01/21/19 14:08:56 Messenger Copy: DINH Modifier: LENNIETGM <+> 2 Communication By <+> 2 Date and Time <+> 2 Communication To <+> 2 Comment [facility] IntraOp Counts Verification Entry 1 Procedure Knee Total Joint Revision(Left) Count Info Count Type Sponge, Sharps, Miscellaneous Counts Verification Baseline/pre-procedure Sequence Count Results Not Applicable Counts Performed By Count Performed By JOHN CHRISTIAN [facility] (Scrub) Count Performed By Lidia Shepard RN (RN) Last Modified By: Lidia Shepard RN 01/21/19 11:51:52 [facility] IntraOp Counts Verification Audit 01/21/19 11:51:52 Messenger Copy: LENNIETGM Modifier: HAMILTGM 1 <*> Procedure Knee Total Joint Revision(Left) 1 <+> Count Performed By (Scrub) 1 <+> Count Performed By (RN) [facility] IntraOp Counts Final Entry 1 Procedure Knee Total Joint Revision(Left) Final Count Info Count Type Sponge, Sharps, Miscellaneous Counts Verification Skin Closure/end of Sequence procedure Count Results Correct, surgeon notified Counts Performed By Count Performed By JOHN [facility]RI[facility]IAN [facility] (Scrub) Count Performed By Lidia Shepard RN (RN) Last Modified By: Lidia Shepard RN 01/21/19 14:19:02 [facility] IntraOp Counts Final Audit 01/21/19 14:19:02 Messenger Copy: GAYLAILTGM Modifier: HAMILTGM 1 <*> Procedure Knee Total Joint Revision(Left) 1 <+> Count Performed By (Scrub) 1 <+> Count Performed By (RN) [facility] IntraOp Cultures and Spec Summary Entry 1 Cultrures and Specimens Specimen Ordered: Yes Specimens Types Culture(s), Pathology Specimen(s) Labeled Lab, Pathology and Sent to Last Modified By: Lidia Shepard RN 01/21/19 13:23:35 General Comments: a. explanted hardware left knee 1. left knee swabs 2. left knee synvoium 1 3. left knee synovium 2 4. left knee synvoium 3 5. left knee synvoium 4 [facility] IntraOp Departure from OR Entry 1 Integumentary Assessment Integumentary WDL Assessment WDL Transfer/Handoff Transfer to PACU Phase I Handoff Method Phone call Post-op Transport Stretcher/Gurney Via Patient Transport Lidia Shepard RN, Accompanied by HUMAIRA CAMACHO CRNA Last Modified By: Lidia Shepard RN 01/21/19 11:52:04 [facility] IntraOp Departure from OR Audit 01/21/19 11:52:04 Messenger Copy: LENNIETGM Modifier: HAMILTGM <+> 1 Patient Transport Accompanied by [facility] IntraOp Dressing and Packing Entry 1 Type Dressing Location opsite Wound Dressing Item Occlusive dressing, Skin Closure Glue Applied By ALIRIO MOTA CSA Other Comments aquacel. angella hose. scd sleeve. knee wrap. Last Modified By: Lidia Shepard RN 01/21/19 14:20:11 [facility] IntraOp Fire Risk Assessment Entry 1 Fire Info Surgical Site or 0- No Incision Above the Xyphoid Open O2 Source 0- No (Mask or Cannula) Available Ignition 1- Yes (ESU, Laser, Light Source) Fire Risk 1 Assessment Score Fire Score Fire Risk Yes Assessment Complete Fire Risk Lidia Shepard RN Assessment Verified By Fire Risk 01/21/19 11:52:00 Assessment Verified Date/Time Fire Risk Standard Fire Yes Safety Precautions Followed Last Modified By: Lidia Shepard RN 01/21/19 11:52:10 [facility] IntraOp Fire Risk Assessment Audit 01/21/19 11:52:10 Messenger Copy: LENNIETGBrett Modifier: HAMILTGM <+> 1 Fire Risk Assessment Verified Date/Time [facility] IntraOp General Case Cloth Presser 1 Case Information OR OR 05 [facility] Case Level 1 Room Verified Yes Wound Class I - Clean Specialty SN Orthopedic Anesthesia Type General ASA Class 2 Diagnosis 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 Postop Same As Preop No Postop Diagnosis see md post op note Last Modified By: Lidia Shepard RN 01/21/19 13:21:25 [facility] IntraOp General Case Data Audit 01/21/19 13:21:25 Messenger Copy: DINH Modifier: HAMILTGM <+> 1 ASA Class <+> 1 Preop Diagnosis [facility] IntraOp Implant Log Entry 1 Entry 2 Entry 3 Type Implant (Synthetic) Implant (Synthetic) Implant (Synthetic) Implant Log Implant Type Bone Cement Other Hardware Tissue Implant Type Implant CEMENT BONE SURG SMPLX PUTY OSTEOBST BN VD [id number] triathlon all Identification P [id number] FILL [id number] poly Description Implant Quantity 3 1 1 Implant Site opsite opsite opsite Implant Identification Model Number Implant Identification Serial Number Implant [id number] Identification Lot Number Implant Gia:Scio [employer] Mobile (QEEP) [facility] Identification Orthopaedics Rubber Cutter Name: Implant [id number] Identification Catalog Number Implant Size Implant Has an Yes Yes Yes Expiration Date Implant Expiration 12/24/20 09/23/21 08/14/22 Date Wasted Radioactive Material Time Implanted Tissue Implant Continue for Tissue Implant Documentation Tissue Identification Number Graft Prep Per Rubber Cutter Instructions: Tissue Preparation Method: Reconstitution Solution: Reconstitution Solution Lot Number Reconstitution Solution Expiration Date: Thawing Solution Thawing Solution Lot Number Thawing Solution Expiration Date Preparation Materials, Other Preparation Materials, Other Lot Number Preparation Materials, Other Expiration Date Tissue Prepared/Processed By Rubber Cutter Paperwork Completed Implant Type Comment Last Modified By: Lidia Shepard RN Hamilton, Gina M, RN Hamilton, Gina M, RN 01/21/19 13:28:12 01/21/19 13:28:12 01/21/19 14:08:40 Entry 4 Type Implant (Synthetic) Implant Log Implant Type Hardware Tissue Implant Type Implant COMP FEM CR BINU NO.3 Identification [id number] Description Implant Quantity 1 Implant Site opsite Implant Identification Model Number Implant Identification Serial Number Implant [id number] Identification Lot Number Implant Scio:Gia Identification Orthopaedics Rubber Cutter Name: Implant [id number] Identification Catalog Number Implant Size Implant Has an Yes Expiration Date Implant Expiration 10/27/22 Date Wasted Radioactive Material Time Implanted Tissue Implant Continue for Tissue Implant Documentation Tissue Identification Number Graft Prep Per Rubber Cutter Instructions: Tissue Preparation Method: Reconstitution Solution: Reconstitution Solution Lot Number Reconstitution Solution Expiration Date: Thawing Solution Thawing Solution Lot Number Thawing Solution Expiration Date Preparation Materials, Other Preparation Materials, Other Lot Number Preparation Materials, Other Expiration Date Tissue Prepared/Processed By Rubber Cutter Paperwork Completed Implant Type Comment Last Modified By: Lidia Shepard RN 01/21/19 14:08:40 [facility] IntraOp Implant Log Audit 01/21/19 14:08:40 Messenger Copy: DINH Modifier: DINH <+> 3 Implant Identification Description <+> 3 Implant Identification Lot Number <+> 3 Implant Expiration Date <+> 3 Implant Site <+> 3 Implant Quantity <+> 3 Implant Type <+> 3 Implant Has an Expiration Date <+> 3 Type <+> 4 Implant Identification Description <+> 4 Implant Identification Lot Number <+> 4 Implant Identification Rubber Cutter Name: <+> 4 Implant Expiration Date <+> 4 Implant Site <+> 4 Implant Quantity <+> 4 Implant Identification Catalog Number <+> 4 Implant Type <+> 4 Implant Has an Expiration Date <+> 4 Type [facility] IntraOp Intraoperative Assessment Entry 1 Handoff Method Bedside/Face to face Valid History / Yes Physical in Chart Preoperative Yes Checklist Reviewed/Evaluated Allergies Reviewed Yes Patient is Latex Yes, protocol initiated Sensitive Isolation Not applicable Precautions Noted Level of WDL Consciousness (WDL = Alert, Oriented to Person, Place, and Time) Skin Assessment Yes Verified Present Upon IVs Arrival to OR Last Modified By: Lidia Shepard RN 01/21/19 11:40:49 [facility] IntraOp Intraoperative Equipment Entry 1 Type Equipment Equipment Equipment Rita Suction System ID Number [id number] Intraop Monitoring Electrocardiogram Three lead placement (ECG) Electrode Placement Blood Pressure Non-Invasive BP Device Source Blood Pressure Arm, right upper Location Pulse Oximeter Hand, left Probe Site Antiembolic Devices Antiembolic Devices Sequential compression device, knee high Antiembolic Device Right Location Antiembolic Device [id number] ID Number Scopes Photo/Video Documentation Photo No Video No Intraop Equipment scd on and working Comment prior to induction Last Modified By: Lidia Shepard RN 01/21/19 11:41:52 [facility] IntraOp Medication Admin Entry 1 Entry 2 Entry 3 Medication/Irrigant Bacitracin 50,00units Bacitracin 50,00units SALINE [id number] powder vial powder vial Combo Med List Time Administered Route of irrigation irrigation irrigation Administration Dose Dose 24461 10372 500 Unit of Measure units units ml Volume in 2000ml saline in 3000ml saline 20ml betadine Administered By CHANEL DYSON KARTHIKEYAN, THARUN, KARTHIKEYAN, THARUN, MD-ORT -ORT -ORT Procedure Irrigation Irrigant Volume In Irrigant Volume Out Last Modified By: Lidia Shepard RN Hamilton, Gina M, RN Hamilton, Gina M, RN 01/21/19 11:53:59 01/21/19 11:53:59 01/21/19 11:53:59 [facility] IntraOp Patient Positioning Entry 1 Procedure Knee Total Joint Revision(Left) Body Position Supine Left Arm Position Secured on padded arm board Right Arm Position Secured on padded arm board Left Leg Position Held on field Right Leg Position Uncrossed, parallel Feet Uncrossed Yes Pressure Points Yes Checked Positioning Devices Arm Board, Head Rest, Pad, Arm, Safety Strap, Arm(s), Foot Rest Device Position lateral post. safety strap abdomen. Positioned By CHANEL DYSON MD-ORT, Lidia Shepard, RN, HUMAIRA CAMACHO CRNA, LUCAS, JOHN T, CSA Position Verified Positioning Yes Verified by Anesthesia Positioning Yes Verified by Surgeon Last Modified By: Lidia Shepard RN 01/21/19 12:04:26 [facility] IntraOp Patient Positioning Audit 01/21/19 12:04:26 Messenger Copy: DINH Modifier: DINH 1 <*> Procedure Knee Total Joint Revision(Left) 1 <*> Positioned By CHANEL DYSON MD-ORT [facility] IntraOp Sign In Entry 1 Patient, Site, Yes Procedure Identified Surgical Consent Yes Confirmed Relevant Surgical Yes Documents Available Surgical Site Yes Marked by person performing procedure Anesthesia Machine Yes Check Completed Medication Checks Yes Completed Allergies Yes Airway Difficult No Airway/Aspiration Risk Difficult Yes Airway/Aspiration Intervention Equipment Available Blood Loss Risk No Blood Loss Yes Intervention Equipment Prepared and Ready Blood Identifiers Not applicable Verified Per Policy Hypothermia Risk Yes Warming Measures Yes Taken Last Modified By: Lidia Shepard RN 01/21/19 11:42:05 [facility] IntraOp Sign Out Entry 1 RN Confirmation [...] Checklist Yes Elements Complete? RN Sign Out Lidia Shepard RN Signature RN Sign Out 01/21/19 14:45:00 Signature Date/Time Plan of Care Outcome - [...] related to extraneous objects Last Modified By: Lidia Shepard RN 01/21/19 14:45:58 [facility] IntraOp Sign Out Audit 01/21/19 14:45:58 Messenger Copy: HAMILTGM Modifier: HAMILTGM <+> 1 RN Sign Out Signature Date/Time [facility] IntraOp Skin Prep Entry 1 Procedure Knee Total Joint Revision(Left) Prep Area left leg circumferentially Intraop Prep Integumentary WDL Assessment WDL Prep Agents Chlorhexidine gluconate/alcohol, Chloraprep, DuraPrep Prep by Lidia Shepard RN Hair Removal Methods No hair removal performed Last Modified By: Lidia Shepard RN 01/21/19 11:42:39 [facility] IntraOp Surgical Procedures Entry 1 Procedure Knee Total Joint Revision Modifiers Left Additional LT TOTAL KNEE Procedure ARTHROPLASTY RESECTION Description WITH INSERTION OF ANTIBIOTIC SPACER Primary Procedure Yes Primary Surgeon CHANEL DYSON MD-ORT Start 01/21/19 12:48:00 Stop 01/21/19 14:39:00 Anesthesia Type General Specialty SN Orthopedic Wound Class I - Clean Last Modified By: Lidia Shepard RN 01/21/19 14:39:42 General Comments: 900mg of clindamycin infused at 1227 per anesthesia [facility] IntraOp Surgical Procedures Audit 01/21/19 14:39:42 Messenger Copy: HAMILTGM Modifier: HAMILTGM 1 <*> Stop 1 <*> Stop 01/21/19 13:22:25 Messenger Copy: HAMILTGM Modifier: HAMILTGM 1 <*> Start 1 <*> Start 1 <*> Start 1 <*> Start [facility] IntraOp Temp Regulation Devices Entry 1 Temp Regulation Temperature Warm blankets, Forced Regulation Device Air Warming device Temperature 38166 Regulation Device Serial/Unit Number Temperature Upper body Regulation Site Temperature Device temperature set and Setting monitored per anesthesia Last Modified By: Lidia Shepard RN 01/21/19 11:43:46 [facility] IntraOP Time Out Entry 1 Procedure to be Knee Total Joint Performed Revision(Left) Time Out Time Out Pause Time 01/21/19 12:47:00 All activity Yes suspended (unless life threatening emergency) Team Verbally Correct patient Confirms Information identity, Correct side and site are marked, Consent form is present and accurate, Agreement on the procedure to be done, Correct patient position, Relevant images/results properly labeled/appropriately displayed, Confirm antibiotics have been administered, Confirm the skin prep has dried, Confirm prosthesis/implant/devic e is present, Performed in location of procedure after prepped/draped Antibiotic Yes Prophylaxis Administered Or In Progress Within the Last 60 Minutes Beta Stephan N/A Administered Venous Yes Thromboembolism Prophylaxis Required Anticipated Critical Events Surgeon None expected Anesthesia Provider None expected Nursing Assures Sterility of instruments, Implant Availability Essential Imaging Yes Labeled and Displayed Last Modified By: Lidia Shepard RN 01/21/19 13:19:18 [facility] IntraOP Time Out Audit 01/21/19 13:19:18 Messenger Copy: DINH Modifier: DINH 1 <+> Beta Stephan Administered 1 <*> Nursing Assures Sterility of instruments, Equipment concerns or issues, Implant Availability 1 <+> Time Out Pause Time 1 <*> Procedure to be Performed Knee Total Joint Revision(Left) [facility] IntraOp Tourniquet Entry 1 Type Pneumatic Serial/Unit Number [id number] Setting 300 mmHg Pheumatic Yes Tourniquet Checked Per Protocol Size 34 inches Placement Thigh, left upper Skin Protection - Yes Padded Under Cuff Applied By ALIRIO MOTA, CSA Removed By CHANEL DYSON MD-ORT Times Start Time 01/21/19 12:48:00 Stop Time 01/21/19 14:02:00 Total Time 73 calculated manually (Mins) Last Modified By: Lidia Shepard RN 01/21/19 14:05:01 Case Comments <None> Finalized By: Dominga Montanez Document Signatures Signed By: Lidia Shepard RN 01/21/19 14:46 Dominga Montanez 01/24/19 14:09 Unfinalized History Date/Time Username Reason for Unfinalizing Freetext Reason for Unfinalizing 01/24/19 14:01 JERMAINE Correct Billing Electronically signed by Adwoa [facility] Conversion Payable Manager Cerner at 11/11/2022 8:31 PM CDT documented in this encounter Plan of Treatment Not on file documented as of this encounter Visit Diagnoses Not on filedocumented in this encounter
--- OUTSIDE RECORDS SUMMARY | 2025-04-25 12:04 | XMS_ITS | Encounter Summary ---
Author Organization [employer] ([place], [place], [place], [place]) Address [address] [place] [address] Care Team Providers Care Guest Services Coordinator Name Role Phone Unavailable Primary Care Provider Unavailabl e Encounter Details Date Type Department Care Team (Late st Contact Info) Description 04/25/2019 Transcribed Document [facility] [place] [facility] [place] [address] ProviderLuis Armando MD [address] [place] [address] Social History Tobacco Use Types Packs/Day Years Used Date Smoking Tobacco: Never Assessed Comments Unknown Sex and Gender Information Value Date Recorded Sex Assigned at Not on file Legal Sex Female 7:30 PM CDT Gender Identity Not on file Sexual Orientation Not on file documented as of this encounter Miscellaneous Notes * Cerner Conversion Note - Luis Armando ProviderMD - 04/25/2019 12:53 PM CDT Procedural Documentation Entered On: 04/25/2019 12:55 EDT Performed On: 04/25/2019 12:53 EDT by Carolyn Bee RN Procedure Documentation Procedure to be Performed : left scaitic/adductor block Time Out Pause Time : 04/25/2019 12:45 EDT All Activity Suspended : Yes Team Verbally Confirms Information : Correct patient identity, Correct side and site are marked, Consent form is present and accurate, Agreement on the procedure to be done, Correct patient position, Confirm the skin prep has dried, Performed in location of procedure after prepped/draped Procedure Performed : left sciatic/adductor block Proper Use of Sterile Apparel per Policy : Yes Procedure Case Attendee : LAURA BARNEY MD Procedure Case Attendee Role : Anesthesiologist Procedure Case Attendee Role 2 : equestrian trainer Case Attendee 2 : PARI Johnson RN Procedure Case Attendee Role 3 : equestrian trainer Case Attendee 3 : Carolyn Bee RN Reisner, Katie, RN - 04/25/2019 12:53 EDT Postprocedure Documentation Current Time : 12:53 EST Carolyn Bee RN - 04/25/2019 12:53 EDT Odilon Level I Post Anesthesia Assessment Odilon I Activity Status : Moves 4 extremities voluntarily or on command Odilon l Respiratory Component : Able to deep breathe and cough freely Odilon I Circulation Component : BP 20% of preanesthetic level Odilon I Consciousness : Arouses on calling Odilon l Oxygen Saturation : Needs oxygen to maintain > 92% Odilon l Score : 8 Carolyn Bee RN - 04/25/2019 12:53 EDT Vital Measurements Systolic Blood Pressure : 108 mmHg Diastolic Blood Pressure : 58 mmHg (LOW) Carolyn Bee RN - 04/25/2019 12:56 EDT Pulse Method : Pulse Oximetry Peripheral Pulse Rate : 79 bpm Pulse Rhythm : Regular Respiratory Rate : 18 Breaths/Min Blood Pressure Location : Arm, right upper Blood Pressure Source : Non-Invasive BP Device Blood Pressure Position : Supine Vital Measurements Comment : [id number] Oxygen Saturation : 96 % Oxygen Therapy Mode : Nasal cannula Oxygen Flow Rate : 3 Liter/Min Carolyn Bee RN - 04/25/2019 12:53 EDT documented in this encounter Plan of Treatment Not on file documented as of this encounter Visit Diagnoses Not on filedocumented in this encounter
--- OUTSIDE RECORDS SUMMARY | 2025-04-25 12:04 | XMS_ITS | Encounter Summary ---
Author Organization [employer] ([place], [place], [place], [place]) Address [address] [place] [address] Care Team Providers Care Shear Operator Helper Name Role Phone Unavailable Primary Care Provider Unavailabl e Encounter Details Date Type Department Care Team (Late st Contact Info) Description 04/25/2019 Transcribed Document [facility] Radiology [address] [place] [address] Chanel Doty MD [address] [place] [address] Social History Tobacco Use Types Packs/Day Years Used Date Smoking Tobacco: Never Assessed Comments Unknown Sex and Gender Information Value Date Recorded Sex Assigned at Not on file Legal Sex Female 7:30 PM CDT Gender Identity Not on file Sexual Orientation Not on file documented as of this encounter Miscellaneous Notes * Cerner Conversion Note - Chanel Doty MD - 04/25/2019 6:28 PM EDT Patient: EMELY VILLANUEVA Age: 68 years Sex: Female : 1950 Associated Diagnoses: None Author: CHANEL DOTY MD-ORT 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
--- OUTSIDE RECORDS SUMMARY | 2025-04-25 12:04 | XMS_ITS | Encounter Summary ---
Author Organization [employer] ([place], [place], [place], [place]) Address [address] [place] [address] Care Team Providers Care Cost Recovery Technician Name Role Phone Unavailable Primary Care Provider Unavailabl e Encounter Details Date Type Department Care Team (Late st Contact Info) Description 01/24/2019 Transcribed Document [facility] [place] Family Medicine [facility] [place] [address] ProviderLuis Armando MD [address] [place] [address] Social History Tobacco Use Types Packs/Day Years Used Date Smoking Tobacco: Never Assessed Comments Unknown Sex and Gender Information Value Date Recorded Sex Assigned at Not on file Legal Sex Female 7:30 PM CDT Gender Identity Not on file Sexual Orientation Not on file documented as of this encounter Miscellaneous Notes * Cerner Conversion Note - Luis Armando ProviderMD - 01/24/2019 11:41 AM CDT On Going Discharge Planning Entered On: 01/24/2019 11:41 EDT Performed On: 01/24/2019 11:41 EDT by KARMEN CALVILLO RN-Abrasive Water Jet Cutter OperatorVeterinary Medicine Doctor Progress Note Discharge Arrangements : Patient Post-Acute Information Patient Name: EMELY VILLANUEVA Gender: Female : [birth year] Age: 68 Years [place] Referral(s): Service: Organization: Business Address: Phone Number: Home Care Physician Services [facility] - [address], [address], [place], [address] [employer] Medical [employer] - [address], [address] Discharge Options Discussed with Patient : DME, Home Health, Outpatient services Designation of Choice Signed : Yes Patient Offered Choice/Affiliations Explained : Yes List/Info Provided Pt/Fam/Support Person : Durable medical equipment, Home health Were Referrals Sent to Post Acute Providers : Yes KARMEN CALVILLO RN-Abrasive Water Jet Cutter Operator - 01/24/2019 11:41 EDT Electronically signed by Adwoa [facility] Conversion Oncology Consultant Cerner at 11/11/2022 8:31 PM CDT documented in this encounter Plan of Treatment Not on file documented as of this encounter Visit Diagnoses Not on filedocumented in this encounter
--- OUTSIDE RECORDS SUMMARY | 2025-04-25 12:04 | XMS_ITS | Encounter Summary ---
Author Organization [employer] ([place], [place], [place], [place]) Address [address] [place] [address] Care Team Providers Care Foreign Broadcast Specialist Name Role Phone Unavailable Primary Care Provider Unavailabl e Encounter Details Date Type Department Care Team (Late st Contact Info) Description 01/18/2019 Transcribed Document [facility] [place] Family Medicine [facility] [place] [address] ProviderLuis Armando MD [address] [place] [address] Social History Tobacco Use Types Packs/Day Years Used Date Smoking Tobacco: Never Assessed Comments Unknown Sex and Gender Information Value Date Recorded Sex Assigned at Not on file Legal Sex Female 7:30 PM CDT Gender Identity Not on file Sexual Orientation Not on file documented as of this encounter Miscellaneous Notes * Cerner Conversion Note - Historical ProviderMD - 01/18/2019 12:00 PM CDT PAT Adult Entered On: 01/18/2019 12:24 EDT Performed On: 01/18/2019 12:00 EDT by MAXIMO ESTRELLA RN Vital Measurements Temperature Source : Temporal artery scanning Temperature Mode : Fahrenheit Temperature, Fahrenheit : 98.9 Deg F Clinical Temperature, C : 37.2 Deg C Peripheral Pulse Rate : 72 bpm Respiratory Rate : 16 Breaths/Min Blood Pressure Location : Arm, right upper Blood Pressure Source : Non-Invasive BP Device Systolic Blood Pressure : 139 mmHg Diastolic Blood Pressure : 76 mmHg Oxygen Saturation : 98 % Oxygen Therapy Mode : Room air MAXIMO ESTRELLA RN - 01/18/2019 12:46 EDT Pain Assessment Pain Assessment : Initial assessment Pain Scale Goal : 4 MAXIMO ESTRELLA RN - 01/18/2019 12:00 EDT Height and Weight, Clinical Dosing Height Source : Measured Height Entry Format : [place] Height, Feet : 0 ft(Converted to: 0 cm, 0 Inch) Height, Inches : 62 Inch(Converted to: 5 ft 2 Inch, 157.48 cm) Clinical Height : 157.48 cm Weight Source : Standing scale Weight Entry Format : Stick and Play Clinical Dosing Weight : 77.82 kg Weight, Pounds : 171.2 lb Body Surface Area (BSA) : 1.79 m2 Body Mass Index : 31.4 kg/m2 (HI) [place] Body Weight : 50 kg MAXIMO ESTRELLA RN - 01/18/2019 12:00 EDT Health Histories Smoking Status : Former smoker, quit more than 30 days ago Smokeless Tobacco Status : Never MAXIMO ESTRELLA RN - 01/18/2019 12:00 EDT Social History (As Of: 01/18/2019 12:24:20 EDT) Tobacco: Use in Last 12 Months: No. Years of Use: 10. Packs/Tins Daily: .50. (Last Updated: 04/22/2017 06:50:54 EDT by JESSICA TANNER, ROBB) Last Used: quit in 1998. (Last Updated: 01/18/2019 11:57:35 EDT by MAXIMO ESTRELLA RN) Alcohol: Alcohol Use History Yes. Use in Last 12 Months: Yes. Alcohol Use Frequency Rarely. (Last Updated: 01/18/2019 11:58:05 EDT by MAXIMO ESTRELLA, RN) Substance Abuse: Drug Use Hx: No. Use in Last 12 Months: No. (Last Updated: 04/22/2017 06:51:09 EDT by JESSICA TANNER, RN) Anesthesia/Transfusion History Family History of Anesthesia Reaction : No prior transfusion(s) Transfusion History : Prior anesthesia reaction Type of Anesthesia Reaction : Excessive somnolence, Excessive nausea/vomiting Family History of Anesthesia Reaction : Other: niece - nausea MAXIMO ESTRELLA RN - 01/18/2019 12:00 EDT Functional Assessment Functional ADL Evaluation Index EBN Bathing : Independent (2) Dressing : Independent (2) Toileting : Independent (2) Transferring Bed or Chair : Independent (2) Continence : Independent (2) Feeding : Independent (2) MAXIMO ESTRELLA RN - 01/18/2019 12:00 EDT ADL Index Score : 12 MAXIMO ESTRELLA RN - 01/18/2019 12:00 EDT Advance Directive Patient has Advance Directive *Q : Yes, Advance Directive on file Advance Directive Type : Living will MAXIMO ESTRELLA RN - 01/18/2019 12:00 EDT Spiritual/Cultural Needs Any Spiritual/Cultural Needs or Requests : Yes Spiritual/Cultural Needs Comment : preop prayer, surgery 01/21/2019 Spiritual/Cultural Needs Comment : preop prayer, surgery 01/21/2019 MAXIMO ESTRELLA RN - 01/18/2019 12:00 EDT Psychosocial History Do You Have a History of the Following? : Depression Currently in Unsafe Situation : No Tried to Harm Yourself in the Past? : No Thoughts of Harming/Killing Yourself : No MAXIMO ESTRELLA RN - 01/18/2019 12:00 EDT Teaching/Learning Assessment Individuals Taught : Patient, Spouse Readiness to Learn : Cooperative Readiness to Learn : Explanation, Printed materials MAXIMO ESTRELLA RN - 01/18/2019 12:00 EDT Education Topics, Periop Preadmission Perioperative Education Grid Arrival Time/Place : Verbalizes understanding CHG Preoperative Bathing/Cloths : Verbalizes understanding Infection Control : Verbalizes understanding IV's : Verbalizes understanding NPO Status/Directions : Verbalizes understanding Pain Management : Verbalizes understanding Preprocedure Preparations : Verbalizes understanding Preprocedure Tests/Labs : Verbalizes understanding Remove Body Piercings : Verbalizes understanding Responsible Adult : Verbalizes understanding Take/Hold Medications Pre-Procedure : Verbalizes understanding MAXIMO ESTRELLA RN - 01/18/2019 12:00 EDT Responsible Adult Contact Information : Buddy Villanueva, spouse, cell, home MAXIMO ESTRELLA RN - 01/18/2019 12:00 EDT General Info Want Family/Rep/Phys Notified of Admit : No Emergency Contact #1 : Buddy Villanueva Emergency Contact #1 cell,, [phone] home Emergency Contact #1 Relationship : spouse Emergency Contact #2 : Kareem Villanueva Emergency Contact #2 cell Emergency Contact #2 Relationship : son Information Obtained From : Patient Objects to Sharing Info w Family : No MAXIMO ESTRELLA RN - 01/18/2019 12:35 EDT Preferred Name : Inna Support Person/Patient Counseling Services Manager : Yes Support Person/Pt Rep Name : Darron Villanueva, spouse Support Person/Pt Rep Contact Information : [phone] cell Primary Language : Irish Preferred Communication Mode : Verbal Communication Barrier : None MAXIMO ESTRELLA RN - 01/18/2019 12:00 EDT Khurram Scale Khurram Sensory Perception : Slightly limited (Comment: wears glasses and hearing aid - deaf in left ear [MAXIMO ESTRELLA RN - 01/18/2019 12:35 EDT] ) Khurram Moisture : Occasionally moist Khurram Activity : Walks occasionally Khurram Mobility : Slightly limited Khurram Nutrition : Adequate Khurram Friction and Shear : Potential problem Khurram Score : 17 MAXIMO ESTRELLA RN - 01/18/2019 12:35 EDT Sleep Apnea Risk Assmt Hx of Obstructive Sleep Apnea Diagnosis : No Snore Loudly : No Tired, Fatigued, or Sleepy During Day : No Observed Stopping Breathing During Sleep : No Have/Are Being Treated for Hypertension : Yes BMI Greater Than 35 kg/m2 : No Age over 50 Years Old : Yes Neck Circumference Greater Than 40 cm : No Gender Male : No STOP-BANG Sleep Apnea Risk Level Score : 2 MAXIMO ESTRELLA RN - 01/18/2019 12:35 EDT documented in this encounter Plan of Treatment Not on file documented as of this encounter Visit Diagnoses Not on filedocumented in this encounter
--- OUTSIDE RECORDS SUMMARY | 2025-04-25 12:04 | XMS_ITS | Encounter Summary ---
Author Organization [employer] ([place], [place], [place], [place]) Address [address] [place] [address] Care Team Providers Care Tooling Specialist Name Role Phone Unavailable Primary Care Provider Unavailabl e Encounter Details Date Type Department Care Team (Late st Contact Info) Description 04/25/2019 Transcribed Document [facility] [place] [facility] [place] [address] ProviderLuis Armando MD [address] [place] [address] Social History Tobacco Use Types Packs/Day Years Used Date Smoking Tobacco: Never Assessed Comments Unknown Sex and Gender Information Value Date Recorded Sex Assigned at Not on file Legal Sex Female 7:30 PM CDT Gender Identity Not on file Sexual Orientation Not on file documented as of this encounter Miscellaneous Notes * Cerner Conversion Note - Historical ProviderMD - 04/25/2019 6:19 PM CDT Pain Assessment Entered On: 04/26/2019 3:11 EDT Performed On: 04/26/2019 3:17 EDT by Swetha Alston LPN Intervention Information: oxyCODONE Performed by Swetha Alston LPN on 04/26/2019 02:17:00 EDT oxyCODONE,10mg Oral,Pain (Severe 7-10) Pain Assessment Pain Assessment : Follow-up assessment Pain Scale Goal : 4 Pain Scale Used : 0-10 Scale Location : Knee, left Onset : Abrupt Quality : Sharp Pain Radiation : No Pain Improved by : Medication Pain Worsened by : Movement Pain Intervention, Drug : Medicated Pain Improved by Intervention : Yes Swetha Alston LPN - 04/26/2019 3:10 EDT Pain Scale Intensity : 4 Swetha Alston LPN - 04/26/2019 3:10 EDT Image 4 - Images currently included in the form version of this document have not been included in the text rendition version of the form. documented in this encounter Plan of Treatment Not on file documented as of this encounter Visit Diagnoses Not on filedocumented in this encounter
--- OUTSIDE RECORDS SUMMARY | 2025-04-25 12:04 | XMS_ITS | Encounter Summary ---
Author Organization [employer] ([place], [place], [place], [place]) Address [address] [place] [address] Care Team Providers Care Order Fulfillment Specialist Name Role Phone Unavailable Primary Care Provider Unavailabl e Encounter Details Date Type Department Care Team (Late st Contact Info) Description 01/24/2019 Transcribed Document [facility] Family Medicine [address] [place] [address] ProviderLuis Armando MD [address] [place] [address] Social History Tobacco Use Types Packs/Day Years Used Date Smoking Tobacco: Never Assessed Comments Unknown Sex and Gender Information Value Date Recorded Sex Assigned at Not on file Legal Sex Female 7:30 PM CDT Gender Identity Not on file Sexual Orientation Not on file documented as of this encounter Miscellaneous Notes * Cerner Conversion Note - Luis Armando ProviderMD - 01/24/2019 2:30 PM CDT [facility] [place] [address] December :1950 Visit Time:01/21/2019 Your Visit Summary Your Care Team Admitting Physician - CHANEL DOTY MD-ORT Attending Physician - CHANEL DOTY MD-ORT Primary Care Physician - CHAU AJ [facility] Referring Physician - CHANEL DOTY MD-ORMirza Your Diagnosis Chronic infection of knee joint prosthesis, Chronic infection of knee joint prosthesis Infection and inflammatory reaction due to internal left knee prosthesis, initial encounter, Infection and inflammatory reaction due to internal left knee prosthesis, initial encounter Discharge Vitals Temperature 36.6 ??C Heart Rate (Monitored) 79 Blood Pressure 128/59 What to do next Instructions From Your Care Team Home Health Services: [facility]--[phone] Medical Equipment for Home Use: We [facility]-- Discharge Follow Up Instructions: Follow-up Dr. Doty 3 wks ([phone]) Follow Up Instructions: Continue RICHARD hose for 6 weeks Follow Up Instructions: Leave Aquacel dressing in place x 7-10d, then open to air. Follow-Up Appointments Follow Up with ROLF WARE PA-ORT When 02/09/2019 04:00 PM EDT Comments MAYANK Zimmerman Where: [address] [place] [address]- Follow Up with MJ GALLARDO When 01/25/2019 10:00 AM EDT Comments Appointment has been made Where: [address] [facility] [address] [place], [place] [id number]- Business (1) Medications What How Much When Why Instructions Next Dose acetaminophen-oxyCODONE (Percocet 5/ 325 oral tablet) 1 Tablet(s) Oral Every 4 Hours as needed for Pain (Severe 7-10) Chronic infection of knee joint prosthesis not to exceed 6 tablets/ day Printed Prescription any time cefTRIAXone 2 Gram(s) IV Piggyback Every Day Duration: 6 weeks 01/25@ 9am docusate (Colace 100 mg oral capsule) 1 Capsule(s) Oral Two Times A Day as needed for for constipation Chronic infection of knee joint prosthesis Duration: 30 Day(s) Printed Prescription 01/24 @ 8om ferrous gluconate (ferrous gluconate 325 mg (36 mg elemental iron) oral tablet) 1 Tablet(s) Oral Every Day Chronic infection of knee joint prosthesis Printed Prescription 01/25 @ 8am gabapentin (Neurontin 300 mg oral capsule) 1 Capsule(s) Oral At Bedtime as needed for Sleep Chronic infection of knee joint prosthesis Printed Prescription 01/24 @ 10 pm morphine (MS Contin 15 mg oral tablet, extended release) 1 Tablet(s) Oral Every 12 hours Chronic infection of knee joint prosthesis Duration: 7 Day(s) Printed Prescription 01/24 @ 9pm aspirin (aspirin 81 mg oral tablet) 1 Tablet(s) Oral Every Day 01/25 @ 8am cholecalciferol (Vitamin D3) 5,000 International Units Oral Every Day 01/25 @ 8am citalopram 20 Milligram(s) Oral Every Day 72 @ 8am hydroCHLOROthiazide-triamterene (Maxzide) 25/37.5 mg Tab Oral Every Day 7 @ 8am lisinopril 10 Milligram(s) Oral Every Day 7/2 @ 8am multivitamin with minerals (PreserVision AREDS 2) 1 Capsule(s) Oral Two Times A Day 01/25 @ 8am simvastatin 20 Milligram(s) Oral At Bedtime 01/24 @ 10 pm Take your medications faithfully. Do NOT skip [...] your retail pharmacy guidance. Allergies Bananas Benadryl (Itching, Rash) Chocolate (Shortness of breath, Hives) Darvon Demerol HCl Kiwi (Itching, Rash) Latex Lortab (Itching) Pineapple codeine (Tachycardia) penicillin Immunizations This Visit No Immunizations Found Education Materials Discharge Instructions for Total Knee Replacement Your [...] weakness, slurred speech, difficulty speaking or understanding PICC Home Care Guide A peripherally inserted central catheter (PICC) is a form of IV access that allows medicines and IV fluids to be quickly distributed throughout the body. The PICC is a long, thin, flexible tube (catheter) that is inserted into a vein in the upper arm. The catheter ends in a large vein in the chest (superior vena cava, or SVC). After the PICC is inserted, a chest X-ray may be done to make sure that it is in the correct place. A PICC may be placed for different reasons, such as: ??? To give medicines and liquid nutrition. ??? To give IV fluids and blood products. ??? If there is trouble placing a peripheral intravenous (PIV) catheter. If taken care of properly, a PICC can remain in place for several months. Having a PICC can also allow a person to go home from the hospital sooner. Medicine and PICC care can be managed at home by a family member, caregiver, or home health care team. What are the risks? Generally, having a PICC is safe. However, problems may occur, including: ??? A blood clot (thrombus) forming in or at the tip of the PICC. ??? A blood clot forming in a vein (deep vein thrombosis) or traveling to the lung (pulmonary embolism). ??? Inflammation of the vein (phlebitis) in which the PICC is placed. ??? Infection. Central line associated blood stream infection (CLABSI) is a serious infection that often requires hospitalization. ??? PICC movement (malposition). The PICC tip may move from its original position due to excessive physical activity, forceful coughing, sneezing, or vomiting. ??? A break or cut in the PICC. It is important not to use scissors near the PICC. ??? Nerve or tendon irritation or injury during PICC insertion. How to take care of your PICC Preventing problems ??? You and any caregivers should wash your hands often with soap. Wash hands: ? Before touching the PICC line or the infusion device. ? Before changing a bandage (dressing). ??? Flush the PICC as told by your health care provider. Let your health care provider know right away if the PICC is hard to flush or does not flush. Do not use force to flush the PICC. ??? Do not use a syringe that is less than 10 mL to flush the PICC. ??? Avoid blood pressure checks on the arm in which the PICC is placed. ??? Never pull or tug on the PICC. ??? Do not take the PICC out yourself. Only a trained clinical professional should remove the PICC. ??? Use clean and sterile supplies only. Keep the supplies in a dry place. Do not reuse needles, syringes, or any other supplies. Doing that can lead to infection. ??? Keep pets and children away from your PICC line. ??? Check the PICC insertion site every day for signs of infection. Check for: ? Leakage. ? Redness, swelling, or pain. ? Fluid or blood. ? Warmth. ? Pus or a bad smell. PICC dressing care ??? Keep your PICC bandage (dressing) clean and dry to prevent infection. ??? Do not take baths, swim, or use a hot tub until your health care provider approves. Ask your health care provider if you can take showers. You may only be allowed to take sponge baths for bathing. When you are allowed to shower: ? Ask your health care provider to teach you how to wrap the PICC line. ? Cover the PICC line with clear plastic wrap and tape to keep it dry while showering. ??? Follow instructions from your health care provider about how to take care of your insertion site and dressing. Make sure you: ? Wash your hands with soap and water before you change your bandage (dressing). If soap and water are not available, use hand forestry laborer. ? Change your dressing as told by your health care provider. ? Leave stitches (sutures), skin glue, or adhesive strips in place. These skin closures may need to stay in place for 2 weeks or longer. If adhesive strip edges start to loosen and curl up, you may trim the loose edges. Do not remove adhesive strips completely unless your health care provider tells you to do that. ??? Change your PICC dressing if it becomes loose or wet. General instructions ??? Carry your PICC identification card or wear a medical alert bracelet at all times. ??? Keep the tube clamped at all times, unless it is being used. ??? Carry a smooth-edge clamp with you at all times to place on the tube if it breaks. ??? Do not use scissors or sharp objects near the tube. ??? You may bend your arm and move it freely. If your PICC is near or at the bend of your elbow, avoid activity with repeated motion at the elbow. ??? Avoid lifting heavy objects as told by your health care provider. ??? Keep all follow-up visits as told by your health care provider. This is important. Disposal of supplies ??? Throw away any syringes in a disposal container that is meant for sharp items (sharps container). You can buy a sharps container from a pharmacy, or you can make one by using an empty hard plastic bottle with a cover. ??? Place any used dressings or infusion bags into a plastic bag. Throw that bag in the trash. Contact a health care provider if: ??? You have pain in your arm, ear, face, or teeth. ??? You have a fever or chills. ??? You have redness, swelling, or pain around the insertion site. ??? You have fluid or blood coming from the insertion site. ??? Your insertion site feels warm to the touch. ??? You have pus or a bad smell coming from the insertion site. ??? Your skin feels hard and raised around the insertion site. Get help right away if: ??? Your PICC is accidentally pulled all the way out. If this happens, cover the insertion site with a bandage or gauze dressing. Do not throw the PICC away. Your health care provider will need to check it. ??? Your PICC was tugged or pulled and has partially come out. Do not push the PICC back in. ??? You cannot flush the PICC, it is hard to flush, or the PICC leaks around the insertion site when it is flushed. ??? You hear a flushing sound when the PICC is flushed. ??? You feel your heart racing or skipping beats. ??? There is a hole or tear in the PICC. ??? You have swelling in the arm in which the PICC was inserted. ??? You have a red streak going up your arm from where the PICC was inserted. Summary ??? A peripherally inserted central catheter (PICC) is a long, thin, flexible tube (catheter) that is inserted into a vein in the upper arm. ??? The PICC is inserted using a sterile technique by a specially trained nurse or physician. Only a trained clinical professional should remove it. ??? Keep your PICC identification card with you at all times. ??? Avoid blood pressure checks on the arm in which the PICC is placed. ??? If cared for properly, a PICC can remain in place for several months. Having a PICC can also allow a person to go home from the hospital sooner. This information is not intended to replace advice given to you by your health care provider. Make sure you discuss any questions you have with your health care provider. Document Released: 01/17/2004 Document Revised: 08/15/2017 Document Reviewed: 08/15/2017 [employer] Patient Education ?? 2019 [employer] morphine (MOR feen) Arymo ER, Gloria, MorphaBond ER What is the most important information I should know about morphine? MISUSE OF OPIOID MEDICINE CAN CAUSE ADDICTION, OVERDOSE, OR . Keep the medication in a place where others cannot get to it. Taking opioid medicine during may cause life-threatening withdrawal symptoms in the . Fatal side effects can occur if you use opioid medicine with alcohol, or with other drugs that cause drowsiness or slow your breathing. What is morphine? Morphine is an opioid medication used to treat moderate to severe pain. Short-acting morphine is taken as needed for pain. The extended-release form of morphine is for vspcjo-wmu-ngldw treatment of pain. This form of morphine is not for use on an as-needed basis for pain. Morphine may also be used for purposes not listed in this medication guide. What should I discuss with my healthcare provider before using morphine? You should not take this medicine if you have ever had an allergic reaction to morphine or other narcotic medicines, or if you have: ? severe asthma or breathing problems; or ?? a blockage in your stomach or intestines. Do not use morphine if you have used an MAO inhibitor in the past 14 days. A dangerous drug interaction could occur. MAO inhibitors include isocarboxazid, linezolid, methylene blue injection, phenelzine, rasagiline, selegiline, tranylcypromine, and others. Tell your doctor if you have ever had: ? a head injury, brain tumor, or seizures; ?? a drug or alcohol addiction, or mental illness; ?? urination problems; ?? liver or kidney disease; or ?? problems with your gallbladder, pancreas, or thyroid. If you use opioid medicine while you are , your baby could become dependent on the drug. This can cause life-threatening withdrawal symptoms in the baby after it is born. Babies born dependent on opioids may need medical treatment for several weeks. Do not breast-feed while taking morphine. This medicine can pass into breast milk and cause drowsiness, breathing problems, or in a nursing baby. How should I use morphine? Follow the directions on your prescription label and read all medication guides. Never use morphine in larger amounts, or for longer than prescribed. Tell your doctor if you feel an increased urge to take more of this medicine. Never share opioid medicine with another person, especially someone with a history of drug abuse or addiction. MISUSE CAN CAUSE ADDICTION, OVERDOSE, OR . Keep the medication in a place where others cannot get to it. Selling or giving away opioid medicine is against the law. Stop taking all other yvvqtg-pkk-bzacv narcotic pain medications when you start taking morphine. Swallow the capsule or tablet whole to avoid exposure to a potentially fatal overdose. Do not crush, chew, break, open, or dissolve. Measure liquid medicine carefully. Use the dosing syringe provided, or use a medicine dose-measuring device (not a kitchen spoon). Do not stop using morphine suddenly, or you could have unpleasant withdrawal symptoms. Ask your doctor how to safely stop using this medicine. Never crush or break a morphine pill to inhale the powder or mix it into a liquid to inject the drug into your vein. This practice has resulted in with the misuse of morphine and similar prescription drugs. Store at room temperature, away from heat, moisture, and light. Keep track of your medicine. You should [...] What happens if I miss a dose? Morphine is sometimes taken only once per day, and sometimes 2 or 3 times per day. Since morphine is used for pain, you are not likely to miss a dose. If you do miss a dose, take the medicine as soon as you remember. Then take your next dose as follows: ? If you take morphine 3 times per day: Take your next dose 8 hours after taking the missed dose. ?? If you take morphine 2 times per day: Take your next dose 12 hours after taking the missed dose. ?? If you take morphine 1 time per day: Take your next dose 24 hours after taking the missed dose. Do not take two doses at one time. Do not take more than your prescribed dose in a 24-hour period. What happens if I overdose? Seek emergency medical attention or call the Poison Help line at . A morphine overdose can be fatal, especially in a child or other person using the medicine without a prescription. Overdose symptoms may include slow heart rate, severe drowsiness, muscle weakness, cold and clammy skin, pinpoint pupils, very slow breathing, or coma. What should I avoid while using morphine? Do not drink alcohol. Dangerous side effects or could occur. Avoid driving or hazardous activity until you know how this medicine will affect you. Dizziness or drowsiness can cause falls, accidents, or severe injuries. What are the possible side effects of morphine? Get emergency medical help if you have signs of an allergic reaction: hives; difficult breathing; swelling of your face, lips, tongue, or throat. Opioid medicine can slow or stop your breathing, and may occur. A person caring for you should seek emergency medical attention if you have slow breathing with long pauses, blue colored lips, or if you are hard to wake up. Call your doctor at once if you have: ? slow heart rate, sighing, weak or shallow breathing; ?? chest pain, fast or pounding heartbeats; ?? extreme drowsiness, feeling like you might pass out; or ?? low cortisol levels-- nausea, vomiting, loss of appetite, dizziness, worsening tiredness or weakness. Seek medical attention right away if you have symptoms of serotonin syndrome, such as: agitation, hallucinations, fever, sweating, shivering, fast heart rate, muscle stiffness, twitching, loss of coordination, nausea, vomiting, or diarrhea. Serious side effects may be more likely in older adults and those who are malnourished or debilitated. Long-term use of opioid medication may affect fertility (ability to have children) in men or women. It is not known whether opioid effects on fertility are permanent. Common side effects may include: ? drowsiness, dizziness, tiredness; ?? constipation, stomach pain, nausea, vomiting; ?? sweating; or ?? feelings of extreme happiness or sadness. This is not a complete list of side effects and others may occur. Call your doctor for medical advice about side effects. You may report side effects to FDA at 9-482-QVG-9568. What other drugs will affect morphine? Opioid medication can interact with many other drugs and cause dangerous side effects or . Be sure your doctor knows if you also use: ? other narcotic medications--opioid pain medicine or prescription cough medicine; ?? a sedative like Valium--diazepam, alprazolam, lorazepam, Ativan, Klonopin, Restoril, Tranxene, Versed, Xanax, and others; ?? drugs that make you sleepy or slow your breathing--a sleeping pill, muscle relaxer, tranquilizer, antidepressant, or antipsychotic medicine; or ?? drugs that affect serotonin levels in your body--a stimulant, or medicine for depression, Parkinson's disease, migraine headaches, serious infections, or prevention of nausea and vomiting. This list is not complete. Other drugs may affect morphine, including prescription and oajx-vuv-baipxjx medicines, vitamins, and herbal products. Not all possible interactions are listed here. Where can I get more information? Your doctor or pharmacist can provide more information about morphine. Remember, keep this and all other medicines out of the reach of children, never share your medicines with others, and use this medication only for the indication prescribed. Every effort has been made to ensure that the information provided by [employer]') is accurate, up-to-date, and complete, but no guarantee is made to that effect. Drug information contained herein may be time sensitive. [employer] information has been compiled for use by healthcare practitioners and consumers in the [place] and therefore [employer] does not warrant that uses outside of the [place] are appropriate, unless specifically indicated otherwise. [employer] drug information does not endorse drugs, diagnose patients or recommend therapy. [employer] drug information is an informational resource designed [...] effective or appropriate for any given patient. [employer] does not assume any responsibility for any aspect of healthcare administered with the aid of information [employer] provides. The information contained herein is not intended to cover all possible uses, directions, precautions, warnings, drug interactions, allergic reactions, or adverse effects. If you have questions about the drugs you are taking, check with your doctor, nurse or pharmacist. Copyright 5716-9348 [employer]. Version: 14.01. Revision Date: 05/07/2018.apixaban (a PIX a ban) [place] What is the most important information I should know about apixaban? You should not take apixaban if you have an artificial heart valve, or if you have any active bleeding from a surgery, injury, or other cause. Apixaban can cause a very serious blood clot around your spinal cord if you undergo a spinal tap or receive spinal anesthesia (epidural), especially if you have a genetic spinal defect, if you have a spinal catheter in place, if you have a history of spinal surgery or repeated spinal taps, or if you are also using other drugs that can affect blood clotting. This type of blood clot can lead to long-term or permanent paralysis. Get emergency medical help if you have symptoms of a spinal cord blood clot such as back pain, numbness or muscle weakness in your lower body, or loss of bladder or bowel control. Do not stop taking apixaban unless your doctor tells you to. Stopping suddenly can increase your risk of blood clot or stroke. What is apixaban? Apixaban blocks the activity of certain clotting substances in the blood. Apixaban is used to lower the risk of stroke caused by a blood clot in people with a heart rhythm disorder called atrial fibrillation. Apixaban is also used after hip or knee replacement surgery to prevent a type of blood clot called deep vein thrombosis (DVT), which can lead to blood clots in the lungs (pulmonary embolism). Apixaban is also used to treat DVT or pulmonary embolism (PE), and to lower your risk of having a repeat DVT or PE. Apixaban may also be used for purposes not listed in this medication guide. What should I discuss with my healthcare provider before taking apixaban? You should not take apixaban if you are allergic to it, or if you have: ? an artificial heart valve; or ?? active bleeding from a surgery, injury, or other cause. Apixaban may cause you to bleed more easily, especially if you have a bleeding disorder that is inherited or caused by disease. Tell your doctor if you have ever had: ? kidney disease (or if you are on dialysis); ?? liver disease; ?? if you are older than 80; or ?? if you weigh less than 132 pounds. Apixaban can cause a very serious blood clot around your spinal cord if you undergo a spinal tap or receive spinal anesthesia (epidural). This type of blood clot could cause long-term paralysis, and may be more likely to occur if: ? you have a spinal catheter in place or if a catheter has been recently removed; ?? you have a history of spinal surgery or repeated spinal taps; ?? you have recently had a spinal tap or epidural anesthesia; ?? you are taking an NSAID (nonsteroidal anti-inflammatory drug)--ibuprofen (Advil, Motrin), naproxen (Aleve), diclofenac, indomethacin, meloxicam, and others; or ?? you are using other medicines to treat or prevent blood clots. Taking apixaban during may increase the risk of bleeding while you are or during your delivery. Tell your doctor if you are or plan to become . You should not breast-feed while using this medicine. How should I take apixaban? Follow all directions on your prescription label and read all medication guides or instruction sheets. Your doctor may occasionally change your dose. Use the medicine exactly as directed. You may take apixaban with or without food. If you cannot swallow a tablet whole, crush and mix it with water, apple juice, or a spoonful of applesauce. Swallow the mixture right away without chewing. Do not save it for later use. A crushed tablet mixture may also be given through a nasogastric (NG) feeding tube. Read and carefully follow any Instructions for Use provided with your medicine. Ask your doctor or pharmacist if you do not understand these instructions. Apixaban can make it easier for you to bleed, even from a minor injury. Seek medical attention if you have bleeding that will not stop. If you need surgery or dental work, tell the doctor or dentist ahead of time if you have taken apixaban within the past 24 hours. You may need to stop taking apixaban for a short time. Do not stop taking apixaban unless your doctor tells you to. Stopping suddenly can increase your risk of blood clot or stroke. If you stop taking apixaban for any reason, your doctor may prescribe another medication to prevent blood clots until you start taking apixaban again. Store at room temperature away from moisture and heat. What happens if I miss a dose? Take the missed dose on the same day you remember it. Take your next dose at the regular time and stay on your twice-daily schedule. Do not take two doses at one time. Get your prescription refilled before you run out of medicine completely. What happens if I overdose? Seek emergency medical attention or call the Poison Help line at . What should I avoid while taking apixaban? Avoid activities that may increase your risk of bleeding or injury. Use extra care to prevent bleeding while shaving or brushing your teeth. What are the possible side effects of apixaban? Get emergency medical help if you have signs of an allergic reaction: hives; difficult breathing; swelling of your face, lips, tongue, or throat. Also seek emergency medical attention if you have symptoms of a spinal blood clot: back pain, numbness or muscle weakness in your lower body, or loss of bladder or bowel control. Call your doctor at once if you have: ? easy bruising, unusual bleeding (nose, mouth, vagina, or rectum), bleeding from wounds or needle injections, any bleeding that will not stop; ?? heavy menstrual periods; ?? headache, dizziness, weakness, feeling like you might pass out; ?? urine that looks red, pink, or brown; or ?? black or bloody stools, coughing up blood or vomit that looks like coffee grounds. This is not a complete list of side effects and others may occur. Call your doctor for medical advice about side effects. You may report side effects to FDA at 7-954-OKS-9205. What other drugs will affect apixaban? Sometimes it is not safe to use certain medications at the same time. Some drugs can affect your blood levels of other drugs you take, which may increase side effects or make the medications less effective. Many other drugs (including some ckrb-gfp-behngop medicines) can increase your risk of bleeding or blood clots, or your risk of developing blood clots around the brain or spinal cord during a spinal tap or epidural. It is very important to tell your doctor about all medicines you have recently used, especially: ? any other medicines to treat or prevent blood clots; ?? a blood thinner such as heparin or warfarin (Coumadin, Jantoven); ?? an antidepressant; or ?? an NSAID (nonsteroidal anti-inflammatory drug) used intermediate accountant. This list is not complete and many other drugs may affect apixaban. This includes prescription and vxgx-kyd-bdsazrk medicines, vitamins, and herbal products. Not all possible drug interactions are listed here. Where can I get more information? Your pharmacist can provide more information about apixaban. Remember, keep this and all other medicines out of the reach of children, never share your medicines with others, and use this medication only for the indication prescribed. Every effort has been made to ensure that the information provided by [employer]. ('[employer]') is accurate, up-to-date, and complete, but no guarantee is made to that effect. Drug information contained herein may be time sensitive. [employer]com information has been compiled for use by healthcare practitioners and consumers in the [place] and therefore [employer]com does not warrant that uses outside of the [place] are appropriate, unless specifically indicated otherwise. [employer] drug information does not endorse drugs, diagnose patients or recommend therapy. [employer] drug information is an informational resource designed [...] effective or appropriate for any given patient. [employer] does not assume any responsibility for any aspect of healthcare administered with the aid of information contrib[employer] provides. The information contained herein is not intended to cover all possible uses, directions, precautions, warnings, drug interactions, allergic reactions, or adverse effects. If you have questions about the drugs you are taking, check with your doctor, nurse or pharmacist. Copyright 8935-3074 [employer]. Version: 3.01. Revision Date: 12/02/2017.gabapentin ([place] ba PEN tin) Gralise, Horizant, Neurontin [...] your doctor if you have ever had: ? kidney disease (or if you are on dialysis); ?? diabetes; ?? depression, a mood disorder, or suicidal thoughts or actions; ?? a seizure (unless you take gabapentin to treat seizures); ?? liver disease; ?? heart disease; or ?? (for patients with RLS) if you are a day sleeper or work a bureau chief. Some people have thoughts about suicide while [...] your doctor at once if you have: ? increased seizures; ?? severe weakness or tiredness; [...] has any of the following side effects: ? changes in behavior; ?? memory problems; ?? trouble concentrating; or ?? acting restless, hostile, or aggressive. Common side effects may include: ? headache, dizziness, drowsiness, tiredness; ?? swelling in your hands or feet; ?? problems with your eyes; ?? coordination problems; or ?? (in children) fever, nausea, vomiting. This is not a complete list of side effects and others may occur. Call your doctor for medical advice about side effects. You may report side effects to FDA at 0-830-WAG-4215. What other drugs will affect gabapentin? Taking gabapentin with other drugs that make you sleepy can worsen this effect. Ask your doctor before taking a sleeping pill, narcotic medication, muscle relaxer, or medicine for anxiety, depression, or seizures. Other drugs may interact with gabapentin, including prescription and xlnn-twm-gjryxhj medicines, vitamins, and herbal products. Tell your [...] to ensure that the information provided by [employer]') is accurate, up-to-date, and complete, but no guarantee is made to that effect. Drug information contained herein may be time sensitive. [employer]com information has been compiled for use by healthcare practitioners and consumers in the [place] and therefore [employer].com does not warrant that uses outside of the [place] are appropriate, unless specifically indicated otherwise. [employer] drug information does not endorse drugs, diagnose patients or recommend therapy. [employer] drug information is an informational resource designed [...] effective or appropriate for any given patient. [employer] does not assume any responsibility for any aspect of healthcare administered with the aid of information contrib[employer] provides. The information contained herein is not intended to cover all possible uses, directions, precautions, warnings, drug interactions, allergic reactions, or adverse effects. If you have questions about the drugs you are taking, check with your doctor, nurse or pharmacist. Copyright 2532-0333 [facility] [place]. Version: 14.01. Revision Date: 05/05/2017.ferrous gluconate (FATMATA us GLOO koe antonietta) Demarco Barr What is the most important [...] allergic to it, or if you have: ? iron overload disorder (hemochromatosis, hemosiderosis); or ?? hemolytic anemia (caused by the breakdown of red blood cells). To make sure ferrous gluconate is safe for you, tell your doctor if you have ever had: ? ulcerative colitis; ?? stomach ulcers or similar [...] This is especially important if you take: ? ciprofloxacin, levofloxacin, lomefloxacin, norfloxacin, ofloxacin; or ?? [...] your doctor at once if you have: ? bright red blood in your stools; ?? black or tarry stools; ?? a fever; ?? stomach pain; ?? coughing up blood or vomit that looks like coffee grounds; or ?? pain in your chest or throat when swallowing a ferrous gluconate tablet. Common side effects may include: ? constipation, diarrhea; ?? nausea, vomiting, stomach pain; ?? loss of appetite; ?? green-colored stools; or ?? temporary staining of the teeth. This is not a complete list of side effects and others may occur. Call your doctor for medical advice about side effects. You may report side effects to FDA at 1-123-APJ-2735. What other drugs will affect ferrous gluconate? Other drugs may interact with ferrous gluconate, including prescription and qcbw-led-iwbilvm medicines, vitamins, and herbal products. Tell your [...] to ensure that the information provided by [employer]') is accurate, up-to-date, and complete, but no guarantee is made to that effect. Drug information contained herein may be time sensitive. [employer].com information has been compiled for use by healthcare practitioners and consumers in the [place] and therefore [employer].com does not warrant that uses outside of the [place] are appropriate, unless specifically indicated otherwise. [employer] drug information does not endorse drugs, diagnose patients or recommend therapy. [employer] drug information is an informational resource designed [...] effective or appropriate for any given patient. [employer] does not assume any responsibility for any aspect of healthcare administered with the aid of information [employer] provides. The information contained herein is not intended to cover all possible uses, directions, precautions, warnings, drug interactions, allergic reactions, or adverse effects. If you have questions about the drugs you are taking, check with your doctor, nurse or pharmacist. Copyright 4617-5117 [employer]. Version: 2.01. Revision Date: 04/21/2017.acetaminophen and oxycodone (a SEET a MIN oh [...] acetaminophen or oxycodone, or if you have: ? severe asthma or breathing problems; or ?? a blockage in your stomach or intestines. Tell your doctor if you have ever had: ? liver disease; ?? a drug or alcohol [...] your doctor at once if you have: ? noisy breathing, sighing, shallow breathing; ?? a [...] fertility are permanent. Common side effects include: ? dizziness, drowsiness, feeling tired; ?? feelings of extreme happiness or sadness; ?? nausea, vomiting, stomach pain; ?? constipation; or ?? headache. This is not a complete list of side effects and others may occur. Call your doctor for medical advice about side effects. You may report side effects to FDA at 7-836-JAN-2103. What other drugs will affect acetaminophen and [...] your doctor knows if you also use: ? cold or allergy medicines, bronchodilator asthma/COPD medication, [...] affect acetaminophen and oxycodone, including prescription and paic-tey-pbdbstz medicines, vitamins, and herbal products. Not all [...]
--- OUTSIDE RECORDS SUMMARY | 2025-04-25 12:04 | XMS_ITS | Encounter Summary ---
Author Organization [employer] ([place], [place], [place], [place]) Address [address] [place] [address] Care Team Providers Care Adjunct English Instructor Name Role Phone Unavailable Primary Care Provider Unavailabl e Encounter Details Date Type Department Care Team (Late st Contact Info) Description 04/25/2019 Transcribed Document [facility] Family Medicine [facility] [place] [address] ProviderLuis Armando MD [address] [place] [address] Social History Tobacco Use Types Packs/Day Years Used Date Smoking Tobacco: Never Assessed Comments Unknown Sex and Gender Information Value Date Recorded Sex Assigned at Not on file Legal Sex Female 7:30 PM CDT Gender Identity Not on file Sexual Orientation Not on file documented as of this encounter Miscellaneous Notes * Cerner Conversion Note - Historical ProviderMD - 04/25/2019 10:00 PM CDT Pain Assessment Entered On: 04/25/2019 23:36 EDT Performed On: 04/25/2019 23:02 EDT by Swetha Alston LPN Intervention Information: ketorolac Performed by Swetha Alston LPN on 04/25/2019 22:32:00 EDT ketorolac,15mg IV Push,Left Mid Forearm Pain Assessment Pain Assessment : Follow-up assessment Pain Scale Goal : 4 Pain Scale Used : 0-10 Scale Location : Knee, left Onset : Abrupt Quality : Aching Pain Radiation : No Pain Improved by : Medication Pain Worsened by : Movement Pain Intervention, Drug : Medicated Pain Improved by Intervention : Yes Swetha Alston LPN - 04/25/2019 23:35 EDT Pain Scale Intensity : 2 Swetha Alston LPN - 04/25/2019 23:35 EDT Image 4 - Images currently included in the form version of this document have not been included in the text rendition version of the form. documented in this encounter Plan of Treatment Not on file documented as of this encounter Visit Diagnoses Not on filedocumented in this encounter
--- OUTSIDE RECORDS SUMMARY | 2025-04-25 12:04 | XMS_ITS | Encounter Summary ---
Author Organization [employer] ([place], [place], [place], [place]) Address [address] [place] [address] Care Team Providers Care Environmental Education Specialist Name Role Phone Unavailable Primary Care Provider Unavailabl e Encounter Details Date Type Department Care Team (Late st Contact Info) Description 01/24/2019 Transcribed Document [facility] [address] [place] [address] Chanel Doty MD [address] [place] [address] Social History Tobacco Use Types Packs/Day Years Used Date Smoking Tobacco: Never Assessed Comments Unknown Sex and Gender Information Value Date Recorded Sex Assigned at Not on file Legal Sex Female 7:30 PM CDT Gender Identity Not on file Sexual Orientation Not on file documented as of this encounter Miscellaneous Notes * Cerner Conversion Note - Chanel Doty MD - 01/24/2019 7:28 AM EDT Patient: EMELY ROB Age: 68 Years Sex: Female : 1950 Admit Date 01/21/2019 05:45 Discharge Date January 24, 2019 Primary Care Provider CHAU AJ [facility] 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 Rob is very pleasant 68-year-old female, on whom I had performed a left total knee arthroplasty approximately two years ago. Her initial postoperative course was uncomplicated and she did very well. She presented to me with signs and symptoms of increasing pain and swelling in her left knee for approximately three months. Her inflammatory markers were significantly elevated. Aspiration revealed significantly elevated white blood cell count and neutrophil percentage. Synovasure testing was positive. Cultures were largely negative except for growth of P. acnes from broth only. 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 Following a thorough discussion of risks and benefits of various modes of treatment, patient agreed to proceed with explantation of her components with placement of a antibiotic spacer as part of a two-stage revision. The risks, benefits, and alternatives have been explained to her in detail and she voiced her agreement. Hospital Course Patient was taken to the operating room on date of admission where they underwent the aforementioned procedure without complication. They were then transferred to the floor for postoperative care including PT & OT, consultation of hospitalist for medical care, and discharge planning by nurse navigator. [facility] was consulted and PICC line ordered. Daily infusion at their practice organized. Vital Signs T: 37.1 ??C TMIN: 36.9 ??C TMAX: 37.1 ??C HR: 85(Monitored) RR: 16 BP: 129/46 SpO2: 97% Oxygen Settings (Last) Oxygen Therapy Mode: Nasal cannula (01/23/19 21:30:00 EDT) Oxygen Flow Rate: 1 Liter/Min (01/23/19 21:30:00 EDT) Physical Exam The dressing is clean dry secure. The operative extremity is neurovascularly intact with the exception to which is attributed to peripheral nerve block. Compartments are soft. Knee immobilizer in place and secure Discharge Disposition Discharge to home with daily outpatient infusion at [facility]. Discharge Follow Up MJ GALLARDO - 01/25/2019 10:00 ROLF WARE PA-KARYN - 02/09/2019 16:00 Discharge Medications (13) Active aspirin 81 mg oral [...] Vitamin D3 5,000 Int Units, Oral, Daily Code Status Start: 01/21/19 14:35:00 EDT, Full Code, Continuous Order Condition on Discharge Stable Consulting Physicians CADY BENNETT MD DOODNAUTH, DAVANAND C, MD-INT [facility] GALLARDO MD-INF Current Diet Order Diet, Adult - Ordered -- Start: 01/21/19 16:10:00 EDT, Regular Diet, Isolation: Standard Precautions Patient Discharge Summary Orders Patient is touchdown weightbearing. The patient should minimize ambulation, and focus on copious ice and elevation to reduce swelling. Knee immobilizer at all times, no knee flexion. Bilateral thigh-high RICHARD hose should be worn 21+ hours per day for 6 weeks for DVT prophylaxis. Dressings remain in place for 7-10 days, during which time the patient may shower. This provided the margins of the dressing are intact. Dressings then can be removed and incision left open to air. Any wound drainage should this be reported to the orthopedic office. Continuous use of cryotherapy as needed for pain and swelling. Recommended as one hour of every 3. Pending Labs In Process SENDOUT REPORT [id number], [id number], RT - Routine, 01/21/19 13:29:00 EDT Pathology Tissue Request [id number], [id number], 01/21/19 13:29:00 EDT, Collected, RT - Routine, 01/21/19 15:17:51 EDT, JUAN RODAS [employer], Specimen Type: AP Specimen, Specimen Desc: Explanted hardware from left knee Preliminary Culture Anaerobic Specimen Type: Surgical Swab, From: Knee L, Routine collect, Collected, 01/21/19 13:33:00 EDT By: CHANEL DOTY MD-ORT, 1-Time, Stop: 01/21/19 13:33:00 EDT, Nurse Collect, Print Label By Order Location Culture Wound and Stain Specimen Type: Surgical Swab, From: Knee L, Routine collect, Collected, 01/21/19 13:33:00 EDT By: CHANEL DOTY MD-ORT, 1-Time, Stop: 01/21/19 13:33:00 EDT, Nurse Collect, Print Label By Order Location Culture Anaerobic Specimen Type: Tissue, From: Knee L, Routine collect, Collected, 01/21/19 13:34:00 EDT By: CHANEL DOTY MD-ORT, 1-Time, Stop: 01/21/19 13:34:00 EDT, Nurse Collect, Specimen Desc: synovium 1, Print Label By Order Location Culture Tissue and Stain Specimen Type: Tissue, From: Knee L, Routine collect, Collected, 01/21/19 13:35:00 EDT By: CHANEL DOTY MD-ORT, 1-Time, Stop: 01/21/19 13:35:00 EDT, Nurse Collect, Specimen Desc: synovium 1, Print Label By Order Location Culture Anaerobic Specimen Type: Tissue, From: Knee L, Routine collect, Collected, 01/21/19 13:37:00 EDT By: CHANEL DOTY MD-ORT, 1-Time, Stop: 01/21/19 13:37:00 EDT, Nurse Collect, Specimen Desc: synovium 2, Print Label By Order Location Culture Tissue and Stain Specimen Type: Tissue, From: Knee L, Routine collect, Collected, 01/21/19 13:37:00 EDT By: CHANEL DOTY MD-ORT, 1-Time, Stop: 01/21/19 13:37:00 EDT, Nurse Collect, Specimen Desc: synovium 2, Print Label By Order Location Culture Anaerobic Specimen Type: Tissue, From: Knee L, Routine collect, Collected, 01/21/19 13:39:00 EDT By: CHANEL DOTY MD-ORT, 1-Time, Stop: 01/21/19 13:39:00 EDT, Nurse Collect, Specimen Desc: synovium 3, Print Label By Order Location Culture Tissue and Stain Specimen Type: Tissue, From: Knee L, Routine collect, Collected, 01/21/19 13:39:00 EDT By: CHANEL DOTY MD-ORT, 1-Time, Stop: 01/21/19 13:39:00 EDT, Nurse Collect, Specimen Desc: synovium 3, Print Label By Order Location Culture Anaerobic Specimen Type: Tissue, From: Knee L, Routine collect, Collected, 01/21/19 13:45:00 EDT By: CHANEL DOTY MD-ORT, 1-Time, Stop: 01/21/19 13:45:00 EDT, Nurse Collect, Specimen Desc: synovium 4, Print Label By Order Location Culture Tissue and Stain Specimen Type: Tissue, From: Knee L, Routine collect, Collected, 01/21/19 13:45:00 EDT By: CHANEL DOTY MD-ORT, 1-Time, Stop: 01/21/19 13:45:00 EDT, Nurse Collect, Specimen Desc: synovium 4, Print Label By Order Location Stain Culture AFB and Stain Specimen Type: Surgical Swab, From: Knee L, Routine collect, Collected, 01/21/19 13:32:00 EDT By: CHANEL DOTY MD-ORT, 1-Time, Stop: 01/21/19 13:32:00 EDT, Nurse Collect, Print Label By Order Location Culture Fungus Specimen Type: Surgical Swab, From: Knee L, Routine collect, Collected, 01/21/19 13:33:00 EDT By: CHANEL DOTY MD-ORT, 1-Time, Stop: 01/21/19 13:33:00 EDT, Nurse Collect, Print Label By Order Location Culture AFB and Stain Specimen Type: Tissue, From: Knee L, Routine collect, Collected, 01/21/19 13:34:00 EDT By: CHANEL DOTY MD-ORT, 1-Time, Stop: 01/21/19 13:34:00 EDT, Nurse Collect, Specimen Desc: synovium 1, Print Label By Order Location Culture Fungus Specimen Type: Tissue, From: Knee L, Routine collect, Collected, 01/21/19 13:34:00 EDT By: CHANEL DOTY MD-ORT, 1-Time, Stop: 01/21/19 13:34:00 EDT, Nurse Collect, Specimen Desc: synovium 1, Print Label By Order Location Culture AFB and Stain Specimen Type: Tissue, From: Knee L, Routine collect, Collected, 01/21/19 13:37:00 EDT By: CHANEL DOTY MD-ORT, 1-Time, Stop: 01/21/19 13:37:00 EDT, Nurse Collect, Specimen Desc: synovium 2, Print Label By Order Location Culture Fungus Specimen Type: Tissue, From: Knee L, Routine collect, Collected, 01/21/19 13:37:00 EDT By: CHANEL DOTY MD-ORT, 1-Time, Stop: 01/21/19 13:37:00 EDT, Nurse Collect, Specimen Desc: synovium 2, Print Label By Order Location Culture AFB and Stain Specimen Type: Tissue, From: Knee L, Routine collect, Collected, 01/21/19 13:39:00 EDT By: CHANEL DOTY MD-ORT, 1-Time, Stop: 01/21/19 13:39:00 EDT, Nurse Collect, Specimen Desc: synovium 3, Print Label By Order Location Culture Fungus Specimen Type: Tissue, From: Knee L, Routine collect, Collected, 01/21/19 13:39:00 EDT By: CHANEL DOTY MD-ORT, 1-Time, Stop: 01/21/19 13:39:00 EDT, Nurse Collect, Specimen Desc: synovium 3, Print Label By Order Location Culture AFB and Stain Specimen Type: Tissue, From: Knee L, Routine collect, Collected, 01/21/19 13:45:00 EDT By: CHANEL DOTY MD-ORT, 1-Time, Stop: 01/21/19 13:45:00 EDT, Nurse Collect, Specimen Desc: synovium 4, Print Label By Order Location Culture Fungus Specimen Type: Tissue, From: Knee L, Routine collect, Collected, 01/21/19 13:45:00 EDT By: CHANEL DOTY MD-ORT, 1-Time, Stop: 01/21/19 13:45:00 EDT, Nurse Collect, Specimen Desc: synovium 4, Print Label By Order Location Time Spent on Discharge 20 minutes documented in this encounter Plan of Treatment Not on file documented as of this encounter Visit Diagnoses Not on filedocumented in this encounter
--- OUTSIDE RECORDS SUMMARY | 2025-04-25 12:04 | XMS_ITS | Encounter Summary ---
Author Organization [employer] ([place], [place], [place], [place]) Address [address] [place] [address] Care Team Providers Care Radio Frequency Technician Name Role Phone Unavailable Primary Care Provider Unavailabl e Encounter Details Date Type Department Care Team (Late st Contact Info) Description 04/25/2019 Transcribed Document [facility] Family Medicine [address] [place] [address] ProviderLuis Armando MD [address] [place] [address] Social History Tobacco Use Types Packs/Day Years Used Date Smoking Tobacco: Never Assessed Comments Unknown Sex and Gender Information Value Date Recorded Sex Assigned at Not on file Legal Sex Female 7:30 PM CDT Gender Identity Not on file Sexual Orientation Not on file documented as of this encounter Miscellaneous Notes * Cerner Conversion Note - Historical ProviderMD - 04/25/2019 3:45 PM CDT Orthopedic Nurse Navigator Entered On: 04/25/2019 15:46 EDT Performed On: 04/25/2019 15:45 EDT by ZAYRA YODER Rn-Ortho Nurse Navigator Orthopedic Nurse Navigator Assessment Anticipated Discharge Plan Comment : Plan d/c home with the help of and son and [facility]. ZAYRA YODER Rn-Ortho Nurse Navigator - 04/25/2019 15:45 EDT documented in this encounter Plan of Treatment Not on file documented as of this encounter Visit Diagnoses Not on filedocumented in this encounter
--- OUTSIDE RECORDS SUMMARY | 2025-04-25 12:04 | XMS_ITS | Encounter Summary ---
Author Organization [employer] ([place], [place], [place], [place]) Address [address] [place] [address] Care Team Providers Care Button Clamper Name Role Phone Unavailable Primary Care Provider Unavailabl e Encounter Details Date Type Department Care Team (Late st Contact Info) Description 01/21/2019 Transcribed Document [facility] [address] [place] [address] Dao Doty MD [address] [place] [address] Social History Tobacco Use Types Packs/Day Years Used Date Smoking Tobacco: Never Assessed Comments Unknown Sex and Gender Information Value Date Recorded Sex Assigned at Not on file Legal Sex Female 7:30 PM CDT Gender Identity Not on file Sexual Orientation Not on file documented as of this encounter Miscellaneous Notes * Cerner Conversion Note - Dao Doty MD - 01/21/2019 3:35 PM EDT DATE OF PROCEDURE:01/21/2019 ORTHOPEDIC SURGERY OPERATIVE REPORT ATTENDING PHYSICIAN: Dao Doty M.D. PREOPERATIVE DIAGNOSIS(ES): Infected left total knee arthroplasty. POSTOPERATIVE DIAGNOSIS(ES): Infected left total knee arthroplasty. PROCEDURE: 1. Explantation of components, left total knee arthroplasty with placement of articulating antibiotic cement spacer. 2. Irrigation and debridement, left knee to include skin, subcutaneous tissue, muscle, fascia, and bone of approximately 40 square centimeters. 3. Placement of absorbable antibiotic cement beads, left knee. SURGEON: Dao Doty M.D. WINE MERCHANT: Josue Mccann. ANESTHESIA: General endotracheal anesthesia with femoral and sciatic nerve blocks. ESTIMATED BLOOD LOSS: 200 mL. TOTAL TOURNIQUET TIME: 73 minutes. COMPLICATIONS: None. IMPLANTS USED: 1. Gia Triathlon size 3 cruciate retaining femoral component. 2. Triathlon size 3, 16 mm CS all polyethylene tibial component. ANTIBIOTIC CEMENT RECIPE: 3 g of vancomycin, 2.4 g of tobramycin per 40 g batch of cement. A total of three batches were utilized. In addition, an additional 4 g of vancomycin were placed in 10 mL of OsteoBoost beads. INDICATIONS FOR PROCEDURE: Ms. Villanueva is very pleasant 68-year-old female, on whom [...] in detail and she voiced her agreement. INTRAOPERATIVE FINDINGS: Again as noted above, these were Triathlon components. CR femoral component. Significant amount of dishwater type fluid throughout the joint as well as marked synovitis. The femoral component was easily extracted with no significant bone loss. There was some slight peel of the lateral epicondyle. Removal of the tibial component did result in a moderate amount of posterolateral bone loss. The fibular head was exposed. There was a nondisplaced fracture of the posteromedial cortex of the tibia. We did utilize an articulating spacer. We utilized a CR femoral component as part of our spacer. We did utilize dowels in the canals with the above-mentioned antibiotic cement recipe. At the time of reconstruction, we should be able to come back with a standard PS instrumentation. She will certainly require tone augmentation on the tibia, possibly an asymmetric cone. A standard PS reconstruction on the femoral side. The patella was quite thin and likely not amenable to resurfacing. DESCRIPTION OF THE PROCEDURE: Patient identified in the preoperative holding area and the appropriate left lower extremity was marked. She was transferred to the operating theater. General anesthesia induced by the attending anesthesia staff. The patient was given 900 mg of clindamycin for preop antibiotic prophylaxis secondary to her PENICILLIN allergy. She was also given 1 g intravenous tranexamic acid. Tourniquet placed on the proximal aspect of the left thigh. Left leg prepped and draped in usual sterile fashion. Time-out was performed. Appropriate patient and operative extremity were confirmed. The patient's previous midline skin incision was utilized and extended several centimeters proximally and distally. Full-thickness medial and lateral skin flaps were created. Standard medial parapatellar arthrotomy was performed. We performed a thorough medial release. Swabs were taken and sent for culture. We performed thorough medial and lateral synovectomies. Several samples were taken and sent for culture. The gutters were re-established. Next, the knee was flexed up. The existing polyethylene component was easily removed. We turned our attention to femoral component exposure. The interface was cleared of soft tissues. It was disrupted with osteotomes and a microsagittal saw. Femoral component was then easily extracted with no significant bone loss. We then turned our attention to tibial exposure. We performed a thorough posteromedial release. We thoroughly debrided the posterolateral corner. The tibial interface was cleared of soft tissues. It was disrupted with osteotomes, a microsagittal saw, and a single side reciprocating saw. The tibial component was then extracted with a moderate amount of posteromedial bone loss as noted above. We did also sustain a small nondisplaced fracture of the posteromedial cortex of the tibia as well. Residual cement was then removed from the tibial platform and the tibial canal. We turned our attention to patellar component removal. It was cleared of soft tissues. The patellar button was then removed with an oscillating saw. A pencil tip bur was then used to remove the residual lugs and any residual cement. We then reamed the femoral and tibial canals to 11 mm. We did not perform a freshening cut on the tibia. We provisionally irrigated the wound with 3 L of bacitracin containing normal saline. We came back for a second look. Residual cement and devitalized tissue was debrided. We performed thorough posterior synovectomy. The canals were then irrigated with additional 3 L bag. We sized the tibia to a size 3. That trial was placed. No additional tibial preparation was necessary. Rotation was marked. The femur was also sized to a size 3. We placed femoral and tibial trial components. We balanced the knee in flexion then brought it out into full extension. Stability was found to be appropriate. At this point, all trials were removed. We fashioned two cement dowels over 9.0 mm endotracheal tubes and twisted Lincoln wires on the back table. The wound was then irrigated with dilute Betadine lavage and irrigated with an additional 3 L bag. At this point, the tourniquet was let down. The femoral followed by the tibial components were then loosely cemented in place with high-dose antibiotic cement. The recipe as noted above. The knee was brought into extension until complete cement curing. A patellar button was then fashioned out of cement. The extensor mechanism and other soft tissues were then infiltrated with a pain cocktail. All bleeding was controlled with electrocautery. A drain placed in the lateral gutter and brought out through the skin. Beads were placed in the medial and lateral gutters. The arthrotomy was then closed with #1 Stratafix. 2 g topical tranexamic acid was injected in the joint. Skin closed in layers with Vicryl and skin bright. Wound was covered with an Aquacel dressing. Next, drapes were removed. Patient carefully transferred to a stretcher. Operative extremity placed in a compression Raghav wrap as well as a knee immobilizer. She was then extubated without incident and taken to PACU in stable condition. All instruments, sponge, needle counts were correct at the end of the case. Dao Doty M.D. Dict: 01/21/2019 14:35:58 Trans: 01/21/2019 16:29:38 CC1: Dao Doty M.D. documented in this encounter Plan of Treatment Not on file documented as of this encounter Visit Diagnoses Not on filedocumented in this encounter
--- OUTSIDE RECORDS SUMMARY | 2025-04-25 12:04 | XMS_ITS | Encounter Summary ---
Author Organization [employer] ([place], [place], [place], [place]) Address [address] [place] [address] Care Team Providers Care Bag Cutter Name Role Phone Unavailable Primary Care Provider Unavailabl e Encounter Details Date Type Department Care Team (Late st Contact Info) Description 01/24/2019 Transcribed Document [facility] [place] [facility] [place] [address] ProviderLuis Armando MD [address] [id number] Social History Tobacco Use Types Packs/Day Years Used Date Smoking Tobacco: Never Assessed Comments Unknown Sex and Gender Information Value Date Recorded Sex Assigned at Not on file Legal Sex Female 7:30 PM CDT Gender Identity Not on file Sexual Orientation Not on file documented as of this encounter Miscellaneous Notes * Cerner Conversion Note - Historical ProviderMD - 01/24/2019 8:04 AM CDT Patient: EMELY ROB Age: 68 years Sex: Female : 1950 Associated Diagnoses: None Author: IRVIN GARCIA NP-FAM cc: medical managment s/p left total knee explant wth abx spacer placement per Dr. Doty S: Doing well hoping to [facility] today doing better transferring No fevers, chills, sweats No shortness of breath, cough No Chest pain, palpitations, syncope No nausea, vomiting,+flatus, +BM No hematuria, dysuria + post-op knee pain HPI: Patient is an 68 y/o female admitted to [facility] per Dr. Doty for a left [...] 24 hrs) Last Charted Minimum Maximum Temp 98.4 (JAN 24 06:00) 97 (JAN 23 18:00) 98.4 (JAN 23 11:28) Mon HR 89 (JAN 24 06:00) 78 (JAN 24:44) 96 (JAN 23 21:13) Resp Rate 18 (JAN 24:) 16 (JAN 23 18:00) 18 (JAN 24:00) SBP 137 (JAN 24:) 113 (JAN 23 15:00) H 150 (JAN 2444) DBP 65 (JAN 24:) L 46 (JAN 23 18:00) 68 (JAN 2444) MAP 80 (JAN 24:) 64 (JAN 23 15:00) 87 (JAN 2444) SpO2 95 (JAN 24:) L 85 (JAN 23 16:01) 97 (JAN 23 16:02) PE: obese white female, pleasant, cooperative, good historian, laying in bed, family at bedside nc/at, eomi, PEERL, pink conjunctiva, moist mucous membranes, no thyromegaly or cervical lymphadenopathy =expansion b/l , no wheezing or rhonchi non-displaced PMI, S1S2 ABD is obese, soft non-tender, non-distended, active bowel sounds skin warm, dry without rashes ext: no low ext edema, no calf tenderness neuro: cn 2-12 intact; no gross motor -sensory deficits psych: appropriate affect and mood Data: JAN 24 02:54 142 107 10 / 104 4.2 H 34 L 0.50 \ JAN 24 02:54 \ L 8.3 / 5.4 189 / L 26.0 \ intra-op hypotension noted Reviewed PREOP CBC, CMP, coags 12/31/18 A1C 5.8 echo- normal LVSF, DF, trace AR, EF 60% Impression: left knee prosthesis infection s/p left knee explant with abx spacer ABL anemia s/p left total knee arthroplasty per Dr. Velasquez ABL anemia hx Aflutter hx Endometriosis hx Hard of hearing hx High blood pressure Hx of hypoglycemia hx Hyperlipidemia Plan: DC today per ortho ceftriaxone per ID resume maxzide bowel regimen- has miralax at home PT/OT incentive spirometer DVT prophylaxis: SCDS, ASA, eliquis resume outpatient medication regimen for comorbidities Assessment and treatment plan made in conjunction with Rogelio Ramos MD documented in this encounter Plan of Treatment Not on file documented as of this encounter Visit Diagnoses Not on filedocumented in this encounter
--- OUTSIDE RECORDS SUMMARY | 2025-04-25 12:04 | XMS_ITS | Encounter Summary ---
Author Organization [employer] ([place], [place], [place], [place]) Address [address] [place] [address] Care Team Providers Care Level Vial Inspector Name Role Phone Unavailable Primary Care Provider Unavailabl e Encounter Details Date Type Department Care Team (Late st Contact Info) Description 01/21/2019 Transcribed Document [facility] [place] Family Medicine [facility] [place] [address] ProviderLuis Armando MD [facility] [place] [address] Social History Tobacco Use Types Packs/Day Years Used Date Smoking Tobacco: Never Assessed Comments Unknown Sex and Gender Information Value Date Recorded Sex Assigned at Not on file Legal Sex Female 7:30 PM CDT Gender Identity Not on file Sexual Orientation Not on file documented as of this encounter Miscellaneous Notes * Cerner Conversion Note - Luis Armando ProviderMD - 01/21/2019 11:29 AM CDT Procedural Documentation Entered On: 01/21/2019 11:31 EDT Performed On: 01/21/2019 11:29 EDT by Carolyn Bee RN Procedure Documentation Time Out Pause Time : 01/21/2019 11:20 EDT All Activity Suspended : Yes Team Verbally Confirms Information : Correct patient identity, Correct side and site are marked, Consent form is present and accurate, Agreement on the procedure to be done, Correct patient position, Confirm the skin prep has dried, Performed in location of procedure after prepped/draped Procedure Performed : left scaitic/femoral block Proper Use of Sterile Apparel per Policy : Yes Procedure Case Attendee : RAFI LING MD Procedure Case Attendee Role : Anesthesiologist Procedure Case Attendee Role 2 : infrastructure manager Case Attendee 2 : PARI Johnson RN Procedure Case Attendee Role 3 : infrastructure manager Case Attendee 3 : Carolyn Bee RN Reisner, Katie, RN - 01/21/2019 11:32 EDT Procedure to be Performed : left scaitic/femoral block Carolyn Bee RN - 01/21/2019 11:29 EDT Postprocedure Documentation Current Time : 11:32 EST Carolyn Bee RN - 01/21/2019 11:32 EDT Odilon Level I Post Anesthesia Assessment [...] Score : 8 Carolyn Bee RN - 01/21/2019 11:32 EDT Vital Measurements Pulse Method : Pulse Oximetry Peripheral Pulse Rate : 88 bpm Pulse Rhythm : Regular Respiratory Rate : 16 Breaths/Min Blood Pressure Location : Arm, left upper Blood Pressure Source : Non-Invasive BP Device Blood Pressure Position : Supine Systolic Blood Pressure : 122 mmHg Diastolic Blood Pressure : 50 mmHg (LOW) Oxygen Saturation : 95 % Oxygen Therapy Mode : Nasal cannula Oxygen Flow Rate : 2 Liter/Min Carolyn Bee RN - 01/21/2019 11:32 EDT documented in this encounter Plan of Treatment Not on file documented as of this encounter Visit Diagnoses Not on filedocumented in this encounter
--- OUTSIDE RECORDS SUMMARY | 2025-04-25 12:04 | XMS_ITS | Encounter Summary ---
Author Organization [employer] ([place], [place], [place], [place]) Address [address] [place] [address] Care Team Providers Care Care Asst Name Role Phone Unavailable Primary Care Provider Unavailabl e Encounter Details Date Type Department Care Team (Late st Contact Info) Description 01/21/2019 Transcribed Document [facility] [place] Family Medicine [address] [place] [address] ProviderLuis Armando MD [address] [place] [address] Social History Tobacco Use Types Packs/Day Years Used Date Smoking Tobacco: Never Assessed Comments Unknown Sex and Gender Information Value Date Recorded Sex Assigned at Not on file Legal Sex Female 7:30 PM CDT Gender Identity Not on file Sexual Orientation Not on file documented as of this encounter Miscellaneous Notes * Cerner Conversion Note - Historical ProviderMD - 01/21/2019 2:35 PM CDT Pain Assessment Entered On: 01/22/2019 5:05 EDT Performed On: 01/21/2019 19:19 EDT by LEENA BROWER LPN Intervention Information: oxyCODONE Performed by CJ MAURO RN on 01/21/2019 18:19:00 EDT oxyCODONE,5mg Oral,Pain (Moderate 4-6) Pain Assessment Pain Assessment : Follow-up assessment Pain Scale Goal : 4 Pain Scale Used : 0-10 Scale Pain Improved by Intervention : Yes LEENA BROWER LPN - 01/22/2019 5:05 EDT Pain Scale Intensity : 2 LEENA BROWER LPN - 01/22/2019 5:05 EDT Image 4 - Images currently included in the form version of this document have not been included in the text rendition version of the form. documented in this encounter Plan of Treatment Not on file documented as of this encounter Visit Diagnoses Not on filedocumented in this encounter
--- OUTSIDE RECORDS SUMMARY | 2025-04-25 12:04 | XMS_ITS | Encounter Summary ---
Author Organization [employer] ([place], [place], [place], [place]) Address [address] [place] [address] Care Team Providers Care President Finance Company Name Role Phone Unavailable Primary Care Provider Unavailabl e Encounter Details Date Type Department Care Team (Late st Contact Info) Description 01/18/2019 Transcribed Document [facility] [place] Family Medicine [facility] [place] [address] ProviderLuis Armando MD [facility] [place] [id number] Social History Tobacco Use Types Packs/Day Years Used Date Smoking Tobacco: Never Assessed Comments Unknown Sex and Gender Information Value Date Recorded Sex Assigned at Not on file Legal Sex Female 7:30 PM CDT Gender Identity Not on file Sexual Orientation Not on file documented as of this encounter Miscellaneous Notes * Cerner Conversion Note - Historical ProviderMD - 01/18/2019 12:24 PM CDT Spiritual Care Assessment Entered On: 01/21/2019 13:04 EDT Performed On: 01/21/2019 12:01 EDT by CINTHYA ADAMS General Information Initial Visit : Yes Referred by : Patient Referral Reason Comment : Pre-surgery visit Ministry Provided to : Patient, Family/Significant other CINTHYA ADAMS P - 01/21/2019 13:03 EDT Spiritual Assessment Spiritual Assessment Comment/Summary Points : Pre-surgery visit and prayer with patient and family members. Spirital Assessment Comment/Summary Report : SPIRITUAL ASSESSMENT COMMENT/SUMMARY No qualifying data available. CINTHYA ADAMS - 01/21/2019 13:03 EDT Interventions Emotional Support : Empathic/Engaged listening, Family/Significant other supported, Relationship strengths identified Spiritual and Confucianist : Prayer shared, Spiritual/Confucianist support provided CINTHYA ADAMS - 01/21/2019 13:03 EDT documented in this encounter Plan of Treatment Not on file documented as of this encounter Visit Diagnoses Not on filedocumented in this encounter
--- OUTSIDE RECORDS SUMMARY | 2025-04-25 12:04 | XMS_ITS | Encounter Summary ---
Author Organization [employer] ([place], [place], [place], [place]) Address [address] [place] [address] Care Team Providers Care Adaptive Physical Education Teacher Name Role Phone Unavailable Primary Care Provider Unavailabl e Encounter Details Date Type Department Care Team (Late st Contact Info) Description 01/21/2019 Transcribed Document [facility] [place] [facility] [place] [address] ProviderLuis Armando MD [facility] [place] [address] Social History Tobacco Use Types Packs/Day Years Used Date Smoking Tobacco: Never Assessed Comments Unknown Sex and Gender Information Value Date Recorded Sex Assigned at Not on file Legal Sex Female 7:30 PM CDT Gender Identity Not on file Sexual Orientation Not on file documented as of this encounter Miscellaneous Notes * Cerner Conversion Note - Historical ProviderMD - 01/21/2019 5:45 AM CDT Admission History, Adult Entered On: 01/21/2019 16:27 EDT Performed On: 01/21/2019 16:30 EDT by CJ MAURO RN Advance Directive Patient has Advance Directive *Q : Yes, Advance Directive on file Advance Directive Type : Living will Copy Advance Directive Verified/on Chart : No CJ MAURO RN - 01/21/2019 16:23 EDT Anesthesia/Transfusion History Family History of Anesthesia Reaction : No prior transfusion(s) Blood Transfusion Acceptable to Patient : Yes Transfusion History : Prior anesthesia reaction Type of Anesthesia Reaction : Excessive somnolence, Excessive nausea/vomiting Family History of Anesthesia Reaction : Other: niece - nausea CJ MAURO RN - 01/21/2019 16:23 EDT Education Topics, Admission Orientation DCP GENERIC CODE Assessment/Vital Signs : Verbalizes understanding Bed Control : Verbalizes understanding Call Light : Verbalizes understanding Diet/Room Service : Verbalizes understanding Fall Prevention : Verbalizes understanding Orientation to Room/Bathroom : Verbalizes understanding Patient Safety : Verbalizes understanding Rounding : Verbalizes understanding CJ MAURO RN - 01/21/2019 16:52 EDT Functional Assessment Living Situation : Home Patient Lives With : Spouse Current Daily Living Assistance : None Sensory Deficits : None Mobility Assistance Prior to Admission : Independent Current Home Treatments : None Home Equipment : Cane, Commode, Crutches, Walker CJ MAURO RN - 01/21/2019 16:23 EDT General Info Preferred Name : Inna Support Person/Patient Development Engineer : Yes Support Person/Pt Rep Name : Darron Villanueva, spouse Support Person/Pt Rep Contact Information : [phone] cell Want Family/Rep/Phys Notified of Admit : No Emergency Contact #1 : Buddy Villanueva Emergency Contact #1 cell,, [phone] home Emergency Contact #1 Relationship : spouse Emergency Contact #2 : Kareem Villanueva Emergency Contact #2 cell Emergency Contact #2 Relationship : son Information Obtained From : Patient Primary Language : Ivorian Preferred Communication Mode : Verbal Communication Barrier : None Objects to Sharing Info w Family : No CJ MAURO RN - 01/21/2019 16:23 EDT Fall Risk Scales ABCs Fall Injury Risk Identification : Bones, Coagulation, Surgery ABC Fall Injury Risk : Moderate to high injury risk Injury Moderate to High Risk Interventions : High Risk for Fall Injury sign in place per policy, Supervise toileting as indicated FITCH Hx Falls Immediate/Within 3 Months : No Fitch Secondary Diagnosis : No FITCH Use of Ambulatory Aid : Bed rest/Nurse assist FITCH IV Therapy or IV Access : Yes Fitch Gait/Transferring : Weak Fitch Mental Status : Oriented to own ability Fitch Fall Risk Score : 30 FITCH Fall Scale Risk Level : 25-45 Medium Risk [place] Fall Interventions : Adequate lighting, Assistive devices within reach, Bed in low position, Call device within reach, Fall prevention handout/education per facility policy, Hourly comfort/safety rounds, Non-slip footwear, Personal items within reach, Reinforced to call for assistance before getting out of bed, Room free of clutter/spills, Upper side-rails up, Wheels locked, Wires/Cords secured Fall Moderate to High Risk Interventions : High Risk for Fall sign in place per policy, Supervise toileting as indicated CJ MAURO RN - 01/21/2019 16:52 EDT Fall Risk Education Grid Call light use : Verbalizes understanding Fall Prevention Protocol : Verbalizes understanding Symptom Reporting : Verbalizes understanding Transfer/Mobility Techniques : Verbalizes understanding Wait for Assistance : Verbalizes understanding CJ MAURO RN - 01/21/2019 16:52 EDT Individuals Taught : Patient, Spouse, Family member Readiness to Learn : Cooperative Baseline Knowledge of Topic : Good Teaching Method : Printed materials Learning Style Preferences Family : Printed materials, Verbal explanation Learning Style Preferences Patient : Printed materials, Verbal explanation Teaching Evaluation : Verbalizes understanding Fall Risk Scale Calc Temp : 1 CJ MAURO RN - 01/21/2019 16:52 EDT Health Histories Smoking Status : Former smoker, quit more than 30 days ago Smokeless Tobacco Status : Never CJ MAURO RN - 01/21/2019 16:52 EDT Social History (As Of: 01/21/2019 16:55:12 EDT) Tobacco: Use in Last 12 Months: No. Years of Use: 10. Packs/Tins Daily: .50. (Last Updated: 04/22/2017 06:50:54 EDT by JESSICA TANNER, ROBB) Last Used: quit in 1998. (Last Updated: 01/18/2019 11:57:35 EDT by MAXIMO ESTRELLA RN) Alcohol: Alcohol Use History Yes. Use in Last 12 Months: Yes. Alcohol Use Frequency Rarely. (Last Updated: 01/18/2019 11:58:05 EDT by MAXIMO ESTRELLA RN) Substance Abuse: Drug Use Hx: No. Use in Last 12 Months: No. (Last Updated: 04/22/2017 06:51:09 EDT by JESSICA TANNER, ROBB) Height and Weight, Clinical Dosing Height Source : Measured Height Entry Format : [place] Height, Feet : 0 ft(Converted to: 0 cm, 0 Inch) Height, Inches : 62 Inch(Converted to: 5 ft 2 Inch, 157.48 cm) Clinical Height : 157.48 cm Weight Source : Standing scale Weight Entry Format : [place] Clinical Dosing Weight : 77.82 kg Weight, Pounds : 171.2 lb Body Surface Area (BSA) : 1.79 m2 Body Mass Index : 31.4 kg/m2 (HI) [place] Body Weight : 50 kg CJ MAURO RN - 01/21/2019 16:52 EDT Infectious Disease History Active Surveillance Screen Assessment : Patient does not meet any of above criteria Travel To Regions with Travel Advisories : No Travel Outside [place] Within Last 30 Days : No Contact With Traveler to Advisory Region : No Tuberculosis Symptoms : None CJ MAURO RN - 01/21/2019 16:52 EDT Infectious Disease History : Chicken pox/Shingles, Influenza, Measles, Mumps Isolation Needed : Standard Fever/Chills Last 48 Hours : No CJ MAURO RN - 01/21/2019 16:23 EDT Influenza Vaccine Asmt, Adult Influenza Immunization, Current Season : Outside of influenza season CJ MAURO RN - 01/21/2019 16:52 EDT Previous Vaccines from Immunization Schedule : Previous Vaccines and Immunizations pneumococcal 13-valent vaccine: 0.5 mL (02/03/17 09:07:00) CJ MAURO RN - 01/21/2019 16:23 EDT Pneumococcal Vaccine Previous Vaccines from Immunization Schedule : Previous Vaccines and Immunizations pneumococcal 13-valent vaccine: 0.5 mL (02/03/17 09:07:00) Pneumonia Immunization Received : Yes CJ MAURO RN - 01/21/2019 16:23 EDT Nutrition History Feeding Ability : Independent Adaptive Feeding Equipment : None Adaptive Feeding Equipment : Regular Eating Poorly Due to Decreased Appetite : No Unplanned Weight Loss in Past 3-6 Months : No Malnutrition Screening Tool Total(mal) : 0 Malnutrition Screening Tool Risk Level : Patient not at risk CJ MAURO RN - 01/21/2019 16:23 EDT Psychosocial History Do You Have a History of the Following? : Depression Currently in Unsafe Situation : No Tried to Harm Yourself in the Past? : No Thoughts of Harming/Killing Yourself : No CJ MAURO RN - 01/21/2019 16:23 EDT Sleep Apnea Risk Assmt Hx of [...] Sleep Apnea Risk Level Score : 2 CJ MAURO RN - 01/21/2019 16:23 EDT Valuables and Belongings Valuables and Belongings : Clothing, Jewelry, Personal devices, Personal items, No comfort items, No assistive devices, No respiratory devices, No medications Clothing : Outerwear Clothing Disposition : Bedside Personal Device Disposition : With patient Jewelry : Ring Jewelry Disposition : With patient Personal Devices : Dentures, partial plate, Glasses Personal Items : Cell phone Personal Items Disposition : Bedside CJ MAURO RN - 01/21/2019 16:23 EDT documented in this encounter Plan of Treatment Not on file documented as of this encounter Visit Diagnoses Not on filedocumented in this encounter
--- OUTSIDE RECORDS SUMMARY | 2025-04-25 12:04 | XMS_ITS | Encounter Summary ---
Author Organization [employer] ([place], [place], [place], [place]) Address [address] [place] [address] Care Team Providers Care Clinical Services Manager Name Role Phone Unavailable Primary Care Provider Unavailabl e Encounter Details Date Type Department Care Team (Late st Contact Info) Description 01/26/2019 Transcribed Document [facility] [place] [address] [place] [address] ProviderLuis Armando MD [address] [place] [address] Social History Tobacco Use Types Packs/Day Years Used Date Smoking Tobacco: Never Assessed Comments Unknown Sex and Gender Information Value Date Recorded Sex Assigned at Not on file Legal Sex Female 7:30 PM CDT Gender Identity Not on file Sexual Orientation Not on file documented as of this encounter Miscellaneous Notes * Cerner Conversion Note - Historical ProviderMD - 01/26/2019 11:12 AM CDT Post Visit Phone Call Entered On: 01/26/2019 11:13 EDT Performed On: 01/26/2019 11:12 EDT by Ying Santiago Rn Post Visit Phone Call Post Visit Phone Call History : First call, Left message Ying Santiago Rn - 01/26/2019 11:12 EDT documented in this encounter Plan of Treatment Not on file documented as of this encounter Visit Diagnoses Not on filedocumented in this encounter
--- OUTSIDE RECORDS SUMMARY | 2025-04-25 12:04 | XMS_ITS | Encounter Summary ---
Author Organization [employer] ([place], [place], [place], [place]) Address [address] [place] [address] Care Team Providers Care Security Operations Analyst Name Role Phone Unavailable Primary Care Provider Unavailabl e Encounter Details Date Type Department Care Team (Late st Contact Info) Description 01/21/2019 Transcribed Document [facility] [place] [address] [place] [address] ProviderLuis Armando MD [address] [place] [address] Social History Tobacco Use Types [...] Historical ProviderMD - 01/21/2019 2:35 PM CDT Evaluation, Occupational Therapy Entered On: 01/22/2019 10:13 EDT Performed On: 01/22/2019 10:13 EDT by NICHOLAS ALVAREZ OTR/Regan General Information, OT Therapy Diagnosis, OT : Decreased I/ADL status and functional mobility Onset of Problem, OT : 01/21/2019 EDT Co-treated by, OT : Physical Therapist Precautions in Place : Fall prevention measures, Other: TDWB LLE; KI on when OOB General Information Comment, OT : Patient presents with left TKA infection. Pt had spacer and explantation of left knee of 01/21/19. Pt is TDWB LLE and needs KI on. NICHOLAS ALVAREZ OTR/Regan - 01/22/2019 11:15 EDT Visit Type, OT : Initial evaluation Patient Orders : Order Date Order Ordering 01/21/2019 14:35 OT Evaluation and Treatment Ordered By: CHANEL DYSON MD-ORT Active Diagnoses : 01/22/2019 00:00 Infection and inflammatory reaction due to other internal joint prosthesis, initial encounter Admission Date : 01/21/2019 05:45 Personal Devices : Personal Devices Dentures, partial plate, Glasses Assistive Devices : Assistive Devices No Devices Recorded NICHOLAS ALVAREZ OTR/Regan - 01/22/2019 10:13 EDT General Status Patient Received Status : Supine in bed Treatment Start Time : 01/22/2019 9:52 EDT Patient Left Status : Up in chair, Family/Visitors at bedside, All needs met and within reach Treatment End Time : 01/22/2019 10:13 EDT Treatment Time : 21 Minute(s) NICHOLAS ALVAREZ OTR/Regan - 01/22/2019 11:15 EDT History and Environment, OT Patient Lives With : Adult Child/Children, Spouse Home Equipment, Therapy : Cane, Commode, Crutches, Walker, Wheelchair Cane : Cane, single point Commode : Commode, bedside Crutches : Crutches, axillary Walker : Walker, front wheel Wheelchair : Wheelchair, standard NICHOLAS ALVAREZ OTR/Regan - 01/22/2019 11:15 EDT Prior LOF Bathing, OT : Independent Prior LOF Bed Mobility : Independent Prior LOF Upper Body Dressing, OT : Independent Prior LOF Lower Body Dressing, OT : Independent Prior LOF Toileting : Independent Prior LOF Transfer : Independent Prior LOF Grooming, OT : Independent Prior LOF for IADLs, OT : Independent NICHOLAS ALVAREZ OTR/Regan - 01/22/2019 11:15 EDT Upper Extremity Upper Extremity Dominance : Right Right UE Active ROM : WFL Right UE Strength : WFL Left UE Active ROM : WFL Left UE Strength : WFL Upper Extremity Strength Impaired : No Right UE Strength : WFL Left UE Strength : WFL NICHOLAS ALVAREZ OTR/Regan - 01/22/2019 11:15 EDT Self Care/Home Management, OT Self Feeding Assist Level, OT : Independent, complete Grooming Assist Level, OT : Independent, complete Bathing Assist Level, OT : Assist, moderate Upper Body Dressing Assist Level, OT : Independent, complete Lower Body Dressing Assist Level, OT : Assist, maximal Toileting Assist Level : Assist, moderate Toilet Transfer Assist Level : Assist, moderate NICOHLAS ALVAREZ OTR/Regan - 01/22/2019 11:15 EDT Functional Mobility Mobility Grid Bed Roll Left : Supervision/set-up Bed Roll Right : Supervision/set-up Bed Scooting : Rehab Moderate assistance Supine to Sit : Rehab Minimal assistance (Comment: pt needs assistance with LLE [NICHOLAS ALVAREZ OTR/Regan - 01/22/2019 11:29 EDT] ) Sit to Stand : Rehab Moderate assistance Bed to Chair : Rehab Moderate assistance Stand to Sit : Rehab Moderate assistance NICHOLAS ALVAREZ OTR/Regan - 01/22/2019 11:15 EDT Cognition Assessment, OT Orientation : Oriented x 4 Cognition Assessment, OT : Intact Comprehension Assessment, OT : Intact Safety/Judgment Assessment, OT : Impaired Follows Basic Command Assessment, OT : Intact Attention Assessment : Present NICHOLAS ALVAREZ OTR/Regan 01/22/2019 11:15 EDT Indication Assessment, OT Occupational Therapy Indicated : Yes Problem List, OT : Impaired, bed mobility, Impaired, activities daily living, Impaired, endurance tolerance, Impaired functional mobility, Impaired, standing balance, Impaired, strength, Impaired, transfers Potential Barriers, OT : Acuity of illness, Pain NICHOLAS ALVAREZ OTR/Regan - 01/22/2019 11:15 EDT Plan of Care, OT OT Tx Plan/Goals Established w Patient : Yes OT Frequency Rehab : Five days per week OT Duration Rehab : Fourteen days OT Treatments Planned : Activities of daily living, Balance training, Functional mobility training, Safety education, Therapeutic activities, Therapeutic exercises Plan of Care Comment, OT : see goals NICHOLAS ALVAREZ OTR/Regan - 01/22/2019 11:15 EDT Retirement Goals, OT Bathing LTG Grid Goal #1 Activity : Bathing Assist : Supervision or set up Date to Meet : 02/05/2019 EDT Goal Status : Initial goal NICHOLAS ALVAREZ OTR/Regan - 01/22/2019 11:15 EDT Dressing, Lower Body LTG Grid Goal #1 Activity : Dressing, Lower Body Assist : Assist, minimal Date to Meet : 02/05/2019 EDT Goal Status : Initial goal NICHOLAS ALVAREZ OTR/Regan - 01/22/2019 11:15 EDT Toileting LTG Grid Goal #1 Activity : Toileting Assist : Supervision or set up Date to Meet : 02/05/2019 EDT Goal Status : Initial goal NICHOLAS ALVAREZYUMIKO/Regan - 01/22/2019 11:15 EDT Toilet Transfer LTG Grid Goal #1 Activity : Toilet Transfer, Ambulatory Assist : Supervision or set up Date to Meet : 02/05/2019 EDT Goal Status : Initial goal Comment : TDWB LLE NICHOLAS ALVAREZYUMIKO/Regan - 01/22/2019 11:15 EDT Bed Mobility/ Bed Transfer LTG Grid Goal #1 Activity : Bed Mobility/Bed Transfer Assist : Independent, modified Date to Meet : 02/05/2019 EDT Goal Status : Initial goal NICHOLAS ALVAREZYUMIKO/Regan - 01/22/2019 11:15 EDT Other LTG Grid Goal #1 Goal : Patient will verbalize/demo a Good understanding of TDWB LLE during activity prior to d/c. Date to Meet : 02/05/2019 EDT Goal Status : Initial goal NICHOLAS ALVAREZYUMIKO/Regan - 01/22/2019 11:15 EDT Treatment Note Subjective Comment : Patient and RN okd OT this date. Patient's Response to Treatment : Pt tolerated OT fair. Pt had c/o pain at LLE of 6/10. Additional Objective Information : Pt supine in bed upon OT arrival. Pt sat EOB with Min A. Pt educated on weight bearing status with fair understanding verbalzied/demo. Pt stood at RWx with Mod A and transferred to chair. Pt was left in chair with call light/phone within reach in chair. Family present. Assessment : Pt would benefit from OT to increase functional status. Plan for Treatment : Continue with pts POC per pt tolerance. LEANNA ALVAREZYUMIKO Venegas/Regan - 01/22/2019 11:15 EDT Pain Assessment Pain Scaled Used : 0-10 Pain scale Pain Score Pre-Intervention : 6 Pain Score During-Intervention : 6 Pain Score Post-Intervention. : 6 Location : Knee, left LATANYA ALVAREZYUMIKO MIRANDA/Regan - 01/22/2019 11:15 EDT Image 1 - Images currently included in the form version of this document have not been included in the text rendition version of the form. Anticipated Discharge Needs, OT/PT Anticipated Discharge to : Home, with home health Anticipated Home Equipment : ADL Equipment Recommend Continued Therapy at Discharge : Yes NICHOLAS ALVAREZ OTR/Regan - 01/22/2019 11:[address] [facility] [place] OT Charges OT Selfcare/Hm Mgmt Ea 15 Min : 1 OT Eval Moderate Complexity : 1 NICHOLAS ALVAREZ OTR/Regan - 01/22/2019 11:15 EDT documented in this encounter Plan of Treatment Not on file documented as of this encounter Visit Diagnoses Not on filedocumented in this encounter
--- OUTSIDE RECORDS SUMMARY | 2025-04-25 12:04 | XMS_ITS | Encounter Summary ---
Author Organization [employer] ([place], [place], [place], [place]) Address [address] [place] [address] Care Team Providers Care Manager Of Manufacturing Name Role Phone Unavailable Primary Care Provider Unavailabl e Encounter Details Date Type Department Care Team (Late st Contact Info) Description 01/21/2019 Transcribed Document [facility] [place] [address] [place] [address] ProviderLuis Armando MD [address] [id number] Social History Tobacco Use Types Packs/Day Years Used Date Smoking Tobacco: Never Assessed Comments Unknown Sex and Gender Information Value Date Recorded Sex Assigned at Not on file Legal Sex Female 7:30 PM CDT Gender Identity Not on file Sexual Orientation Not on file documented as of this encounter Miscellaneous Notes * Cerner Conversion Note - Historical ProviderMD - 01/21/2019 10:40 AM CDT Consult Phone Call Documentation Entered On: 01/21/2019 10:40 EDT Performed On: 01/21/2019 10:40 EDT by Carolyn Bee RN Phone Call for Consults Consult Phone Call/Page Attempt : Other: txt msg. Donovan Johnson of consult Physician Requesting Consult : CHANEL DYSON MD-ORT Physician Requested for Consult : REYNALDO JOINER MD-INT Provider Service Notified Name : Internal medicine Carolyn Bee RN - 01/21/2019 10:40 EDT documented in this encounter Plan of Treatment Not on file documented as of this encounter Visit Diagnoses Not on filedocumented in this encounter
--- OUTSIDE RECORDS SUMMARY | 2025-04-25 12:04 | XMS_ITS | Encounter Summary ---
Author Organization [employer] ([place], [place], [place], [place]) Address [address] [place] [address] Care Team Providers Care Blacking Wheel Tender Name Role Phone Unavailable Primary Care Provider Unavailabl e Encounter Details Date Type Department Care Team (Late st Contact Info) Description 04/25/2019 Transcribed Document [facility] [place] [address] [place] [address] ProviderLuis Armando MD [address] [id number] Social History Tobacco Use Types Packs/Day Years Used Date Smoking Tobacco: Never Assessed Comments Unknown Sex and Gender Information Value Date Recorded Sex Assigned at Not on file Legal Sex Female 7:30 PM CDT Gender Identity Not on file Sexual Orientation Not on file documented as of this encounter Miscellaneous Notes * Cerner Conversion Note - Historical ProviderMD - 04/25/2019 11:25 AM CDT Consult Phone Call Documentation Entered On: 04/25/2019 11:26 EDT Performed On: 04/25/2019 11:25 EDT by Carolyn Bee RN Phone Call for Consults Consult Phone Call/Page Attempt : Other: txt msg. Donovan dean of consult Physician Requesting Consult : CHANEL DYSON MD-ORT Physician Requested for Consult : REYNALDO JOINER MD-INT Provider Service Notified Name : Internal medicine Carolyn Bee RN - 04/25/2019 11:25 EDT documented in this encounter Plan of Treatment Not on file documented as of this encounter Visit Diagnoses Not on filedocumented in this encounter
--- OUTSIDE RECORDS SUMMARY | 2025-04-25 12:04 | XMS_ITS | Encounter Summary ---
Author Organization [employer] ([place], [place], [place], [place]) Address [address] [place] [address] Care Team Providers Care Bike Shop Manager Name Role Phone Unavailable Primary Care Provider Unavailabl e Encounter Details Date Type Department Care Team (Late st Contact Info) Description 01/24/2019 Transcribed Document [facility] [place] Family Medicine [facility] [place] [address] ProviderLuis Armando MD [facility] [place] [id number] Social History Tobacco Use Types Packs/Day Years Used Date Smoking Tobacco: Never Assessed Comments Unknown Sex and Gender Information Value Date Recorded Sex Assigned at Not on file Legal Sex Female 7:30 PM CDT Gender Identity Not on file Sexual Orientation Not on file documented as of this encounter Miscellaneous Notes * Cerner Conversion Note - Historical ProviderMD - 01/24/2019 1:22 PM CDT Patient: EMELY ROB Age: 68 years Sex: Female : 1950 Associated Diagnoses: None Author: MJ MORGAN MD-INF Infectious Disease Progress Note Antibiotic therapy: [...] has some anorexia. She has remained afebrile. 01/24/19: Doing better today. Some left knee pain. Denies f/c , sob, n/v/d, rashes. PICC line being placed. 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 Her mother had pancreatic cancer. Her has diabetes mellitus Social history: She is and resides in [place]. 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 She smoked in the remote past. She drinks alcohol occasionally. Objective: Vitals Signs (last 24 hrs) Last Charted Minimum Maximum Temp 97.9 (JAN 24:) 97 (JAN 23 18:00) 98.7 (JAN 23:) Mon HR 79 (JAN 24:) 78 (JAN 24) 96 (JAN 23 21:13) Resp Rate 18 (JAN 24:) 16 (JAN 23 18:00) 18 (JAN 24:) SBP 128 (JAN 24:) 113 (JAN 23:00) H 150 (JAN 24) DBP L 59 (JAN 24:) L 46 (JAN 23 18:00) 68 (JAN 24) MAP 76 (JAN 24:) 64 (JAN 23 15:00) 87 (JAN 24) SpO2 95 (JAN 24:) L 85 (JAN 23:) 97 (JAN 23:02) General: [Alert and oriented, well nourished, no [...] Her left knee is in a postoperative dressing in brace. Labs: Labs (Last four charted values) WBC 5.4 (JAN 24) 6.8 (JAN 23) 7.6 (JAN 22) 4.9 (JAN 18) HB L 8.3 (JAN 24) L 8.7 (JAN 23) L 9.2 (JAN 22) L 10.5 (JAN 21) HCT L 26.0 (JAN 24) L 26.7 (JAN 23) L 29.0 (JAN 22) 37.1 (JAN 18) Plt 189 (JAN 24) 197 (JAN 23) 205 (JAN 22) 257 (JAN 18) Na 142 (JAN 24) 140 (JAN 23) 139 (JAN 22) 139 (JAN 18) K 4.2 (JAN 24) 4.6 (JAN 23) H 5.3 (JAN 22) 4.3 (JAN 18) Cl 107 (JAN 24) 105 (JAN 23) 107 (JAN 22) 105 (JAN 18) CO2 H 34 (JAN 24) H 34 (JAN 23) 29 (JAN 22) 31 (JAN 18) BUN 10 (JAN 24) 13 (JAN 23) 17 (JAN 22) 16 (JAN 18) Cr L 0.50 (JAN 24) 0.60 (JAN 23) 0.70 (JAN 22) 0.70 (JAN 18) Glu R 104 (JAN 24) H 130 (JAN 23) H 147 (JAN 22) 92 (JAN 18) Ca 8.4 (JAN 24) 8.7 (JAN 23) 8.8 (JAN 22) 9.1 (JAN 18) PT 10.0 (JAN 18) INR 0.9 (JAN 18) PTT 32.0 (JAN 18) Micro: Outpatient [facility] Repeat left knee cultures from 01/20 are NGSF. Asked Celia in micro to keep anaerobic cultures for [address] Zahra Morgan if become positive. Radiology: No Radiology Results Found Assessment: 1. [...] cephalosporin antibiotics Plan/Recommendations: 1. Repeat left knee cultures???NGSF. Asked Celia in micro to keep anaerobic cultures for [address] Zahra Morgan if become positive. 2. PICC line placement today 3. Ceftriaxone 2 g IV daily 4. Discharge to home today 5. Follow-up in our office on Thursday 01/25 at 10 AM for: Rocephin 2 g IV daily and appointment with me???this has been arranged UM/LEONARDO: I coordinated her care today. I discussed her disposition with the nursing staff, the patient herself, and the family. Mj Morgan MD saw and examined patient, verified findings, reviewed labs and radiographic data, formulated diagnosis, plan for treatment, and all medical decision making. Lewis Castillo for Dr. Mj Morgan. documented in this encounter Plan of Treatment Not on file documented as of this encounter Visit Diagnoses Not on filedocumented in this encounter
--- OUTSIDE RECORDS SUMMARY | 2025-04-25 12:04 | XMS_ITS | Encounter Summary ---
Author Organization [employer] ([place], [place], [place], [place]) Address [address] [place] [address] Care Team Providers Care Docking Pilot Name Role Phone Unavailable Primary Care Provider Unavailabl e Encounter Details Date Type Department Care Team (Late st Contact Info) Description 01/21/2019 Transcribed Document [facility] [place] Family Medicine [facility] [place] [address] ProviderLuis Armando [place] [facility] [place] [address] Social History Tobacco Use Types Packs/Day Years Used Date Smoking Tobacco: Never Assessed Comments Unknown Sex and Gender Information Value Date Recorded Sex Assigned at Not on file Legal Sex Female 7:30 PM CDT Gender Identity Not on file Sexual Orientation Not on file documented as of this encounter Miscellaneous Notes * Cerner Conversion Note - Historical ProviderMD - 01/21/2019 7:05 PM CDT Patient: EMELY ROB Age: 68 years Sex: Female : 1950 Associated Diagnoses: None Author: IRVIN GARCIA NP-FAM cc: medical managment s/p left total knee explant wth abx spacer placement per Dr. Doty HPI: Patient is an 68 y/o female admitted to [facility] per Dr. Doty for a left total [...] None Documented Pineapple None Documented Home Medications (7) Active aspirin 81 mg oral tablet 81 mg = 1 Tab, Oral, Daily citalopram 20 mg, Oral, Daily lisinopril 10 mg, Oral, Daily Maxzide 25/37.5 mg Tab, Oral, Daily PreserVision AREDS 2 1 Cap, Oral, BID simvastatin 20 mg, Oral, At Bedtime Vitamin D3 5,000 Int Units, Oral, Daily Exam: Vitals Signs (last 24 hrs) Last Charted Minimum Maximum Temp 97.2 (JAN 21 18:41) 97 (JAN 21 14:49) 98.1 (JAN 21 10:00) Mon HR 76 (JAN 21 18:41) 68 (JAN 21 10:00) 96 (JAN 21 15:00) Periph HR 88 (JAN 21 11:29) 88 (JAN 21 11:29) 88 (JAN 21 11:29) Resp Rate 16 (JAN 21 18:41) L 11 (JAN 21 14:55) H 22 (JAN 21 15:15) SBP 125 (JAN 21 18:41) 107 (JAN 21 14:55) H 156 (JAN 21 15:10) DBP L 56 (JAN 21 18:41) L 46 (JAN 21 16:17) 79 (JAN 21 15:10) MAP 72 (JAN 21 18:41) 60 (JAN 21 16:17) 101 (JAN 21 15:10) SpO2 98 (JAN 21 18:41) L 90 (JAN 21 15:10) 98 (JAN [...]
--- OUTSIDE RECORDS SUMMARY | 2025-04-25 12:04 | XMS_ITS | Encounter Summary ---
Author Organization [employer] ([place], [place], [place], [place]) Address [address] [place] [address] Care Team Providers Care It Business Process Architect Name Role Phone Unavailable Primary Care Provider Unavailabl e Encounter Details Date Type Department Care Team (Late st Contact Info) Description 04/25/2019 Transcribed Document [facility] Radiology [address] [place] [address] Fausto Ramos MD [address] [place] [address] Social History Tobacco Use Types Packs/Day Years Used Date Smoking Tobacco: Never Assessed Comments Unknown Sex and Gender Information Value Date Recorded Sex Assigned at Not on file Legal Sex Female 7:30 PM CDT Gender Identity Not on file Sexual Orientation Not on file documented as of this encounter Miscellaneous Notes * Cerner Conversion Note - Fausto Ramos MD - 04/25/2019 11:11 AM EDT Patient: EMELY ROB Age: 68 years Sex: Female : 1950 Associated Diagnoses: None Author: IRVIN GARICA NP-MANDI 04/25/19 cc: medical management s/p left total knee revision with replant per Dr. Doty HPI: Patient is a 68 yo female admitted to [facility] per Dr. Doty for a left total [...] test reaction Pineapple None Documented Home Medications (6) Active citalopram 20 mg, [...] vomiting, diarrhea, constipation] Genitourinary: [No hematuria, dysuria, incontinence, lesions on genitalia] Musculoskeletal: [+left knee pain, decreased range of motion] Exam: Vitals Signs (last 24 hrs) Last Charted Minimum Maximum Temp 97.8 (APR 25 11:00) 97.8 (APR 25 11:00) 97.8 (APR 25 11:00) Mon HR 67 (APR 25 11:00) 67 (APR 25 11:00) 67 (APR 25 11:00) Periph HR 79 (APR 25 12:53) 79 (APR 25 12:53) 79 (APR 25 12:53) Resp Rate 18 (APR 25 12:53) 16 (APR 25 11:00) 18 (APR 25 12:53) SBP 108 (APR 25 12:53) 108 (APR 25 12:53) H 147 (APR 25 11:00) DBP L 58 (APR 25 12:53) L 58 (APR 25 12:53) 67 (APR 25 11:00) SpO2 96 (APR 25 12:53) 96 (APR 25 12:53) 98 (APR 25 11:00) PE: obese white female, pleasant, cooperative, good [...] deficits psych: appropriate affect and mood Data: Reviewed PREOP CBC, BMP, COAGS 04/04/19 Impression: 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 Morgan followed previously hold maxzide Monitor HTN; add PRN's, hold parameters bowel [...]
--- OUTSIDE RECORDS SUMMARY | 2025-04-25 12:04 | XMS_ITS | Encounter Summary ---
Author Organization [employer] ([place], [place], [place], [place]) Address [address] [place] [address] Care Team Providers Care Skilled Nursing Facility Counselor Name Role Phone Unavailable Primary Care Provider Unavailabl e Encounter Details Date Type Department Care Team (Late st Contact Info) Description 01/26/2019 Transcribed Document [facility] [place] Family Medicine [facility] [place] [address] ProviderLuis Armando MD [facility] [place] [id number] Social History Tobacco Use Types Packs/Day Years Used Date Smoking Tobacco: Never Assessed Comments Unknown Sex and Gender Information Value Date Recorded Sex Assigned at Not on file Legal Sex Female 7:30 PM CDT Gender Identity Not on file Sexual Orientation Not on file documented as of this encounter Miscellaneous Notes * Cerner Conversion Note - Luis Armando ProviderMD - 01/26/2019 5:31 PM CDT Post Visit Phone Call Entered On: 01/26/2019 17:37 EDT Performed On: 01/26/2019 17:31 EDT by Ying Santiago Rn Post Visit Phone Call Post Visit Phone Call History : First call, Second call, Left message Contact Relationship to Patient : Self Contact Name : December Emergency Room Visit Since DC : Yes Reason for Emergency Room Visit [facility]--no issues everything checked out Date of Emergency Room Visit : 01/25 Adequate Pain Control After Visit : Yes Surgical Dressing Clean/Dry/Intact : Yes Surgical Site Free of Redness/Swelling/Drainage : Yes Symptoms of Fever : No Symptoms of Nausea or Vomiting : No Adequate Fluid Intake : Yes Food Intake, Post Visit : Fair Bowel/Bladder Concerns : No Mobility Progressing or Maintained as Expected : Yes Discharge Instructions Understood : Yes Follow-Up Actions : None Ying Santiago Rn - 01/26/2019 17:31 EDT Electronically signed by Adwoa [facility] Conversion Faculty Criminal Justice Cerner at 11/11/2022 8:41 PM CDT documented in this encounter Plan of Treatment Not on file documented as of this encounter Visit Diagnoses Not on filedocumented in this encounter
--- OUTSIDE RECORDS SUMMARY | 2025-04-25 12:04 | XMS_ITS | Encounter Summary ---
Author Organization [employer] ([place], [place], [place], [place]) Address [address] [place] [address] Care Team Providers Care Clinic Physician Name Role Phone Unavailable Primary Care Provider Unavailabl e Encounter Details Date Type Department Care Team (Late st Contact Info) Description 01/21/2019 Transcribed Document [facility] [place] Family Medicine [address] [place] [address] ProviderLuis Armando MD [address] [place] [address] Social History Tobacco Use Types Packs/Day Years Used Date Smoking Tobacco: Never Assessed Comments Unknown Sex and Gender Information Value Date Recorded Sex Assigned at Not on file Legal Sex Female 7:30 PM CDT Gender Identity Not on file Sexual Orientation Not on file documented as of this encounter Miscellaneous Notes * Cerner Conversion Note - Historical ProviderMD - 01/21/2019 9:00 PM CDT Pain Assessment Entered On: 01/22/2019 4:26 EDT Performed On: 01/21/2019 22:12 EDT by LEENA BROWER LPN Intervention Information: oxyCODONE Performed by LEENA BROWER LPN on 01/21/2019 21:12:00 EDT oxyCODONE,10mg Oral Pain Assessment Pain Assessment [...]
--- OUTSIDE RECORDS SUMMARY | 2025-04-25 12:04 | XMS_ITS | Encounter Summary ---
Author Organization [employer] ([place], [place], [place], [place]) Address [address] [place] [address] Care Team Providers Care Upward Bound Director Name Role Phone Unavailable Primary Care Provider Unavailabl e Encounter Details Date Type Department Care Team (Late st Contact Info) Description 01/21/2019 Transcribed Document [facility] [place] Family Medicine [address] [place] [address] ProviderLuis Armando MD [address] [place] [address] Social History Tobacco Use Types Packs/Day Years Used Date Smoking Tobacco: Never Assessed Comments Unknown Sex and Gender Information Value Date Recorded Sex Assigned at Not on file Legal Sex Female 7:30 PM CDT Gender Identity Not on file Sexual Orientation Not on file documented as of this encounter Miscellaneous Notes * Cerner Conversion Note - Historical ProviderMD - 01/21/2019 5:00 PM CDT Chart Check - Review Order Profile Entered On: 01/21/2019 20:14 EDT Performed On: 01/21/2019 17:00 EDT by JC MAUOR RN Chart Check Powerplans Initiated/Discontinued as Appropriate : Yes All Active Orders Reviewed : Yes CJ MAURO RN - 01/21/2019 20:14 EDT documented in this encounter Plan of Treatment Not on file documented as of this encounter Visit Diagnoses Not on filedocumented in this encounter
--- OUTSIDE RECORDS SUMMARY | 2025-04-25 12:04 | XMS_ITS | Encounter Summary ---
Author Organization [employer] ([place], [place], [place], [place]) Address [address] [place] [address] Care Team Providers Care Manager Biologics Name Role Phone Unavailable Primary Care Provider Unavailabl e Encounter Details Date Type Department Care Team (Late st Contact Info) Description 04/04/2019 Transcribed Document [facility] [place] [facility] [place] [address] ProviderLuis Armando MD [facility] [place] [address] Social History Tobacco Use Types Packs/Day Years Used Date Smoking Tobacco: Never Assessed Comments Unknown Sex and Gender Information Value Date Recorded Sex Assigned at Not on file Legal Sex Female 7:30 PM CDT Gender Identity Not on file Sexual Orientation Not on file documented as of this encounter Miscellaneous Notes * Cerner Conversion Note - Historical ProviderMD - 04/04/2019 8:48 AM CDT PAT Adult Entered On: 04/04/2019 8:56 EDT Performed On: 04/04/2019 8:48 EDT by JOSSIE QUISPE RN Vital Measurements Temperature Source : Temporal artery scanning Temperature Mode : Fahrenheit Temperature, Fahrenheit : 97.7 Deg F Clinical Temperature, C : 36.5 Deg C Pulse Method : Pulse Oximetry Peripheral Pulse Rate : 68 bpm Respiratory Rate : 18 Breaths/Min Blood Pressure Location : Arm, right upper Blood Pressure Source : Non-Invasive BP Device Blood Pressure Position : Sitting Systolic Blood Pressure : 144 mmHg (HI) Diastolic Blood Pressure : 69 mmHg Oxygen Saturation : 96 % Oxygen Therapy Mode : Room air JOSSIE QUISPE RN - 04/04/2019 9:26 EDT Height and Weight, Clinical Dosing Height Source : Measured Height Entry Format : [place] Height, Feet : 5 ft(Converted to: 152 cm, 60 Inch) Height, Inches : 2 Inch(Converted to: 0 ft 2 Inch, 5.08 cm) Clinical Height : 157.48 cm Weight Source : Standing scale Weight Entry Format : [place] Clinical Dosing Weight : 77.76 kg Weight, Pounds : 171 lb Weight, Ounces : 1 oz Body Surface Area (BSA) : 1.79 m2 Body Mass Index : 31.4 kg/m2 (HI) [place] Body Weight : 50 kg JOSSIE QUISPE RN - 04/04/2019 8:48 EDT Health Histories Smoking Status : Former smoker, quit more than 30 days ago Smokeless Tobacco Status : Never JOSSIE QUISPE RN - 04/04/2019 8:48 EDT Social History (As Of: 04/04/2019 08:56:29 EDT) Tobacco: Use in Last 12 Months: [...] 04/22/2017 06:51:09 EDT by JESSICA TANNER, RN) Home/Environment: Lives with Spouse. Living situation: Home/Independent. Home equipment: Walker/Cane, Wheelchair. (Last Updated: 04/04/2019 08:49:36 EDT by JOSSIE QUISPE RN) Employment/School: Retired (Last Updated: 04/04/2019 08:49:42 EDT by JOSSIE QUISPE RN) Infectious Disease History Fever/Chills Last 48 Hours : No Carolyn Bee RN - 04/25/2019 11:23 EDT Infectious Disease History : Chicken pox/Shingles, Influenza, Measles, Mumps Active Surveillance Screen Assessment : Patient does not meet any of above criteria Active Surveillance Screen Negative : Yes Isolation Needed : Standard Travel To Regions with Travel Advisories : No Travel Outside [place] Within Last 30 Days : No Contact With Traveler to Advisory Region : No Tuberculosis Symptoms : None JOSSIE QUISPE RN - 04/04/2019 8:48 EDT Anesthesia/Transfusion History Family History of Anesthesia Reaction : No prior transfusion(s) Blood Transfusion Acceptable to Patient : Yes Transfusion History : Prior anesthesia reaction Type of Anesthesia Reaction : Excessive somnolence, Excessive nausea/vomiting Family History of Anesthesia Reaction : Other: niece - nausea JOSSIE QUISPE RN - 04/04/2019 8:48 EDT Functional Assessment Functional ADL Evaluation Index EBN Bathing : Independent (2) Dressing : Independent (2) Toileting : Independent (2) Transferring Bed or Chair : Independent (2) Continence : Independent (2) Feeding : Independent (2) JOSSIE QUISPE RN - 04/04/2019 8:48 EDT ADL Index Score : 12 JOSSIE QUISPE RN - 04/04/2019 8:48 EDT Advance Directive Copy Advance Directive Verified/on Chart : Carolyn Ruiz RN - 04/25/2019 11:23 EDT Patient has Advance Directive *Q : Yes, Advance Directive on file Advance Directive Type : Living will JOSSIE QUISPE RN - 04/04/2019 8:48 EDT Spiritual/Cultural Needs Any Spiritual/Cultural Needs or Requests : Yes Spiritual/Cultural Needs Comment : surgery on Apr 25 time in to be determined Spiritual/Cult Concerns/Desires/Needs : Prayer Spiritual/Cultural Needs Comment : surgery on Apr 25 time in to be determined JOSSIE QUISPE RN - 04/04/2019 8:48 EDT Psychosocial History Do You Have a History of the Following? : Depression Currently in Unsafe Situation : No Tried to Harm Yourself in the Past? : No Thoughts of Harming/Killing Yourself : No JOSSIE QUIPSE RN - 04/04/2019 8:48 EDT Education Topics, Periop Preadmission Perioperative Education Grid Arrival Time/Place : Verbalizes understanding CHG Preoperative Bathing/Cloths : Verbalizes understanding Falls : Verbalizes understanding Infection Control : Verbalizes understanding IV's : Verbalizes understanding NPO Status/Directions : Verbalizes understanding Pain Management : Verbalizes understanding Preprocedure Preparations : Verbalizes understanding Preprocedure Tests/Labs : Verbalizes understanding Remove Body Piercings : Verbalizes understanding Take/Hold Medications Pre-Procedure : Verbalizes understanding JOSSIE QUISPE RN - 04/04/2019 8:48 EDT General Info Preferred Name : Inna Arrived From : Home Mode of Arrival on Unit : Wheelchair Legal Guardian : Spouse Support Person/Patient Metallurgical Technician : Yes Support Person/Pt Rep Name : Darron Villanueva, spouse Salvador joy - sons Support Person/Pt Rep Contact Information : [phone] cell [phone] Want Family/Rep/Phys Notified of Admit : No Emergency Contact #1 : JOSSIE Razo RN - 04/04/2019 8:48 EDT Emergency Contact #1 Carolyn Bee RN - 04/25/2019 11:29 EDT Emergency Contact #1 Relationship : spouse Emergency Contact #2 : Antonieta Jayjaydwayne Emergency Contact # JOSSIE QUISPE RN - 04/04/2019 8:48 EDT Emergency Contact #2 Relationship : Carolyn Torrez RN - 04/25/2019 11:29 EDT Information Obtained From : Patient Primary Language : Macanese Preferred Communication Mode : Verbal Communication Barrier : None Objects to Sharing Info w Family : No JOSSIE QUISPE RN - 04/04/2019 8:48 EDT Khurram Scale Khurram Sensory Perception : No impairment Khurram Moisture : Rarely moist Khurram Activity : Chairfast Khurram Mobility : Very limited Khurram Nutrition : Adequate Khurram Friction and Shear : No apparent problem Khurram Score : 18 JOSSIE QUISPE RN - 04/04/2019 8:48 EDT Sleep Apnea Risk Assmt Hx of Obstructive Sleep Apnea Diagnosis : No Snore Loudly : Yes Tired, Fatigued, or Sleepy During Day : No Observed Stopping Breathing During Sleep : No Have/Are Being Treated for Hypertension : Yes BMI Greater Than 35 kg/m2 : Yes Age over 50 Years Old : Yes Neck Circumference Greater Than 40 cm : Yes Gender Male : No STOP-BANG Sleep Apnea Risk Level Score : 5 JOSSIE QUISPE RN - 04/04/2019 8:48 EDT Electronically signed by Adwoa, [facility] Conversion Certified Personal Chef Cerner at 11/11/2022 8:36 PM CDT documented in this encounter Plan of Treatment Not on file documented as of this encounter Visit Diagnoses Not on filedocumented in this encounter
--- OUTSIDE RECORDS SUMMARY | 2025-04-25 12:04 | XMS_ITS | Encounter Summary ---
Author Organization [employer] ([place], [place], [place], [place]) Address [address] [place] [address] Care Team Providers Care Thermal Spray Operator Name Role Phone Unavailable Primary Care Provider Unavailabl e Encounter Details Date Type Department Care Team (Late st Contact Info) Description 01/24/2019 Transcribed Document [facility] [place] [facility] [place] [address] ProviderLuis Armando MD [address] [place] [address] Social History Tobacco Use Types Packs/Day Years Used Date Smoking Tobacco: Never Assessed Comments Unknown Sex and Gender Information Value Date Recorded Sex Assigned at Not on file Legal Sex Female 7:30 PM CDT Gender Identity Not on file Sexual Orientation Not on file documented as of this encounter Miscellaneous Notes * Cerner Conversion Note - Historical ProviderMD - 01/24/2019 1:48 PM CDT Discharge Summary, PT Entered On: 01/24/2019 13:49 EDT Performed On: 01/24/2019 13:48 EDT by ROMA FARR, PT Discharge Summary Discharge Summary Provider Notified : Nursing, Physical Therapy Reason for Discharge : Discharge order Discharged to, Therapy : Home, with home health Discharge Equipment, PT : Wheelchair Discharge Summary Comment, PT : no goals met. pt mod A x 2 sit to stand, min A x 2 to transfer with RWx once upright, min A sit to supine. Pt will benefit from continued PTx with home health. ROMA FARR, PT - 01/24/2019 13:48 EDT Short Term Goals Mobility/Bed Mobility STG PT Grid Goal #1 Goal #2 Activity : Supine to sit Sit to stand Assist : Supervision or set-up Assist, minimal Equipment : Belt, gait, Walker, front wheel Date to Meet : 01/29/2019 EDT 01/29/2019 EDT Goal Status : Not met Not met Comment : TDWB on left leg, ROMA BALLARD, PT - 01/24/2019 13:48 EDT BLAYNE FARRALEKSANDR Perales, PT - 01/24/2019 13:48 EDT Ambulation STG Grid Goal #1 Device : Walker, front wheel Distance : 20 feet Assist : Assist, minimal Date to Meet : 01/29/2019 EDT Goal Status : Not met Comment : of 2/ TDWB on left and ROMA BALLARD, PT - 01/24/2019 13:48 EDT Custodial Goals Mobility/Bed Mobility LTG PT Grid Goal #1 Goal #2 Activity : Supine to sit Sit to stand Assist : Independent, modified Supervision or set-up Equipment : Belt, gait, Walker, front wheel Date to Meet : 02/05/2019 EDT 02/05/2019 EDT Goal Status : Not met Not met Comment : TDWB on left LE/BLAYNE BALLARDALEKSANDR Perales, PT - 01/24/2019 13:48 EDT BLAYNE FARRALEKSANDR Perales, PT - 01/24/2019 13:48 EDT Ambulation LTG Grid Goal #1 Device : Walker, front wheel Distance : 50 feet Assist : Assist, minimal Date to Meet : 02/05/2019 EDT Goal Status : Not met Comment : TDWB on left LEg /ROMA BALLARD, PT - 01/24/2019 13:48 EDT documented in this encounter Plan of Treatment Not on file documented as of this encounter Visit Diagnoses Not on filedocumented in this encounter
--- OUTSIDE RECORDS SUMMARY | 2025-04-25 12:04 | XMS_ITS | Encounter Summary ---
Author Organization [employer] ([place], [place], [place], [place]) Address [address] [place] [address] Care Team Providers Care Rest Room Matron Name Role Phone Unavailable Primary Care Provider Unavailabl e Encounter Details Date Type Department Care Team (Late st Contact Info) Description 01/21/2019 Transcribed Document [facility] Radiology [address] [place] [address] Chanel Doty MD [address] [place] [address] Social History Tobacco Use Types Packs/Day Years Used Date Smoking Tobacco: Never Assessed Comments Unknown Sex and Gender Information Value Date Recorded Sex Assigned at Not on file Legal Sex Female 7:30 PM CDT Gender Identity Not on file Sexual Orientation Not on file documented as of this encounter Miscellaneous Notes * Cerner Conversion Note - Chanel Doty MD - 01/21/2019 3:34 PM EDT Patient: EMELY VILLANUEVA Age: 68 years Sex: Female : 1950 Associated Diagnoses: None Author: CHANEL DOTY MD-ORT Pre-op Dx: infected L TKA Post-op: same Procedure: explant/spacer L TKA Surg: Soren Asst: Ramy Anesthesia: GETA EBL: 200 Complications: none Dispo: pacu Findings: gross pululence, synovitis documented in this encounter Plan of Treatment Not on file documented as of this encounter Visit Diagnoses Not on filedocumented in this encounter
--- OUTSIDE RECORDS SUMMARY | 2025-04-25 12:04 | XMS_ITS | Encounter Summary ---
Author Organization [employer] ([place], [place], [place], [place]) Address [address] [place] [address] Care Team Providers Care Acetone Recovery Worker Name Role Phone Unavailable Primary Care Provider Unavailabl e Encounter Details Date Type Department Care Team (Late st Contact Info) Description 01/24/2019 Transcribed Document [facility] [place] Family Medicine [facility] [place] [address] ProviderLuis Armando MD [facility] [place] [address] Social History Tobacco Use Types Packs/Day Years Used Date Smoking Tobacco: Never Assessed Comments Unknown Sex and Gender Information Value Date Recorded Sex Assigned at Not on file Legal Sex Female 7:30 PM CDT Gender Identity Not on file Sexual Orientation Not on file documented as of this encounter Miscellaneous Notes * Cerner Conversion Note - Historical ProviderMD - 01/24/2019 12:57 PM CDT Central Line Checklist Entered On: 01/24/2019 13:00 EDT Performed On: 01/24/2019 12:57 EDT by Alaina Harvey RN Central Line Checklist History and Physical on Chart : Yes Central Line Insertion Facility : [facility] Central Line Insertion Start Date/Time : 01/24/2019 12:34 EDT Central Catheter Type : Power injection PICC Central Line Lot Number : [id number] Central Line Vessel Cannulated : Basilic vein Central Line Laterality : Right Central Line Number of Lumens : 1 Central Line Insertion Site : Upper arm, right Central Line Insertion Reason : New indication PICC Line Exclusion Criteria : None CL Number of Insertion Attempts: : 1 Modified [place]inger Used : Yes Portable Ultrasound Device : Yes Central Line Clean Hands : Yes Site Preparation Procedure : Chlorhexidine (Chloraprep) if patient is 2 months or older Central IV Full Body Drape Used : Yes Proper Use of Sterile Apparel per Policy : Yes Procedure to be Performed : picc line insertion Time Out Pause Time : 01/24/2019 12:28 EDT All Activity Suspended : Yes Team Verbally Confirms Information : Correct patient identity, Correct side and site are marked, Consent form is present and accurate, Agreement on the procedure to be done, Correct patient position, Confirm the skin prep has dried, Performed in location of procedure after prepped/draped CL Time Out Additional Attendees : Phu Chong RN/Arline Huang RN/Alaina Harvey RN 1% Lidocaine Amt Used as Anesthetic : 2 mL Central IV Sterile Field Maintained : Yes Central IV Sterile Technique Maintained : Yes Central Line Secure with : Stabilization device Central Line Dressing Dated : Yes RN Notified CL is Approved to be Used : Yes Central Line Tip Location in SVC : Yes Nurse Notified Name : MILAD LOGAN, Alaina Anderson RN - 01/24/2019 12:57 EDT documented in this encounter Plan of Treatment Not on file documented as of this encounter Visit Diagnoses Not on filedocumented in this encounter
--- OUTSIDE RECORDS SUMMARY | 2025-04-25 12:04 | XMS_ITS | Encounter Summary ---
Author Organization [employer] ([place], [place], [place], [place]) Address [address] [place] [address] Care Team Providers Care Rope Twisting Machine Operator Name Role Phone Unavailable Primary Care Provider Unavailabl e Encounter Details Date Type Department Care Team (Late st Contact Info) Description 01/24/2019 Transcribed Document [facility] [place] Family Medicine [facility] [place] [address] ProviderLuis Armando MD [address] [place] [address] Social History Tobacco Use Types [...] Armando ProviderMD - 01/24/2019 2:30 PM CDT Patient Education Materials Follows: Discharge Instructions for Total Knee Replacement Your [...] weakness, slurred speech, difficulty speaking or understanding Procedures PICC Home Care Guide A peripherally inserted [...] and water are not available, use hand office automation technician. ? Change your dressing as told by [...] 01/17/2004 Document Revised: 08/15/2017 Document Reviewed: 08/15/2017 Elsevier Interactive Patient Education ? 2019 [employer] documented in this encounter Plan of Treatment Not on file documented as of this encounter Visit Diagnoses Not on filedocumented in this encounter
--- OUTSIDE RECORDS SUMMARY | 2025-04-25 12:04 | XMS_ITS | Encounter Summary ---
Author Organization [email or web address] ([place], [place], [place], [place]) Address [address] [place] [address] Care Team Providers Care Ream Cutter Name Role Phone Unavailable Primary Care Provider Unavailabl e Encounter Details Date Type Department Care Team (Late st Contact Info) Description 04/25/2019 Transcribed Document [facility] [place] [facility] [place] [address] ProviderLuis Armando MD [address] [place] [address] Social History Tobacco Use Types [...] Historical ProviderMD - 04/25/2019 3:09 PM CDT [facility] Main OR PACU Summary Primary Physician: CHANEL DYSON MD-ORT Finalized Date/Time: 04/25/19 18:43:19 Pt. Name: EMELY VILLANUEVA /Sex: 1950 Female Med Rec #: [id number] Physician: CHANEL DYSON MD-ORT Financial #: [id number] Pt. Type: I Room/Bed: [facility]/ Admit/Disch: 04/25/19 06:55:00 - Institution: [facility] Main OR PACU I Case Times Entry 1 In PACU I 04/25/19 17:23:00 Ready for PACU 04/25/19 18:23:00 Discharge Discharge from PACU 04/25/19 18:23:00 I Last Modified By: ERASTO WALDRON RN 04/25/19 18:23:51 Finalized By: ERASTO WALDRON, RN Document Signatures Signed By: ERASTO WALDRON RN 04/25/19 18:43 Electronically signed by Adwoa [facility] Conversion Mechanical Unit Repairer Cerner at 11/11/2022 8:35 PM CDT documented in this encounter Plan of Treatment Not on file documented as of this encounter Visit Diagnoses Not on filedocumented in this encounter
--- OUTSIDE RECORDS SUMMARY | 2025-04-25 12:04 | XMS_ITS | Encounter Summary ---
Author Organization [employer] ([place], [place], [place], [place]) Address [address] [place] [address] Care Team Providers Care Pyrometer Operator Name Role Phone Unavailable Primary Care Provider Unavailabl e Encounter Details Date Type Department Care Team (Late st Contact Info) Description 04/25/2019 Transcribed Document [facility] Family Medicine [address] [place] [address] ProviderLuis Armando MD [address] [place] [address] Social History Tobacco Use Types [...] Historical ProviderMD - 04/25/2019 3:09 PM CDT [facility] Main OR Preop Summary Primary Physician: CHANEL DYSON MD-ORT Finalized Date/Time: 04/25/19 16:38:39 Pt. Name: EMELY VILLANUEVA /Sex: 1950 Female Med Rec #: [id number] Physician: CHANEL DYSON MD-ORT Financial #: [id number] Pt. Type: I Room/Bed: ASA/3 Admit/Disch: 04/25/19 06:55:00 - Institution: [facility] PreOp Case Times Entry 1 In Preop 04/25/19 09:12:00 Ready for Holding n/a Room Patient Ready for 04/25/19 12:56:00 Surgery Patient Out of Preop 04/25/19 14:36:00 Patient Out of n/a Holding Room Last Modified By: JOSSIE QUISPE RN 04/25/19 16:37:35 [facility] PreOp Case Times Audit 04/25/19 16:37:35 Farmworker Diversified Crops: CODY Modifier: MCHMILLIE <+> 1 Patient Out of Preop Finalized By: JOSSIE QUISPE RN Document Signatures Signed By: JOSSIE QUISPE RN 04/25/19 16:38 Electronically signed by Adwoa [facility] Conversion Medical Insurance Coding Specialist Cerner at 11/11/2022 8:53 PM CDT documented in this encounter Plan of Treatment Not on file documented as of this encounter Visit Diagnoses Not on filedocumented in this encounter
--- OUTSIDE RECORDS SUMMARY | 2025-04-25 12:04 | XMS_ITS | Encounter Summary ---
Author Organization [employer] ([place], [place], [place], [place]) Address [address] [place] [address] Care Team Providers Care Extension Specialist Name Role Phone Unavailable Primary Care Provider Unavailabl e Encounter Details Date Type Department Care Team (Late st Contact Info) Description 01/21/2019 Transcribed Document [facility] [place] [address] [place] [address] ProviderLuis Armando MD [address] [place] [address] Social History Tobacco Use Types [...] Historical ProviderMD - 01/21/2019 2:35 PM CDT Consult Phone Call Documentation Entered On: 01/21/2019 20:13 EDT Performed On: 01/21/2019 14:35 EDT by CJ MAURO RN Phone Call for Consults Consult, Additional Information : dr teresa accepted consult via phone at [address] CJ MAURO RN - 01/21/2019 20:12 EDT documented in this encounter Plan of Treatment Not on file documented as of this encounter Visit Diagnoses Not on filedocumented in this encounter
--- OUTSIDE RECORDS SUMMARY | 2025-04-25 12:04 | XMS_ITS | Encounter Summary ---
Author Organization [employer] ([place], [place], [place], [place]) Address [address] [place] [address] Care Team Providers Care Professor Of Art Name Role Phone Unavailable Primary Care Provider Unavailabl e Encounter Details Date Type Department Care Team (Late st Contact Info) Description 01/24/2019 Transcribed Document [facility] [place] [address] [place] [address] ProviderLuis Armando MD [address] [place] [address] Social History Tobacco Use Types Packs/Day Years Used Date Smoking Tobacco: Never Assessed Comments Unknown Sex and Gender Information Value Date Recorded Sex Assigned at Not on file Legal Sex Female 7:30 PM CDT Gender Identity Not on file Sexual Orientation Not on file documented as of this encounter Miscellaneous Notes * Cerner Conversion Note - Luis Armando ProviderMD - 01/24/2019 11:42 AM CDT Final Discharge Planning Entered On: 01/24/2019 11:42 EDT Performed On: 01/24/2019 11:42 EDT by KARMEN CALVILLO RN-Epic Interface Analyst Final Discharge Planning Discharge Arrangements : Patient Post-Acute Information Patient Name: EMELY VILLANUEVA Gender: Female : [birth year] Age: 68 Years [place] Referral(s): Service: Organization: Business Address: Phone Number: Home Care Physician Services COUNT INCLUDES [facility] Home - [address], [address], [place], [address] Durable Medical Equipment [employer] - [address], [address] Important Medicare Message Reviewed With : Patient Important Medicare Message Reviewed D/T : 01/24/2019 9:00 EDT Follow Up Appointment Scheduled : Yes Is Patient High/Moderate Readmission Risk? : No Patient/Family Notified of Plan : Yes Support Person/Pt Rep Notified of Plan : Yes Patient/Family Notified : spouse and son Is Patient Ready for Discharge? : Yes Physician Notified Patient is Ready for Discharge? : Yes Discharge To Care Management : Home Health Services (Related/SOC within 3 days)-06 KARMEN CALVILLO RN-Epic Interface Analyst - 01/24/2019 11:42 EDT documented in this encounter Plan of Treatment Not on file documented as of this encounter Visit Diagnoses Not on filedocumented in this encounter
--- OUTSIDE RECORDS SUMMARY | 2025-04-25 12:04 | XMS_ITS | Encounter Summary ---
Author Organization [employer] ([place], [place], [place], [place]) Address [address] [place] [address] Care Team Providers Care Quality Assurance Monitor Name Role Phone Unavailable Primary Care Provider Unavailabl e Encounter Details Date Type Department Care Team (Late st Contact Info) Description 04/25/2019 Transcribed Document [facility] [place] [facility] [place] [address] ProviderLuis Armando MD [facility] [address] Social History Tobacco Use Types Packs/Day Years Used Date Smoking Tobacco: Never Assessed Comments Unknown Sex and Gender Information Value Date Recorded Sex Assigned at Not on file Legal Sex Female 7:30 PM CDT Gender Identity Not on file Sexual Orientation Not on file documented as of this encounter Miscellaneous Notes * Cerner Conversion Note - Historical ProviderMD - 04/25/2019 6:55 AM CDT Admission History, Adult Entered On: 04/25/2019 19:43 EDT Performed On: 04/25/2019 6:55 EDT by Swetha Alston LPN Advance Directive Patient has Advance Directive *Q : Yes, Advance Directive on file Advance Directive Type : Living will Copy Advance Directive Verified/on Chart : No Swetha Alston LPN - 04/25/2019 19:40 EDT Anesthesia/Transfusion History Family History of Anesthesia Reaction : No prior transfusion(s) Blood Transfusion Acceptable to Patient : Yes Transfusion History : Prior anesthesia reaction Type of Anesthesia Reaction : Excessive somnolence, Excessive nausea/vomiting Family History of Anesthesia Reaction : Other: niece - nausea Swetha Alston LPN - 04/25/2019 19:40 EDT Anticipated Discharge Needs Swetha Alston LPN - 04/25/2019 19:43 EDT Education Topics, Admission Orientation DCP GENERIC CODE Advance Directives : Verbalizes understanding Allergy Band Applied : Verbalizes understanding Assessment/Vital Signs : Verbalizes understanding Bed Control : Verbalizes understanding Call Light : Verbalizes understanding Confidentiality : Verbalizes understanding Diet/Room Service : Verbalizes understanding Fall Prevention : Verbalizes understanding Hand Hygiene : Verbalizes understanding Healthcare Provider Visit : Verbalizes understanding ID Band Applied : Verbalizes understanding Orientation to Room/Bathroom : Verbalizes understanding Patient Bill of Rights : Verbalizes understanding Patient Rights/Responsibilities : Verbalizes understanding Patient Safety : Verbalizes understanding Personal Privacy Code : Verbalizes understanding Rapid Response Initiated by Patient/Family : Verbalizes understanding Rounding : Verbalizes understanding Siderails use/risks : Verbalizes understanding Skin Precautions : Verbalizes understanding Telemetry Monitoring : Verbalizes understanding Television/Phone : Verbalizes understanding Visiting Policy : Verbalizes understanding Swetha Alston LPN - 04/25/2019 19:40 EDT Functional Assessment Living Situation : Home Patient Lives With : Spouse Persons Assisting Patient at Home : Child/Children, Spouse Current Daily Living Assistance : None Sensory Deficits : Hearing deficit, right ear, Other: Glasses, Hearing Aide to Right Ear. Mobility Assistance Prior to Admission : Independent FITCH Hx Falls Immediate/Within 3 Months : Yes Type of Fall : Slide to floor. Activity at Time of Fall : Transfering to bedroom. Current Home Treatments : None Home Equipment : ADL Equipment, Shower Equipment, Walker, Wheelchair ADL Equipment : Applied Exercise Physiologist, Sponge, long handled Shower Equipment : Shower bench, with back Walker : Walker, front wheel Special Services and Community Resources : None Functional Assessment Comment : patient has been in wheelchair until thos last 7 days started to walk with a walker, 2 wheels, and 2 tennis balls to back. History received from Spouse and Son in room at bedside. Swetha Alston LPN - 04/25/2019 19:43 EDT General Info Preferred Name : Inna Arrived From : Home Mode of Arrival on Unit : Wheelchair Patient Arrival Date/Time : 04/25/2019 18:45 EDT Legal Guardian : Son, Spouse Support Person/Patient Hydrate Thickener Operator : Yes Support Person/Pt Rep Name : Ben Villanueva, spouse Salvador ochoa Celena wong Support Person/Pt Rep Contact Information : [phone] cell [phone] Want Family/Rep/Phys Notified of Admit : No Emergency Contact #1 : ben Emergency Contact #1 Emergency Contact #1 Relationship : spouse Emergency Contact #2 : Salvador Ochoa Emergency Contact # Emergency Contact #2 Relationship : sons Information Obtained From : Patient Primary Language : Argentine Preferred Communication Mode : Verbal Communication Barrier : None Objects to Sharing Info w Family : No Swetha Alston LPN - 04/25/2019 19:51 EDT Fall Risk Scales ABCs Fall Injury Risk Identification : Bones, Surgery ABC Fall Injury Risk : Moderate to high injury risk Injury Moderate to High Risk Interventions : High Risk for Fall Injury sign in place per policy, Wrist band (fall risk) on per policy FITCH Hx Falls Immediate/Within 3 Months : Yes Fitch Secondary Diagnosis : No FITCH Use of Ambulatory Aid : Crutches/Cane/Walker FITCH IV Therapy or IV Access : Yes Fitch Gait/Transferring : Weak Fitch Mental Status : Oriented to own ability Fitch Fall Risk Score : 70 FITCH Fall Scale Risk Level : 46 or > High Risk Britton Fall Interventions : Adequate lighting, Assistive devices within reach, Bed in low position, Call device within reach, Fall prevention handout/education per facility policy, Frequent orientation to call device, Hourly comfort/safety rounds, Non-slip footwear, Personal items within reach, Reinforced to call for assistance before getting out of bed, Room free of clutter/spills, Upper side-rails up, Wheels locked, Wires/Cords secured Fall Risk Scale Calc Temp : 1 Swetha Alston LAST - 04/25/2019 19:53 EDT Health Histories Smoking Status : Former smoker, quit more than 30 days ago Smokeless Tobacco Status : Never Swetha Alston RESIDENT ENGINEER - 04/25/2019 19:55 EDT Social History (As Of: 04/25/2019 19:57:47 EDT) Tobacco: Use in Last 12 Months: No. Years of Use: 10. Packs/Tins Daily: .50. (Last Updated: 04/22/2017 06:50:54 EDT by JESSICA TANNER, RN) Last Used: quit in 1998. (Last Updated: 01/18/2019 11:57:35 EDT by MAXIMO ESTRELLA RN) Alcohol: Alcohol Use History Yes. Use in Last 12 Months: Yes. Alcohol Use Frequency Rarely. (Last Updated: 01/18/2019 11:58:05 EDT by MAXIMO ESTRELLA, RN) Substance Abuse: Drug Use Hx: No. Use in Last 12 Months: No. (Last Updated: 04/22/2017 06:51:09 EDT by JESSICA TANNER, ROBB) Home/Environment: Lives with Spouse. Living situation: Home/Independent. Home equipment: Walker/Cane, Wheelchair. (Last Updated: 04/04/2019 08:49:36 EDT by JOSSIE QUISPE, ROBB) Employment/School: Retired (Last Updated: 04/04/2019 08:49:42 EDT by JOSSIE QUISPE, RN) Height and Weight, Clinical Dosing Height Source : Measured Height Entry Format : [place] Height, Feet : 5 ft(Converted to: 152 cm, 60 Inch) Height, Inches : 2 Inch(Converted to: 0 ft 2 Inch, 5.08 cm) Clinical Height : 157.48 cm Weight Source : Standing scale Weight Entry Format : [place] Clinical Dosing Weight : 77.76 kg Weight, Pounds : 171 lb Weight, Ounces : 1 oz Body Surface Area (BSA) : 1.79 m2 Body Mass Index : 31.4 kg/m2 (HI) [place] Body Weight : 50 kg Swetha Alston LPN - 04/25/2019 19:55 EDT Infectious Disease History Infectious Disease History : Chicken pox/Shingles, Influenza, Measles, Mumps Isolation Needed : Standard Fever/Chills Last 48 Hours : No Travel To Regions with Travel Advisories : No Travel Outside [place] 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 Inactivated Flu Vaccine Contraindications : No contraindications to inactivated influenza vaccine Transplant Workup/Recent Transplant : No Order for Influenza Vaccine : Declined Vaccination Swetha Alston LPN - 04/25/2019 19:55 EDT Pneumococcal Vaccine Previous Vaccines from Immunization Schedule : Previous Vaccines and Immunizations pneumococcal 13-valent vaccine: 0.5 mL (02/03/17 09:07:00) Pneumonia Immunization Received : Yes Pneumonia Immunization Date : 04/24/2018 EDT Swetha Alston LPN - 04/25/2019 19:57 EDT Nutrition History Feeding Ability : Independent Adaptive Feeding Equipment : None Adaptive Feeding Equipment : Regular Eating Poorly Due to Decreased Appetite : No Unplanned Weight Loss in Past 3-6 Months : No Malnutrition Screening Tool Total(mal) : 0 Malnutrition Screening Tool Risk Level : Patient not at risk Swetha Alston LPN - 04/25/2019 19:59 EDT Psychosocial History Does Someone Depend on You for Care? : No Do You Have a History of the Following? : Depression Currently in Unsafe Situation : No Tried to Harm Yourself in the Past? : No Thoughts of Harming/Killing Yourself : No Swetha Alston LPN - 04/25/2019 20:00 EDT Sleep Apnea Risk Assmt Hx of [...] Sleep Apnea Risk Level Score : 5 Swetha Alston LPN - 04/25/2019 20:01 EDT Valuables and Belongings Valuables and Belongings : No personal items Swetha Alston LPN - 04/25/2019 20:01 EDT documented in this encounter Plan of Treatment Not on file documented as of this encounter Visit Diagnoses Not on filedocumented in this encounter
--- OUTSIDE RECORDS SUMMARY | 2025-04-25 12:04 | XMS_ITS | Encounter Summary ---
Author Organization [employer] ([place], [place], [place], [place]) Address [address] [place] [address] Care Team Providers Care Sales Mgr Name Role Phone Unavailable Primary Care Provider Unavailabl e Encounter Details Date Type Department Care Team (Late st Contact Info) Description 01/24/2019 Transcribed Document [facility] [place] Family Medicine [address] [place] [address] ProviderLuis Armando MD [address] [place], [place] [id number] Social History Tobacco Use Types Packs/Day Years Used Date Smoking Tobacco: Never Assessed Comments Unknown Sex and Gender Information Value Date Recorded Sex Assigned at Not on file Legal Sex Female 7:30 PM CDT Gender Identity Not on file Sexual Orientation Not on file documented as of this encounter Miscellaneous Notes * [employer] Conversion Note - Historical ProviderMD - 01/24/2019 2:26 PM CDT Stroke/Warfarin Instructions Entered On: 01/24/2019 14:26 EDT Performed On: 01/24/2019 14:26 EDT by MILAD LOGAN LPN Stroke/Warfarin Instructions Stroke/TIA Discharge Ins : N/A Warfarin Discharge Ins : N/A MILAD LOGAN LPN - 01/24/2019 14:26 EDT documented in this encounter Plan of Treatment Not on file documented as of this encounter Visit Diagnoses Not on filedocumented in this encounter
--- OUTSIDE RECORDS SUMMARY | 2025-04-25 12:04 | XMS_ITS | Encounter Summary ---
Author Organization [employer] ([place], [place], [place], [place]) Address [address] [place] [address] Care Team Providers Care Appeals Writer Name Role Phone Unavailable Primary Care Provider Unavailabl e Encounter Details Date Type Department Care Team (Late st Contact Info) Description 04/25/2019 Transcribed Document [facility] [place] Family Medicine [facility] [place] [address] ProviderLuis Armando MD [facility] [place] [address] Social History Tobacco Use Types Packs/Day Years Used Date Smoking Tobacco: Never Assessed Comments Unknown Sex and Gender Information Value Date Recorded Sex Assigned at Not on file Legal Sex Female 7:30 PM CDT Gender Identity Not on file Sexual Orientation Not on file documented as of this encounter Miscellaneous Notes * Cerner Conversion Note - Historical ProviderMD - 04/25/2019 2:00 AM CDT Spiritual Care Assessment Entered On: 04/25/2019 15:21 EDT Performed On: 04/25/2019 11:40 EDT by VIJAY DELCID General Information Referred by : Patient Referral Reason Comment : PreSurgery visit Ministry Provided to : Patient, Family/Significant other VIJAY DELCID - 04/25/2019 15:20 EDT Interventions Emotional Support : Empathic/Engaged listening, Family/Significant other supported, Feelings expressed Spiritual and Alevism : Prayer shared, Spiritual/Alevism support provided Change, Adjustment and Loss : Relationships/Community/Support system discussed VIJAY DELCID - 04/25/2019 15:20 EDT Outcomes Affect/Behavior Changed : Encouraged Appreciation Expressed : Yes Thoughts, Feelings and Emotions Exp. : Yes Supportive Relationships Described : , Son VIJAY DELCID 04/25/2019 15:20 EDT documented in this encounter Plan of Treatment Not on file documented as of this encounter Visit Diagnoses Not on filedocumented in this encounter
--- OUTSIDE RECORDS SUMMARY | 2025-04-25 12:04 | XMS_ITS | Encounter Summary ---
Author Organization [employer] ([place], [place], [place], [place]) Address [address] [place] [address] Care Team Providers Care Tetryl Boiling Tub Operator Name Role Phone Unavailable Primary Care Provider Unavailabl e Encounter Details Date Type Department Care Team (Late st Contact Info) Description 04/25/2019 Transcribed Document [facility] [place] [place] [address] ProviderLuis Armando MD [facility] [place] [id number] Social History Tobacco Use Types Packs/Day Years Used Date Smoking Tobacco: Never Assessed Comments Unknown Sex and Gender Information Value Date Recorded Sex Assigned at Not on file Legal Sex Female 7:30 PM CDT Gender Identity Not on file Sexual Orientation Not on file documented as of this encounter Miscellaneous Notes * Cerner Conversion Note - Luis Armando Spear MD - 04/25/2019 11:33 AM CDT Patient: EMELY ROB Age: 68 years Sex: Female : 1950 Associated Diagnoses: None Author: MJ MORGAN MD-INF Infectious Disease Consul/Initial Hospital visit CC: [...] to evaluate and manage her antibiotic therapy. Past medical/surgical history: Presbycusis???with severe left hearing [...] Social history: She is and resides in [place]. 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 and [...] Temp 97.8 (APR 25 11:00) 97.8 (APR 25:) 97.8 ([facility] 25 06:) Mon HR 67 (APR 25:00) 67 (APR 25 11:00) 67 (APR 25 11:00) Resp Rate 16 (APR 25 11:00) 16 (APR 25 11:00) 16 ([facility] 11:00) SBP H 147 ([facility] 11:00) H 147 ([facility] 11:00) H 147 ([facility] 11:00) DBP 67 (APR 25 11:00) 67 (APR 25 11:00) 67 (APR 25 11:00) SpO2 98 (APR 25 11:00) 98 (APR 25 11:00) 98 ([facility] 11:00) General: [Alert and oriented, well nourished, [...] CN II-XII intact]. Musculoskeletal: Her left knee wound is healed well c/d/i Labs: Labs (Last four charted values) WBC 4.5 [...] Repeat left knee cultures from 01/21 surgery--negative Radiology: No Radiology Results Found Assessment: 1. 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 8 weeks of Rocephin ended 03/04/19. Will give her Rocephin 2 GM IV post-operative after L TKA re-implantation 2. Status post left total knee arthroplasty???02/02/17 3. History of penicillin allergy???despite her penicillin allergy she has tolerated cephalosporin antibiotics Plan/Recommendations: 1. Rocephin 2 GM IV daily post-operatively for 2 weeks 2. PICC line UM/LEONARDO: Outpatient Orders: 1. On day of discharge, she will need Rocephin 2 GM IV at 9:00 a.m. before discharge 2. Then on discharge, she will come the following day to [facility] office for Rocephin 2 GM IV daily for 2 weeks. 3. Qweekly PICC line dressing changes in [facility] office 4. Qweekly CBC, CMP, ESR, CRP in [facility] office 5. Follow up with Radha Pruett APRN on 04/28/19 at 10:00 a.m. 6. Fax this note to [phone] Mj Morgan MD saw and examined patient, verified findings, reviewed labs and radiographic data, formulated diagnosis, plan for treatment, and all medical decision making. Lewis Castillo for Dr. Mj Morgan. Electronically signed by Adwoa [facility] Conversion Metal Furniture Polisher Cerner at 11/11/2022 8:51 PM CDT documented in this encounter Plan of Treatment Not on file documented as of this encounter Visit Diagnoses Not on filedocumented in this encounter
--- OUTSIDE RECORDS SUMMARY | 2025-04-25 12:04 | XMS_ITS | Encounter Summary ---
Author Organization [employer] ([place], [place], [place], [place]) Address [address] [place] [address] Care Team Providers Care Critical Care Cns Name Role Phone Unavailable Primary Care Provider Unavailabl e Encounter Details Date Type Department Care Team (Late st Contact Info) Description 04/25/2019 Transcribed Document [facility] [place] Family Medicine [facility] [place] [address] ProviderLuis Armando MD [facility] [place] [address] Social History Tobacco Use Types [...] ProviderMD - 04/25/2019 6:19 PM CDT Evaluation, Physical Therapy Entered On: 04/26/2019 12:21 EDT Performed On: 04/26/2019 12:12 EDT by EV ZAMORA, PT General Information, PT Visit Type, PT [...] By: CHANEL DYSON MD-ORT Active Diagnoses : 04/26/2019 12:00 Presence of unspecified artificial knee joint Therapy Diagnosis, PT : Aftercare following L TKA revision Onset of Problem, PT : 04/25/2019 EDT Admission Date : 04/25/2019 06:55 Assisted by, PT : Occupational Therapist Personal Devices : Personal Devices No Devices Recorded Assistive Devices : Assistive Devices No Devices Recorded General Information Comment, PT : L TKA revision/replant following antibiotic spacer. ROM and WBAT, normal TKA protocol EV ZAMORA, PT - 04/26/2019 12:12 EDT General Status Patient Received Status : Supine in bed Treatment Start Time : 04/26/2019 10:31 EDT Patient Left Status : Up in chair, RN/PCT informed, Family/Visitors at bedside, Communication board completed, All needs met and within reach, Other: Heel prop, SCd's, ICe RN/PCT Informed Comment : RN matthew and pt consent Treatment End Time : 04/26/2019 11:01 EDT Treatment Time : 30 Minute(s) EV ZAMORA, PT - 04/26/2019 12:12 EDT History and Environment Living Situation, Therapy : Home Patient Lives With : Spouse Persons Assisting Patient at Home : Child/Children, Spouse Professional Skilled Services : Physical Therapy Persons Providing Information : Patient, Child/Children Home Equipment Therapy, PT : Commode, Shower Equipment, Walker, Wheelchair Commode : Commode, bedside Shower Equipment : Shower Chair, with back Walker : Walker, front wheel Wheelchair : Wheelchair, standard Home Setup : One story Stairs : No Ramp : Yes EV ZAMORA, PT - 04/26/2019 12:12 EDT Prior Level of Function PT GRID Prior LOF Ambulation, Household : Assist needed Prior LOF Ambulation, Community : Assist needed Prior LOF Bed Mobility : Assist needed Prior LOF Toileting : Assist needed Prior LOF Transfer : Assist needed Prior LOF Wheel Chair Mobility : Assist needed EV ZAMORA, PT - 04/26/2019 12:12 EDT Upper Extremity Right UE Active ROM : WFL Right UE Strength : WFL Left UE Active ROM : WFL Left UE Strength : WFL EV ZAMORA, PT - 04/26/2019 12:12 EDT Lower Extremity RLE Active ROM : WFL Right LE Strength : WFL LLE Active ROM : Impaired Left LE Strength : Impaired EV ZAMORA, PT - 04/26/2019 12:12 EDT Left Lower Extremity Range of Motion Knee Flexion (0-140) Knee Extension (0-0) Active : 0 Active Assist : 86 EV ZAMORA, PT - 04/26/2019 12:12 EDT EV ZAMORA, PT - 04/26/2019 12:12 EDT Functional Mobility Mobility Grid Supine to Sit : Supervision/set-up Sit to Stand : Rehab Minimal assistance Stand to Sit : Supervision/set-up EV ZAMORA PT - 04/26/2019 12:12 EDT Sit to Stand Device : Belt, gait, Walker, front wheel Bed to Chair Device : Belt, gait, Walker, front wheel EV ZAMORA, PT - 04/26/2019 12:12 EDT Gait Training/Assessment, PT Weight Bearing Status : As tolerated Gait Assistance Level : Assist, minimal Walking Distance : 50ft with intermittent Rosina, pt required cues to slow gait and emphasize visual location of foot to avoid inversion due to nerve block. cues to increase use of BUE's on RWx for support Ambulatory Devices : Gait belt, Walker, front wheel Gait Deviations : Yes EV ZAMORA, PT - 04/26/2019 12:12 EDT Neuromuscular Reeducation, PT Balance Comment : SBA static sitting, CGA-SBA static standing with RWx EV ZAMORA, PT - 04/26/2019 12:12 EDT Neurological/Sensory Overall Sensory Response : Intact Overall Sensory Response Comment : L foot drop EV ZAMORA, PT - 04/26/2019 12:12 EDT Activity Tolerance, PT Activity Comment : Excellent with no acute complaints, cues required for safety and to slow pt down EV ZAMORA, PT - 04/26/2019 12:12 EDT Cognition Assessment, PT Orientation : Oriented x 4 Attention Assessment : Present EV ZAMORA PT - 04/26/2019 12:12 EDT Edu Topics Physical Therapy Education Grid Bed Mobility Training : Returns demonstration Gait Training : Returns demonstration, Needs reinforcement Home Program/Exercises : Verbalizes understanding Role of Physical Therapy : Verbalizes understanding Safety : Verbalizes understanding Therapeutic Exercises : Returns demonstration Transfer Training : Returns demonstration Use of Assistive Device : Returns demonstration EV ZAMORA, PT - 04/26/2019 12:12 EDT Indication Assesessment, PT Physical Therapy Indicated : Yes PT Problem List : Impaired, endurance tolerance, Impaired, gait, Impaired, joint mobility, Impaired, stair mobility, Impaired, standing balance, Impaired, strength, Impaired, transfers Potential Barriers To Therapy : None evident Rehabilitation Potential : Good EV ZAMORA, PT - 04/26/2019 12:12 EDT Plan of Care, PT PT Tx Plan/Goals Established w Patient : Yes PT Frequency Rehab : Daily, twice (bid) PT Duration Rehab : Fourteen days PT Treatments Planned : Gait training, Safety education, Stair training, Therapeutic exercises, Transfer training EV ZAMORA, PT - 04/26/2019 12:12 EDT Fdc Goals Mobility/Bed Mobility LTG PT Grid Goal #1 Activity : Sit to stand Assist : Independent, modified Equipment : Walker, front wheel Date to Meet : 05/10/2019 EDT Goal Status : Intial Goal EV ZAMORA, PT - 04/26/2019 12:12 EDT Ambulation LTG Grid Goal #1 Device : Walker, front wheel Distance : 150ft Assist : Independent, modified Date to Meet : 05/10/2019 EDT Goal Status : Intial Goal EV ZAMORA, PT - 04/26/2019 12:12 EDT Stairs LTG Grid Goal #1 Device : Walker, front wheel Number of Steps : 0 Handrail(s) : No handrails Assist : Assist, minimal Date to Meet : 05/10/2019 EDT Goal Status : Intial Goal Comment : Ascend/descend ramp EV ZAMORA, PT - 04/26/2019 12:12 EDT Treatment Note Subjective Comment : Pt agreeable to PT eval and subsequent treatment, denies pain at rest. Patient's Response to Treatment : Pt still with persistent foot drop and LLE paresthesias. Noted frequent L ankle inversion during weight bearing, improved with cues to visually identify foot placement during initial contact and increase use of BUE's on RWx for support. No knee buckling observed. Tolerates therex well. Additional Objective Information : L knee ROM 0-86 degrees, active assist required due to hamstring weakness. SBA sup-sit Rosina sit-stand with RWx Rosina-SBA gait x 50ft with RWx, cues to minimize ankle inversion due to paresthesias. Pt performed 10 reps of ankle pumps, quad sets, glut sets, LAQ, SAQ, hip abduction, heel slides, SLR. Assessment : Pt demonstrates god initial tolerance to mobility but still has deficits persisting from peripheral nerve block. Pt will continue to benefit from skilled therapy to maximize safety and independence during functional tasks and for progression of TKA protocol including ROM and swelling management. Plan for Treatment : Continue BID EV ZAMORA, PT - 04/26/2019 12:12 EDT Pain Assessment Pain Scaled Used : 0-10 Pain scale Pain Score Pre-Intervention : 0 Pain Score Post-Intervention. : 0 EV ZAMORA, PT - 04/26/2019 12:12 EDT Image 1 - Images currently included in the form version of this document have not been included in the text rendition version of the form. Anticipated Discharge Needs, OT/PT Anticipated Discharge to : Home, with home health Anticipated Home Equipment : None Recommend Continued Therapy at Discharge : Yes EV ZAMORA, PT - 04/26/2019 12:[address] [facility] PT Charges Gait Training Each 15 Min : 1 PT Eval Low Complexity : 1 EV ZAMORA PT - 04/26/2019 12:12 EDT documented in this encounter Plan of Treatment Not on file documented as of this encounter Visit Diagnoses Not on filedocumented in this encounter
--- OUTSIDE RECORDS SUMMARY | 2025-04-25 12:05 | XMS_ITS | Encounter Summary ---
Author Organization [employer] ([place], [place], [place], [place]) Address [address] [place] [address] Care Team Providers Care Multiple Drum Sander Name Role Phone Unavailable Primary Care Provider Unavailabl e Encounter Details Date Type Department Care Team (Late st Contact Info) Description 01/21/2019 Transcribed Document [facility] [place] Family Medicine [address] [place] [address] ProviderLuis Armando MD [address] [place] [address] Social History Tobacco Use Types Packs/Day Years Used Date Smoking Tobacco: Never Assessed Comments Unknown Sex and Gender Information Value Date Recorded Sex Assigned at Not on file Legal Sex Female 7:30 PM CDT Gender Identity Not on file Sexual Orientation Not on file documented as of this encounter Miscellaneous Notes * Cerner Conversion Note - Historical ProviderMD - 01/21/2019 11:05 AM CDT Consult Phone Call Documentation Entered On: 01/21/2019 20:12 EDT Performed On: 01/21/2019 11:05 EDT by CJ MAURO RN Phone Call for Consults Consult, Additional Information : tracy notified and saw pt this eventing CJ MAURO RN - 01/21/2019 20:11 EDT Electronically signed by [employer] Conversion Licensed Marriage And Family Therapist Cerner at 11/11/2022 8:44 PM CDT documented in this encounter Plan of Treatment Not on file documented as of this encounter Visit Diagnoses Not on filedocumented in this encounter
--- OUTSIDE RECORDS SUMMARY | 2025-04-25 12:05 | XMS_ITS | Encounter Summary ---
Author Organization [employer] ([place], [place], [place], [place]) Address [address] [place] [address] Care Team Providers Care Eyewear Manufacturing Tech Name Role Phone Unavailable Primary Care Provider Unavailabl e Encounter Details Date Type Department Care Team (Late st Contact Info) Description 01/21/2019 Transcribed Document [facility] [place] [facility] [place] [address] ProviderLuis Armando MD [address] [id number] Social History Tobacco Use Types Packs/Day Years [...] Armando ProviderMD - 01/21/2019 12:48 PM CDT [facility] Main OR PACU Summary Primary Physician: CHANEL DYSON MD-ORT Finalized Date/Time: 01/21/19 15:29:10 Pt. Name: EMELY VILLANUEVA /Sex: 1950 Female Med Rec #: [id number] Physician: CHANEL DYSON MD-ORT Financial #: [id number] Pt. Type: I Room/Bed: ASA/9 Admit/Disch: 01/21/19 05:45:00 - Institution: [facility] Main OR PACU I Case Times Entry 1 In PACU I 01/21/19 14:49:00 Ready for PACU 01/21/19 15:30:00 Discharge Discharge from PACU 01/21/19 15:30:00 I Last Modified By: Melanie Landry RN 01/21/19 15:29:08 Finalized By: Melanie Landry RN Document Signatures Signed By: Melanie Landry RN 01/21/19 15:29 documented in this encounter Plan of Treatment Not on file documented as of this encounter Visit Diagnoses Not on filedocumented in this encounter
--- OUTSIDE RECORDS SUMMARY | 2025-04-25 12:05 | XMS_ITS | Encounter Summary ---
Author Organization [employer] ([place], [place], [place], [place]) Address [address] [place] [address] Care Team Providers Care Knit Goods Press Hand Name Role Phone Unavailable Primary Care Provider Unavailabl e Encounter Details Date Type Department Care Team (Late st Contact Info) Description 01/21/[address] [facility] Radiology [address] [place] [address] Dao Doty MD [address] [place] [address] Social History Tobacco Use Types Packs/Day Years Used Date Smoking Tobacco: Never Assessed Comments Unknown Sex and Gender Information Value Date Recorded Sex Assigned at Not on file Legal Sex Female 7:30 PM CDT Gender Identity Not on file Sexual Orientation Not on file documented as of this encounter Miscellaneous Notes * Cerner Conversion Note - Dao Doty MD - 01/21/2019 11:43 AM EDT Patient: EMELY ROB Age: 68 Years Sex: Female : 1950 Primary Care Provider CHAU AJ [facility] History of Present Illness infected L TKA Vital Signs Oxygen Settings (Last) Oxygen Therapy Mode: Room air (01/18/19 12:00:00 EDT) Physical Exam TKA infection Assessment/Plan explant/spacer L TKA Infection and inflammatory reaction due to internal left knee prosthesis, initial encounter, Infection and inflammatory reaction due to internal left knee prosthesis, initial encounter Orders: Admit to Inpatient VTE Prophylaxis - Medical No VTE Prophylaxis Orders. Problem List/Past Medical History Ongoing Arthritis At [...] right (2010), Sinus Surgery (1997), hysterectomy (1987). Home Medications (7) Active aspirin 81 mg oral tablet 81 mg = 1 Tab, Oral, Daily citalopram 20 mg, Oral, Daily lisinopril 10 mg, Oral, Daily Maxzide 25/37.5 mg Tab, Oral, Daily PreserVision AREDS 2 1 Cap, Oral, BID simvastatin 20 mg, Oral, At Bedtime Vitamin D3 5,000 Int Units, Oral, Daily Allergies Bananas Benadryl (Itching, Rash) Chocolate (Shortness of breath, Hives) Darvon Demerol HCl Kiwi (Itching, Rash) Latex Lortab (Itching) Pineapple codeine (Tachycardia) penicillin Social History Alcohol Alcohol Use History Yes. Use in Last 12 Months: Yes. Alcohol Use Frequency Rarely. Substance Abuse Drug Use Hx: No. Use in Last 12 Months: No. Tobacco Last Used: quit in 1998. Use in Last 12 Months: No. Years of Use: 10. Packs/Tins Daily: .50. Additional Documentation Code Status No Code Status Order on Record documented in this encounter Plan of Treatment Not on file documented as of this encounter Visit Diagnoses Not on filedocumented in this encounter
--- OUTSIDE RECORDS SUMMARY | 2025-04-25 12:05 | XMS_ITS | Encounter Summary ---
Author Organization [employer] ([place], [place], [place], [place]) Address [address] [place] [address] Care Team Providers Care Ekg Monitor Name Role Phone Unavailable Primary Care Provider Unavailabl e Encounter Details Date Type Department Care Team (Late st Contact Info) Description 01/21/2019 Transcribed Document [facility] [place] [facility] [place] [address] ProviderLuis Armando MD [address] [place] [address] Social History Tobacco Use Types [...] 2:35 PM CDT Pain Assessment Entered On: 01/23/2019 4:32 EDT Performed On: 01/23/2019 0:29 EDT by Patricia Langford Rn Intervention Information: oxyCODONE Performed by Patricia Langford Rn on 01/22/2019 23:29:00 EDT oxyCODONE,10mg Oral,Pain (Severe 7-10) Pain Assessment [...]
--- OUTSIDE RECORDS SUMMARY | 2025-04-25 12:05 | XMS_ITS | Clinical Summary ---
Author Organization Healthcare Address [address] [place] [address] Care Team Providers Care Occupational Therapy Supervisor Name Role Phone Mari Alvarez DO Primary Care Provider [phone] Allergies Active Allergy Reactions Criticality Noted Date Comments Codeine Palpitations,Rash Low 01/19/2015 Diphenhydramine Palpitations Low 01/19/2015 Hydrocodone Hives Medium 01/19/2015 Latex Anaphylaxis,Hives High 01/19/2015 Hydrocodone-Acetaminophen Unknown - [place] ent states they do not know rxn details Low 09/12/2024 Meperidine Palpitations Low 01/19/2015 Penicillins Rash Low 01/19/2015 Propoxyphene Anxiety Medium 04/26/2019 Medications ALPRAZolam (Xanax) 0.25 MG tablet PLEASE SEE ATTACHED FOR DETAILED DIRECTIONS 4 Active citalopram (CeleXA) 20 MG tablet Take 1 tablet (20 mg) by mouth 1 (one) time each day. 4 Active gabapentin (Neurontin) 100 MG capsule Take 1 capsule (100 mg) by mouth 3 (three) times a day. Active levothyroxine (Synthroid, Levoxyl) 88 MCG tablet Take 1 tablet (88 mcg) by mouth 1 (one) time each day. 4 Active lisinopril 10 MG tablet Take 1 tablet (10 mg) by mouth 1 (one) time each day. 4 Active simvastatin (Zocor) 20 MG tablet Take 1 tablet (20 mg) by mouth 1 (one) time each day. 4 Active triamterene-hyd roCHLOROthiazid e (Dyazide) 37.5-25 MG capsule Take 1 capsule by mouth 1 (one) time each day. Active multivitamin-mi nerals-folic acid-coenzyme q10 (Preservision AREDS 2) capsule Take 1 capsule by mouth daily. 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 12/02/2023 Cervicalgia 05/13/2023 Fatigue 04/09/2021 Adenomatous polyp of transverse colon 02/13/2020 Change in bowel habits 02/13/2020 History of total knee arthroplasty 06/07/2019 Hyperlipidemia 11/17/2018 Essential hypertension 11/17/2018 Vitamin D deficiency 11/17/2018 Recurrent major depressive disorder, in full rem ission 11/17/2018 Osteopenia of necks of both femurs 11/17/2018 Idiopathic osteoarthritis 11/22/2015 Pain in left knee 11/22/2015 Resolved Problems Problem Noted Date Diagnosed Date Resolved Date Diarrhea 02/13/2020 04/16/2025 Social History Tobacco Use Types Packs/Day Years Used Date Smoking Tobacco: Former Cigarettes - 1994 Passive Smoke Exposure: Past Smokeless Tobacco: Never Tobacco Cessation:Counseling Given: Not Answered Comments Unknown Sex and Gender Information Value Date Recorded Sex Assigned at Not on file Legal Sex Female 3:08 PM EDT Gender Identity Not on file Sexual Orientation Not on file Plan of Treatment Health Maintenance Due Date Last Done Comments [facility]-Depression Screening 1948 [facility]-/Child/Adol SDOH Screenings 1950 [facility]- SDOH Screenings 1966 [facility]-Adult SDOH Screenings 1966 [facility]-DTaP,Tdap,and Td Vaccines (1 - Tdap) 1967 [facility]-Zoster Vaccines (2 of 2) 11/09/2019 09/14/2019 [facility]Medicare Annual Wellness (AWV) 04/06/2024 04/06/2023, 04/03/2022, 03/09/2020 [id number] Vaccine ( season) 2025 06/26/2023, 04/18/2022, 05/24/2021, Additional history exists [facility]-Influenza Vaccine (#1) 03/27/202507/12, 04/30/2023, 05/06/2022, Additional history exists [facility]-Bone Density Scan 05/29/2025 05/29/2023 [facility]-Hepatitis C Screening Completed 11/17/2018 [facility]-Pneumococcal Vaccine: 50+ Years Completed 05/25/2019, 03/27/2017 [facility]-RSV Vaccine: 60+ Years or Completed 07/26/2024 HPV Vaccines Aged Out No longer eligi ble based on patient's age to complete this topic [facility]-HIB Vaccines Aged Out No longer e ligible based on patient's age to complete this topic [facility]-Hepatitis A Vaccines Aged Out No longer eligible based on patient's age to complete this topic [facility]-IPV Vaccines Aged Out No longer e ligible based on patient's age to complete this topic [facility]-Rotavirus Vaccines Aged Out No lo nger eligible based on patient's age to complete this topic Insurance MEDICARE [facility] Care Teams Occupational Therapy Supervisor Relationship Specialty Start Date End Date Mari Alvarez DO [address] [place], [place] [id number] [facility] - General 09/12/24
[2025-04-25 16:25] LABS: C. difficile PCR (HMH) Negative (Negative)
[2025-04-27 08:23] LABS: Calprotectin, Fecal 327 ug/g (0-120)
[2025-04-27 11:12] LABS: Pancreatic Elastase, Fecal 278 (>200)
== END 2025-04-25 23:59 | disposition home or self-care (01) ==
LOC: LAB 11:54
PROVIDERS: PCP Family Medicine; Visit Provider Nurse Practitioner Family
DX: R19.7 Diarrhea, unspecified (principal); R15.2 Fecal urgency
CPT/HCPCS: 82653; 83993; 87045; 87493